=== PATIENT | female | born 1970 | race Caucasian/White ===

== ENCOUNTER 2024-03-27 13:31 | Emergency (ER) | payer OTHER, SELFPAY ==
--- OUTSIDE RECORDS SUMMARY | 2024-03-27 13:36 | XMS REPORT | Continuity of Care Document ---
Author Name Unknown Address [address] [facility] [address] [place] [address] [facility] Address [address] [facility] [address] [place] [address] Care Team Providers Care Material Processor Name Role Phone Pcp, Patient Does Not Have A Primary Care Physic carly FLORA WARNER Attending Clinician Unavailable SHAYY FIGUEROA Attending Clinician Unavailable ANA URBINA Attending Clinician Unavailable BRUNA HANSEN Attending Clinician Unavailable LAB90 Attending Clinician Unavailable Milind Starr MD Attending Clinician [phone] MILIND STARR Attending Clinician Unavailable Doctor Unassigned, Opal Attending Clinician U ykmailIrma Garland Attending Clinician [phone] IRMA CASTILLO Attending Clinician UnavailSoco Cabello LVN Attending Clinician [phone] Manoj Jhaveri MD Attending Clinician [phone] Yasmani Barragan Attending Clinician [phone] MANOJ JHAVERI Admitting Clinician Unavailable Manoj Jhaveri MD Admitting Clinician [phone] Payers Payer Name Policy Type Policy Number Effective Date Expirati on Date Source [employer]: HMO [employer] 94 ON STAND 9 [id number] 2022 00:00:00 Problems Condition Name Condition Details Condition Category Status Onset Date Resolution Date Last Treatment Date Treating Clinician Comments Source Immunodefi 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 (multi HCC) Immunodefi 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 (multi HCC) Disease Active 07-16 00:00: 00 Marie Martinezold - Externa l Class 1 obesity due to excess calories with serious comorbidit y and body mass index (BMI) of 32.0 to 32.9 in adult Class 1 obesity due to excess calories with serious comorbidit y and body mass index (BMI) of 32.0 to 32.9 in adult Disease Active 06-28 00:00: 00 Marie Sebharatold - Externa l Well adult exam Well adult exam Disease Active 06-28 00:00: 00 Marie Seybold - Externa l Overweight (BMI 25.0-29.9) Overweight (BMI 25.0-29.9) Disease Active 06-28 00:00: 00 Marie Sebharatold - Externa l Family history of colon cancer in mother Family history of colon cancer in mother Disease Active 06-28 00:00: 00 Marie Sebharatold - Externa l Fatty liver Fatty liver Disease Active 06-27 00:00: 00 Overview: Formattin g of this note might be different from the original. confirmed with CT 2018 Marie Martinezold - Externa l Anxiety Anxiety Disease Active 05-24 00:00: 00 Marie Martinezold - Externa l Back pain Back pain Disease Active 05-24 00:00: 00 Marie Otto - Externa l Depression Depression Disease Active 05-24 00:00: 00 Marie Seybold - Externa l History of herniated interverte bral disc History of herniated interverte bral disc Disease Active 05-24 00:00: 00 Marie Sebharatold - Externa l Hypertensi on Hypertensi on Disease Active 05-24 00:00: 00 Marie Seybold - Externa l Insomnia Insomnia Disease Active 05-24 00:00: 00 Marie Seybold - Externa l DM (diabetes mellitus) (multi HCC) DM (diabetes mellitus) (multi HCC) Disease Active 05-24 00:00: 00 Marie Otto - Externa l Low back pain with sciatica, sciatica laterality unspecifie d, unspecifie d back pain laterality , unspecifie d chronicity Low back pain with sciatica, sciatica laterality unspecifie d, unspecifie d back pain laterality , unspecifie d chronicity Disease Active 7-15 00:00: 00 [facility] History of back surgery History of back surgery Disease Active 1- 00:00: 00 Overview: Formattin g of this note might be different from the original. Herniated disc repair. Seen by neurosurg lashonda Butterfield l Fracture of phalanx of left little finger Fracture of phalanx of left little finger Disease Active 06-17 00:00: 00 [facility] Fracture of phalanx of right thumb Fracture of phalanx of right thumb Disease Active 06-17 00:00: 00 [facility] Concussion with brief LOC Concussion with brief LOC Disease Active 06-16 00:00: 00 [facility] Syncope Syncope Disease Active 2016-10 00:00: 00 [facility] Essential hypertensi on Essential hypertensi on Disease Active 4- 00:00: 00 [facility] Chronic lower back pain Chronic lower back pain Disease Active [facility] Allergies, Adverse Reactions, Alerts Allergy Name Allergy Type Status Severity Reaction(s) Onset Date Inactive Date Treating Clinician Comments Source NO KNOWN ALLERGIE S Drug Class Active [facility] Social History Social Habit Start Date Stop Date Quantity Comments Source Gender identity Rivka Otto - External Sexual orientation K juan francisco Otto - External History of tobacco use Cigarette Smoker Marie hurd - External Alcohol intake 2023-10-18 00:00:00 2023-10-18 00:00:00 Current drinker of alcohol (finding) Marie Otto - External History of Social function 2023-07-23 00:00:00 2023-07-23 00:00:00 Marie Otto - External Tobacco use and exposure 2023-05-23 00:00:00 2023-05-23 00:00:00 Smokeless tobacco non-user Marie Otto - Oleg Alcohol Comment 2023-05-23 00:00:00 2023-05-23 00:00:00 socially Marie Clarita - External Education 2023-05-12 00:00:00 2023-05-12 00:00:00 [facility] Sex Assigned At 1970 00:00:00 1970 00:00:00 Marie lAvesbharatvickey - External Smoking Status Start Date Stop Date Source Ex-smoker 2023-05-23 00:00:00 2023-05-23 00:00:00 Regan Otto - External Medications Ordered Medication Name Filled Medication Name Start Date Stop Date Current Medication? Ordering Clinician Indication Dosage Frequency Signature (SIG) Comments Components Source Sertraline HCl 50 MG oral Tablet 2022-10 00:00: 00 Yes [id number] 50mg Take 1 tablet (50 mg total) by mouth daily. Marie stanford Trulicity 1.5 MG/0.5ML subcutaneou s Solution Pen-injecto r 2022-10 00:00: 00 Yes [id number] 1.5mg Inject 1.5 mg into the skin once a week. Marie stanford Pregabalin (Lyrica) 75 MG oral Capsule 2022-10 00:00: 00 Yes [id number] Take one cap after breakfast & 2 caps at bedtime. No driving. No alcohol. No operating machinery. . Marie stanford Mirtazapine 15 MG oral Tablet 2022-10 00:00: 00 Yes [id number] 15mg QD Take 1 tablet (15 mg total) by mouth nightly as needed. Marie Jordana abdoulaye Pregabalin (Lyrica) 75 MG oral Capsule 2022-10 00:00: 00 Yes [id number] 75mg Take 1 capsule (75 mg total) by mouth 2 times daily No driving. No alcohol. No operating machinery. . Marie Jordana abdoulaye Mirtazapine 15 MG oral Tablet 07-18 00:00: 00 Yes [id number] 15mg QD TAKE 1 TABLET BY MOUTH NIGHTLY NEEDED FOR INSOMNIA Marie stanford Trulicity 0.75 MG/0.5ML subcutaneou s Solution Pen-injecto r 9-14 00:00: 00 Yes [id number] .75mg Inject 0.75 mg into the skin once a week. Marie stanford Pioglitazon e HCl (Actos) 30 MG oral Tablet 06-28 00:00: 00 Yes [id number] 30mg Take 1 tablet (30 mg total) by mouth daily. Marie stanford Methocarbam ol 500 MG oral Tablet 06-23 00:00: 00 Yes [id number] 1000mg Take 2 tablets (1,000 mg total) by mouth 4 times daily. Marie stanford Gabapentin 600 MG oral Tablet 06-23 00:00: 00 08-07 00:00 :00 No [id number] 600mg Take 1 tablet (600 mg total) by mouth 3 times daily. Marie stanford Pioglitazon e HCl (Actos) 15 MG oral Tablet 06-09 00:00: 00 06-28 00:00 :00 No [id number] 15mg Take 1 tablet (15 mg total) by mouth daily Marie stanford cephALEXin (KEFLEX) 500 mg capsule 05-30 00:00: 00 Yes [id number] 500mg Take 1 capsule by mouth 4 (four) times daily. [facility] Metformin HCl 500 MG oral Tablet 05-29 00:00: 00 Yes [id number] 1000mg Take 2 tablets (1,000 mg total) by mouth in the morning and 2 tablets (1,000 mg total) in the evening. Take with meals. Marie stanford Omeprazole 20 MG oral Delayed Release Capsule 05-24 11:58: 13 05-24 00:00 :00 No 20mg Take 1 capsule (20 mg total) by mouth daily Marie stanford Valsartan 40 MG oral Tablet 05-24 11:57: 38 05-24 00:00 :00 No 40mg Take 1 tablet (40 mg total) by mouth daily Marie stanford Metformin HCl 500 MG oral Tablet 05-24 11:57: 38 05-24 00:00 :00 No 500mg Take 1 tablet (500 mg total) by mouth in the morning and 1 tablet (500 mg total) in the evening. Take with meals. Marie stanford Sertraline HCl 25 MG oral Tablet 05-24 11:56: 48 05-24 00:00 :00 No 25mg Take 1 tablet (25 mg total) by mouth daily Marie stanford Ketorolac Tromethamin e 10 MG oral Tablet 05-24 11:56: 48 05-24 00:00 :00 No 10mg Q.25D Take 1 tablet (10 mg total) by mouth every 6 hours as needed for pain Marie stanford INSULIN ISOPHANE & REG MIX, HUMAN, (70-30) 100 UNIT/ML subcutaneou s Suspension 05-24 11:46: 57 05-24 00:00 :00 No Inject into the skin Marie stanford Zolpidem Tartrate (AMBIEN OR) 05-24 11:45: 51 05-24 00:00 :00 No Take by mouth Marie stanford HYDROcodone -Acetaminop hen (NORCO) 5-325 MG oral Tablet 05-24 11:45: 29 05-24 00:00 :00 No 1{tbl} Q4H Take 1 tablet by mouth every 4 hours as needed for pain 7 to 10 Marie stanford diazePAM 5 MG oral Tablet 05-24 11:44: 05 05-24 00:00 :00 No 2.5mg Q.[id number] 3D Take 0.5 tablets (2.5 mg total) by mouth every 8 hours as needed Marie stanford Sertraline HCl 25 MG oral Tablet 05-24 00:00: 00 Yes [id number] 25mg Take 1 tablet (25 mg total) by mouth daily Marie stanford Valsartan 40 MG oral Tablet 05-24 00:00: 00 Yes [id number] 40mg Take 1 tablet (40 mg total) by mouth daily Marie stanford Omeprazole 20 MG oral Delayed Release Capsule 05-24 00:00: 00 Yes [id number] 20mg Take 1 capsule (20 mg total) by mouth daily Marie stanford Glucose Blood in vitro Strip 05-24 00:00: 00 Yes [id number] 1{each} 1 each by other route daily Check BS twice daily Marie stanford Ketorolac Tromethamin e 10 MG oral Tablet 05-24 00:00: 00 Yes [id number] 10mg QD Take 1 tablet (10 mg total) by mouth daily as needed for pain Marie stanford Metformin HCl 500 MG oral Tablet 05-24 00:00: 00 Yes [id number] 500mg Take 1 tablet (500 mg total) by mouth in the morning and 1 tablet (500 mg total) in the evening. Take with meals. Marie stanford Mirtazapine 15 MG oral Tablet 05-24 00:00: 00 Yes [id number] 15mg QD Take 1 tablet (15 mg total) by mouth nightly as needed (insomnia) Marie stanford Glucose Blood in vitro Strip 05-24 00:00: 00 Yes [id number] 1{each} 1 each by other route daily Check BS twice daily Marie stanford Gabapentin 600 MG oral Tablet 05-23 14:36: 22 Yes 600mg Take 1 tablet (600 mg total) by mouth 3 times daily Marie stanford Methocarbam ol 500 MG oral Tablet 05-23 14:35: 56 Yes 1000mg Take 2 tablets (1,000 mg total) by mouth 4 times daily Marie stanford SERTraline 25 mg tablet 05-19 00:00: 00 06-19 04:59 :00 No [id number] 25mg Take 1 tablet by mouth in the morning for 30 days. [facility] omeprazole 20 mg capsule 05-19 00:00: 00 06-19 04:59 :00 No [id number] 20mg Take 1 capsule by mouth in the morning for 30 days. [facility] valsartan 40 mg tablet 05-19 00:00: 00 06-19 04:59 :00 No [id number] 40mg Take 1 tablet by mouth in the morning for 30 days. [facility] Methylpredn isolone (MEDROL) tablet 4 mg 05-18 22:19: 26 05-19 22:29 :00 No 4mg 4 mg, Oral, Q8H TAPER, 3 doses, First dose on Mon05/18/23 at 1730, Last dose on Mon05/19/23 at 0930, Routine [facility] insulin NPH and regular human 70-30 (70-30 U-100 INSULIN) 100 unit/mL (70-30) injection 20 Units 05-18 21:30: 00 Yes 20U 20 Units, Subcutaneo us, BIDAC, First dose (after last modificati on) on Mon05/18/23 at 1630, Until Discontinu ed, Routine [facility] metFORMIN 1,000 mg tablet 05-18 18:04: 28 Yes 1000mg Take 1 tablet by mouth in the morning and 1 tablet in the evening. Take with meals. [facility] lancets (SAFETY LANCETS) 21 gauge Misc 05-18 00:00: 00 Yes [id number] Use as directed [facility] insulin syringe-nee dle U-100 1/2 ml (INSULIN SYRINGE) 1/2 mL 28 gauge x 1/2" Syrg 05-18 00:00: 00 Yes [id number] Use as directed [facility] Blood-Gluco se Meter (FREESTYLE LITE METER) Kit 05-18 00:00: 00 Yes Use as directed [facility] blood sugar diagnostic (FREESTYLE LITE STRIPS) strip 05-18 00:00: 00 Yes [id number] Use as directed [facility] Insulin Bromide, Disposable, (BD ULTRAFINE III MINI PEN) 31 gauge x 3/16" Ndle 05-18 00:00: 00 09-01 04:59 :00 No [id number] Use as directed [facility] gabapentin 600 mg tablet 05-18 00:00: 00 06-18 04:59 :00 No [id number] 600mg Take 1 tablet by mouth in the morning and 1 tablet at noon and 1 tablet in the evening. Do all this for 30 days. [facility] methocarbam oL 1,000 mg Tab 05-18 00:00: 00 06-18 04:59 :00 No [id number] 1000mg Take 1,000 mg by mouth 4 (four) times daily for 30 days. [facility] docusate 100 mg capsule 05-18 00:00: 00 06-02 04:59 :00 No [id number] 100mg Take 1 capsule by mouth in the morning for 14 days. Indication s: opiate pain medication causing severe constipati on [facility] diazePAM 5 mg tablet 05-18 00:00: 00 05-26 04:59 :00 No [id number] 2.5mg Take 0.5 tablets by mouth 3 (three) times daily as needed for Agitation, Anxiety or Muscle Spasms for up to 7 days. [facility] zolpidem 10 mg tablet 05-18 00:00: 00 05-26 04:59 :00 No [id number] 10mg Take 1 tablet by mouth at bedtime as needed for Insomnia for up to 7 days. [facility] HYDROcodone -acetaminop hen 5-325 mg tablet 05-18 00:00: 00 05-26 04:59 :00 No [id number] 1{tbl} Take 1 tablet by mouth every 4 (four) hours as needed for Pain (scale 4-6) or Pain (scale 7-10) for up to 7 days. Indication s: acute pain [facility] ketorolac 10 mg tablet 05-18 00:00: 00 05-24 04:59 :00 No [id number] 10mg Take 1 tablet by mouth every 6 (six) hours as needed for Pain (scale 4-6) for up to 5 days. [facility] Methylpredn isolone 4 mg tablet 05-18 00:00: 00 05-20 04:59 :00 No [id number] 4mg Take 1 tablet by mouth every 8 (eight) hours for 3 doses. [facility] Insulin NPH-Regular Human Rec (NOVOLIN 70-30 FLEXPEN U-100) 100 unit/mL (70-30) injection 05-18 00:00: 00 05-18 00:00 :00 No [id number] 20U inject 20 Units under the skin 2 (two) times daily before breakfast and dinner for 90 days. [facility] insulin NPH and regular human 70-30 100 unit/mL (70-30) injection 05-18 00:00: 00 05-18 00:00 :00 No [id number] 20U inject 20 Units under the skin 2 (two) times daily before breakfast and dinner for 30 days. [facility] Insulin NPH-Regular Human Rec (NOVOLIN 70-30 FLEXPEN U-100) 100 unit/mL (70-30) injection 05-18 00:00: 00 05-18 00:00 :00 No [id number] 15U inject 15 Units under the skin 2 (two) times daily before breakfast and dinner. [facility] cephALEXin (KEFLEX) capsule 500 mg 05-17 21:00: 00 05-18 01:32 :00 No 500mg 500 mg, Oral, QID, 2 doses, First dose (after last modificati on) on Mon05/17/23 at 1600, Last dose on Mon05/17/23 at 2000, EUN
Re ason for Anti-Infec tive: Documented Infection< br>Documen thang Infection Site: Urine
D uration of Therapy: 7 days [facility] Methylpredn isolone (MEDROL) tablet 4 mg 05-17 20:19: 26 05-18 20:29 :00 No 4mg [Order 1 Start] Name: Methylpred nisolone (MEDROL) tablet 4 mg Signed Summary: 4 mg, Oral, Q6H TAPER, 4 doses, First dose on Mon05/17/23 at 1530, Last dose on Mon05/18/23 at 0930, Routine [Order 1 End] [Order 2 Start] Name: Methylpred nisolone (MEDROL) tablet 4 mg Signed Summary: 4 mg, Oral, Q8H TAPER, 3 doses, First dose on Mon05/18/23 at 1730, Last dose on Mon05/19/23 at 0930, Routine [Order 2 End] [facility] gabapentin (NEURONTIN) tablet 600 mg 05-17 19:00: 00 Yes 600mg 600 mg, Oral, TID, First dose (after last modificati on) on Mon05/17/23 at 1400, Until Discontinu ed, Routine [facility] methocarbam oL (ROBAXIN) tablet 1,000 mg 05-17 17:00: 00 Yes 1000mg 1,000 mg, Oral, QID, First dose (after last modificati on) on Mon05/17/23 at 1200, Until Discontinu ed, Routine [facility] Lidocaine (LIDOCARE) 4 % patch 1 Patch 05-17 16:30: 00 05-18 06:12 :00 No 1{patch } 1 Patch, Topical, Administer over 12 Hours, ONCE, 1 dose, On Mon05/17/23 at 1130, Routine [facility] omeprazole (PRILOSEC) capsule 20 mg 05-17 14:00: 00 Yes 20mg 20 mg, Oral, DAILY, First dose (after last modificati on) on Mon05/17/23 at 0900, Until Discontinu ed, Routine [facility] enoxaparin (LOVENOX) injection 40 mg 05-17 13:45: 00 Yes 40mg 40 mg, Subcutaneo us, Q24H, First dose on Mon05/17/23 at 0845, Until Discontinu ed, [facility]ine [facility] cephALEXin (KEFLEX) capsule 500 mg 05-17 13:00: 00 05-17 19:52 :41 No 500mg 500 mg, Oral, QID, 16 doses, First dose on Mon05/17/23 at 0800, Last dose on Mon05/20/23 at 2000, EUN
Re ason for Anti-Infec tive: Documented Infection< br>Documen thang Infection Site: Urine
D uration of Therapy: 7 days [facility] insulin NPH and regular human 70-30 (70-30 U-100 INSULIN) 100 unit/mL (70-30) injection 15 Units 05-17 12:30: 00 05-18 13:28 :42 No 15U 15 Units, Subcutaneo us, BIDAC, First dose (after last modificati on) on Mon05/17/23 at 0730, Until Discontinu ed, Routine [facility] ketorolac (TORADOL) injection 30 mg 05-17 00:30: 00 05-18 18:59 :00 No 30mg 30 mg, Slow IV Push, Q8H, 6 doses, First dose on Mon05/16/23 at 1930, Last dose on Mon05/18/23 at 0600, Routine [facility] methocarbam oL (ROBAXIN) tablet 750 mg 05-16 21:00: 00 05-17 15:33 :18 No 750mg 750 mg, Oral, QID, First dose on Mon05/16/23 at 1600, Until Discontinu ed, Routine [facility] lactated ringers IV infusion 1,000 mL 05-16 18:30: 00 Yes 1000mL at 42 mL/hr, 1,000 mL, IV Infusion, CONTINUOUS , Starting on Mon05/16/23 at 1330, Until Discontinu ed, Routine, PACU [facility] oxyCODONE immediate release tablet 10 mg 05-16 17:51: 52 Yes 10mg 10 mg, Oral, Q4HPRN, Starting on Mon05/16/23 at 1251, Until Discontinu ed, Routine, Pain (scale 4-6)
[facility] : SNSNSUR[facility] methylPREDN ISolone acetate (DEPO-MEDRO L) injection 05-16 17:29: 00 Yes PRN, Starting on Mon05/16/23 at 1229, Until Discontinu ed, Routine, Intra-op [facility] BUPivacaine liposome (PF) (EXPAREL (PF)) 1.3 % (13.3 mg/mL) injection 05-16 17:29: 00 Yes PRN, Starting on Mon05/16/23 at 1229, Until Discontinu ed, Routine, Intra-op [facility] vancomycin (VANCOCIN) injection 05-16 17:22: 00 Yes PRN, Starting on Mon05/16/23 at 1222, Until Discontinu ed, EUN, Intra-op [facility] thrombin (recombinan t) (RECOTHROM) topical solution 05-16 17:21: 00 Yes PRN, Starting on Mon05/16/23 at 1221, Until Discontinu ed, Routine, Intra-op [facility] gabapentin (NEURONTIN) capsule 300 mg 05-16 01:00: 00 05-17 15:34 :42 No 300mg 300 mg, Oral, TID, First dose on Mon05/15/23 at 2000, Until Discontinu ed, Routine [facility] acetaminoph en (TYLENOL) tablet 1,000 mg 05-15 23:00: 00 Yes 1000mg 1,000 mg, Oral, Q6H, First dose (after last modificati on) on Mon05/15/23 at 1800, Until Discontinu ed, Routine [facility] enoxaparin (LOVENOX) injection 40 mg 05-15 21:00: 00 05-15 21:41 :00 No 40mg 40 mg, Subcutaneo us, ONCE, 1 dose, On Mon05/15/23 at 1600, Routine [facility] KCL 20 mEq/15 mL solution 40 mEq 05-15 14:15: 00 05-15 15:21 :00 No 40meq 40 mEq, Oral, ONCE, 1 dose, On Mon05/15/23 at 0915, Routine [facility] valsartan (DIOVAN) tablet 40 mg 05-15 14:00: 00 Yes 40mg 40 mg, Oral, DAILY, First dose (after last modificati on) on Mon05/15/23 at 0900, Until Discontinu ed, Routine [facility] Sliding Scale Insulin-Reg ular 05-14 21:30: 00 Yes Subcutaneo us, AC+HS, First dose (after last modificati on) on Mon05/14/23 at 1630, Until Discontinu ed, Routine [facility] insulin NPH and regular human 70-30 (70-30 U-100 INSULIN) 100 unit/mL (70-30) injection 10 Units 05-14 21:30: 00 05-17 01:00 :40 No 10U 10 Units, Subcutaneo us, BIDAC, First dose on Mon05/14/23 at 1630, Until Discontinu ed, Routine [facility] cefTRIAXone (ROCEPHIN) 1,000 mg in NaCl 0.9% (NS) 100 mL MINI-BAG 05-14 20:15: 00 05-17 01:05 :29 No 1000mg 1,000 mg, IV Piggyback, Q24H ABX, 7 doses, First dose on Mon05/14/23 at 1515, Last dose on Mon05/20/23 at 1515, Administer over 30 Minutes, 100 mL
Reas on for Anti-Infec tive: Documented Infection< br>Documen thang Infection Site: Urine
D uration of Therapy: 7 days [facility] sennosides (SENOKOT) tablet 8.6 mg 05-14 16:30: 00 Yes 8.6mg 8.6 mg, Oral, BID, First dose on Mon05/14/23 at 1130, Until Discontinu ed, Routine [facility] valsartan (DIOVAN) tablet 40 mg 05-14 01:00: 00 05-14 15:48 :36 No 40mg 40 mg, Oral, BID, First dose on 05/13/23 at 2000, Until Discontinu ed, Routine [facility] gadobenate dimeglumine (MULTIHANCE -20 mL) injection 15.88 mL 05-13 21:45: 00 05-13 21:45 :00 No [id number] .2mL/kg 15.88 mL (0.2 mL/kg ?79.4 kg), Intravenou s, ONCE, 1 dose, On 05/13/23 at 1645, Routine [facility] Sliding Scale Insulin-Reg ular 05-13 19:00: 00 05-14 17:32 :58 No Subcutaneo us, Q6HA, First dose on 05/13/23 at 1400, Until Discontinu ed, Routine [facility] enoxaparin (LOVENOX) injection 40 mg 05-13 17:15: 00 05-14 22:12 :36 No 40mg 40 mg, Subcutaneo us, Q24H, First dose on 05/13/23 at 1215, Until Discontinu ed, Routine [facility] diazePAM (VALIUM) tablet 2.5 mg 05-13 15:24: 53 Yes 2.5mg 2.5 mg, Oral, TIDPRN, Starting on 05/13/23 at 1024, Until Discontinu ed, Routine, Agitation, Anxiety, Muscle Spasms [facility] glucagon (GLUCAGEN DIAGNOSTIC KIT) injection 1 mg 05-13 14:18: 59 Yes 1mg 1 mg, Intramuscu lar, PRN, Starting on 05/13/23 at 0918, Until Discontinu ed, EUN, Blood Glucose < or = 70 mg/dL and patient is NPO, unable to swallow or has mental changes. [facility] dextrose 50 % in water (D50W) injection 25 mL 05-13 14:18: 59 Yes 25mL 25 mL, Slow IV Push, PRN, Starting on 05/13/23 at 0918, Until Discontinu ed, EUN, Blood Glucose < or = 70 mg/dL and patient is NPO, unable to swallow or has mental status changes. [facility] SERTraline (ZOLOFT) tablet 25 mg 05-13 14:00: 00 Yes 25mg 25 mg, Oral, DAILY, First dose on 05/13/23 at 0900, Until Discontinu ed, Routine [facility] docusate (COLACE) capsule 100 mg 05-13 14:00: 00 Yes 100mg 100 mg, Oral, DAILY, First dose on 05/13/23 at 0900, Until Discontinu ed, Routine [facility] omeprazole (PRILOSEC) capsule 20 mg 05-13 14:00: 00 05-16 17:57 :12 No 20mg 20 mg, Oral, DAILY, First dose on 05/13/23 at 0900, Until Discontinu ed, Routine [facility] lisinopriL (PRINIVIL,Z ESTRIL) tablet 10 mg 05-13 12:45: 00 05-13 19:35 :37 No 10mg 10 mg, Oral, DAILY, First dose on 05/13/23 at 0745, Until Discontinu ed, Routine [facility] acetaminoph en (TYLENOL) tablet 650 mg 05-13 11:00: 00 05-15 20:10 :17 No 650mg 650 mg, Oral, Q6H, First dose on 05/13/23 at 0600, Until Discontinu ed, Routine [facility] alum-mag hydroxide-s imeth (MAALOX PLUS / MAG-AL PLUS) 200-200-20 mg/5 mL suspension 30 mL 05-13 07:30: 00 05-13 12:23 :00 No 30mL 30 mL, Oral, ONCE, 1 dose, On 05/13/23 at 0230, Routine [facility] zolpidem (AMBIEN) tablet 10 mg 05-13 06:14: 02 Yes 10mg 10 mg, Oral, QHSPRN, Starting on 05/13/23 at 0114, Until Discontinu ed, Routine, Insomnia [facility] hydralAZINE (APRESOLINE ) injection 10 mg 05-13 05:53: 04 Yes 10mg 10 mg, Slow IV Push, Q4HPRN, Starting on 05/13/23 at 0053, Until Discontinu ed, Routine, SBP<140 [facility] glucagon (GLUCAGEN DIAGNOSTIC KIT) injection 1 mg 05-13 05:23: 57 Yes 1mg 1 mg, Intramuscu lar, PRN, Starting on 05/13/23 at 0023, Until Discontinu ed, EUN, Blood Glucose < or = 70 mg/dL and patient is NPO, unable to swallow or has mental changes. [facility] dextrose 50 % in water (D50W) injection 25 mL 05-13 05:23: 57 Yes 25mL 25 mL, Slow IV Push, PRN, Starting on 05/13/23 at 0023, Until Discontinu ed, EUN, Blood Glucose < or = 70 mg/dL and patient is NPO, unable to swallow or has mental status changes. [facility] polyethylen e glycol 3350 powder 17 g 05-13 05:17: 34 Yes 17g 17 g, Oral, PRN - SEE INSTRUCTIO NS, Starting on 05/13/23 at 0017, Until Discontinu ed, Routine, Constipati on [facility] ondansetron (ZOFRAN (PF)) injection 4 mg 05-13 05:17: 34 Yes 4mg 4 mg, Slow IV Push, Q6HPRN, Starting on 05/13/23 at 0017, Until Discontinu ed, Routine, Nausea and Vomiting (N/V) [facility] morpHINE (2 mg/mL) injection 4 mg 05-13 05:17: 34 Yes 4mg 4 mg, Slow IV Push, Q3HPRN, Starting on 05/13/23 at 0017, Until Discontinu ed, Routine, Pain (scale 7-10) [facility] oxyCODONE immediate release tablet 5 mg 05-13 05:17: 33 05-16 17:57 :12 No 5mg 5 mg, Oral, Q4HPRN, Starting on Mon05/13/23 at 0017, Until Mon05/16/23 at 1257, Routine, Pain (scale 4-6)
Fa culty member approving Restricted medication : SNSNSURG [facility] HYDROcodone -acetaminop hen (NORCO 5) 5-325 mg tablet 1 tablet 05-13 03:15: 00 05-13 02:23 :00 No 1{tbl} 1 tablet, Oral, ONCE, 1 dose, On Mon05/12/23 at 2215, Routine [facility] cefTRIAXone (ROCEPHIN) 1,000 mg in NaCl 0.9% (NS) 100 mL MINI-BAG 05-13 02:00: 00 05-13 02:25 :00 No 1000mg 1,000 mg, IV Piggyback, ONCE, 1 dose, On Mon05/12/23 at 2100, Administer over 30 Minutes, 100 mL
Reas on for Anti-Infec tive: Documented Infection< br>Documen thang Infection Site: Urine
D uration of Therapy: 7 days [facility] ketorolac (TORADOL) injection 30 mg 05-13 01:30: 00 05-13 00:36 :00 No 30mg 30 mg, Slow IV Push, ONCE, 1 dose, On Mon05/12/23 at 2030, Routine [facility] methocarbam oL (ROBAXIN) tablet 1,500 mg 05-13 00:30: 00 05-13 00:36 :00 No 1500mg 1,500 mg, Oral, ONCE, 1 dose, On Mon05/12/23 at 1930, EUN [facility] dexamethaso ne sod phos PF injection 10 mg 05-13 00:30: 00 05-13 00:36 :00 No 10mg 10 mg, Slow IV Push, ONCE, 1 dose, On Mon05/12/23 at 1930, 1 mL [facility] metFORMIN 1,000 mg tablet 05-13 00:28: 58 Yes 1000mg Take 1 tablet by mouth in the morning and 1 tablet in the evening. Take with meals. [facility] HYDROcodone -acetaminop hen 5-325 mg tablet 06-17 00:00: 00 05-18 00:00 :00 No [id number] 1{tbl} Take 1 tablet by mouth every 6 (six) hours as needed for Pain (scale 7-10) (For breakthrou gh pain. Take with stool softener). [facility] ASPIRIN 81 mg chewable tablet 05-07 00:00: 00 Yes TAKE 1 TABLET BY MOUTH EVERY DAY [facility] LISINOPRIL 10 mg tablet 2016-10 0 00:00: 00 Yes [id number] TAKE 1 TABLET EVERY DAY [facility] Immunizations Ordered Immunization Name Filled Immunization Name Date Status Comments Source Pneumococcal Vaccine, Conjugate 20 2023-05-22 00:00:00 Completed Marie Martinezold - External Shingles IM (Shingrix) 2023-05-22 00:00:00 Completed Marie Otto - External Pneumococcal Vaccine, Conjugate 20 2023-05-22 00:00:00 Completed Marie Otto - External Shingles IM (Shingrix) 2023-05-22 00:00:00 Completed Marie Otto - External Influenza Virus Vaccine, Quad, Egg Free 2022-09-29 00:00:00 Completed Marie Otto - External Influenza Virus Vaccine, Quad, Egg Free 2022-09-29 00:00:00 Completed Marie Otto - External Covid-19 Vaccine (Pureshield), Mrna-lnp, Sean Protein, Pf, 30mcg/0.3ml,IM 2022-09-28 00:00:00 Completed Marie Otto - External Covid-19 Vaccine (GamePix) 2021-02-08 00:00:00 Completed Marie Otto - External Influenza Virus Vaccine, Quad, Egg Free Unknown Completed Marie Otto - External Pneumococcal Vaccine, Conjugate 20 Unknown Completed Marie Otto - External Shingles IM (Shingrix) Unknown Completed Marie Seybold - External Covid-19 Vaccine (Guillaume) Unknown Completed Marie Seybold - External Covid-19 Vaccine (Pfizer), Mrna-lnp, Sean Protein, Pf, 30mcg/0.3ml,IM Unknown Completed Marie Martinezol d - External Influenza Virus Vaccine, Quad, Egg Free Unknown Completed Marie Alvesybold - External Pneumococcal Vaccine, Conjugate 20 Unknown Completed Marie Alvesybold - External Shingles IM (Shingrix) Unknown Completed Marie Alvesybold - External Covid-19 Vaccine (Guillaume) Unknown Completed Marie Seybold - External Covid-19 Vaccine (Pfizer), Mrna-lnp, Sean Protein, Pf, 30mcg/0.3ml,IM Unknown Completed Marie Alvesybol d - External Influenza, Injectable, Mdck, Quadrivalent With Preservative Unknown Completed Marie Alvesybold - External Influenza Virus Vaccine, Quad, Egg Free Unknown Completed Marie Alvesybold - External Pneumococcal Vaccine, Conjugate 20 Unknown Completed Marie Martinezold - External Shingles IM (Shingrix) Unknown Completed Marie Alvesybold - External Covid-19 Vaccine (Guillaume) Unknown Completed Marie Alvesybold - External Covid-19 Vaccine (Pfizer), Mrna-lnp, Sean Protein, Pf, 30mcg/0.3ml,IM Unknown Completed Marie Martinezol d - External Influenza, Injectable, Mdck, Quadrivalent With Preservative Unknown Completed Marie Otto - External Vital Signs Vital Name Observation Time Observation Value Comments S ource Body weight 2023-10-18 20:28:00 94.348 kg Rivka cedeno Seybold - External BMI 2023-10-18 20:28:00 33.57 kg/m2 Rivka ey Seybold - External Systolic blood pressure 2023-09-28 19:29:00 121 mm[Hg] Marie Renee ld - External Diastolic blood pressure 2023-09-28 19:29:00 75 mm[Hg] Marie Martinezo ld - External Heart rate 2023-09-28 19:29:00 108 /min Yamini whiteside Seybold - External Respiratory rate 2023-09-28 19:29:00 20 /min Marie ybold - External Body height 2023-09-28 19:29:00 167.6 cm Rivka ey Seybold - External Body weight 2023-09-28 19:29:00 91.173 kg Rivka ey Seybold - External BMI 2023-09-28 19:29:00 32.44 kg/m2 Rivka ey Seybold - External Oxygen saturation in Arterial blood by Pulse oximetry 2023-09-28 19:29:00 99 /min Marie Seybo ld - External Body height 2023-08-07 19:37:00 167.6 cm Rivka ey Seybold - External Body weight 2023-08-07 19:37:00 81.647 kg Rivka ey Seybold - External BMI 2023-08-07 19:37:00 29.05 kg/m2 Rivka ey Seybold - External Systolic blood pressure 2023-06-28 19:06:00 121 mm[Hg] Marie Seybo ld - External Diastolic blood pressure 2023-06-28 19:06:00 83 mm[Hg] Marie Seybo ld - External Heart rate 2023-06-28 19:06:00 102 /min Kel y Seybold - External Body temperature 2023-06-28 19:06:00 36.56 Tyesha Marie Seybold - External Respiratory rate 2023-06-28 19:06:00 15 /min Marie Seybold - External Body height 2023-06-28 19:06:00 167.6 cm Rivka ey Seybold - External Body weight 2023-06-28 19:06:00 79.833 kg Rivka ey Seybold - External BMI 2023-06-28 19:06:00 28.41 kg/m2 Rivka ey Seybold - External Oxygen saturation in Arterial blood by Pulse oximetry 2023-06-28 19:06:00 99 /min Marie Seybo ld - External Body height 2023-05-30 17:57:00 167.6 cm [facility] Body weight 2023-05-30 17:57:00 86.183 kg [facility] BMI 2023-05-30 17:57:00 30.67 kg/m2 [facility] Systolic blood pressure 2023-05-24 16:28:00 122 mm[Hg] Marie Seybo ld - External Diastolic blood pressure 2023-05-24 16:28:00 73 mm[Hg] Marie Martinezo ld - External Heart rate 2023-05-24 16:28:00 85 /min Yamini Otto - External Body temperature 2023-05-24 16:28:00 36.61 Tyesha Marie Otto - External Respiratory rate 2023-05-24 16:28:00 16 /min Marie Otto - External Body height 2023-05-24 16:28:00 167.6 cm Rivka cedeno Seybvickey - External Body weight 2023-05-24 16:28:00 79.379 kg Rivka cedeno Seybold - External BMI 2023-05-24 16:28:00 28.25 kg/m2 Rivka Otto - External Oxygen saturation in Arterial blood by Pulse oximetry 2023-05-24 16:28:00 97 /min Marie Renee ld - External Systolic blood pressure 2023-05-18 16:46:00 167 mm[Hg] [facility] Diastolic blood pressure 2023-05-18 16:46:00 88 mm[Hg] [facility] Heart rate 2023-05-18 16:46:00 63 /min [facility] Body temperature 2023-05-18 16:46:00 36.33 Tyesha [facility] Respiratory rate 2023-05-18 16:46:00 16 /min [facility] Oxygen saturation in Arterial blood by Pulse oximetry 2023-05-18 16:46:00 99 /min [facility] Body height 2023-05-13 04:59:00 167.6 cm [facility] Body weight 2023-05-13 04:59:00 79.379 kg [facility] BMI 2023-05-13 04:59:00 28.25 kg/m2 [facility] Respiratory rate 2023-05-16 18:21:00 16 /min [facility] Oxygen saturation in Arterial blood by Pulse oximetry 2023-05-16 18:21:00 96 /min [facility] Systolic blood pressure 2023-05-16 18:21:00 104 mm[Hg] [facility] Diastolic blood pressure 2023-05-16 18:21:00 47 mm[Hg] [facility] Body temperature 2023-05-16 18:04:00 36 Tyesha [facility] Heart rate 2023-05-16 12:49:00 62 /min [facility] Body height 2023-05-13 04:59:00 167.6 cm [facility] Body weight 2023-05-13 04:59:00 79.379 kg [facility] BMI 2023-05-13 04:59:00 28.25 kg/m2 [facility] Procedures Procedure Date / Time Performed Performing Clinician Source ASSIGNMENT OF BENEFITS 2023-05-30 17:39:08 Docto r Unassigned, Opal [facility] POCT GLUCOSE (AUTOMATED) 2023-05-18 16:59:00 Manoj Jhaveri [facility] POCT GLUCOSE (AUTOMATED) 2023-05-18 12:49:00 Manoj Jhaveri [facility] EXTRA TUBE LT. GREEN 2023-05-18 10:30:00 Odell Starr [facility] CBC WITH DIFF 2023-05-18 10:26:00 Dada Guillen [facility] BASIC METABOLIC PANEL (NA, K, CL, CO2, GLUCOSE, BUN, CREATININE, CA) 2023-05-18 09:40:00 Dada Guillen [facility] POCT GLUCOSE (AUTOMATED) 2023-05-18 00:45:00 Manoj Jhaveri [facility] POCT GLUCOSE (AUTOMATED) 2023-05-17 21:52:00 Manoj Jhaveri [facility] POCT GLUCOSE (AUTOMATED) 2023-05-17 17:53:00 Manoj Jhaveri [facility] POCT GLUCOSE (AUTOMATED) 2023-05-17 17:53:00 Manoj Jhaveri [facility] POCT GLUCOSE (AUTOMATED) 2023-05-17 12:42:00 Manoj Jhaveri [facility] POCT GLUCOSE (AUTOMATED) 2023-05-17 12:42:00 Manoj Jhaveri [facility] CBC WITH DIFF 2023-05-17 08:28:00 Jose Schreiber [facility] CBC WITH DIFF 2023-05-17 08:28:00 Jose Schreiber [facility] POCT GLUCOSE (AUTOMATED) 2023-05-17 00:51:00 Manoj Jhaveri [facility] POCT GLUCOSE (AUTOMATED) 2023-05-17 00:51:00 Manoj Jhaveri [facility] POCT GLUCOSE (AUTOMATED) 2023-05-16 22:05:00 Manoj Jhaveri [facility] POCT GLUCOSE (AUTOMATED) 2023-05-16 22:05:00 Manoj Jhaveri [facility] POCT GLUCOSE (AUTOMATED) 2023-05-16 19:02:00 Manoj Jhaveri [facility] POCT GLUCOSE (AUTOMATED) 2023-05-16 19:02:00 Manoj Jhaveri [facility] XR LUMBAR SPINE 1 VW 2023-05-16 16:31:00 Mayda Castellanos [facility] XR LUMBAR SPINE 1 VW 2023-05-16 16:31:00 Mayda Castellanos Francia [facility] XR LUMBAR SPINE 1 VW 2023-05-16 16:11:46 Mayda Castellanos [facility] XR LUMBAR SPINE 1 VW 2023-05-16 16:11:46 Mayda Castellanos [facility] DISCECTOMY POSTERIOR LUMBAR 2023-05-16 15:10:00 Milind Starr [facility] DISCECTOMY POSTERIOR LUMBAR 2023-05-16 15:10:00 Milind Starr [facility] POCT GLUCOSE (AUTOMATED) 2023-05-16 12:51:00 Manoj Jhaveri [facility] POCT GLUCOSE (AUTOMATED) 2023-05-16 12:51:00 Manoj Jhaveri [facility] POCT TEST 2023-05-16 10:06:00 Dada Garcia [facility] POCT TEST 2023-05-16 10:06:00 Dada Garcia [facility] BASIC METABOLIC PANEL (NA, K, CL, CO2, GLUCOSE, BUN, CREATININE, CA) 2023-05-16 09:53:00 Wilmer Dada Fajardo [facility] CBC WITH DIFF 2023-05-16 09:53:00 Wilmer Dada Fajardo [facility] PROTHROMBIN TIME / INR 2023-05-16 09:53:00 Kael wheeler Dada Fajardo [facility] ACTIVATED PARTIAL THRMPLAS CHAVEZ 2023-05-16 09:53:00 Wilmer Dada Fajardo [facility] BASIC METABOLIC PANEL (NA, K, CL, CO2, GLUCOSE, BUN, CREATININE, CA) 2023-05-16 09:53:00 Wilmer Dada Fajardo [facility] CBC WITH DIFF 2023-05-16 09:53:00 Wilmer Dada Fajardo [facility] PROTHROMBIN TIME / INR 2023-05-16 09:53:00 Kael wheeler Dada Fajardo [facility] ACTIVATED PARTIAL THRMPLAS CHAVEZ 2023-05-16 09:53:00 Wilmer Dada Fajardo [facility] POCT GLUCOSE (AUTOMATED) 2023-05-16 00:30:00 Manoj Jhaveri [facility] POCT GLUCOSE (AUTOMATED) 2023-05-16 00:30:00 Manoj Jhaveri [facility] POCT GLUCOSE (AUTOMATED) 2023-05-15 21:57:00 Manoj Jhaveri [facility] POCT GLUCOSE (AUTOMATED) 2023-05-15 21:57:00 Manoj Jhaveri [facility] POCT GLUCOSE (AUTOMATED) 2023-05-15 16:29:00 Manoj Jhaveri [facility] POCT GLUCOSE (AUTOMATED) 2023-05-15 16:29:00 Manoj Jhaveri [facility] POCT GLUCOSE (AUTOMATED) 2023-05-15 12:43:00 Manoj Jhaveri [facility] POCT GLUCOSE (AUTOMATED) 2023-05-15 12:43:00 Manoj Jhaveri [facility] BASIC METABOLIC PANEL (NA, K, CL, CO2, GLUCOSE, BUN, CREATININE, CA) 2023-05-15 08:29:00 Schreiber, [facility] CBC WITH DIFF 2023-05-15 08:29:00 Jose Schreiber U [facility] PROTHROMBIN TIME / INR 2023-05-15 08:29:00 Abdoul [facility] ACTIVATED PARTIAL THRMPLAS CHAVEZ 2023-05-15 08:29:00 Abdoul [facility] HB ABO GROUPING 2023-05-15 08:29:00 Abdoul [facility] BASIC METABOLIC PANEL (NA, K, CL, CO2, GLUCOSE, BUN, CREATININE, CA) 2023-05-15 08:29:00 Abdoul [facility] CBC WITH DIFF 2023-05-15 08:29:00 Jose Schreiber [facility] PROTHROMBIN TIME / INR 2023-05-15 08:29:00 Abdoul [facility] ACTIVATED PARTIAL THRMPLAS CHAVEZ 2023-05-15 08:29:00 Abdoul [facility] HB ABO GROUPING 2023-05-15 08:29:00 Abdoul [facility] POCT GLUCOSE (AUTOMATED) 2023-05-15 02:16:00 Manoj Jhaveri [facility] POCT GLUCOSE (AUTOMATED) 2023-05-15 02:16:00 Manoj Jhaveri [facility] POCT GLUCOSE (AUTOMATED) 2023-05-15 01:19:00 Manoj Jhaveri [facility] POCT GLUCOSE (AUTOMATED) 2023-05-15 01:19:00 Manoj Jhaveri [facility] POCT GLUCOSE (AUTOMATED) 2023-05-14 21:16:00 Manoj Jhaveri [facility] POCT GLUCOSE (AUTOMATED) 2023-05-14 21:16:00 Manoj Jhaveri [facility] POCT GLUCOSE (AUTOMATED) 2023-05-14 14:24:00 Manoj Jhaveri [facility] POCT GLUCOSE (AUTOMATED) 2023-05-14 14:24:00 Manoj Jhaveri [facility] PROTHROMBIN TIME / INR 2023-05-14 09:26:00 Jose Schreiber [facility] PROTHROMBIN TIME / INR 2023-05-14 09:26:00 Jose Schreiber [facility] POCT GLUCOSE (AUTOMATED) 2023-05-14 06:54:00 Manoj Jhaveri [facility] POCT GLUCOSE (AUTOMATED) 2023-05-14 06:54:00 Manoj Jhaveri [facility] POCT GLUCOSE (AUTOMATED) 2023-05-14 02:26:00 Manoj Jhaveri [facility] POCT GLUCOSE (AUTOMATED) 2023-05-14 02:26:00 Manoj Jhaveri [facility] POCT GLUCOSE (AUTOMATED) 2023-05-13 23:06:00 Manoj Jhaveri [facility] POCT GLUCOSE (AUTOMATED) 2023-05-13 23:06:00 Manoj Jhaveri [facility] MR LUMBAR SPINE W WO CONTRAST 2023-05-13 21:40:31 Jose Schreiber [facility] MR LUMBAR SPINE W WO CONTRAST 2023-05-13 21:40:31 Jose Schreiber [facility] POCT GLUCOSE (AUTOMATED) 2023-05-13 16:44:00 Manoj Jhaveri [facility] POCT GLUCOSE (AUTOMATED) 2023-05-13 16:44:00 Manoj Jhaveri [facility] POCT GLUCOSE (AUTOMATED) 2023-05-13 14:12:00 Manoj Jhaveri [facility] POCT GLUCOSE (AUTOMATED) 2023-05-13 14:12:00 Manoj Jhaveri [facility] BASIC METABOLIC PANEL (NA, K, CL, CO2, GLUCOSE, BUN, CREATININE, CA) 2023-05-13 10:06:00 Jose Schreiber [facility] CBC WITH DIFF 2023-05-13 10:06:00 Jose Schreiber U [facility] GLYCOSYLATED HEMOGLOBIN (A1C) 2023-05-13 10:06:00 Mayda Vargas [facility] PROTHROMBIN TIME / INR 2023-05-13 10:06:00 Jose Schreiber [facility] BASIC METABOLIC PANEL (NA, K, CL, CO2, GLUCOSE, BUN, CREATININE, CA) 2023-05-13 10:06:00 Jose Schreiber [facility] CBC WITH DIFF 2023-05-13 10:06:00 Jose Schreiber U [facility] GLYCOSYLATED HEMOGLOBIN (A1C) 2023-05-13 10:06:00 Mayda Vargas [facility] PROTHROMBIN TIME / INR 2023-05-13 10:06:00 Jose Schreiber [facility] CT LUMBAR SPINE WO CONTRAST 2023-05-13 01:07:19 Yasmani King [facility] CT LUMBAR SPINE WO CONTRAST 2023-05-13 01:07:19 Yasmani King [facility] COMP. METABOLIC PANEL (88754) 2023-05-13 00:36:00 Yasmani King [facility] CBC WITH DIFF 2023-05-13 00:36:00 Yasmani King [facility] URINALYSIS 2023-05-13 00:36:00 Yasmani King [facility] URINE CULTURE 2023-05-13 00:36:00 Yasmani King [facility] COMP. METABOLIC PANEL (03316) 2023-05-13 00:36:00 Yasmani King [facility] CBC WITH DIFF 2023-05-13 00:36:00 Justen Kingo Dom [facility] URINALYSIS 2023-05-13 00:36:00 Yasmani King [facility] URINE CULTURE 2023-05-13 00:36:00 Yasmani King [facility] NOTICE OF PRIVACY PRACTICES 2023-05-12 23:18:43 Doctor Unassigned, Opal [facility] NOTICE OF PRIVACY PRACTICES 2023-05-12 23:18:43 Doctor Unassigned, Opal [facility] CONSENT/REFUSAL FOR DIAGNOSIS AND TREATMENT 2023-05-12 23:15:51 Doctor Unassigned, Opal [facility] CONSENT/REFUSAL FOR DIAGNOSIS AND TREATMENT 2023-05-12 23:15:51 Doctor Unassigned, Opal [facility] HOSPITAL ADMISSION 2023-05-12 05:01:00 Doctor Un assigned, Opal [facility] ADMISSION 2023-05-12 05:01:00 Doctor Un assigned, Opal [facility] Encounters Start Date/Time End Date/Time Encounter Type Admission Type Attending [facility] Care Department Encounter ID Source 2024-03-13 00:00:00 2024-03-13 00:00:00 Outpatient PREFLORA PFEIFFER [id number] [facility] 2024-03-11 00:00:00 2024-03-11 00:00:00 Outpatient PREFLOAR PFEIFFER [id number] [facility] 2024-02-19 16:30:00 2024-02-19 16:30:00 Outpatient HENRYSHAYY MARIE RODRIGUEZ [id number] [facility] 2024-01-16 00:00:00 2024-01-16 00:00:00 Outpatient PREFLORA PFEIFFER [id number] Marie [facility] 2024-01-03 16:30:00 2024-01-03 16:30:00 Outpatient ANA URBINA [id number] [facility] 2023-11-28 00:00:00 2023-11-28 00:00:00 Outpatient PREZAFLORA Posey [id number] [facility] 2023-10-27 00:00:00 2023-10-27 00:00:00 Outpatient PREZAFLORA Posey [id number] Marie [facility] 2023-10-26 15:15:00 2023-10-26 15:15:00 Outpatient PREFLORA PFEIFFER [id number] [facility] 2023-10-20 14:40:00 2023-10-20 14:40:00 Outpatient BRUNA HANSEN [id number] [facility] 2023-10-18 15:20:00 2023-10-18 15:20:00 Outpatient MARIE RODRIGUEZ [id number] Marie Alvesybvickey 2023-10-18 15:15:00 2023-10-18 15:15:00 Outpatient MARIE RODRIGUEZ [id number] Marie Alvesybvickey 2023-10-18 15:10:00 2023-10-18 15:10:00 Outpatient MARIE MARIE [id number] [facility] 2023-[facility]-18 14:15:00 2023-10-18 14:15:00 Outpatient ANA URBINA [id number] [facility] 2023-10-18 00:00:00 2023-10-18 00:00:00 Outpatient ANA URBINA [id number] [facility] 2023-09-29 00:00:00 2023-09-29 00:00:00 [facility] [id number] [facility]23-[facility]-28 14:10:00 2023-09-28 14:10:00 Outpatient JAYY RODRIGUEZ [id number] [facility] 2023-09-28 13:30:00 2023-09-28 13:30:00 Outpatient PREZAKalpesh FLORA RODRIGUEZ [id number] [facility] 2023-09-06 00:00:00 2023-09-06 00:00:00 Outpatient ANA URBINA [id number] [facility] 2023-09-06 00:00:00 2023-09-06 00:00:00 Outpatient PREZAKalpesh FLORA RODRIGUEZ [id number] [facility] 2023-08-21 00:00:00 2023-08-21 00:00:00 Outpatient ANA URBINA [id number] [facility] 2023-08-10 14:30:00 2023-08-10 14:30:00 Outpatient PREZAFLORA Posey [id number] [facility] 2023-08-07 15:15:00 2023-08-07 15:15:00 Outpatient ANA URBINASEY [id number] Marie [facility] 2023-08-02 00:00:00 2023-08-02 00:00:00 Telephone Milind Starr [facility] [id number] [facility] 2023-07-18 00:00:00 2023-07-18 00:00:00 Outpatient FLORA WARNER MARIE RODRIGUEZ [id number] Marie [facility] 2023-07-13 00:00:00 2023-07-13 00:00:00 Outpatient HAILEYKalpeshAUGUSTINEFLORA MARIE RODRIGUEZ [id number] Marie [facility] 2023-07-13 00:00:00 2023-07-13 00:00:00 Outpatient HAILEYKalpeshFLORA [id number] [facility] 2023-07-12 11:45:00 2023-07-12 11:45:00 Outpatient R MILIND STARR [facility] [id number] [facility] 2023-07-12 11:30:00 2023-07-12 11:45:00 Office Visit Milind Starr [facility] [id number] [facility] 2023-07-12 11:30:00 2023-07-12 11:30:00 Outpatient R MILIND STARR [facility] [id number] [facility] 2023-07-12 00:00:00 2023-07-12 00:00:00 Patient Secure Msg Doctor Unassigned, Opal [facility] [id number] [facility] 2023-06-28 14:00:00 2023-06-28 14:00:00 Outpatient PREZASFLORA [id number] Marie Otto 2023-06-28 00:00:00 2023-06-28 00:00:00 Outpatient MARIE RODRIGUEZ [id number] Marie Otto 2023-06-27 00:00:00 2023-06-27 00:00:00 Outpatient PREZASFLORA [id number] Marie Otto 2023-06-26 10:25:00 2023-06-26 10:25:00 Outpatient LAB90 MARIE RODRIGUEZ [id number] Marie Otto 2023-06-20 00:00:00 2023-06-20 00:00:00 Outpatient PREZAS, FLORA RODRIGUEZ [id number] Marie Alvesvickey 2023-06-11 00:00:00 2023-06-11 00:00:00 Telephone Milind Starr [facility] [id number] [facility] 2023-06-09 00:00:00 2023-06-09 00:00:00 Outpatient PREZAS, FLORA RODRIGUEZ [id number] [facility] 00:00:00 2023-06-09 00:00:00 Outpatient PREZASFLORA [id number] [facility] 2023-06-09 00:00:00 2023-06-09 00:00:00 Telephone Irma Castillo [facility] [id number] [facility] 2023-06-05 00:00:00 2023-06-05 00:00:00 Outpatient PREZASFLORA [id number] Marie Otto 2023-05-30 13:30:00 2023-05-30 13:30:00 Office Visit Irma Castillo [facility] 1..840.114 [id number] [facility] 2023-05-30 13:30:00 2023-05-30 13:06:25 Outpatient IRMA SILVA [facility] [id number] [facility] 2023-05-30 00:00:00 2023-05-30 00:00:00 Orders Only Doctor Unassigned, Opal [facility] 1..840.114 350.1.13.10 4.2.7.2.686 [id number] [facility] 2023-05-29 00:00:00 2023-05-29 00:00:00 Outpatient FLORA WARNER [id number] Marie [facility] 2023-05-29 00:00:00 2023-05-29 00:00:00 Outpatient FLORA WARNER [id number] [facility] 2023-05-26 00:00:00 2023-05-26 00:00:00 Telephone Ro Milind [facility] 1..840.114 350.1.13.10 4.2.7.2.686 [id number] [facility] 2023-05-25 00:00:00 2023-05-25 00:00:00 Outpatient FLORA WARNER [id number] Marie [facility] 2023-05-24 12:15:00 2023-05-24 12:15:00 Outpatient LAB90 MARIE RODRIGUEZ [id number] [facility] 2023-05-24 11:30:00 2023-05-24 11:30:00 Outpatient FLORA WARNER [id number] Marie [facility] 2023-05-19 00:00:00 2023-05-19 00:00:00 Transition of Care Soco Moore 1..840.114 350.1.13.10 4.2.7.2.686 [id number] [facility] 2023-05-12 18:25:00 2023-05-18 17:00:00 Inpatient X MILIND STARR [facility] [id number] [facility] 2023-05-12 18:25:00 2023-05-18 17:00:00 Hospital Encounter HectorrManoj, Yasmani Fernandes [facility] 1.2.840.114 350.1.13.10 4.2.7.2.686 [id number] [facility] 2023-05-16 10:08:00 2023-05-16 13:57:00 Surgery [facility] 1.2.840.114 350.1.13.10 4.2.7.2.686 [id number] [facility] 2023-05-12 00:00:00 2023-05-12 00:00:00 Outpatient FLORA WARNER [id number] Marie Otto Results Test Description Test Time Test Comments Results Result Co mments [facility] 12:59:42* Test Item Value Reference Range Interpretation Comme [facility] POCT GLU (test code = 8836161590) 181 mg/dL 70-110 H Lab Interpretation (test cod e = 05624-8) Abnormal [facility] WITH [id number] 10:45:46* Test Item Value Reference Range Interpretation Comme nts WBC (test code = 6690-2) 9.67 See_Comment [Automated messa ge] The system which generated this result transmitted reference range: 4.30 - 11.10 10*3/?L. The reference range was not used to interpret this result as normal/abnormal. RBC (test code = 789-8) 3.73 See_Comment L [Automated messa ge] The system which generated this result transmitted reference range: 3.93 - 5.25 10*6/?L. The reference range was not used to interpret this result as normal/abnormal. HGB (test code = 718-7) 12.3 g/dL 11.6-15.0 HCT (test code = 4544-3) 36.4 % 35.7-45.2 MCV (test code = 787-2) 97.6 fL 80.6-95.5 H MCH (test code = 785-6) 33.0 pg 25.9-32.8 H MCHC (test code = 786-4) 33.8 g/dL 31.6-35.1 RDW-SD (test code = 02026-3) 44.7 fL 39.0-49.9 RDW-CV (test code = 788-0) 12.4 % 12.0-15.5 PLT (test code = 777-3) 264 See_Comment [Automated messa ge] The system which generated this result transmitted reference range: 166 - 358 10*3/?L. The reference range was not used to interpret this result as normal/abnormal. MPV (test code = 50270-0) 11.0 fL 9.5-12.9 NRBC/100 WBC (test code = 5989189303) 0.0 See_Comment [Automated Aarki ssage] The system which generated this result transmitted reference range: 0.0 - 10.0 /100 WBCs. The reference range was not used to interpret this result as normal/abnormal. NRBC x10^3 (test code = 6313573291) See_Comment [Automated messa ge] The system which generated this result transmitted reference range: 10*3/?L. The reference range was not used to interpret this result as normal/abnormal. GRAN MAT (NEUT) % (test code = 770-8) 64.9 % IMM GRAN % (test code = 6478737614) 1.30 % LYMPH % (test code = 736-9) 23.7 % MONO % (test code = 5905-5) 9.4 % EOS % (test code = 713-8) 0.4 % BASO % (test code = 706-2) 0.3 % GRAN MAT x10^3(ANC) (test code = 9298954582) 6.27 10*3/uL 1.88-7.09 IMM GRAN x10^3 (test code = 8613758265) 0.13 10*3/uL 0.00-0.06 H LYMPH x10^3 (test code = 731-0) 2.29 10*3/uL 1.32-3.29 MONO x10^3 (test code = 742-7) 0.91 10*3/uL 0.33-0.92 EOS x10^3 (test code = 711-2) 0.04 10*3/uL 0.03-0.39 BASO x10^3 (test code = 704-7) 0.03 10*3/uL 0.01-0.07 Lab Interpretation (test code = 73993-3) Abnormal [facility] METABOLIC PANEL (NA, K, CL, CO2, GLUCOSE, BUN, CREATININE, CA)2023-05-18 10:31:00* Test Item Value Reference Range Interpretation Comme nts NA (test code = 6651818675) 136 mmol/L 135-145 K (test code = 2946424615) 4.4 mmol/L 3.5-5.0 Slight hemolysis CL (test code = 8973002927) 103 mmol/L 98-108 CO2 TOTAL (test code = 3602082481) 23 mmol/L 23-31 AGAP (test code = 2387301006) 10 2-16 BUN (test code = 3429036209) 19 mg/dL 7-23 Slight hemolysis GLUCOSE (test code = 7602330437) 208 mg/dL 70-110 H CREATININE (test code = 8777714997) 0.67 mg/dL 0.50-1.04 CALCIUM (test code = 8578343846) 9.2 mg/dL 8.6-10.6 eGFR (test code = 8839887111) 92.4 mL/min/1.73m2 AKIL (test code = AKIL) Association of Glomerular Filtration Rate (GFR) and Staging of Kidney Disease* + -----+ --------+ +| GFR (mL/min/1.73 m2) ?| With Kidney Damage ?| ?Without Kidney Damage+ +------- +---- --+| ?>90 ?| ?Stage one ?| ? Normal ?+ ------+ ---------+--------- +| ?60-89 ?| ?Stage two ?| ? Decreased GFR ? + -----+ --------+ +| ?30-59 ?| ?Stage three ?| ? Stage three ? + -----+ --------+ +| ?15-29 ?| ?Stage four ? | ? Stage four ?+ ------+ ---------+--------- +| ?<15 (or dialysis) ? ?| ?Stage five ? | ? Stage five ?+ ------+ ---------+--------- + *Each stage assumes the associated GFR level has been in effect for at least three months. ?Stages 1 to 5, with or without kidney disease, indicate chronic kidney disease. Notes: Determination of stages one and two (with eGFR >59mL/min/1.73 m2) requires estimation of kidney damage for at least three months as defined by structural or functional abnormalities of the kidney, manifested by either:Pathological abnormalities or Markers of kidney damage (including abnormalities in the composition of the blood or urine or abnormalities in imaging tests). Lab Interpretation (test code = 17518-1) Abnormal [facility] GLUCOSE (AUTOMATED)2023-05-18 00:46:51* Test Item Value Reference Range Interpretation Comme nts POCT GLU (test code = 2815854691) 246 mg/dL 70-110 H Lab Interpretation (test cod e = 32805-9) Abnormal [facility] GLUCOSE (AUTOMATED)2023-05-17 21:55:38* Test Item Value Reference Range Interpretation Comme nts POCT GLU (test code = 3314940592) 317 mg/dL 70-110 H Lab Interpretation (test cod e = 92181-1) Abnormal [facility] GLUCOSE (AUTOMATED)2023-05-17 17:55:06* Test Item Value Reference Range Interpretation Comme nts POCT GLU (test code = 8155010790) 292 mg/dL 70-110 H Lab Interpretation (test cod e = 60104-5) Abnormal [facility] GLUCOSE (AUTOMATED)2023-05-17 17:55:06* Test Item Value Reference Range Interpretation Comme nts POCT GLU (test code = 5515995638) 292 mg/dL 70-110 H Lab Interpretation (test cod e = 43845-5) Abnormal [facility] GLUCOSE (AUTOMATED)2023-05-17 12:44:42* Test Item Value Reference Range Interpretation Comme nts POCT GLU (test code = 6985435625) 203 mg/dL 70-110 H Lab Interpretation (test cod e = 06730-0) Abnormal [facility] GLUCOSE (AUTOMATED)2023-05-17 12:44:42* Test Item Value Reference Range Interpretation Comme nts POCT GLU (test code = 5932418115) 203 mg/dL 70-110 H Lab Interpretation (test cod e = 57373-8) Abnormal [facility] GLUCOSE (AUTOMATED)2023-05-17 00:52:01* Test Item Value Reference Range Interpretation Comme nts POCT GLU (test code = 0454139283) 350 mg/dL 70-110 H Lab Interpretation (test cod e = 93411-7) Abnormal [facility] GLUCOSE (AUTOMATED)2023-05-17 00:52:01* Test Item Value Reference Range Interpretation Comme nts POCT GLU (test code = 6679547695) 350 mg/dL 70-110 H Lab Interpretation (test cod e = 33194-0) Abnormal [facility] GLUCOSE (AUTOMATED)2023-05-16 22:07:26* Test Item Value Reference Range Interpretation Comme nts POCT GLU (test code = 5872668177) 415 mg/dL 70-110 H Lab Interpretation (test cod e = 59356-0) Abnormal [facility] GLUCOSE (AUTOMATED)2023-05-16 22:07:26* Test Item Value Reference Range Interpretation Comme nts POCT GLU (test code = 8484496198) 415 mg/dL 70-110 H Lab Interpretation (test cod e = 16584-8) Abnormal [facility] GLUCOSE (AUTOMATED)2023-05-16 19:06:06* Test Item Value Reference Range Interpretation Comme nts POCT GLU (test code = 5975064825) 254 mg/dL 70-110 H Lab Interpretation (test cod e = 66274-5) Abnormal [facility] GLUCOSE (AUTOMATED)2023-05-16 19:06:06* Test Item Value Reference Range Interpretation Comme nts POCT GLU (test code = 1957598082) 254 mg/dL 70-110 H Lab Interpretation (test cod e = 22534-8) Abnormal [facility] GLUCOSE (AUTOMATED)2023-05-16 12:52:57* Test Item Value Reference Range Interpretation Comme nts POCT GLU (test code = 6889056404) 195 mg/dL 70-110 H Lab Interpretation (test cod e = 73540-4) Abnormal [facility] GLUCOSE (AUTOMATED)2023-05-16 12:52:57* Test Item Value Reference Range Interpretation Comme nts POCT GLU (test code = 2528433468) 195 mg/dL 70-110 H Lab Interpretation (test cod e = 18449-9) Abnormal [facility] [id number] 10:06:00* Test Item Value Reference Range Interpretation Comme nts POCT PREG (test code = 1605) Negative On board controls acceptable with C Line (test code = 3574) Yes POCT PREG LOT # (test code = 3575) POCT PREG TEST DATE ( test code = 3576) [facility] [id number] 10:06:00* Test Item Value Reference Range Interpretation Comme nts POCT PREG (test code = 1605) Negative On board controls acceptable with C Line (test code = 3574) Yes POCT PREG LOT # (test code = 3575) POCT PREG TEST DATE ( test code = 3576) [facility] GLUCOSE (AUTOMATED)2023-05-16 00:39:39* Test Item Value Reference Range Interpretation Comme nts POCT GLU (test code = 8848366096) 293 mg/dL 70-110 H Lab Interpretation (test cod e = 34255-0) Abnormal [facility] GLUCOSE (AUTOMATED)2023-05-16 00:39:39* Test Item Value Reference Range Interpretation Comme nts POCT GLU (test code = 1956103946) 293 mg/dL 70-110 H Lab Interpretation (test cod e = 55030-6) Abnormal [facility] GLUCOSE (AUTOMATED)2023-05-15 22:00:16* Test Item Value Reference Range Interpretation Comme nts POCT GLU (test code = 3840302516) 162 mg/dL 70-110 H Lab Interpretation (test cod e = 80163-0) Abnormal [facility] GLUCOSE (AUTOMATED)2023-05-15 22:00:16* Test Item Value Reference Range Interpretation Comme nts POCT GLU (test code = 1279339268) 162 mg/dL 70-110 H Lab Interpretation (test cod e = 19019-3) Abnormal [facility] GLUCOSE (AUTOMATED)2023-05-15 16:35:57* Test Item Value Reference Range Interpretation Comme nts POCT GLU (test code = 8724681103) 161 mg/dL 70-110 H Lab Interpretation (test cod e = 05623-5) Abnormal [facility] GLUCOSE (AUTOMATED)2023-05-15 16:35:57* Test Item Value Reference Range Interpretation Comme nts POCT GLU (test code = 7931948602) 161 mg/dL 70-110 H Lab Interpretation (test cod e = 81087-6) Abnormal [facility] GLUCOSE (AUTOMATED)2023-05-15 12:46:28* Test Item Value Reference Range Interpretation Comme nts POCT GLU (test code = 2725360388) 168 mg/dL 70-110 H Lab Interpretation (test cod e = 14426-9) Abnormal [facility] GLUCOSE (AUTOMATED)2023-05-15 12:46:28* Test Item Value Reference Range Interpretation Comme nts POCT GLU (test code = 9985103944) 168 mg/dL 70-110 H Lab Interpretation (test cod e = 87233-4) Abnormal [facility] METABOLIC PANEL (NA, K, CL, CO2, GLUCOSE, BUN, CREATININE, CA)2023-05-15 09:10:13* Test Item Value Reference Range Interpretation Comme nts NA (test code = 8162265260) 141 mmol/L 135-145 K (test code = 5972449450) 3.0 mmol/L 3.5-5.0 L CL (test code = 2595940605) 106 mmol/L 98-108 CO2 TOTAL (test code = 6368699757) 27 mmol/L 23-31 AGAP (test code = 0687613203) 8 2-16 BUN (test code = 4632254976) 10 mg/dL 7-23 GLUCOSE (test code = 7719092927) 146 mg/dL 70-110 H CREATININE (test code = 8035363194) 0.70 mg/dL 0.50-1.04 CALCIUM (test code = 6081059741) 8.7 mg/dL 8.6-10.6 eGFR (test code = 9533401144) 87.9 mL/min/1.73m2 AKIL (test code = AKIL) Association of Glomerular Filtration Rate (GFR) and Staging of Kidney Disease* + --+ --+ ------+| GFR (mL/min/1.73 m2) ?| With Kidney Damage ?| ?Without Kidney Damage+ --------+ --------+ +| ?>90 ?| ?Stage one ?| ? Normal ?+ ---+ ---+ -------+| ?60-89 ?| ?Stage two ?| ? Decreased GFR ? + --+ --+ ------+| ?30-59 ?| ?Stage three ?| ? Stage three ? + --+ --+ ------+| ?15-29 ?| ?Stage four ? | ? Stage four ?+ ---+ ---+ -------+| ?<15 (or dialysis) ? ?| ?Stage five ? | ? Stage five ?+ ---+ ---+ -------+ *Each stage assumes the associated GFR level has been in effect for at least three months. ?Stages 1 to 5, with or without kidney disease, indicate chronic kidney disease. Notes: Determination of stages one and two (with eGFR >59mL/min/1.73 m2) requires estimation of kidney damage for at least three months as defined by structural or functional abnormalities of the kidney, manifested by either:Pathological abnormalities or Markers of kidney damage (including abnormalities in the composition of the blood or urine or abnormalities in imaging tests). Lab Interpretation (test code = 64821-8) Abnormal [facility] METABOLIC PANEL (NA, K, CL, CO2, GLUCOSE, BUN, CREATININE, CA)2023-05-15 09:10:13* Test Item Value Reference Range Interpretation Comme nts NA (test code = 7566052402) 141 mmol/L 135-145 K (test code = 7503893421) 3.0 mmol/L 3.5-5.0 L CL (test code = 7036684459) 106 mmol/L 98-108 CO2 TOTAL (test code = 1118975682) 27 mmol/L 23-31 AGAP (test code = 1500785757) 8 2-16 BUN (test code = 6401012876) 10 mg/dL 7-23 GLUCOSE (test code = 1434394841) 146 mg/dL 70-110 H CREATININE (test code = 4164139090) 0.70 mg/dL 0.50-1.04 CALCIUM (test code = 3654509619) 8.7 mg/dL 8.6-10.6 eGFR (test code = 8283862012) 87.9 mL/min/1.73m2 AKIL (test code = AKIL) Association of Glomerular Filtration Rate (GFR) and Staging of Kidney Disease* + --+ --+ ------+| GFR (mL/min/1.73 m2) ?| With Kidney Damage ?| ?Without Kidney Damage+ --------+ --------+ +| ?>90 ?| ?Stage one ?| ? Normal ?+ ---+ ---+ -------+| ?60-89 ?| ?Stage two ?| ? Decreased GFR ? + --+ --+ ------+| ?30-59 ?| ?Stage three ?| ? Stage three ? + --+ --+ ------+| ?15-29 ?| ?Stage four ? | ? Stage four ?+ ---+ ---+ -------+| ?<15 (or dialysis) ? ?| ?Stage five ? | ? Stage five ?+ ---+ ---+ -------+ *Each stage assumes the associated GFR level has been in effect for at least three months. ?Stages 1 to 5, with or without kidney disease, indicate chronic kidney disease. Notes: Determination of stages one and two (with eGFR >59mL/min/1.73 m2) requires estimation of kidney damage for at least three months as defined by structural or functional abnormalities of the kidney, manifested by either:Pathological abnormalities or Markers of kidney damage (including abnormalities in the composition of the blood or urine or abnormalities in imaging tests). Lab Interpretation (test code = 58568-2) [facility] [id number] 08:57:35* Test Item Value Reference Range Interpretation Comme nts APTT Patient (test code = 3173-2) 34 See_Comment [Automated [employer]] The system which generated this result transmitted reference range: 26 - 36 Seconds. The reference range was not used to interpret this result as normal/abnormal. Lab Interpretation (test code = 74660-4) Normal [facility]th[facility] Time / [id number] 08:57:35* Test Item Value Reference Range Interpretation Comme nts PROTIME PATIENT (test code = 5964-2) 10.4 See_Comment [Automated messa ge] The system which generated this result transmitted reference range: 10.1 - 12.6 Seconds. The reference range was not used to interpret this result as normal/abnormal. INR (test code = 6301-6) 0.9 Normal INR <1.1; Warfarin Therapeutic range 2.0 to 3.0 or 2.5 to 3.5, depending upon the indications. Lab Interpretation (test code = 13710-1) Normal [facility] [id number] 08:57:35* Test Item Value Reference Range Interpretation Comme nts APTT Patient (test code = 3173-2) 34 See_Comment [Automated messa ge] The system which generated this result transmitted reference range: 26 - 36 Seconds. The reference range was not used to interpret this result as normal/abnormal. Lab Interpretation (test code = 12650-6) [facility] / [id number] 08:57:35* Test Item Value Reference Range Interpretation Comme nts PROTIME PATIENT (test code = 5964-2) 10.4 See_Comment [Automated messa ge] The system which generated this result transmitted reference range: 10.1 - 12.6 Seconds. The reference range was not used to interpret this result as normal/abnormal. INR (test code = 6301-6) 0.9 Normal INR <1.1; Warfarin Therapeutic range 2.0 to 3.0 or 2.5 to 3.5, depending upon the indications. Lab Interpretation (test code = 83770-7) Normal [facility]CBC WITH [id number] 08:50:52* Test Item Value Reference Range Interpretation Comme nts WBC (test code = 6690-2) 7.96 See_Comment [Automated messa ge] The system which generated this result transmitted reference range: 4.30 - 11.10 10*3/?L. The reference range was not used to interpret this result as normal/abnormal. RBC (test code = 789-8) 3.68 See_Comment L [Automated messa ge] The system which generated this result transmitted reference range: 3.93 - 5.25 10*6/?L. The reference range was not used to interpret this result as normal/abnormal. HGB (test code = 718-7) 12.1 g/dL 11.6-15.0 HCT (test code = 4544-3) 35.5 % 35.7-45.2 L MCV (test code = 787-2) 96.5 fL 80.6-95.5 H MCH (test code = 785-6) 32.9 pg 25.9-32.8 H MCHC (test code = 786-4) 34.1 g/dL 31.6-35.1 RDW-SD (test code = 86139-2) 44.0 fL 39.0-49.9 RDW-CV (test code = 788-0) 12.5 % 12.0-15.5 PLT (test code = 777-3) 250 See_Comment [Automated messa ge] The system which generated this result transmitted reference range: 166 - 358 10*3/?L. The reference range was not used to interpret this result as normal/abnormal. MPV (test code = 63251-8) 10.8 fL 9.5-12.9 NRBC/100 WBC (test code = 3496829321) 0.0 See_Comment [Automated me ssage] The system which generated this result transmitted reference range: 0.0 - 10.0 /100 WBCs. The reference range was not used to interpret this result as normal/abnormal. NRBC x10^3 (test code = 8416830967) See_Comment [Automated messa ge] The system which generated this result transmitted reference range: 10*3/?L. The reference range was not used to interpret this result as normal/abnormal. GRAN MAT (NEUT) % (test code = 770-8) 53.1 % IMM GRAN % (test code = 2201338583) 1.00 % LYMPH % (test code = 736-9) 35.7 % MONO % (test code = 5905-5) 7.3 % EOS % (test code = 713-8) 2.3 % BASO % (test code = 706-2) 0.6 % GRAN MAT x10^3(ANC) (test code = 4407771088) 4.23 10*3/uL 1.88-7.09 IMM GRAN x10^3 (test code = 4931542940) 0.08 10*3/uL 0.00-0.06 H LYMPH x10^3 (test code = 731-0) 2.84 10*3/uL 1.32-3.29 MONO x10^3 (test code = 742-7) 0.58 10*3/uL 0.33-0.92 EOS x10^3 (test code = 711-2) 0.18 10*3/uL 0.03-0.39 BASO x10^3 (test code = 704-7) 0.05 10*3/uL 0.01-0.07 Lab Interpretation (test code = 88007-3) Abnormal [facility] WITH [id number] 08:50:52* Test Item Value Reference Range Interpretation Comme nts WBC (test code = 6690-2) 7.96 See_Comment [Automated messa ge] The system which generated this result transmitted reference range: 4.30 - 11.10 10*3/?L. The reference range was not used to interpret this result as normal/abnormal. RBC (test code = 789-8) 3.68 See_Comment L [Automated messa ge] The system which generated this result transmitted reference range: 3.93 - 5.25 10*6/?L. The reference range was not used to interpret this result as normal/abnormal. HGB (test code = 718-7) 12.1 g/dL 11.6-15.0 HCT (test code = 4544-3) 35.5 % 35.7-45.2 L MCV (test code = 787-2) 96.5 fL 80.6-95.5 H MCH (test code = 785-6) 32.9 pg 25.9-32.8 H MCHC (test code = 786-4) 34.1 g/dL 31.6-35.1 RDW-SD (test code = 01078-3) 44.0 fL 39.0-49.9 RDW-CV (test code = 788-0) 12.5 % 12.0-15.5 PLT (test code = 777-3) 250 See_Comment [Automated messa ge] The system which generated this result transmitted reference range: 166 - 358 10*3/?L. The reference range was not used to interpret this result as normal/abnormal. MPV (test code = 66075-6) 10.8 fL 9.5-12.9 NRBC/100 WBC (test code = 0806364343) 0.0 See_Comment [Automated Aarki ssage] The system which generated this result transmitted reference range: 0.0 - 10.0 /100 WBCs. The reference range was not used to interpret this result as normal/abnormal. NRBC x10^3 (test code = 8766333038) See_Comment [Automated messa ge] The system which generated this result transmitted reference range: 10*3/?L. The reference range was not used to interpret this result as normal/abnormal. GRAN MAT (NEUT) % (test code = 770-8) 53.1 % IMM GRAN % (test code = 7441145630) 1.00 % LYMPH % (test code = 736-9) 35.7 % MONO % (test code = 5905-5) 7.3 % EOS % (test code = 713-8) 2.3 % BASO % (test code = 706-2) 0.6 % GRAN MAT x10^3(ANC) (test code = 2415758333) 4.23 10*3/uL 1.88-7.09 IMM GRAN x10^3 (test code = 8296370032) 0.08 10*3/uL 0.00-0.06 H LYMPH x10^3 (test code = 731-0) 2.84 10*3/uL 1.32-3.29 MONO x10^3 (test code = 742-7) 0.58 10*3/uL 0.33-0.92 EOS x10^3 (test code = 711-2) 0.18 10*3/uL 0.03-0.39 BASO x10^3 (test code = 704-7) 0.05 10*3/uL 0.01-0.07 Lab Interpretation (test code = 54205-8) [facility] [id number] 08:44:00* Test Item Value Reference Range Interpretation Comme nts ABO & RH (test code = 20) O NEGATIVE IAT (test code = 1185) [facility] [id number] 08:44:00* Test Item Value Reference Range Interpretation Comme nts ABO & RH (test code = 20) O NEGATIVE IAT (test code = 1185) Negative [facility] GLUCOSE (AUTOMATED)2023-05-15 02:26:26* Test Item Value Reference Range Interpretation Comme nts POCT GLU (test code = 2085932221) 298 mg/dL 70-110 H Lab Interpretation (test cod e = 34973-4) [facility] 02:26:26* Test Item Value Reference Range Interpretation Comme nts POCT GLU (test code = 7936601584) 298 mg/dL 70-110 H Lab Interpretation (test cod e = 78462-9) Abnormal [facility] GLUCOSE (AUTOMATED)2023-05-15 01:19:27* Test Item Value Reference Range Interpretation Comme nts POCT GLU (test code = 4834689946) 298 mg/dL 70-110 H Lab Interpretation (test cod e = 40281-8) Abnormal [facility] GLUCOSE (AUTOMATED)2023-05-15 01:19:27* Test Item Value Reference Range Interpretation Comme nts POCT GLU (test code = 3078111601) 298 mg/dL 70-110 H Lab Interpretation (test cod e = 68836-6) Abnormal [facility] GLUCOSE (AUTOMATED)2023-05-14 21:17:33* Test Item Value Reference Range Interpretation Comme nts POCT GLU (test code = 4959767017) 300 mg/dL 70-110 H Lab Interpretation (test cod e = 86066-3) [facility]14 21:17:33* Test Item Value Reference Range Interpretation Comme nts POCT GLU (test code = 1666706149) 300 mg/dL 70-110 H Lab Interpretation (test cod e = 72512-6) Abnormal [facility] GLUCOSE (AUTOMATED)2023-05-14 14:25:24* Test Item Value Reference Range Interpretation Comme nts POCT GLU (test code = 5443307323) 156 mg/dL 70-110 H Lab Interpretation (test cod e = 81415-0) Abnormal [facility] GLUCOSE (AUTOMATED)2023-05-14 14:25:24* Test Item Value Reference Range Interpretation Comme nts POCT GLU (test code = 9664580071) 156 mg/dL 70-110 H Lab Interpretation (test cod e = 92133-6) [facility] / [id number] 10:12:05* Test Item Value Reference Range Interpretation Comme nts PROTIME PATIENT (test code = 5964-2) 10.3 See_Comment [Automated QuadWranglea 1bib] The system which generated this result transmitted reference range: 10.1 - 12.6 Seconds. The reference range was not used to interpret this result as normal/abnormal. INR (test code = 6301-6) 0.9 Normal INR <1.1; Warfarin Therapeutic range 2.0 to 3.0 or 2.5 to 3.5, depending upon the indications. Lab Interpretation (test code = 82890-1) Normal [facility] / [id number] 10:12:05* Test Item Value Reference Range Interpretation Comme nts PROTIME PATIENT (test code = 5964-2) 10.3 See_Comment [Automated [employer]Wranglea 1bib] The system which generated this result transmitted reference range: 10.1 - 12.6 Seconds. The reference range was not used to interpret this result as normal/abnormal. INR (test code = 6301-6) 0.9 Normal INR <1.1; Warfarin Therapeutic range 2.0 to 3.0 or 2.5 to 3.5, depending upon the indications. Lab Interpretation (test code = 50440-0) Normal [facility] GLUCOSE (AUTOMATED)2023-05-14 06:55:10* Test Item Value Reference Range Interpretation Comme nts POCT GLU (test code = 3347387930) 267 mg/dL 70-110 H Lab Interpretation (test cod e = 61204-1) Abnormal [facility] GLUCOSE (AUTOMATED)2023-05-14 06:55:10* Test Item Value Reference Range Interpretation Comme nts POCT GLU (test code = 5067689723) 267 mg/dL 70-110 H Lab Interpretation (test cod e = 66901-1) Abnormal [facility] GLUCOSE (AUTOMATED)2023-05-14 02:27:17* Test Item Value Reference Range Interpretation Comme nts POCT GLU (test code = 0176512713) 370 mg/dL 70-110 H Lab Interpretation (test cod e = 20677-7) [facility] 02:27:17* Test Item Value Reference Range Interpretation Comme nts POCT GLU (test code = 2253228674) 370 mg/dL 70-110 H Lab Interpretation (test cod e = 04838-5) Abnormal [facility] GLUCOSE (AUTOMATED)2023-05-13 23:06:58* Test Item Value Reference Range Interpretation Comme nts POCT GLU (test code = 9006364134) 294 mg/dL 70-110 H Lab Interpretation (test cod e = 73537-6) Abnormal [facility] GLUCOSE (AUTOMATED)2023-05-13 23:06:58* Test Item Value Reference Range Interpretation Comme nts POCT GLU (test code = 2013070586) 294 mg/dL 70-110 H Lab Interpretation (test cod e = 28483-0) Abnormal [facility] GLUCOSE (AUTOMATED)2023-05-13 16:45:54* Test Item Value Reference Range Interpretation Comme nts POCT GLU (test code = 1618940740) 266 mg/dL 70-110 H Lab Interpretation (test cod e = 79545-7) [facility] 16:45:54* Test Item Value Reference Range Interpretation Comme nts POCT GLU (test code = 1386138325) 266 mg/dL 70-110 H Lab Interpretation (test cod e = 77284-9) [facility] 14:14:24* Test Item Value Reference Range Interpretation Comme nts POCT GLU (test code = 8211930953) 303 mg/dL 70-110 H Lab Interpretation (test cod e = 80684-7) Abnormal [facility] GLUCOSE (AUTOMATED)2023-05-13 14:14:24* Test Item Value Reference Range Interpretation Comme nts POCT GLU (test code = 4115027082) 303 mg/dL 70-110 H Lab Interpretation (test cod e = 05909-3) Abnormal [facility] WITH [id number] 01:17:55* Test Item Value Reference Range Interpretation Comme nts WBC (test code = 6690-2) 8.97 See_Comment [Automated messa ge] The system which generated this result transmitted reference range: 4.30 - 11.10 10*3/?L. The reference range was not used to interpret this result as normal/abnormal. RBC (test code = 789-8) 4.02 See_Comment [Automated messa ge] The system which generated this result transmitted reference range: 3.93 - 5.25 10*6/?L. The reference range was not used to interpret this result as normal/abnormal. HGB (test code = 718-7) 13.6 g/dL 11.6-15.0 HCT (test code = 4544-3) 39.7 % 35.7-45.2 MCV (test code = 787-2) 98.8 fL 80.6-95.5 H MCH (test code = 785-6) 33.8 pg 25.9-32.8 H MCHC (test code = 786-4) 34.3 g/dL 31.6-35.1 RDW-SD (test code = 31874-9) 45.3 fL 39.0-49.9 RDW-CV (test code = 788-0) 12.5 % 12.0-15.5 PLT (test code = 777-3) 266 See_Comment [Automated messa ge] The system which generated this result transmitted reference range: 166 - 358 10*3/?L. The reference range was not used to interpret this result as normal/abnormal. MPV (test code = 45963-2) 11.7 fL 9.5-12.9 NRBC/100 WBC (test code = 0466944634) 0.0 See_Comment [Automated Aarki ssage] The system which generated this result transmitted reference range: 0.0 - 10.0 /100 WBCs. The reference range was not used to interpret this result as normal/abnormal. NRBC x10^3 (test code = 4269347738) See_Comment [Automated messa ge] The system which generated this result transmitted reference range: 10*3/?L. The reference range was not used to interpret this result as normal/abnormal. GRAN MAT (NEUT) % (test code = 770-8) 66.0 % IMM GRAN % (test code = 7034679638) 0.70 % LYMPH % (test code = 736-9) 23.4 % MONO % (test code = 5905-5) 6.6 % EOS % (test code = 713-8) 2.7 % BASO % (test code = 706-2) 0.6 % GRAN MAT x10^3(ANC) (test code = 2694837728) 5.93 10*3/uL 1.88-7.09 IMM GRAN x10^3 (test code = 8446191677) 0.06 10*3/uL 0.00-0.06 LYMPH x10^3 (test code = 731-0) 2.10 10*3/uL 1.32-3.29 MONO x10^3 (test code = 742-7) 0.59 10*3/uL 0.33-0.92 EOS x10^3 (test code = 711-2) 0.24 10*3/uL 0.03-0.39 BASO x10^3 (test code = 704-7) 0.05 10*3/uL 0.01-0.07 Lab Interpretation (test code = 69451-9) Abnormal [facility] WITH [id number] 01:17:55* Test Item Value Reference Range Interpretation Comme nts WBC (test code = 6690-2) 8.97 See_Comment [Automated messa ge] The system which generated this result transmitted reference range: 4.30 - 11.10 10*3/?L. The reference range was not used to interpret this result as normal/abnormal. RBC (test code = 789-8) 4.02 See_Comment [Automated messa ge] The system which generated this result transmitted reference range: 3.93 - 5.25 10*6/?L. The reference range was not used to interpret this result as normal/abnormal. HGB (test code = 718-7) 13.6 g/dL 11.6-15.0 HCT (test code = 4544-3) 39.7 % 35.7-45.2 MCV (test code = 787-2) 98.8 fL 80.6-95.5 H MCH (test code = 785-6) 33.8 pg 25.9-32.8 H MCHC (test code = 786-4) 34.3 g/dL 31.6-35.1 RDW-SD (test code = 85442-5) 45.3 fL 39.0-49.9 RDW-CV (test code = 788-0) 12.5 % 12.0-15.5 PLT (test code = 777-3) 266 See_Comment [Automated QuadWranglea ge] The system which generated this result transmitted reference range: 166 - 358 10*3/?L. The reference range was not used to interpret this result as normal/abnormal. MPV (test code = 44351-1) 11.7 fL 9.5-12.9 NRBC/100 WBC (test code = 7045955096) 0.0 See_Comment [Automated Aarki ssage] The system which generated this result transmitted reference range: 0.0 - 10.0 /100 WBCs. The reference range was not used to interpret this result as normal/abnormal. NRBC x10^3 (test code = 5899800661) See_Comment [Automated QuadWranglea ge] The system which generated this result transmitted reference range: 10*3/?L. The reference range was not used to interpret this result as normal/abnormal. GRAN MAT (NEUT) % (test code = 770-8) 66.0 % IMM GRAN % (test code = 8275410489) 0.70 % LYMPH % (test code = 736-9) 23.4 % MONO % (test code = 5905-5) 6.6 % EOS % (test code = 713-8) 2.7 % BASO % (test code = 706-2) 0.6 % GRAN MAT x10^3(ANC) (test code = 0056269099) 5.93 10*3/uL 1.88-7.09 IMM GRAN x10^3 (test code = 2653464741) 0.06 10*3/uL 0.00-0.06 LYMPH x10^3 (test code = 731-0) 2.10 10*3/uL 1.32-3.29 MONO x10^3 (test code = 742-7) 0.59 10*3/uL 0.33-0.92 EOS x10^3 (test code = 711-2) 0.24 10*3/uL 0.03-0.39 BASO x10^3 (test code = 704-7) 0.05 10*3/uL 0.01-0.07 Lab Interpretation (test code = 92140-8) [facility] (87133)2023-05-13 01:13:13* Test Item Value Reference Range Interpretation Comme nts NA (test code = 5537627234) 139 mmol/L 135-145 K (test code = 8627410414) 3.6 mmol/L 3.5-5.0 CL (test code = 2661919893) 105 mmol/L 98-108 CO2 TOTAL (test code = 5009780447) 28 mmol/L 23-31 AGAP (test code = 3494328226) 6 2-16 BUN (test code = 7269254477) 7 mg/dL 7-23 GLUCOSE (test code = 6382005217) 292 mg/dL 70-110 H CREATININE (test code = 1897606043) 0.68 mg/dL 0.50-1.04 TOTAL BILI (test code = 8163841701) 0.7 mg/dL 0.1-1.1 CALCIUM (test code = 0719401742) 8.7 mg/dL 8.6-10.6 T PROTEIN (test code = 3004706265) 6.5 g/dL 6.3-8.2 ALBUMIN (test code = 7489138856) 3.6 g/dL 3.5-5.0 ALK PHOS (test code = 1301088641) 118 U/L 34-122 ALTv (test code = 1742-6) 64 U/L 5-35 H AST(SGOT) (test code = 7844877953) 66 U/L 13-40 H eGFR (test code = 3374805363) 90.9 mL/min/1.73m2 AKLI (test code = AKIL) Association of Glomerular Filtration Rate (GFR) and Staging of Kidney Disease* + --+ --+ ------+| GFR (mL/min/1.73 m2) ?| With Kidney Damage ?| ?Without Kidney Damage+ --------+ --------+ +| ?>90 ?| ?Stage one ?| ? Normal ?+ ---+ ---+ -------+| ?60-89 ?| ?Stage two ?| ? Decreased GFR ? + --+ --+ ------+| ?30-59 ?| ?Stage three ?| ? Stage three ? + --+ --+ ------+| ?15-29 ?| ?Stage four ? | ? Stage four ?+ ---+ ---+ -------+| ?<15 (or dialysis) ? ?| ?Stage five ? | ? Stage five ?+ ---+ ---+ -------+ *Each stage assumes the associated GFR level has been in effect for at least three months. ?Stages 1 to 5, with or without kidney disease, indicate chronic kidney disease. Notes: Determination of stages one and two (with eGFR >59mL/min/1.73 m2) requires estimation of kidney damage for at least three months as defined by structural or functional abnormalities of the kidney, manifested by either:Pathological abnormalities or Markers of kidney damage (including abnormalities in the composition of the blood or urine or abnormalities in imaging tests). Lab Interpretation (test code = 42391-4) Abnormal [facility]. METABOLIC PANEL (26811)2023-05-13 01:13:13* Test Item Value Reference Range Interpretation Comme nts NA (test code = 0447267850) 139 mmol/L 135-145 K (test code = 0346770918) 3.6 mmol/L 3.5-5.0 CL (test code = 4537521228) 105 mmol/L 98-108 CO2 TOTAL (test code = 8640275305) 28 mmol/L 23-31 AGAP (test code = 2021135868) 6 2-16 BUN (test code = 7303199330) 7 mg/dL 7-23 GLUCOSE (test code = 3094627866) 292 mg/dL 70-110 H CREATININE (test code = 0183137431) 0.68 mg/dL 0.50-1.04 TOTAL BILI (test code = 2997099461) 0.7 mg/dL 0.1-1.1 CALCIUM (test code = 7247648247) 8.7 mg/dL 8.6-10.6 T PROTEIN (test code = 7283846380) 6.5 g/dL 6.3-8.2 ALBUMIN (test code = 1744795925) 3.6 g/dL 3.5-5.0 ALK PHOS (test code = 6383985129) 118 U/L 34-122 ALTv (test code = 1742-6) 64 U/L 5-35 H AST(SGOT) (test code = 8277195988) 66 U/L 13-40 H eGFR (test code = 0006019657) 90.9 mL/min/1.73m2 AKIL (test code = AKIL) Association of Glomerular Filtration Rate (GFR) and Staging of Kidney Disease* + --+ --+ ------+| GFR (mL/min/1.73 m2) ?| With Kidney Damage ?| ?Without Kidney Damage+ --------+ --------+ +| ?>90 ?| ?Stage one ?| ? Normal ?+ ---+ ---+ -------+| ?60-89 ?| ?Stage two ?| ? Decreased GFR ? + --+ --+ ------+| ?30-59 ?| ?Stage three ?| ? Stage three ? + --+ --+ ------+| ?15-29 ?| ?Stage four ? | ? Stage four ?+ ---+ ---+ -------+| ?<15 (or dialysis) ? ?| ?Stage five ? | ? Stage five ?+ ---+ ---+ -------+ *Each stage assumes the associated GFR level has been in effect for at least three months. ?Stages 1 to 5, with or without kidney disease, indicate chronic kidney disease. Notes: Determination of stages one and two (with eGFR >59mL/min/1.73 m2) requires estimation of kidney damage for at least three months as defined by structural or functional abnormalities of the kidney, manifested by either:Pathological abnormalities or Markers of kidney damage (including abnormalities in the composition of the blood or urine or abnormalities in imaging tests). Lab Interpretation (test code = 53778-0) Abnormal [facility] Consult Notes Date/Time Note Provider Source 2023-05-17 10:14:00 [id number]:14 :00Associated Order(s): CONSULT ADULT PHYSICAL THERAPY Patient agreeable to working with physical therapy. Patient met up in chair. Patient seen in conjunction with LUCY Rubalcava. Recommend nursing staff utilize supervision and rolling walker to safely assist patient with mobility out of the bed or chair.PHYSICAL THERAPY EVALUATIONConsult received, chart reviewed and evaluation complete this date. Patient is referred to PT for evaluation and treatment. Patient is a 52 year old female who presents to hospital for Low back pain with sciatica, sciatica laterality unspecified, unspecified back pain laterality, unspecified chronicity [M54.40] s/p Left L 4/5 hemilaminectomy and L 4/5 discectomy on 05/16.Discharge Recommendations: Therapy Needs and Potential:Patient would benefit from continued physical therapy services to address: decline in bed mobility decline in transfers decline in gait and/or balance decreased strength decreased range of motion decreased endurancePatient demonstrates good potential to improve and meet therapy goals with further physical therapy services.Patient exhibits limited activity tolerance.Challenges to Home Transition: increased risk of fallsdecreased caregiver availabilitydecreased safety awarenessEquipment recommendations:rolling walker for short distances and wheelchair for community distances.Current Functional Status and/or Treatment: AM-PAC 6 Clicks (Raw Score 0=Dependent, 24=Independent; Low function Raw Score 0= Dependent, 32=Independent):Raw Score - Basic Mobility : 17T-Scale Score - Basic Mobility : 39.67 Bed Mobility:Defer due to patient up in chair upon therapy arrival however educated on log roll precautions and verbal understanding of education provided. Transfers: Sit to stand: Supervision using Rolling Walker with max verbal cues on correct hand placement and technique. Stand to sit: Supervision using Rolling Walker with max verbal cues on correct technique. Secondary to increased pain in RLE patient instructed to extend RLE out in front and by flexing LLE to 90 degrees. Pain decreased with this technique. Ambulation: Assisted patient with ambulation as follows: x 5 feet, x 10 feet and x 15 feet using Rolling Walker and Supervision. Patient required multiple standing rest breaks secondary to pain, emotional temperament and hyperventilating. Verbal cues given for deep breathing during hyperventilating episodes. Patient verbalized dizziness at end of ambulating trial secondary to crying and hyperventilating. Patient presenting with Step-to gait pattern. Patient required max verbal cues on correct gait sequencing, leading with RLE. Patient follows short simple commands best. Therapeutic exercise: patient educated in General strengthening., instructed patient in the following: ankle pumps, seated marching, and patient/caregiver instructed to perform HEP multiple times per day, 10 repetitions.Patient also educated in deep breathing secondary to hyperventilating, lumbar precautions and log roll technique. Patient required reminder of lumbar precautions multiple times throughout therapy session. After session, patient up in chair. Call button provided. Nurse notified of patients pain and position. OPTOMECHANICAL ENGINEER notified on patients complaints of RT LE pain and emotional presentation ( very tearful and crying) throughout session. PLAN OF CARE: While in the hospital, PT will follow patient at least 3 times per week,once or twice a day, per patient's tolerance and needs.See below for complete details. Admit Date: 05/12/2023 Hospital Diagnosis:Low back pain with sciatica, sciatica laterality unspecified, unspecified back pain laterality, unspecified chronicity [M54.40] PT Diagnosis: Difficulty walking, Weakness, and Abnormality of gait and balanceWeight Bearing Precaution: None General Precautions: PPE used:Gloves, General, Fall, Logroll, Lumbar precautions,Purewick catheter, IV peripheralBracing/Cast present or required:NonePMH: Past Medical History: Diagnosis Date Alcohol abuse Chronic lower back pain HTN (hypertension) Non-compliance with treatment Smoking addiction Quit 2019 PSH: Past Surgical History: Procedure Laterality Date DISCECTOMY POSTERIOR LUMBAR (SHX) Left 05/16/2023 Surgeon: Milind Starr MD; Location: [facility] Prior Living Situation: lives alone, Stairs with bilateral hand railsDME: No devicePrior level of Mobility: community ambulation, house hold ambulation Suspected ischemic or hemorraghic stroke:NoSubjective: "I am just so upset my left leg was the problem and its better now my right leg is not working."Patient/Family Goals: To get better. Patient/Family verbalizes understanding of condition: YesPAIN: -Pain Description: aching-Pain Location: lower back-Pain rating before treatment: 8, After treatment: 10-Pain Management: Nursing NotifiedCOMMUNICATIONPrimary Language: Bahraini Able to Verbalize needs: Yes Vision:good; no issues reported Hearing:good; no issues reported ORIENTATION/COGNITION:Oriented to: person, place, date/time, and situation Awake: Yes Alert: Yes Dizzy: Yes at the end of ambulation trial and subsided once sitting and deep breathing. Follows Commands: Yes 1-Step Yes Multi-Step No Inconsistent: No NEUROLOGICALLight Touch: within functional limits bilateral LETone: NormalProprioception: Normal BALANCE:Sitting: Static: Fair+ Dynamic: Fair+Standing: Static: Fair Dynamic: Fair with rolling walkerRANGE OF MOTION: within functional limits LLE however patient displayed decreased AROM in knee flexion/extension with RLE and PROM in RLE was limited secondary to pain. STRENGTH: 3+/5 (F+), bilateral LE ENDURANCE: Fair, Room air SKIN INTEGRITY: intact, defer to nursing notes PROBLEM LIST: Decline in bed mobility, Decline in gait, Decline in transfers, Difficulty with stairs, Decreased strength, Decreased endurance, Decreased balance, and ROM deficitsASSESSMENT: Patient is a 52 year old female seen secondary to the above listed diagnosis. Patient would benefit from continued PT to address the above listed deficits to maximize independence and safety with functional mobility.Rehabilitation Potential: fair Goals: The following goals are to maximize independence and safety with functional mobility to eventually return to prior living situation and prior functional status. Upon discharge, patient and/or family will demonstrate the followin. Rolling: IndependentSupine to sit: IndependentSit to supine: Independent2. Sit to stand: Independent using Rolling WalkerStand to sit: Independent using Rolling Walker3. Independent with ambulation, Feet: 300 using least assistive device. 4. Independent up/down 20 stairs using bilateral hand rails.5. Demonstrate or verbalize understanding of home exercise program in order to continue with their rehab on their own.Treatment Plan: Gait training, Gait training on stairs, Therapeutic exercise, Transfer training, Balance training, Bed mobility training, Equipment needs assessment, Safety education, patient/caregiver education, and Neuromuscular Re-EducationPATIENT EDUCATION: Patient provided with preferred teaching of verbal information and demonstration on role of PT, plan of care, homes exercise program, lumbar precautions, log roll technique and deep breathing technique. Shows readiness to learn. Verbal instruction and Demonstration teaching provided. Individual verbalizes understanding of teaching provided and needs reinforcement of teaching.Total Time Tx Codes in Minutes: 40 minTotal Treatment Time in Minutes: 61 minJANNET Rubalcava was present and participated throughout the session and agree with the documentation as written by the student therapist on the encounter dated 05/17/2023.Wayne Mcclain PT[place] DPT [id number] [id number]:05:09Consult [id number]|[id number] for patient [id number] T Abe PT[address] [id number] ZWTTGUQVKQOSGXMFVO3277-58-41E06:05:091.2 .[id number]|[id number] [id number] Wayne Mcclain PT [facility] 2023-05-17 09:02:00 BbtDUHibMplu7pIOOjV+3/T+WjJGYX+ichYBv70b se3FIpR/GxoiOzBinC12VkH77930-00-89H31:02 :00Associated Order(s): CONSULT ADULT OCCUPATIONAL THERAPY OT GENERAL EVALUATIONConsult received via [employer], EMR reviewed and evaluation completed 05/17/23. Patient referred to occupational therapy for evaluation and treatment s/p DISCECTOMY POSTERIOR LUMBAR. Patient agreeable to participate in occupational therapy.Discharge Recommendations:Therapy Needs and Potential:- Patient would benefit from continued skilled occupational therapy services to address: Decline in basic activities of daily living, Decline in instrumental activities of daily living, and Decreased endurance - Patient demonstrates good potential to improve and meet therapy goals with further skilled occupational therapy services.- Patient appears motivated to improve their B/IADLs and return to their previous level of function.- Patient demonstrates ability to tolerate at least 30-60 minutes of active participation in occupational therapy.- Patient able to follow commands: 1-step Yes, Multi-step Yes, Inconsistencies NoChallenges to Home Transition:- Requires physical assistance for BADLS- Requires physical assistance for IADLS- Requires supervision or verbal cues for BADLS- Requires supervision or verbal cues for IADLS- No caregiver support- Decreased safety awareness/judgement- Increased risk of falls- Environmental barriers Combo bath/Shower. 20 steps to second floor of home.Equipment Recommendations:Bedside commode, Tub transfer bench, Grab bars, and Hand held showerPLAN OF CARE: At least 3x/week Precautions: Weight bearing status: NAGeneral: PPE Utilized: Gloves, Fall, Morbid obesity, and spinalBracing: N/ACurrent Occupational Performance and/or Treatment:AM-PAC 6 Clicks (Raw Score 0=Dependent, 24=Independent; Low function Raw Score 0= Dependent, 32=Independent):Raw Score - Daily Activity: 16T-Scale Score - Daily Activity: 35.96 Feeding: IndependentGrooming: IndependentLB Dressing: Total AssistanceToilet Transfer: Minimal AssistanceToileting Hygiene: IndependentFunctional Mobility: HOB elevated, sup -> sit EOB minimal assistance, sit <-> stand Supervision. Transfer bed> Recliner with MIN A using RW.Patient/caregiver educated on:Adaptive equipment , ADL training, Deep breathing, Energy conservation, Fall prevention, General strengthening, Positioning, Role of OT, Safety awareness, and Spinal precautionsPatient left sitting upright in bedside chair with call bertrand in reach. Please, see full evaluation below for more detail. OT EVALUATION:52 year old female Admit date: 05/12/2023 Date of onset: 05/12/2023dmit Diagnosis: Low back pain with sciatica, sciatica laterality unspecified, unspecified back pain laterality, unspecified chronicity [M54.40]OT Diagnosis: Impaired BADL independence, Impaired IADL independence, Weakness, Activity intolerance, Decreased endurance, Impaired self-care mobility, and PainPMH: Past Medical History: Diagnosis Date Alcohol abuse Chronic lower back pain HTN (hypertension) Non-compliance with treatment Smoking addiction Quit 2019 PSH: Past Surgical History: Procedure Laterality Date DISCECTOMY POSTERIOR LUMBAR (SHX) Left 05/16/2023 Surgeon: Milind Starr MD; Location[facility] PAIN: Pain Location: lower backPain rating before treatment: 8, After treatment: 8Pain Management: Reports taking pain meds and Repositioning Provided OCCUPATIONAL ROLES/HOME ENVIRONMENT:Home environment: Lives alone, Multistory home, and Stairs . Bathroom access: YesBathroom setup: ComboOccupation(s): DisabledFunction prior to admission: Household ambulation, Community ambulation, Independent with BADLs, and Independent with IADLs Suspected ischemic or hemorraghic stroke patient: NoEquipment prior to admission: Straight CanePERFORMANCE SKILLS/FACTORS: UE Muscle Tone: bilateral WNLUE ROM: bilateral AROM WFL UE Strength: KIRA UE 4-/5 Hand dominance: right Dexterity/Coordination: bilateral Fine motor skills Intact and bilateral Gross motor skills Intact Endurance - Sitting: Good Standing: Fair - Sitting Balance - Static: Good Dynamic: GoodStanding: Balance - Static Fair Dynamic: Fair - Dizziness: NoSkin Integrity: defer full skin assessment to nursing, dressings intact, and surgical incisionSensation: bilateral Intact to light touch Oral Motor: WFLCommunication: Able to verbalize needs Yes Other: N/AVision: WFL Yes Other: N/AHearing: good; no issues reportedCOGNITION: Orientation: person, place, date/time, and situationFollows Commands: 1-step Yes Multi-step Yes Inconsistencies NoSafety Awareness/Judgment: FairPROBLEM LIST: Decreased independence with ADL, Decreased strength/endurance for functional activity, and Impaired safety awarenessREHAB POTENTIAL/PROGNOSIS: goodPATIENT/FAMILY GOALS: to return homeTREATMENT/INTERVENTION PLAN: Patient/Caregiver Education, Equipment recommendations, Daily living activities, and Therapeutic exercisesGOAL(S): By discharge, patient will increase independence in daily living skills as follows: 1 Patient will perform toilet transfer with independence.2 Patient will perform simulated tub/shower transfer with independence.3 Patient will perform simulated bathing task with independence.4 Patient will perform UB/LB dressing with independence.. 5 Patient will complete grooming tasks with independence while standing at the sink.6 Patient will increase endurance for functional activity as evidenced by ability to sustain 25 minutes of active participation. 7 Patient/caregiver will verbalize/demonstrate understanding/proficiency in the following home programs: Compensatory techniques/adaptive strategies, Deep breathing, Energy conservation, Fall prevention, General strengthening, and Spinal PrecautionsPATIENT-FAMILY TEACHINGPatient provided with preferred teaching of verbal information on Adaptive equipment , ADL training, Compensatory techniques/adaptive strategies, Deep breathing, Energy conservation, Fall prevention, General strengthening, Positioning, Role of OT, and Safety awareness. Shows readiness to learn. Verbal instruction teaching provided. Patient verbalizes understanding of teaching provided and needs reinforcement of teaching.Lizzie Alcocer OTR*This may not be patient's primary therapist. Please contact the Rehab Department at [phone] with questions. Total Timed Treatment Codes: 15 MinTotal Treatment Time: 53 MinPatient Complexity Level High - An occupational therapy evaluation of high complexity was completed using the above tests and measures. The following information was obtained: An occupational profile and medical and therapy history, including review of medical and/or therapy records and extensive additional review of physical, cognitive, or psychosocial history related to current functional performance, Various standardized and non-standardized assessments were used to identify at least 5 or more performance deficits related to physical, cognitive, or psychosocial skills that result in activity limitations and/or participation restrictions, and Clinical decision-making is of high analytic complexity, which includes an analysis of the patient profile, analysis of data from comprehensive assessment(s), and consideration of multiple treatment options. Patient present with comorbidities that affect occupational performance. Significant modification of tasks or assistance (e.g., physical or verbal) with assessment(s) is necessary to enable patient to complete evaluation component. 90354-0Xamtrtv pbfoQP1789-55-21K29:19:47Consult noteTXT1.2.840.776815.1.13.104.2.7.2.727 879|[id number] for patient [id number] A Paver [id number] FMPQGRHXNXUUSFLXVW9443-45-66G04:19:471.2 .840.266948.1.72.3.15|1.2.840.629067.1.1 3.104.2.7.2.727879_[id number] Pa Alcocer OT [facility] 2023-05-13 14:35:50 WYllRaiZsQSXpaR0s8ppQnjTQKV0zH9dmDwl7PE5 EivFsehhi9dArtaiz2/OpenI2637-54-71Z47:35 :50Associated Order(s): CONSULT SURGICAL CO-MANAGEMENT (SCM) Images from the original note were not included.Surgical Co-Management Hospitalist (SCM) Consult ServiceGeneral (Non operative) Consultation NotePatient: Jeannette Farrell PadminiRN: [id number] Date of Consult: 05/13/2023 Referring Physician: Dr Verdin for Consult: Medical co-managementHPI: The patient is a 52-year-old female with a history of hypertension, type 2 diabetes, chronic back pain who presented to the emergency room with worsening back pain for the past week. She states she was bending awkwardly about a week ago and since then has had severe pain and has had difficulty moving her left leg due to her symptoms. She previously did not have health insurance and had been going to different [place] [facility] providers, she saw Dr. Pacheco on August 09, 2022 and was previously on Bystolic, valsartan and metformin for her medical conditions. She states she is ran out of all of her medications as she has not been able to see a provider, she is pending an appointment with [facility] to establish health care as they are the only provider who are able to take her current health insurance. The patient went to [facility] emergency room and underwent CT of the lumbar spine which revealed some degenerative changes, she was sent here and admitted under neurosurgery for further evaluation. Prior to this recent episode back pain she would have good days where she was able to do her own ADLs, walk up stairs and do light activities. She has never had surgery in the past. She drinks recreationally and denies any smoking. She received steroids in the ER, UA was dirty but she denies any dysuria or frequency. SCM consulted for help with medical management. HISTORIES (personally reviewed by me):Active Ambulatory Problems Diagnosis Date Noted Essential hypertension 02/06/2017 Chronic lower back pain Syncope 10/18/2017 Concussion with brief LOC 06/16/2019 Fracture of phalanx of left little finger 06/17/2019 Fracture of phalanx of right thumb 06/17/2019 Resolved Ambulatory Problems Diagnosis Date Noted No Resolved Ambulatory Problems Past Medical History: Diagnosis Date Alcohol abuse HTN (hypertension) Non-compliance with treatment Smoking addiction History reviewed. No pertinent surgical history.Social History Socioeconomic History Marital status: Spouse name: Not on file Number of children: 2 Years of education: Not on file Highest education level: High school graduate Occupational History Not on file Tobacco Use Smoking status: Former Types: Cigarettes Passive exposure: Past Smokeless tobacco: Never Substance and Sexual Activity Alcohol use: No Alcohol/week: 0.0 standard drinks of alcohol Drug use: Not on file Sexual activity: Not on file Other Topics Concern Not on file Social History Narrative Merged History Encounter Social Determinants of Health Financial Resource Strain: Not on file Food Insecurity: Not on file Transportation Needs: Not on file Physical Activity: Not on file Stress: Not on file Social Connections: Not on file Intimate Partner Violence: Not on file Housing Stability: Not on file Family History Problem Relation Age of Onset Cancer Mother Heart Father Home medications:Prior to Admission medications Medication Sig Start Date End Date Taking? Authorizing Provider metFORMIN 1,000 mg tablet Take 1 tablet by mouth in the morning and 1 tablet in the evening. Take with meals. Yes Doctor Unassigned, Opal HYDROcodone-acetaminophen 5-325 mg tablet Take 1 tablet by mouth every 6 (six) hours as needed for Pain (scale 7-10) (For breakthrough pain. Take with stool softener). 06/17/19 Meera Blackwell MD ASPIRIN 81 mg chewable tablet TAKE 1 TABLET BY MOUTH EVERY DAY 05/07/18 Yvon Nunez MD LISINOPRIL 10 mg tablet TAKE 1 TABLET EVERY DAY 08/08/17 Adwoa Redd MD Current Medications:Scheduled meds:acetaminophen, 650 mg, P4Pcxatvxtm, 100 mg, DAILYenoxaparin (LOVENOX) SC Syringe, 40 mg, I63Ddcbdpyrkmn, 20 mg, DAILYSERTraline, 25 mg, DAILYinsulin regular human, , M6HSbfeaauevf, 40 mg, BIDIV meds: PRN meds:dextrose 50 % in water (D50W), 25 mL, PRNdextrose 50 % in water (D50W), 25 mL, PRNdiazePAM, 2.5 mg, TIDPRNglucagon, 1 mg, PRNglucagon, 1 mg, PRNhydralAZINE, 10 mg, C4PWSHelbsTKWH, 4 mg, Y1RLYDqmiubcibktm, 4 mg, V6TAFFslxQJWFXW, 5 mg, Q2CBLCepbvhjrzfnhi glycol (MIRALAX, CLEARLAX, HEALTHYLAX) oral powder, 17 g, PRN - SEE INSTRUCTIONSzolpidem, 10 mg, QHSPRNALLERGIES:No Known AllergiesREVIEW OF SYSTEMSAll systems negative except as otherwise stated in HPIPHYSICAL EXAMBP 137/83 | Pulse 83 | Temp 36.4 ?C (97.5 ?F) | Resp 18 | Ht 1.676 m (5' 6") | Wt 79.4 kg (175 lb) | SpO2 99% | BMI 28.25 kg/m? Physical ExamVitals reviewed. Constitutional: General: Patient is not in acute distress. Appearance: Normal appearance. HENT: Right Ear: External ear normal. Left Ear: External ear normal. Nose: Nose normal. Eyes: Extraocular Movements: Extraocular movements intact. Conjunctiva/sclera: Conjunctivae normal. Cardiovascular: Rate and Rhythm: Normal rate and regular rhythm. Pulses: Normal pulses. Heart sounds: Normal heart sounds. No murmur heard. Pulmonary: Effort: Pulmonary effort is normal. No respiratory distress. Breath sounds: Normal breath sounds. No wheezing. Abdominal: General: Bowel sounds are normal. There is no distension. Palpations: Abdomen is soft. Tenderness: There is no abdominal tenderness. Musculoskeletal: General: No swelling or tenderness. Normal range of motion. Skin: General: Skin is warm. Coloration: Skin is not jaundiced. Findings: No lesion. Neurological: General: No focal deficit present. Mental Status: patient is awake, alert, movies all extremities spontaneously, answers questions appropriately LABS/IMAGING - reviewed, recent results as below:Lab Results Component Value Date/Time NA 136 05/13/2023 05:06 AM K 4.6 05/13/2023 05:06 AM CA 9.3 05/13/2023 05:06 AM CL 104 05/13/2023 05:06 AM BUN 11 05/13/2023 05:06 AM CREAT 0.71 05/13/2023 05:06 AM EGFR 86.4 05/13/2023 05:06 AM GLU 378 (H) 05/13/2023 05:06 AM TCO2 24 05/13/2023 05:06 AM WBC 9.24 05/13/2023 05:06 AM RBC 4.08 05/13/2023 05:06 AM PLT 258 05/13/2023 05:06 AM HGB 13.5 05/13/2023 05:06 AM HCT 38.5 05/13/2023 05:06 AM ALB 3.6 05/12/2023 07:36 PM TPRO 6.5 05/12/2023 07:36 PM BILIT 0.7 05/12/2023 07:36 PM BILIUNCON 0.2 06/16/2019 08:49 AM BILICONJ 0.0 06/16/2019 08:49 AM ALT 64 (H) 05/12/2023 07:36 PM ALT 69 (H) 06/16/2019 08:49 AM AST 66 (H) 05/12/2023 07:36 PM ALKPHOS 118 05/12/2023 07:36 PM MG 1.7 10/19/2017 05:02 AM PTINR 0.9 05/13/2023 05:06 AM PTPAT 10.6 05/13/2023 05:06 AM APTTPAT 29 06/16/2019 08:49 AM NTBNP 31 06/16/2019 08:49 AM TROPNI <0.012 06/16/2019 08:49 AM Most Recent UA:Lab Results Component Value Date/Time UPROTEIN Negative 05/12/2023 07:36 PM UPH 5.0 05/12/2023 07:36 PM UGLUCOSE 500 mg/dL (A) 05/12/2023 07:36 PM UKETONES Negative 05/12/2023 07:36 PM UBILI Negative 05/12/2023 07:36 PM ULEUKEST 250/uL (A) 05/12/2023 07:36 PM UNITRITE Negative 05/12/2023 07:36 PM USPGRAV 1.026 05/12/2023 07:36 PM Radiology (48 HRS):CT LUMBAR SPINE WO CONTRASTResult Date: 05/12/2023No fracture or subluxation Multilevel moderate degenerative changes most prominent at L2/3 and L4/5 as detailed above RL 4728 SSMENT & PLAN:Acute on chronic back pain, lumbar DJDAbnormal UA, possible UTIDM2 w/ Steroid induced hyperglycemiaHTNDepressionPatient has yet to establish with provider, was previously on Bystolic and losartan as well as metformin monotherapy for her medical conditions. Has been out of all of her medications. We will resume valsartan & sertraline, continue sliding scale for now, await A1c. Patient got 10 mg of dexamethasone recently which is likely driving her hyperglycemia. Anticipate we will be able to discharge her on oral metformin monotherapy +/- glipizide unless her A1c is greater than 10 at which time will consider insulin. Patient is pending MRI, she is >4 mets in terms of functional status and ok for OR anytime from SCM standpoint if needed. Await urine cx results, hold abx for now as she is asymptomatic and doubt pyelo. Thank you for allowing me to participate in your patients care with you, will followDVT Prophylaxis: Per Primary, on lovenoxCode Status: fullDispo: pending MRIBeccasKAYLEN Thompsonurgical Co-Management HospitalistAssistant Professor General Internal MedicinePortions of this note were created using a voice-recognition transcribing system. Typographical errors and incorrect words or phrases may have been missed during proofreading. Please interpret accordingly. 70398-4Gbncxvr jljgVM1682-17-87P32:03:36Consult noteTXT1.2.840.095575.1.13.104.2.7.2.727 879|[id number] for patient care[address] Jsl[id number] YXQRLFQWISUNDXCMVI1965-14-29Z20:03:361.2 .840.747150.1.72.3.15|1.2.840.013245.1.1 3.104.2.7.2.727879_[id number] [facility] - Health History and Physical Notes Date/Time Note Provider Source 2023-05-13 02:00:15 p73ZLHL4WbvKHpo2CBdT QHW7gn4Siam7pyCyWmuQs9 igBBHW8dYItoWNviApk3qa1684-63-83O65:00:15F ormatting of this note is different from the original.NEUROSURGERY HISTORY AND PHYSICALAttending Neurosurgeon: [facility]: Back painHPI: Jeannette Way is a 52 year old female with history of chronic back pain who presents with one week of acute low back pain, L leg S1 radiculopathy, urinary and fecal incontinence. Patient states that her pain started when she got up from bending down to picker / packer something. Patient notes 10/10 pain in her lower back which radiates down the back of her leg. Patient notes that over the past week she has been having difficulty making it to the bathroom and has often soiled her self. Patient also notes paresthesias down her left leg. Medications (Current)Antiplatelets: NoneAnticoagulation: NoneNo current facility-administered medications on file prior to encounter. Current Outpatient Medications on File Prior to Encounter Medication Sig Dispense Refill metFORMIN 1,000 mg tablet Take 1 tablet by mouth in the morning and 1 tablet in the evening. Take with meals. HYDROcodone-acetaminophen 5-325 mg tablet Take 1 tablet by mouth every 6 (six) hours as needed for Pain (scale 7-10) (For breakthrough pain. Take with stool softener). 10 tablet 0 ASPIRIN 81 mg chewable tablet TAKE 1 TABLET BY MOUTH EVERY DAY 30 tablet 2 LISINOPRIL 10 mg tablet TAKE 1 TABLET EVERY DAY 30 tablet 5 Past Medical History:Past Medical History: Diagnosis Date Alcohol abuse Chronic lower back pain HTN (hypertension) Non-compliance with treatment Smoking addiction Quit 2019 Past Surgical History: History reviewed. No pertinent surgical history.Social History: Social History Tobacco Use Smoking status: Former Types: Cigarettes Passive exposure: Past Smokeless tobacco: Never Substance Use Topics Alcohol use: No Alcohol/week: 0.0 standard drinks of alcohol ROS (BOLDED IF POSITIVE - otherwise negative)Constitutional: Nausea, Vomiting, Fevers, ChillsEyes: NegativeEars, nose, mouth, and throat: NegativeEndocrine: NegativeHematologic: NegativeCard: Chest pain, PalpitationsPulm: Cough, Shortness of breathGI: Diarrhea, Constipation, : NegativeInteg: Masses, Rashes, LesionsMsk: Weakness, PainNeuro: Headache, Vision changes, Dizziness, WeaknessPEVitals: Vitals: 05/12/23 2100 05/12/23 2130 05/12/23 2300 05/12/23 2359 BP: (!) 172/86 (!) 122/92 (!) 169/80 Pulse: 66 67 71 Resp: Temp: 36.9 ?C (98.5 ?F) TempSrc: Axillary SpO2: 100% 98% 100% Weight: 79.4 kg (175 lb) Height: 1.676 m (5' 6") Exam:Awake, alert, oriented x3EOMI bilaterallyFace symmetricUPPER EXTREMITY STRENGTH EXAM: R 5/5 5/5 5/5 5/5 5/5 D(C5) B(C6) T(C7) Deck Mate(C8) I (T1)L 5/5 5/5 5/5 5/5 5/5 LOWER EXTREMITY STRENGTH EXAM: R 5/5 5/5 5/5 5/5 5/5 IP(L2) Q(L3) TA(L4) EHL(L5) G(S1)L 4/5 4/5 4/5 4/5 4/5 LLE pain limited Numbness and tingling on the left legExam deep tendon: briskNo drift No clonusNo Cook'sLabs:Recent Labs WBC 8.97 HGB 13.6 HCT 39.7 PLT 266 ]Recent Labs NA 139 K 3.6 CL 105 TCO2 28 BUN 7 CREAT 0.68 GLU 292* CA 8.7 ]No results for input(s): "ACPH", "ACPCO2", "ACPO2", "ACHCO3", "ACNA", "ACK", "ACCAIONZ", "ACBE" in the last 72 hours.No results for input(s): "PTPAT", "PTINR", "APTTMNNM", "APTTPAT" in the last 72 hours.Recent Labs UPROTEIN Negative UGLUCOSE 500 mg/dL* UKETONES Negative UBILI Negative ULEUKEST 250/uL* UNITRITE Negative USPGRAV 1.026 @1LFT@No results for input(s): "PHENYTOIN", "PHENYFREE" in the last 72 hours. Imaging: CT on 05/13/2023 C-spine shows no acute injuries Assessment: Jeannette Way is a 52 year old female with history of chronic back pain who presents following a one week history of greater back pain, fecal and urinary incontinence, LLE S1 radic, and paresthesias and numbness of LLE.Plan:- MRI L-Spine w/wo- pain management - SCM consult for patient BP and diabetes Jose Schreiber MDNeurosurgery Resident ssociated attestation - Manoj Jhaveri MD - 05/13/2023 6:34 PM CDT I personally evaluated; History, Physical exam, and reviewed the available images on Jeannette [address], I participated primarily in the medical decision making, and I agree with the documentation by Neurosurgery resident, [place],. 11323-3Iapmqkh and physical [id number], Rudy P1.2.840.450169.1.13.104.2.7.2.917228Cfmuv sDckrNNO1379-12-42K42:34:54History and physical noteTXT1.2.840.055125.1.13.104.2.7.2.07932 9|[id number] for patient care[address] Gz[id number] FJOXPSWKSFCKPLLC6159-48-83D78:34:541.2.840 .501106.1.72.3.15|1.2.840.239563.1.13.104. 2.7.2.727879_[id number] [facility] Procedure Notes Date/Time Note Provider Source 2023-05-16 11:40:00 3V6+Lti/wO5fUEIehM+c qy7tyF/xw y9HfVDOXSspt1/LFvmU/Ss0SA3t26 6w0zJe6041-45-98O51:40:00Form atting of this note might be different from the original.3Preoperativ e diagnosis: Lumbar disc prolapse L 4/5 left Postoperative diagnosis:Lumbar disc prolapse L 4/5 left Procedure: Left L 4/5 hemilaminectomy , L 4/5 discectomy , usage of microscopic dissection, Surgeon: Milind Leonardistant: Jose DsouzaEBL: 50 mlFindings: large extruded subligamentous disc L 4/5 lateral Complications: noneSpecimen sent: nonePostoperative: transferred to Recovery in stable condition. CPT Code:00333,15263 Milind Starr 74354-6Hqarivdde xbfbKT8494-45-72X91:41:15Proc edure noteTXT1.2.840.454378.1.13.10 4.2.7.2.093372|[id number] ailable for patient careNS-NEUROLOGICAL SURGERY STAFFNS-NEUROLOGICAL SURGERY STAFF[address] ZsatJxuiwdbpnTzpniwcvxAXYR846 2113185WKYDLNTXUBMFWMAUKYMYRZ 4452-74-30P19:41:151.2.840.11 4350.1.72.3.15|1.2.840.931369 .1.13.104.2.7.2.727879_[id number] NS-NEUROLOGICAL SURGERY STAFF [facility] Notes Date/Time Note Provider Source 2023-06-12 09:34:16 el2gWpYmyOpfOKIfge0zEkv30z/t4jFB8M QjHmjAyO5viS23an1HxNIQ7Z/8iIUw55522022T09:34:16 Encounter completed by corsets salesperson provider 01322-8Rzcenlzbg encounter CmqtOO6211-84-31M53:35:36Telephone encounter NoteTXT1.2.840.386187.1.13.104.2.7 .2.071554|[id number] for patient naer00102-4DehlCI872181137Kgkgtbr Hansen RN[id number] 03HZNRENZKHYZULNYWHSISZJ7825-05-03 T09:35:361.2.840.160437.1.72.3.15| 1.2.840.969112.1.13.104.2.7.2.7278 [id number] Paty Mooney RN [facility] 2023-06-11 11:03:59 7g+9m0a6BCRmDZNUEDJpQ9az0AW7XCpAh9 POgljXhHzKoQz+R9x8CPpv8UsUzD+K202T11:03:[address] is a 52 year old female Pt called stating that she was having knots and cramping around bottom with pain going to leg and ankle x Monday. Paged Dr. Mario: 11:00 amCalled back at 11:01 amConnected: 11:02 am 73141-2Fealhcgnp encounter OqnpJZ5718-95-17Q18:06:28Telephone encounter NoteTXT1.2.840.838819.1.13.104.2.7 .2.675212|[id number] for patient eagq23074-5BadgYZ44270776Rauluosp I [facility] CenterzU[id number] 37KVPHQZJSOYEVSKNKFYDBFY6819-24-67 T11:06:281.2.840.063586.1.72.3.15| 1.2.840.885758.1.13.104.2.7.2.7278 [id number] Jenaro Ennis [facility] 2023-06-09 14:32:19 UifEiKqmHlxeCNw29xMzpVtJhZUj3Su95m 2RRyGmqlk+osE2dgiR/bKu20GjZFgQ8379 -08-11T14:32:19 Attempted to contact pt and no answer. LVM 17012-3Woaiskcuo encounter OnlvUP0847-87-98V53:32:58Telephone encounter NoteTXT1.2.840.404847.1.13.104.2.7 .2.480108|[id number] for patient rjtz81755-6NactXX189542915Ysjjmdns Bloys [id number] 68HERPQQVMOLTDCHVWZMLQUG7171-16-31 T14:32:581.2.840.569080.1.72.3.15| 1.2.840.517728.1.13.104.2.7.2.7278 79_[id number] Kassie Gama RN [facility] 2023-06-09 11:22:24 twB0KKyuVqlwGW6W6KtQ37SvA/WrVrvfG+ spviyqilIk8ZNwDuQh3UnUe3uCM8OU4536 -08-11T11:22:[address] is a 52 year old female.Patient is calling stating that after she finished her antibiotics prescribed by Dr. Tripp on Monday she started having cramps on her buttocks and she is experiencing an "electric" felling that goes down to her knees. She states the pain is a 5 in a scale of 1-10 and she would like to know if this is normal or not and have some advise. 85641-9Qrsktentp encounter ZtukMI1828-66-66F90:31:38Telephone encounter NoteTXT1.2.840.474280.1.13.104.2.7 .2.722024|[id number] for patient [id number] Tsuruta Moreno [address] IavzCrnbwdkocIrfcmgqlxBGHZ85338720 29JUXURHMCUAFRSCJAVRHOLC9724-84-28 T11:31:381.2.840.216371.1.72.3.15| 1.2.840.401709.1.13.104.2.7.2.7278 79_[id number] Lizz Solis V [facility] 2023-05-26 08:59:48 avutIty6/9zBIl1KCebxRdKZdtt0nY2BjF YMq8K8j2Y1ecNLTJVsfg/OC/+paMQm5271 -07-28T08:59:48 Patient concerned with little areas of redness around incision site with itching, denies warmth to touch, drainage, or fevers. I reassured patient that it sounds like normal wound healing and no infection at this time. States PCP at [facility] saw incision on 05/24 and told patient that it looked fine and was healing well. I advised patient that she could send me a picture on [facility] as [facility]. Patient with no other concerns. Patient verbalized understanding and appreciation. 35169-7Lxweinvwv encounter VbvbYA0810-85-48L17:06:25Telephone encounter NoteTXT1.2.840.740379.1.13.104.2.7 .2.721303|[id number] for patient [id number] Hansen RN[id number] 76GKKONUWJPNAHPKMKYIAOEL3645-81-07 T09:06:251.2.840.454829.1.72.3.15| 1.2.840.830756.1.13.104.2.7.2.7278 79_[id number] Paty Mooney RN [facility] 2023-05-26 08:53:04 PkgyIMzuPn0sbuN+rTZlgcxhLF+BPBZWh4 VOPRKpcGoaIP034Bn5iQ9VAo0Rmm408107 -07-28T08:53:04 Called patient, no answer, left voicemail 88164-7Trycnsnpe encounter CjrdEN8521-06-86B79:53:23Telephone encounter NoteTXT1.2.840.408329.1.13.104.2.7 .2.438366|[id number] for patient [id number] 32CQZCXAUNZOWGTZGERZRVUZ7657-50-48 T08:53:231.2.840.197084.1.72.3.15| 1.2.840.986146.1.13.104.2.7.2.7278 79_[id number] [facility] 2023-05-26 08:32:23 JKOP0qmUhfb4oU9Nv7yohz7E0JjS30z2nJ V1AoiSc0+TNyNZIAuVdrb1rS305dT47694 -07-28T08:32:[address] is a 52 year old female patient states that her incision is itchy and it's a little red around it. When she went to [facility] to FU with her PCP, she was told that her incision looked normal and did a UA. She states that it didn't look right and the nurses were unable to explain to her if that was normal. She also mentions that she is diabetic and her discharge paperwork doesn't state that.Pls give her a call, thanks. 56335-5Hszodsnzt encounter WascMW7155-68-73A11:36:03Telephone encounter NoteTXT1.2.840.162862.1.13.104.2.7 .2.064026|[id number] for patient [id number] M. Garcia[address] Ig[id number] 89YDWSLJMNJRARVFOZZONRJB4004-95-12 T08:36:031.2.840.405612.1.72.3.15| 1.2.840.172997.1.13.104.2.7.2.7278 [id number] Heydi Galvin [facility] 2023-05-19 09:59:59 gcAyGk8PWZOv8nPBI1iwCzIh9wYP8WQW7n 2pqL0tJIkQHKd1TekfaR0bIyI+NJ7K49832022T09:59:59 TRANSITIONAL CARE MANAGEMENT ASSESSMENT05/19/[id number] is a 52 year old /White female was admitted on 05/12/[address] She was discharged on 05/18/23 with discharge disposition of HR- Routine Discharge.Admitting Physician: Manoj Jhaveri PDischarge Diagnosis: Low back pain with sciatica, sciatica laterality unspecified, unspecified back pain laterality, unspecified chronicity [M54.40]Pt. Verbalized understanding discharge instructions. Linked Episodes Type: Episode: Status: Noted: Resolved: Last update: Updated by: TRANSITION OF CARE tcm Active 05/19/2023 05/19/2023 9:59 AM Soco Moore LVN Comments: TCM Jop-suwr-mv-face outreach documentation:Discharge AssessmentChart Assessed: 05/19/23TCM Outreach Completed: 05/19/23Do you have a few minutes to speak with me about how you are doing at home?: YesDischarge InstructionsDo you understand your at-home instructions?: YesMedicationsHave you filled your prescriptions and do you have them in your home? : N/ASuppliesDid you receive applicable home medical supplies/equipment?: N/AFollow Up AppointmentHas a follow up appointment been scheduled?: NoMay I assist with scheduling this appointment?: Unable to schedule-referred to HFU TeamDo you have any questions about your follow up appointments?: NoAre you able to get to your appointment? Who will be taking you?: Yes (family)Home Health AssistanceHas the home health nurse contacted you since you've been home?: N/ASurvey - RecognitionIs there anything you would like to share about your recent hospitalization, or anyone you would like to recognize?: NoDo you have any suggestions for improvement?: NoDo you have any other questions or concerns at this time?: NoFuture Appointments: 34342-4Wpwmzaiey encounter WkxyPK8290-05-65D09:00:36Telephone encounter NoteTXT1.2.840.527356.1.13.104.2.7 .2.497862|[id number] for patient [id number] Rivas [address] Sb[id number] 37OPTUWPNORRWZGCVVKFBQJW8414-42-88 T10:00:361.2.840.763824.1.72.3.15| 1.2.840.518808.1.13.104.2.7.2.7278 [id number] Soco Moore RN GYNECOLOGY [facility] 2023-05-18 12:34:29 GYUgBrPYLIfNx9/L5lbAcZnrSDCGrlP1j9 cvXEWfpOqKspVOVTzFM7o1cZPM6J878681 -07-20T12:34:29 Problem: Discharge PlanningGoal: Adequate for dischargeOutcome: Adequate for dischargeGoal: Effective communicationOutcome: Adequate for discharge Problem: Falls, Risk ofGoal: Absence of fallsOutcome: Adequate for discharge Problem: PainGoal: Control of pain at or below patient's documented comfort goalOutcome: Adequate for dischargeGoal: Reduction in pain sensationOutcome: Adequate for discharge Problem: Procedure RoutineGoal: Absence of post-procedure complicationsOutcome: Adequate for dischargeGoal: Knowledge of procedureOutcome: Adequate for discharge 13573-1Jpnu of care rlgrCT2395-93-12S85:34:31Plan of care noteTXT1.2.840.685939.1.13.104.2.7 .2.997262|[id number] for patient [id number] Kosydar RN[id number] 68ELIZQRFSDTWVWNYWDDVMOL0898-68-31 T12:34:311.2.840.226008.1.72.3.15| 1.2.840.580946.1.13.104.2.7.2.7278 [id number] Susi Garland RN [facility] 2023-05-17 21:43:19 znDR6erfcerLpAo0r29W6jdayPVY28HqMx nAVHTplWw/YQoSjjo72RiMlpnpbj/56035T21:43:19 Problem: Discharge PlanningGoal: Adequate for dischargeOutcome: Progressing as expectedGoal: Effective communicationOutcome: Progressing as expected Problem: Falls, Risk ofGoal: Absence of fallsOutcome: Progressing as expected Problem: PainGoal: Control of pain at or below patient's documented comfort goalOutcome: Progressing as expectedGoal: Reduction in pain sensationOutcome: Progressing as expected Problem: Procedure RoutineGoal: Absence of post-procedure complicationsOutcome: Progressing as expectedGoal: Knowledge of procedureOutcome: Progressing as expected 63305-9Dxfm of care glmxGQ9612-63-49L32:43:23Plan of care noteTXT1.2.840.463919.1.13.104.2.7 .2.514108|[id number] for patient ljfw210813200LtxlerRadha Estevez RNUT[address] [id number] 53XHCSIOJYJIPHLESYQUJJTK8266-75-93 T21:43:231.2.840.294516.1.72.3.15| 1.2.840.079748.1.13.104.2.7.2.7278 [id number] Radha Estevez RN [facility] 2023-05-17 10:43:41 1j2iQmxFK8TAWaWZps5rwMBOV0O5Y8IW0G TdnilvEogzdrsZxVBscqTxl04c5rml3196 -07-19T10:43:41 Problem: Discharge PlanningGoal: Adequate for dischargeOutcome: Progressing as expectedGoal: Effective communicationOutcome: Progressing as expected Problem: Falls, Risk ofGoal: Absence of fallsOutcome: Progressing as expected Problem: PainGoal: Control of pain at or below patient's documented comfort goalOutcome: Progressing as expectedGoal: Reduction in pain sensationOutcome: Progressing as expected Problem: Procedure RoutineGoal: Absence of post-procedure complicationsOutcome: Progressing as expectedGoal: Knowledge of procedureOutcome: Progressing as expected 31833-7Vjbw of care tzkvPO0047-49-12Q86:43:46Plan of care noteTXT1.2.840.464230.1.13.104.2.7 .2.267014|[id number] for patient mnlrDS-QMHSCGYVQHVA-OJVYXDIAFGWEBD [facility] [employer] As[id number] 51VGCKERSOOIKAEWKJGZWPTB5972-59-91 T10:43:461.2.840.511897.1.72.3.15| 1.2.840.642123.1.13.104.2.7.2.7278 [id number] PN-PSYCHIATRY [facility] 2023-05-17 04:24:02 oxVayfsT8To+D1Z3GxbiiFGESbI87r3Ks2 fFpxjFYenPd2C2cBplOHJ6zXyOO1zU9564 -07-19T04:24:02 Problem: Discharge PlanningGoal: Adequate for dischargeOutcome: Progressing as expectedGoal: Effective communicationOutcome: Progressing as expected Problem: Falls, Risk ofGoal: Absence of fallsOutcome: Progressing as expected Problem: PainGoal: Control of pain at or below patient's documented comfort goalOutcome: Progressing as expectedGoal: Reduction in pain sensationOutcome: Progressing as expected Problem: Procedure RoutineGoal: Absence of post-procedure complicationsOutcome: Progressing as expectedGoal: Knowledge of procedureOutcome: Progressing as expected 76530-8Vybz of care kkbpWL2987-48-02H57:24:05Plan of care noteTXT1.2.840.617576.1.13.104.2.7 .2.601815|[id number] for patient [address] ObukTrmh[id number] 10TKZMNJKBOGZQIMGFOVMPLE9949-86-57 T04:24:051.2.840.711490.1.72.3.15| 1.2.840.228156.1.13.104.2.7.2.7278 [id number] [facility] 2023-05-16 10:12:34 0lF4DSqb4Xc1dL0Sj/14DxmDAZTcCMHrD4 pFJwZxYLWEMLEHw7RrEI7JjAlvxDu00689 -07-18T10:12:34 Problem: Discharge PlanningGoal: Adequate for dischargeOutcome: Progressing as expectedGoal: Effective communicationOutcome: Progressing as expected Problem: Falls, Risk ofGoal: Absence of fallsOutcome: Progressing as expected Problem: PainGoal: Control of pain at or below patient's documented comfort goalOutcome: Progressing as expectedGoal: Reduction in pain sensationOutcome: Progressing as expected Problem: Procedure RoutineGoal: Absence of post-procedure complicationsOutcome: Progressing as expectedGoal: Knowledge of procedureOutcome: Progressing as expected 48441-4Nhrb of care lhvsFK9310-14-95O45:14:18Plan of care noteTXT1.2.840.134118.1.13.104.2.7 .2.898638|[id number] for patient [address] RwneTxvuoxzchYlgwdkcayMRTJ94943565 57BGJJGPXOBQDTFLXARJKIFT2627-91-78 T10:14:181.2.840.212000.1.72.3.15| 1.2.840.960833.1.13.104.2.7.2.7278 [id number] [facility] 2023-05-16 00:39:24 3dJhuLGHpRzELPQ3eUWMXtH0Rlb/7vrF4K LwKnBdhcCixu3bve9jAdWEEEQsfr2f2955 -07-18T00:39:24 Problem: Discharge PlanningGoal: Adequate for dischargeOutcome: Progressing as expectedGoal: Effective communicationOutcome: Progressing as expected Problem: Falls, Risk ofGoal: Absence of fallsOutcome: Progressing as expected Problem: PainGoal: Control of pain at or below patient's documented comfort goalOutcome: Progressing as expectedGoal: Reduction in pain sensationOutcome: Progressing as expected 28669-3Heax of care ckxjSO3506-23-12D12:39:28Plan of care noteTXT1.2.840.778158.1.13.104.2.7 .2.803329|[id number] for patient [id number] 87NQVIQFRPDLDPMTQXWSQEZA2310-40-67 T00:39:281.2.840.035304.1.72.3.15| 1.2.840.736253.1.13.104.2.7.2.7278 [id number] [facility] 2023-05-14 23:38:10 2sEg47qDxKmv4mXxw0fVrLD4NbRWbqXJIx 1gWkuUkUu8WUteXFTKKRzvMl6fExe56214 -07-16T23:38:10 Problem: Discharge PlanningGoal: Adequate for dischargeOutcome: Progressing as expectedGoal: Effective communicationOutcome: Progressing as expected Problem: Falls, Risk ofGoal: Absence of fallsOutcome: Progressing as expected Problem: PainGoal: Control of pain at or below patient's documented comfort goalOutcome: Progressing as expectedGoal: Reduction in pain sensationOutcome: Progressing as expected 78341-1Nmla of care zstuBZ5266-37-62N55:38:14Plan of care noteTXT1.2.840.498756.1.13.104.2.7 .2.707233|[id number] for patient lwdb929134855Wljnts R Booty RN[id number] 21AQKVZGHGDEDVIZOGCXHBIP9342-82-01 T23:38:141.2.840.985900.1.72.3.15| 1.2.840.964417.1.13.104.2.7.2.7278 [id number] Kelly Atkinson RN [facility] 2023-05-14 17:53:19 FX68T4SUeR2GZZC187Xn2WbsuHcnifLxAx 0ULxhIFBiZ5HZ+edeGR/yCkZIwJBvp4852 -07-16T17:53:19 Problem: Discharge PlanningGoal: Adequate for dischargeOutcome: Progressing as expectedGoal: Effective communicationOutcome: Progressing as expected Problem: Falls, Risk ofGoal: Absence of fallsOutcome: Progressing as expected Problem: PainGoal: Control of pain at or below patient's documented comfort goalOutcome: Progressing as expectedGoal: Reduction in pain sensationOutcome: Progressing as expected 85768-6Drpw of care dyinSU8119-31-66L42:53:23Plan of care noteTXT1.2.840.459250.1.13.104.2.7 .2.179602|[id number] for patient xisf704615724Fnqqslr R Pharis RN[id number] 45ETTIZHVHXIUZGTPNNYPZTK9343-83-16 T17:53:231.2.840.437604.1.72.3.15| 1.2.840.715454.1.13.104.2.7.2.7278 [id number] Janay Samuel RN [facility] 2023-05-13 20:50:33 3cClhs/BvxRbpoHtZfKDWAbz8zD9YnlgdV qGc9s/B3BeAYdSuTCJMxk0a+y++tOY7177T20:50:33 Problem: Discharge PlanningGoal: Adequate for dischargeOutcome: Progressing as expectedGoal: Effective communicationOutcome: Progressing as expected Problem: Falls, Risk ofGoal: Absence of fallsOutcome: Progressing as expected Problem: PainGoal: Control of pain at or below patient's documented comfort goalOutcome: Progressing as expectedGoal: Reduction in pain sensationOutcome: Progressing as expected 61719-0Ybmh of care udiqKY5496-19-09X84:50:37Plan of care noteTXT1.2.840.607819.1.13.104.2.7 .2.196402|[id number] for patient [address] HfnmFbzlxppdyYnmqwwkriRGTZ12722950 95GRPMZYFNGLCHUQJUZTLOYG1216-84-55 T20:50:371.2.840.379705.1.72.3.15| 1.2.840.409403.1.13.104.2.7.2.7278 [id number] [facility] 2023-05-13 18:33:51 mrKXSiJh/OoLcVdT8vCjoRZL9E/2D+c7Na TamspPgh5zz0J0/PZ81AgWv6tBbJVC7644 -07-15T18:33:51 Problem: Discharge PlanningGoal: Adequate for dischargeOutcome: Progressing as expectedGoal: Effective communicationOutcome: Progressing as expected Problem: Falls, Risk ofGoal: Absence of fallsOutcome: Progressing as expected Problem: PainGoal: Control of pain at or below patient's documented comfort goalOutcome: Progressing as expectedGoal: Reduction in pain sensationOutcome: Progressing as expected 20806-3Lrzl of care kcyyGZ1375-47-08U10:33:54Plan of care noteTXT1.2.840.846349.1.13.104.2.7 .2.985246|[id number] for patient [id number] 91UJUWKNVRMYGLFQEATFAAKL7424-26-12 T18:33:541.2.840.830671.1.72.3.15| 1.2.840.890014.1.13.104.2.7.2.7278 [id number] [facility] 2023-05-13 03:48:33 P5VlYgs4tf7wE7YwOMGAEXbSg4idIvH5Bo dOJaVtT4zYZEQKljUxnWO8REeRZwu82638 -07-15T03:48:33 Problem: Discharge PlanningGoal: Adequate for dischargeOutcome: Progressing as expectedGoal: Effective communicationOutcome: Progressing as expected Problem: Falls, Risk ofGoal: Absence of fallsOutcome: Progressing as expected Problem: PainGoal: Control of pain at or below patient's documented comfort goalOutcome: Progressing as expectedGoal: Reduction in pain sensationOutcome: Progressing as expected 83678-4Hhot of care ksgwYV6795-67-75U00:48:36Plan of care noteTXT1.2.840.626719.1.13.104.2.7 .2.337237|[id number] for patient aqac766266761Vljf L Javier RNUT[id number] 31BLKIUXOLTQILNQHUPWFEHD3564-01-08 T03:48:361.2.840.378680.1.72.3.15| 1.2.840.401166.1.13.104.2.7.2.7278 [id number] Raegan Stanford Javier RN [facility] 2023-05-12 22:02:05 MqYiHaEWN6T4TraaqvxTHxsFb7ECKLs059 aHpyiIu2F91phmLM4j+J9j8PJ0JUSm8556 -07-14T22:02:05 Patient en route to [facility] to further evaluation and treatment by Neurology service. Lower back pain 03/08 after po [place] 50382-4Medgoioki department AeunVV2882-04-94R05:03:48Emergency department NoteTXT1.2.840.863721.1.13.104.2.7 .2.220366|[id number] for patient guur636646866Heivimv M Owens RNUT[id number] 31GHQZTHZFCLGZDQWKQLTUYY9056-16-42 T22:03:481.2.840.776822.1.72.3.15| 1.2.840.360671.1.13.104.2.7.2.7278 [id number] Micky Tracy RN [facility] 2023-05-12 20:59:01 LOmUikKewShnySYtEPWherlH5mCq9I355m bH46pO3K/sd2Z0kOG+dSn9CJfr374w5743 -07-14T20:59:01 Patient assisted OOB to chair at bedside. Patient has increased pain to left leg with straightening and standing-unable to weight bear on it Patient was unable to tolerate sitting up in chair past 5 minutes-pain was not tolerable and she had to get back on stretcher. Laying on right side, has left leg bent at knee 69269-0Mzyhpzgpb department AkgrVA3838-22-70Z66:02:46[facility] NoteTXT1.2.840.153192.1.13.104.2.7 .2.417971|[id number] for patient [id number] 20MKPXBKTZNFXRZMMQJFIQEJ1653-82-33 T21:02:461.2.840.964413.1.72.3.15| 1.2.840.272683.1.13.104.2.7.2.7278 [id number] [facility] 2023-05-12 19:52:07 8Si+U2tlmSSNYfzPkRHiRVGshHYRwjsYMM VNXEsPTku/wwKoIMP28mtBJub36ZeB8603 -07-14T19:52:07 Patient states low back pain x 1 week. C/o numbness and tingling down left leg. Also states cramping pain to left buttock. Left leg is pink and warm with 2+ palpable [place] [address]-5Ewhvrfbcp department ZtbjWN1176-93-91N75:54:19[facility] NoteTXT1.2.840.778104.1.13.104.2.7 .2.150298|[id number] for patient [id number] 03ZSZRASVRSDSXJWDPVSURAJ0430-68-53 T19:54:191.2.840.006915.1.72.3.15| 1.2.840.022815.1.13.104.2.7.2.7278 [id number] [facility] 2023-05-12 19:02:39 WqTQfFW+ASQaJZYY4DeUDUvWpVPd9DY0Qw 2UrLqTtHzeEWBwytrv8iLuQIBO0ZZO9280 -07-14T19:02:39 Nurse Report Report given to JOI Galindo. Chief complaint, assessment findings, [place] [address]-2Ivgxobbzc department DztrEJ1801-35-90E28:03:01Emergency department NoteTXT1.2.840.057766.1.13.104.2.7 .2.427485|[id number] for patient [address] BpofViikbazmmKmefgpfblKZFB46958618 18CMWPLKESBVYVFOMKVXNVYC5073-05-34 T19:03:011.2.840.376959.1.72.3.15| 1.2.840.108688.1.13.104.2.7.2.7278 [id number] [facility] 2023-05-12 18:23:05 nUsG3qupjvRLv3aEQd+uyttqTH/GFOs4+C +qJwE2xRCFWyukkdH9WzocZwYzXfQt3670 -07-14T18:23:05 CC: patient presents to the ER with complaints of lower back pain after picking something up off the ground about 1 week ago. Patient states she has taken gabapentin, flexeril, xanax, and lidocaine patch without relief. Patient states pain radiates down the left leg "all the way to the ankle."Patient is also concerned stating "I have never been incontinent" with an episode of sciatica. PMHx: see historyAwake, alert, oriented, resp reg unlabored, skin warm and dry, color appropriate for race, moves all ext without difficulty, amb without assistance. Appears in no distress. 32612-3Jtrthzycn department Triage ptcgOA0470-37-65B96:02:29[facility] Triage noteTXT1.2.840.540147.1.13.104.2.7 .2.667478|[id number] for patient qvud693182424Zfaqkldv M Rivera RN[address]vdG[id number] 14GWCVCXGGZNEHPDIBIFPRYG3776-66-63 T19:02:291.2.840.618276.1.72.3.15| 1.2.840.480518.1.13.104.2.7.2.7278 [id number] Marcelle Dickens RN [facility] 2023-05-12 18:15:00 9mDBVwr2JuQuu4iewNVsdY+NeWzin4y2Zg 12bPFkOoy3QpDjoor2+r4K7yq/AH7d1928 -07-14T18:15:00 [facility] Emergency Department NotePatient Name: Jeannette Shah of : 1970 52 year old femaleTreatment Room: AR4/MH5Skjfckz Record Number: [id number] [facility] Physician: PATIENT DOES NOT HAVE A PCPPatient Escorted by: Self [9]Mode of Arrival: Personal means [1]EMS Treatment Prior to ED Arrival: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 She has chronic low back but it "feels different this time." The pain is constant with tingling and electrical pain radiating down the left leg. Aggravating factors include walking on stairs. Relieving factors include lying flat. She has tried gabapentin, flexaril, xanax, lidocaine patches, and aleve for this with no relief. The severity is a 10/10. Pertinent positives include incontinence, tenderness to palpation, weakness, tingling. Pertinent negatives include headache. PMH includes chronic back painHistory provided by: PatientLanguage log driver used: No Back PainLocation: Lumbar spineQuality: ShootingRadiates to: L posterior upper leg and L shoulderPast Medical History/Immunizations:Past Medical History: Diagnosis Date Alcohol abuse Chronic lower back pain HTN (hypertension) Non-compliance with treatment Smoking addiction Quit 2019 Tetanus received in last 5 years: Unknown Allergies:No Known AllergiesPast Social History:Tobacco Use Every Day Smokeless Tobacco: Never used smokeless tobacco. Alcohol Use No. Past Surgical History:History reviewed. No pertinent surgical history.Review of Systems: Review of Systems Musculoskeletal: Positive for back pain. Physical Exam: ED Triage Vitals [05/12/23 1824] Weight 79.4 kg (175 lb) Actual or estimated Estimated by patient/family report Height 1.676 m (5' 6") BP (!) 140/84 Pulse 66 Resp 16 Temp 36.8 ?C (98.2 ?F) Temp source Oral SpO2 100 % Measured on Room air Physical ExamRadiology:CT LUMBAR SPINE WO CONTRAST Final Result CT LUMBAR SPINE WITHOUT ORDERING PHYSICIAN: YASMANI KING HISTORY: Pain TECHNIQUE: Multiple CT images were obtained of the lumbar spine without contrast. Coronal and sagittal reconstructions were performed. CT performed with ALARA (As Low As Reasonably Achievable) principles. COMPARISON: Lower back pain. Cauda equina syndrome. Radiculopathy FINDINGS: Vertebral bodies are normal in height and alignment. Decrease in disc space height at multiple levels . No paraspinal soft tissue abnormalities. Review of the axial images demonstrates the following: T12/L1: No canal or foraminal narrowing. L1/L2: 3 mm broad-based disc bulge with facet hypertrophic changes and ligamentum flavum hypertrophy resulting in mild bilateral foraminal stenosis. L2/3: 3 mm broad-based disc bulge with superimposed 7 x 4 mm central disc extrusion with superior extension approximately 8 mm. Mild facet and ligamentum flavum hypertrophy. Posterior epidural fat. There is mild to moderate canal stenosis with AP diameter of 10 mm. Mild bilateral foraminal stenosis. L3/4: 3 mm broad-based disc bulge with mild facet and ligamentum flavum hypertrophy. Posterior epidural fat. Mild canal stenosis and mild bilateral foraminal stenosis. L4/5: 6 mm broad-based disc bulge with mild facet and ligamentum flavum hypertrophy. There is moderate canal stenosis and mild bilateral foraminal stenosis. L5/S1: 2 mm broad-based disc bulge with facet hypertrophic changes resulting in mild bilateral foraminal stenosis. IMPRESSION No fracture or subluxation Multilevel moderate degenerative changes most prominent at L2/3 and L4/5 as detailed above RL [id number] Lab Results:Lab Results URINALYSIS - Abnormal Result Value Ref Range APPEARANCE Cloudy (*) Clear COLOR Yellow Yellow PH 5.0 4.8 - 8.0 SP GRAVITY 1.026 1.003 - 1.030 GLU U QUAL 500 mg/dL (*) Normal BLOOD 2+ (*) Negative KETONES Negative Negative PROTEIN Negative Negative UROBILIN Normal Normal BILIRUBIN Negative Negative NITRITE Negative Negative LEUK NICKI 250/uL (*) Negative RBC/HPF 20 (*) 0 - 3 HPF WBC/HPF >182 (*) 0 - 5 HPF BACTERIA Few (*) Negative SQ EPITH 5 HPF WBC CLUMPS 18 (*) <=1 HPF YEAST BUD 4 (*) <=1 HPF CBC WITH DIFF - Abnormal WBC 8.97 4.30 - 11.10 10*3/?L RBC 4.02 3.93 - 5.25 10*6/?L HGB 13.6 11.6 - 15.0 g/dL HCT 39.7 35.7 - 45.2 % MCV 98.8 (*) 80.6 - 95.5 fL MCH 33.8 (*) 25.9 - 32.8 pg MCHC 34.3 31.6 - 35.1 g/dL RDW-SD 45.3 39.0 - 49.9 fL RDW-CV 12.5 12.0 - 15.5 % PLT 266 166 - 358 10*3/?L MPV 11.7 9.5 - 12.9 fL NRBC/100 WBC 0.0 0.0 - 10.0 /100 WBCs NRBC x10^3 <0.01 10*3/?L GRAN MAT (NEUT) % 66.0 % IMM GRAN % 0.70 % LYMPH % 23.4 % MONO % 6.6 % EOS % 2.7 % BASO % 0.6 % GRAN MAT x10^3(ANC) 5.93 1.88 - 7.09 10*3/uL IMM GRAN x10^3 0.06 0.00 - 0.06 10*3/uL LYMPH x10^3 2.10 1.32 - 3.29 10*3/uL MONO x10^3 0.59 0.33 - 0.92 10*3/uL EOS x10^3 0.24 0.03 - 0.39 10*3/uL BASO x10^3 0.05 0.01 - 0.07 10*3/uL COMP. METABOLIC PANEL (75399) - Abnormal NA 139 135 - 145 mmol/L K 3.6 3.5 - 5.0 mmol/L CL 105 98 - 108 mmol/L CO2 TOTAL 28 23 - 31 mmol/L AGAP 6 2 - 16 BUN 7 7 - 23 mg/dL GLUCOSE 292 (*) 70 - 110 mg/dL CREATININE 0.68 0.50 - 1.04 mg/dL TOTAL BILI 0.7 0.1 - 1.1 mg/dL CALCIUM 8.7 8.6 - 10.6 mg/dL T PROTEIN 6.5 6.3 - 8.2 g/dL ALBUMIN 3.6 3.5 - 5.0 g/dL ALK PHOS 118 34 - 122 U/L ALTv 64 (*) 5 - 35 U/L AST(SGOT) 66 (*) 13 - 40 U/L eGFR 90.9 mL/min/1.73m2 URINE CULTURE EKG:If EKG completed, see Procedure Note. Orders and Treatments:Orders Placed This Encounter Procedures CT LUMBAR SPINE WO CONTRAST URINALYSIS URINE CULTURE CBC WITH DIFF COMP. METABOLIC PANEL (58221) Orders Placed This Encounter Medications ketorolac (TORADOL) injection 30 mg dexamethasone sod phos PF injection 10 mg methocarbamoL (ROBAXIN) tablet 1,500 mg cefTRIAXone (ROCEPHIN) 1,000 mg in NaCl 0.9% (NS) 100 mL MINI-BAG First Provider Eval:ED Events Date/Time Event User Comments 05/12/231821 Medical Screening Begins YASMANI KING -- 05/12/231821 First Provider Evaluation YASMANI IKNG -- ED COURSEED Course as of 05/12/232123May 12, [id number] Discussed with Dr Carrion, Neuro surgery patient's case. He accepted patient for further neurological evaluation. [FI] 2051 Patient is able to get out of bed with assistance but limping [FI] 2042 Patient has UTI. Discussed findings and plan of care with patient. Patient is tearful and states she's depressed but denies suicidal ideation. She is scheduled with PCP on the . She also reports she's out of most her medications including the antidepressants. Rocephin prescribed [FI] ED Course User Index[FI] Yasmani King FNP Diagnosis/Impression as of 05/12/232123 Low back pain with sciatica, sciatica laterality unspecified, unspecified back pain laterality, unspecified chronicity Pyelonephritis Cyst of left ovary Procedures: ProceduresMDM:Medical Decision MakingThe patient presented with acute on chronic back pain accompanied by urine and stool incontinence. The patient feels better, is alert,, interactive and in distress. The patient is neurologically intact and is not ambulatory in the ED due to severe pain. The patient has no fever, but bowel or bladder incontinence present. no saddle anesthesia, and is otherwise alert and well-appearing. The history, physical examination, and diagnostics do not suggest the presence of acute spinal epidural abscess, acute spinal epidural bleed, abdominal aortic aneurysm, aortic dissection or other process requiring further testing, but cannot rule out cauda equina syndrome,Neurosurgery consulted and they recommend transfer to [place] for further work up.The vital signs have been stable. The patient's condition is stable and appropriate for discharge. The patient will pursue further outpatient evaluation with the primary care physician or other designated or consulting physician as indicated in the discharge instructions. Amount and/or Complexity of Data ReviewedLabs: ordered.Radiology: ordered.Discussion of management or test interpretation with external provider(s): Discussed case with Neurosurgery. Agree patient need further evaluationRiskPrescription drug management. Flowsheet Documentation: Scoring Tools: No data recorded Disposition/Condition:ED Disposition ED Disposition Transfer - Internal Other Condition -- Comment -- Discharge Medications:Patient's Medications START taking these medications No medications on file CONTINUE taking these medications which have NOT CHANGED ASPIRIN 81 MG CHEWABLE TABLET TAKE 1 TABLET BY MOUTH EVERY DAY HYDROCODONE-ACETAMINOPHEN 5-325 MG TABLET Take 1 tablet by mouth every 6 (six) hours as needed for Pain (scale 7-10) (For breakthrough pain. Take with stool softener). LISINOPRIL 10 MG TABLET TAKE 1 TABLET EVERY DAY METFORMIN 1,000 MG TABLET Take 1,000 mg by mouth 2 (two) times daily with meals. START taking Modified Medications as Prescribed No medications on file STOP taking these medications No medications on file Follow-up:Electronically signed by: Yasmani King, [facility]05/12/232115 ssociated attestation - Kentrell Orona MD - 05/13/2023 7:18 AM CDT " I was personally available for consultation in the Emergency Department during this Patient evaluation/encounter by JUAN R Christine " [id number] Emergency department [id number], Brent [id number]:18:2 0Physician Emergency department [id number] for patient care[address] [id number]| [id number] [facility]
--- NOTE | 2024-03-27 14:21 | RAD REPORT ---
EXAM DESCRIPTION: CT - Head Brain Wo Cont - 03/27/2024 1:58 pm CLINICAL HISTORY: Alteration of consciousness/confusion COMPARISON: none TECHNIQUE: Computed axial tomography of the head was obtained. IV contrast was not requested. All CT scans are performed using dose optimization technique as appropriate and may include automated exposure control or mA/KV adjustment according to patient size. FINDINGS: An intracranial bleed is not seen The ventricles are normal in caliber No significant hypodense areas within the brain visualized No extra-axial fluid collection is noted. Fluid within the sinuses/ mastoids is not seen IMPRESSION: No acute intracranial abnormality is seen If patient's symptoms persist MRI of the brain would be recommended
[2024-03-27] MEDS ORDERED: LORazepam 2 MG/ML VIAL ONE ×2 (14:22→19:03)
[2024-03-27 14:47] LABS: Absolute Basophils 0.1 K/uL (0-0.5); Absolute Eosinophils 0.1 K/uL (0-0.5); Absolute Lymphocytes (CBC) 2.7 K/uL (0.7-4.9); Absolute Monocytes 0.8 K/uL (0.1-1.3); Absolute Neutrophil 8.8 K/uL (1.8-8.0); Basophils % 0.7 % (0-1.3); Eosinophils % 0.9 % (0-4.4); Hematocrit 39.5 % (36.0-45.0); Lymphocytes % 21.9 % (15.3-44.8); MCH 30.2 pg (27.0-35.0); MCHC 32.8 g/dL (32.0-36.0); MCV 92.1 fL (80-100); MPV 9.6 fL (7.6-11.3); Monocytes % 6.8 % (3.3-12.3); Neutrophils % 69.7 % (41.7-73.7); Platelets 338 thou/uL (152-406); RBC Red Blood Cell Count 4.29 M/uL (3.86-4.86); Red Cell Distribution Width 13.3 % (12.1-15.2)
[2024-03-27 14:52] LABS: PT Prothrombin Time 12.8 SECONDS (9.5-12.5); PTT, Activated Partial Thromb 22.7 SECONDS (24.3-36.9); Protime INR 1.17
[2024-03-27] MEDS ORDERED: NA CHLORIDE 0.9% 1,000 ML ONE (15:20)
--- NOTE | 2024-03-27 15:24 | RAD REPORT ---
EXAM DESCRIPTION: Eleanor Single View03/27/2024 3:16 pm CLINICAL HISTORY: Confusion COMPARISON: none FINDINGS: The lungs appear clear of acute infiltrate. The heart is normal size IMPRESSION: No acute abnormalities displayed
[2024-03-27 15:34] LABS: ALT/SGPT 26 U/L (13-56); AST/SGOT 24 U/L (15-37); Albumin 2.7 g/dL (3.4-5.0); Albumin/Globulin Ratio 0.9 (1.1-1.8); Alkaline Phosphatase 73 U/L (45-117); Anion Gap 9.5 mEq/L (5.0-15.0); BUN Blood Urea Nitrogen 9 mg/dL (7-18); Bicarbonate 22 mEq/L (21-32); Bilirubin Direct 0.2 mg/dL (0-0.2); Bilirubin Indirect, Calculated 0.4 mg/dL (0.2-0.8); Bilirubin Total 0.6 mg/dL (0.2-1.0); Globulin 2.9 g/dL (2.3-3.5); Glomerular Filtration Rate 110 ml/min (=/>90); Glucose Level 99 mg/dL (74-106); Protein, Total 5.6 g/dL (6.4-8.2); Sodium Level 139 mEq/L (136-145); Troponin High Sensitivity 19.3 pg/mL (<58.9)
[2024-03-27 15:35] LABS: Magnesium 1.2 mg/dL (1.6-2.4)
[2024-03-27 15:38] LABS: Potassium 2.5 mEq/L (3.5-5.1)
[2024-03-27] MEDS ORDERED: POTASSIUM CL SA 10 MEQ TAB PO ONE (16:00)
[2024-03-27 16:45] LABS: Barbiturates NEGATIVE (NEGATIVE); Benzodiazepines POSITIVE (NEGATIVE); Cocaine NEGATIVE (NEGATIVE); METHAMPHETAM NEGATIVE (NEGATIVE); Methadone NEGATIVE (NEGATIVE); Opiates NEGATIVE (NEGATIVE); Phencyclidine NEGATIVE (NEGATIVE); THC Cannibis POSITIVE (NEGATIVE)
[2024-03-27 16:46] LABS: Urine Bacteria <20 /HPF (<20); Urine Bilirubin NEGATIVE (Negative); Urine Blood Negative (Negative); Urine Clarity Extremely Turbid (Clear); Urine Color Light-Yellow (Yellow); Urine Culture Reflex Order NOT NEEDED; Urine Glucose NEGATIVE (Negative); Urine Ketones 2+ (Negative); Urine Micro Reflex YN NO BILL MICROSCOPIC; Urine Mucus Slight /HPF (None Seen); Urine Nitrite NEGATIVE (Negative); Urine Protein NEGATIVE (Negative); Urine RBC <5 /HPF (None Seen); Urine Urobilinogen Normal (Normal); Urine WBC <5 /HPF (<5); Urine pH 5.5 (5.0-7.0)
--- NOTE | 2024-03-27 18:31 | ER ---
Nurse's Notes [facility] Name: Jeannette Way Age: 53 yrs Sex: Female : 1970 Arrival Date: 03/27/2024 Time: 13:31 Bed 15 Private MD: Diagnosis: Krystle Presentation: 03/27 13:40 Chief complaint: EMS states: SHE WAS FOUND ON THE SIDE OF THE ROAD PANTLESS AND kc6 SHOELESS, A\\T\\OX1. PT WAS GIVEN 25MG OF IV PROMETHAZINE AND 2.5MG OF IV VERSED EN ROUTE. PT IS NOW A\\T\\OX4. PT DENIES HI AT THIS TIME BUT REFUSES TO ANSWER IF SHE IS SI. Coronavirus screen: At this time, the client does not indicate any symptoms associated with coronavirus-19. Ebola Screen: No symptoms or risks identified at this time. Initial Sepsis Screen: Does the patient meet any 2 criteria? No. Patient's initial sepsis screen is negative. Does the patient have a suspected source of infection? No. Patient's initial sepsis screen is negative. Risk Assessment: Do you want to hurt yourself or someone else? Unable to obtain. Onset of symptoms was March 27, 2024. 13:40 Method Of Arrival: EMS: [facility] 13:40 Acuity: EDITA 2 [facility] 13:42 Care prior to arrival: Medication(s) given:. kc6 Triage Assessment: 13:42 General: Appears in no apparent distress. comfortable, unkempt, well developed, kc6 Behavior is calm, cooperative, appropriate for age. Pain: Complains of pain in right foot and left foot. EENT: No signs and/or symptoms were reported regarding the EENT system. Neuro: Level of Consciousness is awake, alert, obeys commands, Oriented to person, place, time, situation, Appropriate for age. Cardiovascular: Capillary refill < 3 seconds. Respiratory: Airway is patent Trachea midline Respiratory effort is even, unlabored, Respiratory pattern is regular, symmetrical. GI: No signs and/or symptoms were reported involving the gastrointestinal system. : No signs and/or symptoms were reported regarding the genitourinary system. Derm: No signs and/or symptoms reported regarding the dermatologic system. Skin is intact, is healthy with good turgor, Skin is pink, warm \\T\\ dry. Musculoskeletal: No signs and/or symptoms reported regarding the musculoskeletal system. Circulation, motion, and sensation intact. Capillary refill < 3 seconds, Range of motion: intact in all extremities. Historical: - Allergies: 13:42 No Known Allergies; kc6 - Home Meds: 03/30 17:15 Metformin Oral [Active]; db 19:10 metformin 500 mg Oral Tablet, Extended Release 24 hr 1 tab 2 times per day [Active]; cp4 mirtazapine 15 mg Oral Tablet,disintegrating 1 tab every day at bedtime [Active]; sertraline 50 mg oral tablet once [Active]; Trulicity 1.5 mg/0.5 mL subcutaneous Pen Injector 1.5 mg every week [Active]; valsartan 40 mg oral tablet 1 tab daily [Active]; omeprazole 20 mg oral capsule,delayed release (e.c.) daily [Active]; methocarbamol 500 mg Oral tablet 2 tabs every 4 hours [Active]; - PMHx: 03/27 13:42 Diabetes mellitus; Hypertensive disorder; kc6 - PSHx: 13:42 BACK SURGERY; kc6 - Immunization history:: Adult Immunizations up to date. - Infectious Disease History:: Denies. - Social history:: Smoking status: Patient denies any tobacco usage or history of. Screenin:47 [facility] ED Fall Risk Assessment (Adult) History of falling in the last 3 months, kc6 including since admission No falls in past 3 months (0 pts) Confusion or Disorientation No (0 pts) Intoxicated or Sedated No (0 pts) Impaired Gait No (0 pts) Mobility Assist Device Used No (0 pt) Altered Elimination No (0 pt) Score/Fall Risk Level 0 - 2 = Low Risk. Abuse screen: Denies threats or abuse. Denies injuries from another. Nutritional screening: No deficits noted. Tuberculosis screening: No symptoms or risk factors identified. Assessment: 13:40 Reassessment: PT STATES SHE DOESN'T REMEMBER ANYTHING THAT HAS BEEN HAPPENING. PT kc6 STATES "I THINK SOMEONE IS TRYING TO KILL ME.". 14:40 Reassessment: Patient appears in no apparent distress at this time. No changes from [facility] previously documented assessment. Patient and/or family updated on plan of care and expected duration. Pain level reassessed. 15:55 Reassessment: Patient appears in no apparent distress at this time. No changes from [facility] previously documented assessment. Patient and/or family updated on plan of care and expected duration. Pain level reassessed. 16:54 Reassessment: Patient appears in no apparent distress at this time. No changes from [facility] previously documented assessment. Patient and/or family updated on plan of care and expected duration. Pain level reassessed. 17:54 Reassessment: Patient appears in no apparent distress at this time. No changes from [facility] previously documented assessment. Patient and/or family updated on plan of care and expected duration. Pain level reassessed. 18:44 Reassessment: [facility] AT BEDSIDE EVALUATING PATIENT. [facility] 18:55 Reassessment: KAREEN FROM [facility] RECOMMENDING INPATIENT AT THIS TIME, STATES SHE [facility] IS UNABLE TO COMPLETE HER ASSESSMENT DUE TO PT BEING IN A MANIC STATE. KAREEN STATES PT IS REQUESTING SOMETHING FOR "HER NERVES.". 19:41 Reassessment: Patient appears in no apparent distress at this time. No changes from [facility] previously documented assessment. Patient and/or family updated on plan of care and expected duration. Pain level reassessed. 20:41 Reassessment: Patient appears in no apparent distress at this time. No changes from [facility] previously documented assessment. Patient and/or family updated on plan of care and expected duration. Pain level reassessed. 21:42 Reassessment: Patient appears in no apparent distress at this time. No changes from [facility] previously documented assessment. Patient and/or family updated on plan of care and expected duration. Pain level reassessed. 22:28 Reassessment: Patient appears in no apparent distress at this time. Assumed care of [facility] patient at 2200. Pt resting with eyes closed, respirations even and unlabored. Sitter remains at bedside. 23:13 Reassessment: Patient appears in no apparent distress at this time. No changes from [facility] previously documented assessment. Patient and/or family updated on plan of care and expected duration. Pain level reassessed. 03/28 00:15 Reassessment: Patient appears in no apparent distress at this time. No changes from [facility] previously documented assessment. Patient and/or family updated on plan of care and expected duration. Pain level reassessed. Pt resting with eye closed, respirations even and unlabored, sitter at bedside. 01:15 Reassessment: Patient appears in no apparent distress at this time. No changes from [facility] previously documented assessment. Patient and/or family updated on plan of care and expected duration. Pain level reassessed. Pt resting with eye closed, respirations even and unlabored, sitter at bedside. 02:55 Reassessment: Patient appears in no apparent distress at this time. No changes from [facility]10 previously documented assessment. Patient and/or family updated on plan of care and expected duration. Pain level reassessed. Pt resting with eye closed, respirations even and unlabored, sitter at bedside. 04:23 Reassessment: Patient appears in no apparent distress at this time. Patient and/or jb4 family updated on plan of care and expected duration. Pain level reassessed. Patient is alert, oriented x 3, equal unlabored respirations, skin warm/dry/pink. Pt seem upset and is crying. reports heaving her sons voice, no one is in the room with the pt. Pt reports not wanting to be in this world. 07:00 Reassessment: To bedside for C-SSRS screening, pt states "I have thought about killing rs5 myself and I know how I would do it but I don't want to tell you", charge nurse notified, pt behavior is currently calm and cooperative, see paper charting for more information. 07:00 Reassessment: sitter at bedside. rs5 08:01 Reassessment: Patient and/or family updated on plan of care and expected duration. Pain rs5 level reassessed. Patient is alert, oriented x 3, equal unlabored respirations, skin warm/dry/pink. General: Appears in no apparent distress. comfortable, Behavior is calm, cooperative. 09:05 Reassessment: No changes from previously documented assessment. rs5 09:25 Reassessment: pt states "I feel really, really, anxious, I don't know what to do, I rs5 think I'm going crazy, can you give me some of the medication that you gave me earlier this morning to help calm me down?". 11:55 Reassessment: pt states "I feel like I'm going to have a panic atack!!! I'm so rs5 anxiouse!!!" Pt in room crying, provider notified. 13:02 Reassessment: Patient and/or family updated on plan of care and expected duration. Pain rs5 level reassessed. Patient is alert, oriented x 3, equal unlabored respirations, skin warm/dry/pink. General: Behavior is calm, cooperative. 14:10 Reassessment: pt states "I feel anxiouse, can you get the doctor to give me something". rs5 15:01 Reassessment: pt states "I'm anxiouse and I want meds" provider notified. rs5 16:05 Reassessment: Patient and/or family updated on plan of care and expected duration. Pain rs5 level reassessed. Patient is alert, oriented x 3, equal unlabored respirations, skin warm/dry/pink. 16:45 Reassessment: pt states "I WANT ANXIETY MEDS NOW!!!!" provider notified. rs5 17:05 Reassessment: No changes from previously documented assessment. rs5 18:15 Reassessment: Pt behavior is anxious, restless, provider notified. rs5 18:48 Reassessment: Patient and/or family updated on plan of care and expected duration. Pain rs5 level reassessed. Patient is alert, oriented x 3, equal unlabored respirations, skin warm/dry/pink. 03/29 01:14 Reassessment: Patient appears in no apparent distress at this time. Patient and/or db family updated on plan of care and expected duration. Pain level reassessed. PATIENT DAUGHTER VISITING BROUGHT PATIENT WHATABURGER. PATIENT SITTING UP QUIETLY WITH FAMILY. General: Appears in no apparent distress. comfortable, Behavior is calm, cooperative. Neuro: Level of Consciousness is awake, alert, obeys commands. 07:45 Reassessment: Patient appears in no apparent distress at this time. Patient and/or db family updated on plan of care and expected duration. Pain level reassessed. PT PROVIDED FOOD TRAY. RANDOMLY TALKING TO SELF AND TALKING TO STAFF. RAMBLING AND JUMPING FROM SUBJECT TO SUBJECT. PT IS COOPERATIVE. General: Appears in no apparent distress. comfortable, Behavior is cooperative, anxious. 12:00 Reassessment: Patient appears in no apparent distress at this time. Patient and/or db family updated on plan of care and expected duration. Pain level reassessed. Patient is alert, oriented x 3, equal unlabored respirations, skin warm/dry/pink. 12:30 Reassessment: VISITOR NAMED ARCHANA- DAUGHTER IN LAW- CAME TO VISIT PATIENT. ARCHANA db [phone]. PT APPROVED THIS VISITOR TO SEE HER. 15:05 Reassessment: SURAJ DAUGHTER VISITED WITH PT. [phone]. PT IS ALRIGHT WITH THIS db VISITOR. 16:00 Reassessment: Patient appears in no apparent distress at this time. Patient and/or db family updated on plan of care and expected duration. Pain level reassessed. Patient is alert, oriented x 3, equal unlabored respirations, skin warm/dry/pink. 17:00 Reassessment: Patient appears in no apparent distress at this time. Patient and/or db family updated on plan of care and expected duration. Pain level reassessed. Patient is alert, oriented x 3, equal unlabored respirations, skin warm/dry/pink. 18:46 Reassessment: Patient appears in no apparent distress at this time. Patient and/or db family updated on plan of care and expected duration. Pain level reassessed. PATIENT FAMILY VISITING PATIENT AT BEDSIDE. 19:00 General: Appears in no apparent distress. comfortable, Behavior is anxious. Pain: lg3 Denies pain. Neuro: Mckeon Agitation-Sedation Scale (RASS): 0 - Alert and Calm Level of Consciousness is awake, alert, obeys commands, Oriented to person, place, time, situation. Cardiovascular: No deficits noted. Denies chest pain, shortness of breath, Capillary refill < 3 seconds Clubbing of nail beds is absent JVD is absent Patient's skin is warm and dry. Respiratory: No deficits noted. Airway is patent Respiratory effort is even, unlabored, Respiratory pattern is regular, symmetrical. GI: No deficits noted. No signs and/or symptoms were reported involving the gastrointestinal system. : No deficits noted. No signs and/or symptoms were reported regarding the genitourinary system. EENT: No deficits noted. No signs and/or symptoms were reported regarding the EENT system. Derm: No deficits noted. No signs and/or symptoms reported regarding the dermatologic system. Skin is intact, is healthy with good turgor, Skin is dry, Skin is normal, Skin temperature is warm. Musculoskeletal: No deficits noted. No signs and/or symptoms reported regarding the musculoskeletal system. Circulation, motion, and sensation intact. Range of motion: intact in all extremities. 20:05 General: PT requesting sleep aid. provider notified. lg3 21:32 General: pt quietly resting at this time . lg3 22:30 General: Appears in no apparent distress. Behavior is anxious, restless. lg3 06/ 07:00 Reassessment: Patient appears in no apparent distress at this time. Patient and/or db family updated on plan of care and expected duration. Pain level reassessed. Patient is alert, oriented x 3, equal unlabored respirations, skin warm/dry/pink. 08:36 Reassessment: Patient appears in no apparent distress at this time. Patient and/or db family updated on plan of care and expected duration. Pain level reassessed. Patient is alert, oriented x 3, equal unlabored respirations, skin warm/dry/pink. PT TALKING WITH SITTER. NAD. General: Appears in no apparent distress. comfortable, Behavior is calm, cooperative. 10:00 Reassessment: Patient appears in no apparent distress at this time. Patient and/or db family updated on plan of care and expected duration. Pain level reassessed. Patient is alert, oriented x 3, equal unlabored respirations, skin warm/dry/pink. 11:35 Reassessment: Patient appears in no apparent distress at this time. Patient and/or db family updated on plan of care and expected duration. Pain level reassessed. Patient is alert, oriented x 3, equal unlabored respirations, skin warm/dry/pink. PT EATING. 14:00 Reassessment: Patient appears in no apparent distress at this time. Patient and/or db family updated on plan of care and expected duration. Pain level reassessed. Patient is alert, oriented x 3, equal unlabored respirations, skin warm/dry/pink. 15:00 Reassessment: Patient appears in no apparent distress at this time. Patient and/or db family updated on plan of care and expected duration. Pain level reassessed. Patient is alert, oriented x 3, equal unlabored respirations, skin warm/dry/pink. 16:00 Reassessment: Patient appears in no apparent distress at this time. Patient and/or db family updated on plan of care and expected duration. Pain level reassessed. Patient is alert, oriented x 3, equal unlabored respirations, skin warm/dry/pink. PT COMPLAINS OF FEELING ANXIOUS AND HAVING SORES IN MOUTH. SEE MAR FOR MEDICATION ADMINISTRATION. 16:05 Reassessment: PATIENT REQUEST I CALL SURAJ HER DAUGHTER AND ASK HER TO COME VISIT db SOON. CALLED AND NOTIFIED SURAJ. SHE STATES SHE WILL BE UP HERE SOON. 17:16 Reassessment: Patient is alert/active/playful, equal unlabored respirations, skin db warm/dry/pink. FAMILY IS AT PATIENT BEDSIDE. 19:00 General: Appears in no apparent distress. comfortable. cp4 19:00 Pain: Denies pain. Neuro: Level of Consciousness is awake, alert, obeys commands, cp4 Oriented to person, place, time, situation, Environmental Attorney are equal bilaterally Moves all extremities. Gait is steady, Speech is normal, Facial symmetry appears normal, Pupils are PERRLA, Intact. Cardiovascular: No deficits noted. Respiratory: No deficits noted. GI: No deficits noted. : No deficits noted. EENT: No deficits noted. Derm: No deficits noted. Musculoskeletal: No deficits noted. 20:00 Reassessment: No changes from previously documented assessment. Patient and/or family cp4 updated on plan of care and expected duration. Pain level reassessed. Patient is alert, oriented x 3, equal unlabored respirations, skin warm/dry/pink. 21:00 Reassessment: No changes from previously documented assessment. Patient and/or family cp4 updated on plan of care and expected duration. Pain level reassessed. Patient is alert, oriented x 3, equal unlabored respirations, skin warm/dry/pink. 22:00 Reassessment: No changes from previously documented assessment. Patient and/or family cp4 updated on plan of care and expected duration. Pain level reassessed. Patient is alert, oriented x 3, equal unlabored respirations, skin warm/dry/pink. Provider at bedside. 23:00 Reassessment: No changes from previously documented assessment. Patient and/or family cp4 updated on plan of care and expected duration. Pain level reassessed. Patient is alert, oriented x 3, equal unlabored respirations, skin warm/dry/pink. 03/31 00:00 Reassessment: No changes from previously documented assessment. Patient and/or family cp4 updated on plan of care and expected duration. Pain level reassessed. Patient is alert, oriented x 3, equal unlabored respirations, skin warm/dry/pink. 01:00 Reassessment: No changes from previously documented assessment. Patient and/or family cp4 updated on plan of care and expected duration. Pain level reassessed. Patient is alert, oriented x 3, equal unlabored respirations, skin warm/dry/pink. 02:00 Reassessment: No changes from previously documented assessment. Patient and/or family cp4 updated on plan of care and expected duration. Pain level reassessed. Patient is alert, oriented x 3, equal unlabored respirations, skin warm/dry/pink. Patient keeps asking what time it is. Needs met at this time. 03:00 Reassessment: No changes from previously documented assessment. Patient and/or family cp4 updated on plan of care and expected duration. Pain level reassessed. Patient is alert, oriented x 3, equal unlabored respirations, skin warm/dry/pink. Patient sleeping. 04:00 Reassessment: No changes from previously documented assessment. Patient and/or family cp4 updated on plan of care and expected duration. Pain level reassessed. Patient is alert, oriented x 3, equal unlabored respirations, skin warm/dry/pink. Patient sleeping. 05:00 Reassessment: No changes from previously documented assessment. Patient and/or family cp4 updated on plan of care and expected duration. Pain level reassessed. Patient is alert, oriented x 3, equal unlabored respirations, skin warm/dry/pink. Patient sleeping. 06:00 Reassessment: No changes from previously documented assessment. Patient and/or family cp4 updated on plan of care and expected duration. Pain level reassessed. Patient is alert, oriented x 3, equal unlabored respirations, skin warm/dry/pink. Patient sleeping. 07:15 Reassessment: PT IS AWAKE, ALERT AND ORIENTED X4. SITTER AT BEDSIDE. kc6 08:15 Reassessment: Patient appears in no apparent distress at this time. No changes from kc6 previously documented assessment. Patient and/or family updated on plan of care and expected duration. Pain level reassessed. Patient is alert, oriented x 3, equal unlabored respirations, skin warm/dry/pink. 09:15 Reassessment: Patient appears in no apparent distress at this time. No changes from kc6 previously documented assessment. Patient and/or family updated on plan of care and expected duration. Pain level reassessed. Patient is alert, oriented x 3, equal unlabored respirations, skin warm/dry/pink. 10:13 Reassessment: Patient appears in no apparent distress at this time. No changes from kc6 previously documented assessment. Patient and/or family updated on plan of care and expected duration. Pain level reassessed. Patient is alert, oriented x 3, equal unlabored respirations, skin warm/dry/pink. 11:13 Reassessment: Patient appears in no apparent distress at this time. No changes from kc6 previously documented assessment. Patient and/or family updated on plan of care and expected duration. Pain level reassessed. Patient is alert, oriented x 3, equal unlabored respirations, skin warm/dry/pink. 12:10 Reassessment: PTS DAUGHTER SURAJ AT BEDSIDE. PT APPEARS TO BE GETTING INCREASINGLY kc6 AGITATED AND YELLING AT HER DAUGHTER. DAUGHTER ESCORTED TO THE LOBBY. DR. CHAPPELL NOTIFIED. 12:13 Reassessment: Patient appears in no apparent distress at this time. No changes from kc6 previously documented assessment. Patient and/or family updated on plan of care and expected duration. Pain level reassessed. Patient is alert, oriented x 3, equal unlabored respirations, skin warm/dry/pink. 13:13 Reassessment: Patient appears in no apparent distress at this time. No changes from kc6 previously documented assessment. Patient and/or family updated on plan of care and expected duration. Pain level reassessed. Patient is alert, oriented x 3, equal unlabored respirations, skin warm/dry/pink. 13:27 Reassessment: PT ADMINISTERED HER HOME MEDS. OK PER DR. CHAPPELL. kc6 14:13 Reassessment: Patient appears in no apparent distress at this time. No changes from kc6 previously documented assessment. Patient and/or family updated on plan of care and expected duration. Pain level reassessed. Patient is alert, oriented x 3, equal unlabored respirations, skin warm/dry/pink. 15:13 Reassessment: Patient appears in no apparent distress at this time. No changes from kc6 previously documented assessment. Patient and/or family updated on plan of care and expected duration. Pain level reassessed. Patient is alert, oriented x 3, equal unlabored respirations, skin warm/dry/pink. 16:23 Reassessment: Patient appears in no apparent distress at this time. No changes from kc6 previously documented assessment. Patient and/or family updated on plan of care and expected duration. Pain level reassessed. Patient is alert, oriented x 3, equal unlabored respirations, skin warm/dry/pink. 16:55 Reassessment: PT ADMINISTERED HER EVENING DOSE OF HOME MEDS. OK PER DR. CHAPPELL. kc6 17:55 Reassessment: Patient appears in no apparent distress at this time. No changes from kc6 previously documented assessment. Patient and/or family updated on plan of care and expected duration. Pain level reassessed. Patient is alert, oriented x 3, equal unlabored respirations, skin warm/dry/pink. 19:00 Reassessment: Patient appears in no apparent distress at this time. No changes from kc6 previously documented assessment. Patient and/or family updated on plan of care and expected duration. Pain level reassessed. Patient is alert, oriented x 3, equal unlabored respirations, skin warm/dry/pink. 19:00 General: Appears in no apparent distress. comfortable. General: quietly resting at this lg3 time. 04/01 00:00 General: Appears in no apparent distress. comfortable, Behavior is calm, cooperative. jw7 00:00 Pain: Denies pain. Neuro: Mckeon Agitation-Sedation Scale (RASS): 0 - Alert and Calm jw7 Level of Consciousness is awake, alert, obeys commands, Oriented to person, place, time, situation. Cardiovascular: Capillary refill < 3 seconds Patient's skin is warm and dry. Respiratory: Airway is patent Trachea midline Respiratory effort is even, unlabored, Respiratory pattern is regular, symmetrical. GI: No deficits noted. No signs and/or symptoms were reported involving the gastrointestinal system. Abdomen is round non-distended. : No deficits noted. No signs and/or symptoms were reported regarding the genitourinary system. EENT: No deficits noted. No signs and/or symptoms were reported regarding the EENT system. Derm: Skin is intact, is healthy with good turgor, Skin is dry, Skin is normal, Skin temperature is warm. Musculoskeletal: Circulation, motion, and sensation intact. Range of motion: intact in all extremities. 01:14 Reassessment: Patient appears in no apparent distress at this time. No changes from jw7 previously documented assessment. Patient and/or family updated on plan of care and expected duration. Pain level reassessed. Patient is alert, oriented x 3, equal unlabored respirations, skin warm/dry/pink. 02:00 Reassessment: Patient appears in no apparent distress at this time. No changes from [facility] previously documented assessment. Patient and/or family updated on plan of care and expected duration. Pain level reassessed. Patient is alert, oriented x 3, equal unlabored respirations, skin warm/dry/pink. 03:00 Reassessment: Patient appears in no apparent distress at this time. No changes from jw7 previously documented assessment. Patient and/or family updated on plan of care and expected duration. Pain level reassessed. Patient is alert, oriented x 3, equal unlabored respirations, skin warm/dry/pink. 04:00 Reassessment: Patient appears in no apparent distress at this time. No changes from jw7 previously documented assessment. Patient and/or family updated on plan of care and expected duration. Pain level reassessed. Patient is alert, oriented x 3, equal unlabored respirations, skin warm/dry/pink. 05:00 Reassessment: Patient appears in no apparent distress at this time. No changes from jw7 previously documented assessment. Patient and/or family updated on plan of care and expected duration. Pain level reassessed. Patient is alert, oriented x 3, equal unlabored respirations, skin warm/dry/pink. 06:00 Reassessment: Patient appears in no apparent distress at this time. No changes from jw7 previously documented assessment. Patient and/or family updated on plan of care and expected duration. Pain level reassessed. Patient is alert, oriented x 3, equal unlabored respirations, skin warm/dry/pink. 07:20 Reassessment: Patient appears in no apparent distress at this time. No changes from [facility] previously documented assessment. Patient and/or family updated on plan of care and expected duration. Pain level reassessed. Patient is alert, oriented x 3, equal unlabored respirations, skin warm/dry/pink. 07:57 Reassessment: PT DENIES SI, HI, OR AUDITORY OR VISUAL HALLUCINATIONS AT THIS TIME. DR. joshua SANDS NOTIFIED. INSTRUCTED TO CALL [facility] AND HAVE THE PATIENT RE-EVALUATED. SPOKE WITH MAXIM AT [facility]. STATES SHE WILL SEND SOMEONE OUT TO RESCREEN THE PATIENT. 08:20 Reassessment: Patient appears in no apparent distress at this time. No changes from kc6 previously documented assessment. Patient and/or family updated on plan of care and expected duration. Pain level reassessed. Patient is alert, oriented x 3, equal unlabored respirations, skin warm/dry/pink. 09:20 Reassessment: Patient appears in no apparent distress at this time. No changes from [facility] previously documented assessment. Patient and/or family updated on plan of care and expected duration. Pain level reassessed. Patient is alert, oriented x 3, equal unlabored respirations, skin warm/dry/pink. 10:06 Reassessment: [facility] AT BEDSIDE RE-EVALUATING PATIENT. 6 10:20 Reassessment: Patient appears in no apparent distress at this time. No changes from kc6 previously documented assessment. Patient and/or family updated on plan of care and expected duration. Pain level reassessed. 11:07 Reassessment: PT APPEARS TO BE GETTING INCREASINGLY AGITATED AND ESCALATED WHILE BEING kc6 EVALUATED BY [facility]. PT OPENED THE DOOR AND STATES "I'M CRAZY!" DR. SANDS AND CHARGE NOTIFIED. VERBAL ORDERS RECEIVED FROM DR. SANDS TO ADMIN PRN MEDS. 11:20 Reassessment: Patient appears in no apparent distress at this time. No changes from k[facility]6 previously documented assessment. Patient and/or family updated on plan of care and expected duration. Pain level reassessed. Patient is alert, oriented x 3, equal unlabored respirations, skin warm/dry/pink. 12:20 Reassessment: Patient appears in no apparent distress at this time. No changes from [facility] previously documented assessment. Patient and/or family updated on plan of care and expected duration. Pain level reassessed. 13:00 Reassessment: PTS JOHAN JONES AT BEDSIDE VISITING WITH PATIENT. [phone]. [facility] 14:20 Reassessment: PT GROWING INCREASINGLY AGITATED. PT LEFT HER ROOM AND WALKING AROUND THE kc6 UNIT AT THIS TIME. FRANCISCA SNYDER CALLED. PT ESCORTED BACK TO HER ROOM WITH SECURITY. 15:20 Reassessment: Patient appears in no apparent distress at this time. No changes from kc6 previously documented assessment. Patient and/or family updated on plan of care and expected duration. Pain level reassessed. 16:05 Reassessment: Patient appears in no apparent distress at this time. No changes from kc6 previously documented assessment. Patient and/or family updated on plan of care and expected duration. Pain level reassessed. 17:00 Reassessment: Patient appears in no apparent distress at this time. No changes from kc6 previously documented assessment. Patient and/or family updated on plan of care and expected duration. Pain level reassessed. Patient is alert, oriented x 3, equal unlabored respirations, skin warm/dry/pink. 18:00 Reassessment: Patient appears in no apparent distress at this time. No changes from kc6 previously documented assessment. Patient and/or family updated on plan of care and expected duration. Pain level reassessed. Patient is alert, oriented x 3, equal unlabored respirations, skin warm/dry/pink. 19:00 Reassessment: Patient appears in no apparent distress at this time. No changes from cm10 previously documented assessment. Patient is alert, oriented x 3, equal unlabored respirations, skin warm/dry/pink. Assumed care of patient at this time. Pt pacing in room and walking out of room. Pt able to be redirected and will go back in room. Sitter at bedside. 20:00 Reassessment: Patient appears in no apparent distress at this time. No changes from cm10 previously documented assessment. Patient and/or family updated on plan of care and expected duration. Pain level reassessed. SITTER REMAINS AT BEDSIDE. 20:20 Reassessment: Pt starting to become increasingly agitated, not wanting to stay in room. cm10 Dr. Germain made aware and orders for medication obtained. 21:00 Reassessment: Patient appears in no apparent distress at this time. No changes from [facility]10 previously documented assessment. Patient and/or family updated on plan of care and expected duration. Pain level reassessed. 22:00 Reassessment: Patient appears in no apparent distress at this time. No changes from [facility]10 previously documented assessment. Patient and/or family updated on plan of care and expected duration. Pain level reassessed. 23:00 Reassessment: Patient appears in no apparent distress at this time. No changes from cm10 previously documented assessment. PT SLEEPING, RESPIRATIONS EVEN AND UNLABORED. SITTER AT BEDSIDE. 04/02 01:00 Reassessment: Patient appears in no apparent distress at this time. No changes from cm10 previously documented assessment. PT SLEEPING, RESPIRATIONS EVEN AND UNLABORED. SITTER AT BEDSIDE. 02:34 Reassessment: Patient and/or family updated on plan of care and expected duration. Pain cm10 level reassessed. Patient is alert, oriented x 3, equal unlabored respirations, skin warm/dry/pink. PT AWAKE AT THIS TIME PRESSING THE STAFF ASSIST BUTTON. ASKED PATIENT IF SHE WAS STILL HAVING THOUGHTS OF WANTING TO KILL HERSELF AND PATIENT STATES NO. WHEN PATIENT ASKED IF SHE WAS HOMICIDAL, PT STATES YES. THIS RN ASKED PATIENT TO ELABORATE AND PATIENT JUST LAUGHED AND STATED THAT SHE IS ALSO SUICIDAL. SITTER REMAINS AT BEDSIDE. 03:00 General: PT STATES THAT "IF MY FAMILY DOESN'T COME HERE BY 0315 I'M LEAVING, I'M DONE jw7 PLAYING THIS GAME". . 03:18 Reassessment: PT AMBULATING TO RESTROOM AND AFTER USING THE RESTROOM PATIENT STATES cm10 THAT SHE WANTS TO LEAVE. PT STATES,"I DON'T HAVE TIME TO BE WAITING" AND LEFT THE ER. THIS RN ASKED THE PATIENT IF SHE WANTED HER BELONGINGS AND PATIENT STATED THAT SHE DOES NOT. PATIENT LEAVING AMBULATORY WITH STEADY GAIT, RESPIRATIONS EVEN AND UNLABORED. PT A\\T\\OX4 AT THE TIME OF LEAVING THE DEPARTMENT. Psych: 03/28 19:25 [place] Suicide Severity Screening: In the past month, have you wished you were jh8 or wished you could go to sleep and not wake up? Patient responds "No." "In the past month, have you actually had any thoughts of killing yourself?" does not answer "In your lifetime, have you ever done anything, started to do anything, or prepared to do anything to end your life?" Patient responds "no.". Subjective: Patient's mood is euphoric, Delusions are persecutory, Hallucinations are denied Having thoughts of [place] due to pt not answering questions. Objective: Patient is cooperative, restless, suspicious, Speech is rambling, Affect is flat, Patient has mutilated themselves by none observed. Interventions: Removed personal items and placed in bag. Patient placed in hospital gown. Searched person for dangerous items. Urine collected and sent for urine drug test. Belonging list filled out. Safety Checks: Personal items have been removed. Door is open. No visitors are present at this time. Pt denies substance abuse. Commitment: Patient will be a voluntary commitment. 03/29 07:00 [place] Suicide Severity Screening: In the past month, have you wished you were db or wished you could go to sleep and not wake up? Patient responds "No." "In the past month, have you actually had any thoughts of killing yourself?" Patient responds "no." "In your lifetime, have you ever done anything, started to do anything, or prepared to do anything to end your life?" Patient responds "no.". Subjective: Patient's mood is sad, Delusions are persecutory, Hallucinations are denied Having thoughts of DENIES ANY THOUGHTS. Objective: Patient is cooperative, Speech is rambling, Affect is flat. Interventions: Removed personal items and placed in bag. Patient placed in hospital gown. Safety Checks: Personal items have been removed. Door is open. No visitors are present at this time. Vital Signs: 03/27 13:40 BP 135 / 66; Pulse 84; Resp 15 S; Temp 98.2(O); Pulse Ox 99% on R/A; Weight 83.91 kg kc6 (M); Height 5 ft. 6 in. (R); 14:49 BP 132 / 63; Pulse 86; Resp 18 S; Pulse Ox 98% on R/A; kc6 03/28 03:48 BP 94 / 58; Pulse 80; Resp 16; Temp 97.2; Pulse Ox 98% on R/A; rc3 07:05 BP 115 / 66; Pulse 77; Resp 17; Temp 97.7(O); Pulse Ox 99% on R/A; rs5 16:45 BP 120 / 68; Pulse 81; Resp 18; Pulse Ox 99% on R/A; rs5 19:35 BP 126 / 78; Pulse 88; Resp 20; Temp 98.2; Pulse Ox 98% ; Pain 0/10; jh8 03/29 10:59 BP 122 / 74; Pulse 82; Resp 18; Temp 97.3; Pulse Ox 99% on R/A; zm 19:00 BP 147 / 90; Pulse 97; Resp 18; Pulse Ox 98% on R/A; rv1 03/30 08:23 BP 145 / 84; Pulse 91; Resp 18; Temp 96.6; Pulse Ox 100% ; db 19:00 BP 100 / 54; Pulse 98; Resp 19; Temp 98.2; Pulse Ox 93% ; bf2 06/02 13:15 BP 132 / 93; Pulse 84; Resp 15 S; Pulse Ox 99% on R/A; kc6 19:00 BP 139 / 83; Pulse 80; Resp 17 S; Temp 96.3(O); Pulse Ox 97% on R/A; lg3 06 02:45 BP 136 / 91; Pulse 91; Resp 18; Temp 97.8; Pulse Ox 95% ; cm10 03/27 13:40 Body Mass Index 29.86 (83.91 kg, 167.64 cm) kc6 19:35 Pain Scale: Adult jh8 ED Course: 03/27 13:39 Patient arrived in ED. sb4 13:40 Michelle Hernandez MD is Attending Physician. sb4 13:40 Aurora Moralez RN is Primary Nurse. kc6 13:40 Safety Checks: Personal items have been removed. A family member and/or friend is kc6 present and encouraged to stay. DAUGHTER The door is not opened, nor is patient placed in a hallway bed/chair. Sitter present at this time. 13:40 Patient is placed in psych hold. kc6 13:42 Triage completed. kc6 13:42 Arm band placed on. kc6 13:47 Patient has correct armband on for positive identification. Bed in low position. Call kc6 light in reach. Side rails up X2. Client placed on continuous cardiac and pulse oximetry monitoring. NIBP monitoring applied. Warm blanket given. Pillow given. 13:47 Maintain EMS IV. Dressing intact. Good blood return noted. Site clean \\T\\ dry. Gauge \\T\\ vic 6 site: 20G LFA. 14:00 CT Head Brain wo Cont In Process Unspecified. EDMS 14:25 Inserted saline lock: 24 gauge in right hand, using aseptic technique. Blood collected. kc6 15:17 CXR XRAY In Process Unspecified. EDMS 17:20 spoke with Suraj at [facility] for an eval . bc6 17:48 Pippa with [facility] gave me an ETA of 40 minutes. bc6 19:00 Safety Checks: Personal items have been removed. The door is not opened, nor is patient kc6 placed in a hallway bed/chair. There are no family/friend visitors at this time Sitter present at this time. 19:00 Patient is placed in psych hold. kc6 20:10 Attending Physician role handed off by Michelle Hernandez MD sp4 20:10 Gurpreet Parks MD is Attending Physician. sp4 22:00 Report given to Marychuy Uriarte RN. kc6 22:28 Primary Nurse role handed off by Aurora Moralez RN cm10 22:28 Marychuy Uriarte, RN is Primary Nurse. cm10 03/28 03:02 Report given to Con Reynaga RN. cm10 08:59 faxed over all clinical's to several facilities. bc6 09:17 Francisco Sadler, RN is Primary Nurse. rs5 09:18 [facility] called to do nurse to nurse. bc6 10:19 [facility] informed me there were no beds available. bc6 12:18 No provider procedures requiring assistance completed. rs5 12:49 Claudette with [facility] denied transfer because of know beds. bc6 13:04 Kera with [facility] informed me they would deny acceptance (no beds). bc6 15:37 Missed attempt(s): 22 gauge in right forearm. Bleeding controlled, band aid applied, sm8 catheter tip intact. 15:37 Missed attempt(s): 22 gauge in left antecubital area. Bleeding controlled, band aid sm8 applied, catheter tip intact. 19:00 No apparent distress. Resting quietly. pt aa, vss, nad, sitter at bedside, pending [facility] transfer to [facility], vebalizes understanding. pt noted to have intermittent outburst of flight of ideas. 19:27 Patient unlocking stretcher, and able to shift stretcher around room. . stretcher was bc6 removed from patients room for safety reasoning. patients mattress was left in room for comfort ability. 21:00 No apparent distress. pt in room, talking to herself, given a warm blanket per request, [facility] sitter at bedside. 23:00 No apparent distress. pt aa, vss, requests to use bsc, sitter at bedside assisting pt. [facility] 23:06 Safety checks: Items removed: yes. Door open/sign placed on door: yes. Family/friend rv1 present: no. Sitter present: Yes. Door closed. Noise minimized. Visitors limited. Lights dimmed. Sitter at bedside. 23:26 Pt requesting medicine to help her sleep. JOI Vaca and provider notified. rv1 23:26 Diet: Patient given ice chips. Patient given water. rv1 03/29 00:00 No apparent distress. Appears to be sleeping. jh8 02:00 No apparent distress. Appears to be sleeping. sitter at bedside. jh8 02:56 Patient is placed in psych hold. jh8 04:00 No apparent distress. Appears to be sleeping. sitter at bedside. jh8 06:00 No apparent distress. Appears to be sleeping. sitter at bedside. jh8 07:36 Attending Physician role handed off by Gurpreet Parks MD ms3 07:36 Asim Swift DO is Attending Physician. ms3 10:13 Primary Nurse role handed off by Francisco Sadler RN db 10:13 Adalgisa Moran RN is Primary Nurse. db 16:16 Inserted saline lock: 22 gauge in left forearm, using aseptic technique. Blood zm collected. 18:16 Attending Physician role handed off by Asim Swift DO ms3 18:16 Jomar Marquez MD is Attending Physician. ms3 19:00 Safety Checks: Personal items have been removed. A family member and/or friend is lg3 present and encouraged to stay. Sitter present at this time. 19:00 Family accompanied patient. lg3 19:04 Add On-Lab Sent. lg3 19:07 Safety checks: Family/friend present: yes. Sitter present: Yes. Door closed. Noise rv1 minimized. Lights dimmed. 19:08 Report given to JOI ISAACS. db 19:29 Diet: Patient given snack. rv1 20:07 Attending Physician role handed off by Jomar Marquez MD sp4 20:07 Gurpreet Parks MD is Attending Physician. sp4 20:24 Pt requested IV to be removed. Provider and RN notified. rv1 20:30 IV discontinued, intact, bleeding controlled, No redness/swelling at site. Pressure lg3 dressing applied. 22:26 Pt requesting something for her nerves because she hears other people talking about rv1 they're dogs and cats and it makes her think they're talking about her animals. Fawn TAMEZ notified. 23:08 Pt was provided stretcher back for comfort. Scrubs changed, wipes given for cleaning, rv1 new sheets and blankets provided. 23:10 Door closed. Noise minimized. Visitors limited. Lights dimmed. Warm blanket given. rv1 Pillow given. 23:53 Pt restless, getting out of bed repeatedly asking for water, something to help her rv1 sleep, and asking if her son has called or if we have called him. Provider and RN notified. Diet: Patient given ice chips. Patient given water. 03/30 02:09 Patient info sent to Psych facilities for patient transfer [[facility], [facility], [facility], [facility], [facility]]. 08:36 Adalgisa Moran, JOI is Primary Nurse. db 19:02 Report given to JOI SALAS. db 19:09 Leslie Dominguez is Primary Nurse. cp4 22:17 Patient info sent to Psych facilities for patient transfer [[facility], [facility], [facility], [facility], [facility], [facility], [facility], [facility], [facility]]. 23:31 [facility] called advising no beds available. ty 03/31 07:00 Safety Checks: Personal items have been removed. The door is open or patient has been kc6 placed in a hallway bed/chair. There are no family/friend visitors at this time Sitter present at this time. 07:00 Report received from LENA DOMINGUEZ RN. kc6 07:00 Patient is placed in psych hold. kc6 19:00 Report given to JOI Augustine. kc6 19:00 Vitals taken on patient, no issues. ty 19:10 Patient received new tear away gowns as previous were torn up, new disposable ty undergarments given as well 04/01 00:00 Provided Education on: Use of Call Light. jw7 02:00 Assisted to bathroom. jw7 06:30 Assisted to bathroom. jw7 07:00 Safety Checks: Personal items have been removed. The door is open or patient has been kc6 placed in a hallway bed/chair. There are no family/friend visitors at this time Sitter present at this time. 07:00 Report received from Princess Wise RN. Patient is placed in psych hold. kc6 11:14 spoke with Sage Atkinson with [facility], he will work on getting pt accepted at [facility]. 11:48 spoke with Anna Fuentes with [facility], she will try to get pt a bed at [facility]. 12:10 Patients son Abraham is here for visit. bc6 17:30 Diet: Patient given a diabetic meal tray. kc6 19:00 Report given to Marychuy Uriarte RN. 6 19:09 Primary Nurse role handed off by Leslie Dominguez [facility] 19:09 Marychuy Uriarte, RN is Primary Nurse. [facility] 23:43 Safety checks: Items removed: yes. Family/friend present: no. Sitter present: Yes. vk 23:47 Door closed. Noise minimized. Visitors limited. Lights dimmed. vk Administered Medications: 03/27 14:30 Drug: Ativan IVP 2 mg IVP once Route: IVP; Site: right hand; kc6 15:34 Follow up: Response: No adverse reaction; Anxiety decreased; RASS: Drowsy (-1) [facility] 15:25 Drug: NS 0.9% IV 1000 ml IV at 125 ml/hr continuous Route: IV; Rate: 125 ml/hr; Site: kc6 left forearm; 16:01 Follow up: Response: No adverse reaction rs5 16:20 Drug: Potassium Chloride PO Liquid 40 mEq PO once Route: PO; kc6 16:55 Follow up: Response: No adverse reaction 6 19:21 Drug: Ativan IVP 1 mg IVP once Route: IVP; Site: left antecubital; kc6 19:41 Follow up: Response: No adverse reaction; Anxiety decreased; RASS: Drowsy (-1) 6 19:22 Drug: Ativan IVP 1 mg IVP once Route: IVP; Site: left antecubital; kc6 19:41 Follow up: Response: No adverse reaction; Anxiety decreased; RASS: Alert and Calm (0) 6 03/28 04:27 Drug: LORazepam PO 2 mg PO once Route: PO; vc1 05:01 Follow up: Response: No adverse reaction rs5 09:29 Drug: LORazepam PO 2 mg PO once Route: PO; rs5 10:15 Follow up: Response: No adverse reaction; Anxiety decreased rs5 12:01 Drug: Ativan IVP 2 mg IVP once Route: IVP; Site: left antecubital; rs5 12:20 Follow up: Response: No adverse reaction; Anxiety decreased rs5 18:15 Drug: LORazepam PO 2 mg PO once Route: PO; rs5 18:48 Follow up: Response: No adverse reaction rs5 03/29 07:29 Not Given (NOT GIVEN BY PREVIOUS SHIFTt): [id number] mg PO once db 07:40 Drug: Haloperidol PO 5 mg PO once Route: PO; db 15:01 Follow up: Response: No adverse reaction db 15:00 Drug: Thiamine PO 100 mg PO once Route: PO; db 15:00 Drug: swzipldpuzqmf-nbkm-ion-folic acid Liquid 1 tablet PO once Route: PO; db 15:00 Drug: Potassium PO Effervescent Tablet 50 mEq PO once; dissolve in 4 ounces of water or db juice Route: PO; 17:31 Drug: LORazepam PO 1 mg PO once Route: PO; db 02 02:10 Follow up: Response: No adverse reaction cp4 03/29 20:30 Drug: traZODONE PO 150 mg PO once Route: PO; lg3 06 02:10 Follow up: Response: No adverse reaction cp4 03/29 22:31 Drug: Diazepam PO 10 mg PO once Route: PO; lg3 03/31 02:09 Follow up: Response: No adverse reaction cp4 03/29 23:57 Not Given (Other Intervention Used): haloperidol5 mg PO once lg3 23:58 Drug: HALdol (as decanoate) IM 10 mg IM once Route: IM; Site: left gluteus; lg3 03/31 02:09 Follow up: Response: No adverse reaction cp4 03/30 15:45 Drug: Viscous Lidocaine Mucous Membrane Liquid (4 %) 5 ml Mucous Membrane once Route: db Mucous Membrane; 15:50 Drug: LORazepam PO 1 mg PO once Route: PO; db 03/31 02:09 Follow up: Response: No adverse reaction cp4 03/30 22:31 Drug: Ondansetron PO 4 mg PO once Route: PO; cp4 02 02:09 Follow up: Response: No adverse reaction cp4 00:30 Drug: HALdol (as decanoate) IM 10 mg IM once Route: IM; Site: left ventrogluteal; cp4 02:09 Follow up: Response: No adverse reaction cp4 12:13 Drug: LORazepam PO 1 mg PO once Route: PO; kc6 15:26 Follow up: Response: No adverse reaction; Anxiety decreased; RASS: Alert and Calm (0) kc6 13: CANCELLED (Physician Discretion): omeprazole Oral Disintegrating Tablet 20 mg PO once kc6 13:27 Drug: metFORMIN PO 1000 mg PO once; with meal or snack Route: PO; kc6 15:26 Follow up: Response: No adverse reaction kc6 13:27 Drug: Valsartan PO 40 mg PO once Route: PO; kc6 15:26 Follow up: Response: No adverse reaction kc6 13:27 Drug: Pioglitazone PO 30 mg PO once Route: PO; kc6 15:26 Follow up: Response: No adverse reaction kc6 13:27 Drug: sertraline 50 mg PO once Route: PO; kc6 15:26 Follow up: Response: No adverse reaction; Anxiety decreased; RASS: Alert and Calm (0) kc6 13:27 Drug: Acetaminophen PO 1000 mg PO once Route: PO; kc6 15:26 Follow up: Response: No adverse reaction; Pain is decreased kc6 13:27 Drug: Pantoprazole PO 40 mg PO once Route: PO; kc6 15:26 Follow up: Response: No adverse reaction kc6 16:54 Drug: metFORMIN PO 1000 mg PO once; with meal or snack Route: PO; kc6 03 01:15 Follow up: Response: No adverse reaction jw7 03/31 23:05 Drug: Mirtazapine PO 30 mg PO once Route: PO; lg3 0603 01:15 Follow up: Response: No adverse reaction; Marked relief of symptoms jw7 01:30 Drug: Ondansetron Oral Disintegrating Tablet Oral Disintegrating Tablet 4 mg PO once jw7 Route: PO; 06:58 Follow up: Response: No adverse reaction; Marked relief of symptoms; Nausea is decreasedjw7 11:41 Drug: HALdol (as decanoate) IM 10 mg IM once Route: IM; Site: left deltoid; kc6 12:00 Follow up: Response: No adverse reaction kc6 11:41 Drug: Diazepam PO 5 mg PO once Route: PO; kc6 12:00 Follow up: Response: No adverse reaction kc6 12:36 Drug: metFORMIN PO 1000 mg PO once; with meal or snack Route: PO; kc6 15:05 Follow up: Response: No adverse reaction kc6 13:33 Drug: Diazepam IM 10 mg IM once Route: IM; Site: right deltoid; kc6 15:05 Follow up: Response: No adverse reaction kc6 13:33 Drug: diphenhydrAMINE IM 50 mg IM once Route: IM; Site: left gluteus; kc6 15:05 Follow up: Response: No adverse reaction kc6 13:33 Drug: HALdol (as decanoate) IM 10 mg IM once Route: IM; Site: left deltoid; kc6 15:05 Follow up: Response: No adverse reaction kc6 19:04 Not Given (Patient Refused): [id number] mg PO once kc6 19:04 Not Given (Patient Refused): beimuuwoxoua90 mg PO once kc6 19:04 Not Given (Patient Refused): sertraline 50 mg PO once kc6 19:04 Not Given (Patient Refused): pjdrhqwpomcu85 mg PO once kc6 20:35 Drug: LORazepam PO 1 mg PO once Route: PO; me1 21:30 Follow up: Response: No adverse reaction cm10 Medication: 03/28 09:05 VIS not applicable for this client. rs5 Point of Care Testing: Blood Glucose: 03/29 12:24 Blood Glucose: 182 mg/dL; db 12:24 AFTER PATIENT EATING WHATABURGER db Ranges: Outcome: 03/27 18:30 ER care complete, transfer ordered by . sp3 04/02 03:30 Discharge ordered by . rt 03:36 Discharged to PT LEFT THE ED PRIOR TO RECEIVING PAPERWORK. cm10 03:36 Condition: stable 03:36 Discharge instructions given to LEFT PRIOR TO RECEIVING PAPERWORK 03:37 Patient left the ED. cm10 Signatures: Dispatcher [employer] EDMS Shanthi Panda James, RN RN jb4 Fawn Garcia, RN RN lg3 Asim Swift DO DO ms3 Michelle Hernandez MD MD sp3 Indira Adams RN RN 1 Princess Wise, JOI RN marge7 Juani Uriarte Kaitlyn, RN RN kc6 Adalgisa Moran, JOI RN db Ruth Arias, PA-C PA-C edil4 Galo Germain MD MD rt Shavon Smith rv1 Francisco Sadler RN RN rs5 Shayy Barreto 6 Gurpreet Parks MD MD sp4 Marychuy Uriarte RN RN cm10 Josefa Siddiqi 8 Angelica Scott RN RN me1 Leslie Dominguez cp4 Carlota Smallwoodbabatunde Jake ty Leisa Jazkulwinder bf2 Shavon Denise rc3 Mika Todd, RN RN jh8 Corrections: (The following items were deleted from the chart) 03/27 13:42 13:40 Chief complaint: EMS states: SHE WAS FOUND ON THE SIDE OF THE ROAD PANTLESS AND kc6 SHOELESS, A\\T\\OX1. PT WAS GIVEN 25MG OF IV PROMETHAZINE AND 2.5MG OF IV VERSED EN ROUTE. PT IS NOW A\\T\\OX4. PT DENIES HI AT THIS TIME BUT REFUSES TO ANSWER IF SHE IS SI. kc6 03/28 16:44 16:43 Reassessment: pt states "I feel anxiouse, can you get the doctor to give me rs5 something". rs5 03/29 20:31 20:14 General: PT requesting sleep aid. provider notified. lg3 lg3 03/30 19:47 19:19 General: Appears in no apparent distress. comfortable, Behavior is calm, cp4 cooperative, appropriate for age, cp4 19:47 19:19 Neuro: Level of Consciousness is awake, alert, obeys commands, Oriented to cp4 person, place, time, situation, Environmental Attorney are equal bilaterally Moves all extremities. Gait is steady, Speech is normal, Facial symmetry appears normal, Pupils are PERRLA, Intact cp4 22:19 02:09 Patient info sent to Psych facilities for patient transfer [[facility], [facility], [facility], [facility], [facility]] ty 04/01 08:01 07:57 Reassessment: PT DENIES SI OR HI AT THIS TIME kc6 kc6 08:04 07:57 Reassessment: PT DENIES SI OR HI AT THIS TIME kc6 kc6 11:27 11:07 Reassessment: PT APPEARS TO BE GETTING INCREASINGLY AGITATED AND ESCALATED WHILE kc6 BEING EVALUATED BY [facility]. PT OPENED THE DOOR AND STATES "I'M CRAZY!" DR. SANDS AND CHARGE NOTIFIED. VERBAL ORDERS TO ADMIN PRN MEDS. kc6 22:41 19:00 Reassessment: Patient appears in no apparent distress at this time. No changes cm10 from previously documented assessment. Assumed care of patient at this time. Pt pacing in room and walking out of room. Pt able to be redirected and will go back in room. cm10 04/02 03:04/01 19:00 Reassessment: Patient appears in no apparent distress at this time. No cm10 changes from previously documented assessment. Assumed care of patient at this time. Pt pacing in room and walking out of room. Pt able to be redirected and will go back in room. Sitter at bedside. cm10 04/02 03:04/01 20:00 Reassessment: Patient appears in no apparent distress at this time. No cm10 changes from previously documented assessment. Patient and/or family updated on plan of care and expected duration. Pain level reassessed. cm10 04/02 03:22 02:34 Reassessment: ASKED PATIENT IF SHE WAS STILL HAVING THOUGHTS OF WANTING TO KILL cm10 HERSELF AND PATIENT STATES NO. WHEN PATIENT ASKED IF SHE WAS HOMICIDAL, PT STATES YES. THIS RN ASKED PATIENT TO ELABORATE AND PATIENT JUST LAUGHED AND STATED THAT SHE IS ALSO SUICIDAL. SITTER REMAINS AT BEDSIDE. cm10 03:26 02:34 Reassessment: Patient and/or family updated on plan of care and expected cm10 duration. Pain level reassessed. Patient is alert, oriented x 3, equal unlabored respirations, skin warm/dry/pink. ASKED PATIENT IF SHE WAS STILL HAVING THOUGHTS OF WANTING TO KILL HERSELF AND PATIENT STATES NO. WHEN PATIENT ASKED IF SHE WAS HOMICIDAL, PT STATES YES. THIS RN ASKED PATIENT TO ELABORATE AND PATIENT JUST LAUGHED AND STATED THAT SHE IS ALSO SUICIDAL. SITTER REMAINS AT BEDSIDE. cm10
--- NOTE | 2024-03-27 18:31 | EDPHYS ---
Physician Documentation [facility] Name: Jeannette Way Age: 53 yrs Sex: Female : 1970 Arrival Date: 03/27/2024 Time: 13:31 Bed 15 Private MD: ED Physician Gurpreet Parks HPI: 03/27 14:03 This 53 yrs old Female presents to ER via EMS with complaints of Altered Mental Status. sp3 14:03 53-year-old female with history of diabetes and hypertension found wandering on the sp3 side of the road and boyfriend who also found her called into EMS. They arrived to find patient mumbling and incoherent. Upon arrival to the ED, she is more lucid according to them and now alert and oriented x 4. She denies any pain whatsoever but does endorse that she was confused. She states that she "was thirsty and so went out for some water". She denies headache, weakness, numbness, speech changes, illicit drug use, alcohol intake, any other substance use, fever, known sick contacts, travel history, or any other signs or symptoms on ROS at this time. However given patient's altered mental status just earlier, I will selene this as limited ROS, history and physical due to that.. Historical: - Allergies: 13:42 No Known Allergies; kc6 - Home Meds: 03/30 17:15 Metformin Oral [Active]; db 19:10 metformin 500 mg Oral Tablet, Extended Release 24 hr 1 tab 2 times per day [Active]; cp4 mirtazapine 15 mg Oral Tablet,disintegrating 1 tab every day at bedtime [Active]; sertraline 50 mg oral tablet once [Active]; Trulicity 1.5 mg/0.5 mL subcutaneous Pen Injector 1.5 mg every week [Active]; valsartan 40 mg oral tablet 1 tab daily [Active]; omeprazole 20 mg oral capsule,delayed release (e.c.) daily [Active]; methocarbamol 500 mg Oral tablet 2 tabs every 4 hours [Active]; - PMHx: 03/27 13:42 Diabetes mellitus; Hypertensive disorder; kc6 - PSHx: 13:42 BACK SURGERY; kc6 - Immunization history:: Adult Immunizations up to date. - Infectious Disease History:: Denies. - Social history:: Smoking status: Patient denies any tobacco usage or history of. ROS: 14:05 Unable to obtain ROS due to altered mental status, sp3 Exam: 14:05 Constitutional: This is a well developed, well nourished patient who is awake, alert, sp3 and in no acute distress. Head/Face: Normocephalic, atraumatic. Eyes: Pupils equal round and reactive to light, extra-ocular motions intact. Lids and lashes normal. Conjunctiva and sclera are non-icteric and not injected. Cornea within normal limits. Periorbital areas with no swelling, redness, or edema. Neck: Trachea midline, no thyromegaly or masses palpated, and no cervical lymphadenopathy. Supple, full range of motion without nuchal rigidity, or vertebral point tenderness. No Meningismus. Chest/axilla: Normal chest wall appearance and motion. Nontender with no deformity. No lesions are appreciated. Cardiovascular: Regular rate and rhythm with a normal S1 and S2. No gallops, murmurs, or rubs. Normal PMI, no JVD. No pulse deficits. Respiratory: Lungs have equal breath sounds bilaterally, clear to auscultation and percussion. No rales, rhonchi or wheezes noted. No increased work of breathing, no retractions or nasal flaring. Abdomen/GI: Soft, non-tender, with normal bowel sounds. No distension or tympany. No guarding or rebound. No evidence of tenderness throughout. Back: No spinal tenderness. No costovertebral tenderness. Full range of motion. Skin: Warm, dry with normal turgor. Normal color with no rashes, no lesions, and no evidence of cellulitis. MS/ Extremity: Pulses equal, no cyanosis. Neurovascular intact. Full, normal range of motion. Neuro: Awake and alert, GCS 15, oriented to person, place, time, and situation. Cranial nerves II-XII grossly intact. Motor strength 5/5 in all extremities. Sensory grossly intact. Cerebellar exam normal. Normal gait. Psych: Awake, alert, with orientation to person, place and time. Behavior, mood, and affect are within normal limits. 14:05 Neuro: Normal neurological exam however patient is still not sure on how she ended up on the side of the street. She gives no clear explanation., 14:10 ECG was reviewed by the Attending Physician. EKG demonstrates normal sinus rhythm at 69 sp3 bpm with prolonged QTc at 492, leftward axis and deep T waves laterally. Will see if old EKG is available. Vital Signs: 13:40 BP 135 / 66; Pulse 84; Resp 15 S; Temp 98.2(O); Pulse Ox 99% on R/A; Weight 83.91 kg kc6 (M); Height 5 ft. 6 in. (R); 14:49 BP 132 / 63; Pulse 86; Resp 18 S; Pulse Ox 98% on R/A; kc6 03/28 03:48 BP 94 / 58; Pulse 80; Resp 16; Temp 97.2; Pulse Ox 98% on R/A; rc3 07:05 BP 115 / 66; Pulse 77; Resp 17; Temp 97.7(O); Pulse Ox 99% on R/A; rs5 16:45 BP 120 / 68; Pulse 81; Resp 18; Pulse Ox 99% on R/A; rs5 19:35 BP 126 / 78; Pulse 88; Resp 20; Temp 98.2; Pulse Ox 98% ; Pain 0/10; jh8 03/29 10:59 BP 122 / 74; Pulse 82; Resp 18; Temp 97.3; Pulse Ox 99% on R/A; zm 19:00 BP 147 / 90; Pulse 97; Resp 18; Pulse Ox 98% on R/A; rv1 03/30 08:23 BP 145 / 84; Pulse 91; Resp 18; Temp 96.6; Pulse Ox 100% ; db 19:00 BP 100 / 54; Pulse 98; Resp 19; Temp 98.2; Pulse Ox 93% ; bf2 03/31 13:15 BP 132 / 93; Pulse 84; Resp 15 S; Pulse Ox 99% on R/A; kc6 19:00 BP 139 / 83; Pulse 80; Resp 17 S; Temp 96.3(O); Pulse Ox 97% on R/A; lg3 04/02 02:45 BP 136 / 91; Pulse 91; Resp 18; Temp 97.8; Pulse Ox 95% ; cm10 03/27 13:40 Body Mass Index 29.86 (83.91 kg, 167.64 cm) kc6 19:35 Pain Scale: Adult jh8 MDM: 03/27 13:41 Patient medically screened. sp3 14:08 Data reviewed: vital signs, nurses notes, EMS record, lab test result(s), EKG, sp3 radiologic studies. ED course: 53-year-old female with altered mental status now resolving. Differential diagnosis includes TIA/CVA spectrum, electrolyte abnormality, psychiatric/mental illness, delirium, infection, among others. Workup will be broad and include CT scan of the head, laboratory values, chest x-ray, urinalysis, urine drug screen, and we will provide supportive care until disposition is decided. Patient is not suicidal, homicidal and not responding to internal stimuli. She denies psychosis.. 15:46 ED course: Patient's daughter now in the room and gives further history of darrick type sp3 behavior. Patient also now not fully answering on home safety and suicidal questions. Will treat as a mental health patient with one-to-one [facility] evaluation once she is medically cleared.. 18:27 ED course: Patient is medically clear. Glucose is at bedside. Patient will be sp3 transferred to geriatric psychiatric facility. Diagnosis darrick, suicidal ideation, delusions of persecution. I discussed with daughter who is at bedside who is next of kin/power of can closing machine operator. She states that she is okay with that is using antipsychotic medications if needed to prevent patient from any self injury or escape from the emergency department. Patient is currently stable and cooperative.. 03/29 07:36 Transition of care: Care assumed from Gurpreet Parks MD. ED course: Patient ms3 re-assessed and is laying on the mattress on the floor. Patient states she is seeing people, pets, and hearing voices. patient requesting medications to make it stop. 5 mg oral Haldol ordered.. 13:47 ED course: Patient's son Abraham Way Call. Cell phone number . ms3 Discussed with him patient is awaiting transfer. He states patient has hx of possible bipolar and alcoholism. 18:15 Transition of care: After a detail discussion of the patient's case, care is ms3 transferred to Jomra Marquez MD. 03/30 22:16 Differential Diagnosis: electrolyte abnormality, overdose, seizure, TIA. Consideration sp4 of Admission/Observation Escalation of care including admission/observation considered. ED course: On repeat assessment patient states she is very stressed out she is thinking that other people are out to kill her and she is suicidal. Patient states she is in imminent harm to herself and requests for us to continue to pursue admission to psychiatric hospital. . 04/02 03:30 ED course: Patient stated that she was leaving, left emergency department before I was rt able to speak with her. The emergency half-way order has since , there is no cook mayonnaise order. At this juncture, there is no legal recourse to keep the patient here against her well.. 03/27 13:45 Order name: Basic Metabolic Panel; Complete Time: 15:38 sp3 03/27 13:45 Order name: CBC with Diff; Complete Time: 15:33 3 03/27 13:45 Order name: Hepatic Function; Complete Time: 15:38 3 03/27 13:45 Order name: High Sensitivity Troponin; Complete Time: 15:38 3 03/27 13:45 Order name: Magnesium; Complete Time: 15:38 3 03/27 13:45 Order name: Protime (+inr); Complete Time: 15:33 3 03/27 13:45 Order name: Ptt, Activated; Complete Time: 15:33 sp3 03/27 13:45 Order name: UDS; Complete Time: 17:00 3 03/27 13:45 Order name: UAM; Complete Time: 17:00 3 03/27 13:45 Order name: ASA; Complete Time: 15:38 sp3 03/27 13:45 Order name: Acetaminophen; Complete Time: 15:38 3 03/27 15:59 Order name: Add On-Lab 03/27 16:21 Order name: ETOH Level; Complete Time: 21:56 kc6 03/29 12:36 Order name: Glucose, Ancillary Testing; Complete Time: 13:43 EDMS 03/29 14:55 Order name: Potassium; Complete Time: 16:38 ms3 03/31 13:33 Order name: Glucose, Ancillary Testing EDMS 03/27 13:45 Order name: CT Head Brain wo Cont; Complete Time: 14:22 sp3 03/27 14:22 Order name: CXR XRAY; Complete Time: 15:33 sp3 03/27 13:45 Order name: EKG; Complete Time: 13:45 sp3 03/27 13:45 Order name: Cardiac monitoring; Complete Time: 14:36 3 03/27 13:45 Order name: EKG - Nurse/Tech; Complete Time: 14:21 3 03/27 13:45 Order name: IV Saline Lock; Complete Time: 13:48 3 03/27 13:45 Order name: Labs collected and sent; Complete Time: 14:36 3 03/27 13:45 Order name: NPO; Complete Time: 13:48 3 03/27 13:45 Order name: O2 Sat Monitoring; Complete Time: 13:48 [facility] 03/27 14:48 Order name: Labs - recollect needed; Complete Time: 15:06 iw Administered Medications: 03/27 14:30 Drug: Ativan IVP 2 mg IVP once Route: IVP; Site: right hand; 6 15:34 Follow up: Response: No adverse reaction; Anxiety decreased; RASS: Drowsy (-1) [facility] 15:25 Drug: NS 0.9% IV 1000 ml IV at 125 ml/hr continuous Route: IV; Rate: 125 ml/hr; Site: [facility] left forearm; 16:01 Follow up: Response: No adverse reaction rs5 16:20 Drug: Potassium Chloride PO Liquid 40 mEq PO once Route: PO; kc6 16:55 Follow up: Response: No adverse reaction 6 19:21 Drug: Ativan IVP 1 mg IVP once Route: IVP; Site: left antecubital; kc6 19:41 Follow up: Response: No adverse reaction; Anxiety decreased; RASS: Drowsy (-1) 6 19:22 Drug: Ativan IVP 1 mg IVP once Route: IVP; Site: left antecubital; kc6 19:41 Follow up: Response: No adverse reaction; Anxiety decreased; RASS: Alert and Calm (0) 6 03/28 04:27 Drug: LORazepam PO 2 mg PO once Route: PO; vc1 05:01 Follow up: Response: No adverse reaction rs5 09:29 Drug: LORazepam PO 2 mg PO once Route: PO; rs5 10:15 Follow up: Response: No adverse reaction; Anxiety decreased rs5 12:01 Drug: Ativan IVP 2 mg IVP once Route: IVP; Site: left antecubital; rs5 12:20 Follow up: Response: No adverse reaction; Anxiety decreased rs5 18:15 Drug: LORazepam PO 2 mg PO once Route: PO; rs5 18:48 Follow up: Response: No adverse reaction rs5 03/29 07:29 Not Given (NOT GIVEN BY PREVIOUS SHIFTt): mg PO once db 07:40 Drug: Haloperidol PO 5 mg PO once Route: PO; db 15:01 Follow up: Response: No adverse reaction db 15:00 Drug: Thiamine PO 100 mg PO once Route: PO; db 15:00 Drug: ckrnwqethewzu-hmtz-oyk-folic acid Liquid 1 tablet PO once Route: PO; db 15:00 Drug: Potassium PO Effervescent Tablet 50 mEq PO once; dissolve in 4 ounces of water or db juice Route: PO; 17:31 Drug: LORazepam PO 1 mg PO once Route: PO; db 03/31 02:10 Follow up: Response: No adverse reaction cp4 03/29 20:30 Drug: traZODONE PO 150 mg PO once Route: PO; lg3 03/31 02:10 Follow up: Response: No adverse reaction cp4 03/29 22:31 Drug: Diazepam PO 10 mg PO once Route: PO; lg3 03/31 02:09 Follow up: Response: No adverse reaction cp4 03/29 23:57 Not Given (Other Intervention Used): haloperidol5 mg PO once lg3 23:58 Drug: HALdol (as decanoate) IM 10 mg IM once Route: IM; Site: left gluteus; lg3 03/31 02:09 Follow up: Response: No adverse reaction cp4 03/30 15:45 Drug: Viscous Lidocaine Mucous Membrane Liquid (4 %) 5 ml Mucous Membrane once Route: db Mucous Membrane; 15:50 Drug: LORazepam PO 1 mg PO once Route: PO; db 03/31 02:09 Follow up: Response: No adverse reaction cp4 03/30 22:31 Drug: Ondansetron PO 4 mg PO once Route: PO; cp4 02 02:09 Follow up: Response: No adverse reaction cp4 00:30 Drug: HALdol (as decanoate) IM 10 mg IM once Route: IM; Site: left ventrogluteal; cp4 02:09 Follow up: Response: No adverse reaction cp4 12:13 Drug: LORazepam PO 1 mg PO once Route: PO; kc6 15:26 Follow up: Response: No adverse reaction; Anxiety decreased; RASS: Alert and Calm (0) kc6 13:02 CANCELLED (Physician Discretion): omeprazole Oral Disintegrating Tablet 20 mg PO once kc6 13:27 Drug: metFORMIN PO 1000 mg PO once; with meal or snack Route: PO; kc6 15:26 Follow up: Response: No adverse reaction kc6 13:27 Drug: Valsartan PO 40 mg PO once Route: PO; kc6 15:26 Follow up: Response: No adverse reaction kc6 13:27 Drug: Pioglitazone PO 30 mg PO once Route: PO; kc6 15:26 Follow up: Response: No adverse reaction kc6 13:27 Drug: sertraline 50 mg PO once Route: PO; kc6 15:26 Follow up: Response: No adverse reaction; Anxiety decreased; RASS: Alert and Calm (0) kc6 13:27 Drug: Acetaminophen PO 1000 mg PO once Route: PO; kc6 15:26 Follow up: Response: No adverse reaction; Pain is decreased kc6 13:27 Drug: Pantoprazole PO 40 mg PO once Route: PO; kc6 15:26 Follow up: Response: No adverse reaction kc6 16:54 Drug: metFORMIN PO 1000 mg PO once; with meal or snack Route: PO; kc6 04/01 01:15 Follow up: Response: No adverse reaction jw7 03/31 23:05 Drug: Mirtazapine PO 30 mg PO once Route: PO; lg3 04/01 01:15 Follow up: Response: No adverse reaction; Marked relief of symptoms jw7 01:30 Drug: Ondansetron Oral Disintegrating Tablet Oral Disintegrating Tablet 4 mg PO once jw7 Route: PO; 06:58 Follow up: Response: No adverse reaction; Marked relief of symptoms; Nausea is decreasedjw7 11:41 Drug: HALdol (as decanoate) IM 10 mg IM once Route: IM; Site: left deltoid; kc6 12:00 Follow up: Response: No adverse reaction kc6 11:41 Drug: Diazepam PO 5 mg PO once Route: PO; kc6 12:00 Follow up: Response: No adverse reaction kc6 12:36 Drug: metFORMIN PO 1000 mg PO once; with meal or snack Route: PO; kc6 15:05 Follow up: Response: No adverse reaction kc6 13:33 Drug: Diazepam IM 10 mg IM once Route: IM; Site: right deltoid; kc6 15:05 Follow up: Response: No adverse reaction kc6 13:33 Drug: diphenhydrAMINE IM 50 mg IM once Route: IM; Site: left gluteus; kc6 15:05 Follow up: Response: No adverse reaction kc6 13:33 Drug: HALdol (as decanoate) IM 10 mg IM once Route: IM; Site: left deltoid; kc6 15:05 Follow up: Response: No adverse reaction kc6 19:04 Not Given (Patient Refused): nnvrfdypc97 mg PO once kc6 19:04 Not Given (Patient Refused): ihtdhfjbtbuv62 mg PO once kc6 19:04 Not Given (Patient Refused): sertraline 50 mg PO once kc6 19:04 Not Given (Patient Refused): nvxbicscfsey66 mg PO once kc6 20:35 Drug: LORazepam PO 1 mg PO once Route: PO; me1 21:30 Follow up: Response: No adverse reaction cm10 Point of Care Testing: Blood Glucose: 03/29 12:24 Blood Glucose: 182 mg/dL; db 12:24 AFTER PATIENT EATING WHATABURGER db Ranges: Critical Glucose Levels:Adult <50 mg/dl or >400 mg/dl <40 mg/dl or >180 mg/dl Disposition Summary: 04/02/24 03:30 Discharge Ordered Notes: Location: Home rt Condition: Fair(04/02/24 03:30) rt Diagnosis - Darrick rt Followup: rt - With: Private Physician - When: 1 - 2 days - Reason: Forms: - Medication Reconciliation Form rt - Antibiotic Education rt - Prescription Opioid Use rt - Patient Portal Instructions rt - Leadership Thank You Letter rt Signatures: Dispatcher [employer] Venus Huang RN RN iw Peltier, Brian RN RN Fawn Mcknight RN RN [id number] Asim Swift DO DO ms3 Michelle Hernandez MD MD sp3 Indira Adams RN RN vc1 Princess Wise, RN RN jw7 Tiffanie Allen MD MD sd2 Aurora Moralez RN RN kc6 Adalgisa Moran RN RN db Galo Germain MD MD rt Francisco Sadler RN RN rs5 Gurpreet Parks MD MD sp4 Angelica Scott RN RN me1 Mike Triplett MD MD ec2 Leslie Dominguez cp4 Marychuy Uriarte RN cm10 Corrections: (The following items were deleted from the chart) 03/27 16:21 16:21 ETHANOL+C.LAB.BRZ ordered. EDMS EDMS 03/31 13:02 12:41 omeprazole Oral Disintegrating Tablet 20 mg PO once ordered. kc6 kc6 13:02 13:02 omeprazole Oral Disintegrating Tablet 20 mg PO once ordered. kc6 kc6 04/02 03:29 03/27 18:30 TBD sp3 rt 04/02 03:03/27 18:30 Psych Facility sp3 rt 04/02 03:03/27 18:30 Higher level of care sp3 rt 04/02 03:29 03/27 18:30 Stable sp3 rt 04/02 03:29 03/27 18:30 an acute exacerbation sp3 rt 04/02 03:03/27 18:30 have worsened sp3 rt 04/02 03:03/27 18:30 Darrick, suicidal ideation, delusions of persecution sp3 rt
[2024-03-28] MEDS ORDERED: LORAZEPAM 1 MG TABLET ONE ×3 (04:23→18:12)
[2024-03-28] MEDS ORDERED: LORazepam 2 MG/ML VIAL ONE (12:01)
[2024-03-29] MEDS ORDERED: haloperidoL 5 MG TAB PO ONE (07:45)
[2024-03-29] MEDS ORDERED: THIAMINE HCL 100 MG TABLET ONE (14:55)
[2024-03-29] MEDS ORDERED: MULTIVITAMIN TAB PO ONE (14:55)
[2024-03-29] MEDS ORDERED: POTASSIUM 25 MEQ EFFERV TAB ONE (14:55)
[2024-03-29] MEDS ORDERED: LORAZEPAM 1 MG TABLET ONE (16:56)
--- NOTE | 2024-03-29 16:57 | EKG ---
Test Date: 2024-03-27 Test Time: 14:03:40 [employer] Reader: MAGUI MEASUREMENT RESULTS: Intervals: Rate: 69 TX: 124 QRSD: 98 QT: 460 QTc: 492 [place]: P: 51 TX: 124 QRS: -55 T: 227 INTERPRETIVE STATEMENTS: Normal sinus rhythm Left axis deviation Marked T wave abnormality, consider anterolateral ischemia Prolonged QT Abnormal ECG No previous ECG available for comparison Electronically Signed On 03-29-24 16:50:08 CDT by Po Barrera
[2024-03-29] MEDS ORDERED: TRAZODONE 150 MG TAB ONE (20:19)
[2024-03-29] MEDS ORDERED: DIAZEPAM 5 MG TABLET ONE (21:25)
[2024-03-29] MEDS ORDERED: HALOPERIDOL LACT 5 MG/ML INJ ONE (23:54)
[2024-03-30] MEDS ORDERED: LIDOCAINE VISCOUS 2% 10ML ORAL SOLN ONE (15:46)
[2024-03-30] MEDS ORDERED: LORAZEPAM 1 MG TABLET ONE (15:46)
[2024-03-31] MEDS ORDERED: PIOGLITAZONE 15 MG TAB PO ONE (13:00)
[2024-03-31] MEDS ORDERED: PANTOPRAZOLE 40MG TABLET PO ONE (13:00)
[2024-03-31] MEDS ORDERED: SERTRALINE HCL 50 MG TAB PO ONE (13:00)
[2024-04-01] MEDS ORDERED: PIOGLITAZONE 15 MG TAB PO ONE (12:15)
[2024-04-01] MEDS ORDERED: SERTRALINE HCL 50 MG TAB PO ONE (13:00)
[2024-04-02 04:26] VITALS: BP 136/91; TEMP 97.8; O2SAT 95
== END 2024-04-02 03:37 | disposition home or self-care (01) ==
LOC: ER 13:31
DX: F30.9 Manic episode, unspecified (principal)
CPT/HCPCS: 36415; 70450; 71045; 80048; 80076; 80143; 80179; 80307; 81001; 82077; 83735; 84484; 85025; 85610; 85730; 93005; J7030

== ENCOUNTER 2024-04-02 07:32 | Emergency (ER) | payer SELFPAY ==
[~2024-04-02 07:32] MED LIST: HALOPERIDOL LACT 5 MG/ML INJ ONE; ONDANSETRON 4 MG (ODT) TAB ONE
--- OUTSIDE RECORDS SUMMARY | 2024-04-02 07:38 | XMS REPORT | Continuity of Care Document ---
Author Name Unknown Address [address] [facility] [address] [place] [address] [facility] thconnect Address [address] [facility] [address] [place] [address] Care Team Providers Care [employer] Name Role Phone Pcp, Patient Does Not Have A Primary Care Physic carly FLORA WARNER Attending Clinician Unavailable SHAYY FIGUEROA Attending Clinician Unavailable ANA URBINA Attending Clinician Unavailable BRUNA HANSEN Attending Clinician Unavailable [facility] Attending Clinician Unavailable Milind Starr MD Attending Clinician [phone] MILIND STARR Attending Clinician Unavailable Doctor Unassigned, [place] Attending Clinician U navailable Irma Khan Attending Clinician [phone] IRMA CASTILLO Attending Clinician UnavailSoco Cabello LVN Attending Clinician [phone] Manoj Jhaveri MD Attending Clinician [phone] Yasmani Barragan Attending Clinician [phone] MANOJ JHAVERI Admitting Clinician Unavailable Manoj Jhaveri MD Admitting Clinician [phone] Payers Payer Name Policy Type Policy Number Effective Date Expirati on Date 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 9 [id number] 2022 00:00:00 Problems Condition Name Condition Details [...] adult Disease Active 06-28 00:00: 00 Marie Seybold - Externa l Well adult exam Well adult exam Disease Active 06-28 00:00: 00 Marie Seybold - Externa l Overweight (BMI 25.0-29.9) Overweight (BMI 25.0-29.9) Disease Active 06-28 00:00: 00 Marie Sebharatold - Externa l Family history of colon cancer in mother Family history of colon cancer in mother Disease Active 06-28 00:00: 00 Marie Seybold - Externa l Fatty liver Fatty liver Disease Active 06-27 00:00: 00 Overview: Formattin g of this note might be different from the original. confirmed with CT 2018 Marie Seybold - Externa l Anxiety Anxiety Disease Active 05-24 00:00: 00 Marie Seybold - Externa l Back pain Back pain Disease Active 05-24 00:00: 00 Marie Seybold - Externa l Depression Depression Disease Active 05-24 00:00: 00 Marie Seybold - Externa l History of herniated interverte bral disc History of herniated interverte bral disc Disease Active 05-24 00:00: 00 Marie Seybold - Externa l Hypertensi on Hypertensi on [...] d chronicity Disease Active 7-15 00:00: 00 [facility] History of back surgery History of back surgery Disease Active 1 00:00: 00 Overview: Formattin g of this note might be different from the original. Herniated disc repair. Seen by neurosurg lashonda Butterfield l Fracture of phalanx of left little finger Fracture of phalanx of left little finger Disease Active 06-17 00:00: 00 [facility] Fracture of phalanx of right thumb Fracture of phalanx of right thumb Disease Active 06-17 00:00: 00 [facility] Concussion with brief LOC Concussion with brief LOC Disease Active 06-16 00:00: 00 [facility] Syncope Syncope Disease Active 2016-10 2 00:00: 00 [facility] Essential hypertensi on Essential hypertensi on Disease Active 4- 00:00: 00 [facility] Chronic lower back pain Chronic lower back pain Disease Active [facility] Allergies, Adverse Reactions, Alerts Allergy Name Allergy Type Status Severity Reaction(s) Onset Date Inactive Date Treating Clinician Comments Source NO KNOWN ALLERGIE S Drug Class Active [facility] Social History Social Habit Start Date Stop [...] 00:00:00 2023-05-23 00:00:00 Smokeless tobacco non-user Marie Dejesus Alcohol Comment 2023-05-23 00:00:00 2023-05-23 00:00:00 socially Marie Otto - External Education 2023-05-12 00:00:00 2023-05-12 00:00:00 13 [facility] Sex Assigned At 1970 00:00:00 1970 00:00:00 Marie Otto - External Smoking Status Start Date Stop Date Source Ex-smoker 2023-05-23 00:00:00 2023-05-23 00:00:00 Regan chicas Clarita - External Medications Ordered Medication Name Filled Medication Name Start Date Stop Date Current Medication? Ordering Clinician Indication Dosage Frequency Signature (SIG) Comments Components Source Sertraline HCl 50 MG oral Tablet 2022-10 00:00: 00 Yes [id number] 50mg Take 1 tablet (50 mg total) by mouth daily. Marie stanford Trulicity 1.5 MG/0.5ML subcutaneou s Solution Pen-injecto r 2022-10 00:00: 00 Yes [id number] 1.5mg Inject 1.5 mg into the skin once a week. Marie stanford Pregabalin (Lyrica) 75 MG oral Capsule 2022-10 00:00: 00 Yes [id number] Take one cap after breakfast & 2 caps at bedtime. No driving. No alcohol. No operating machinery. . Marie stanford Mirtazapine 15 MG oral Tablet 2022-10 00:00: 00 Yes [id number] 15mg QD Take 1 tablet (15 mg total) by mouth nightly as needed. Marie Jordana abdoulaye Pregabalin (Lyrica) 75 MG oral Capsule 2022-10 00:00: 00 Yes [id number] 75mg Take 1 capsule (75 mg total) by mouth 2 times daily No driving. No alcohol. No operating machinery. . Marie Jordana abdoulaye Mirtazapine 15 MG oral Tablet 07-18 00:00: 00 Yes [id number] 15mg QD TAKE 1 TABLET BY MOUTH NIGHTLY NEEDED FOR INSOMNIA Marie stanford Trulicity 0.75 MG/0.5ML subcutaneou s Solution Pen-injecto r 9-14 00:00: 00 Yes [id number] .75mg Inject 0.75 mg into the skin once a week. Marie stanford Pioglitazon e HCl (Actos) 30 MG oral Tablet 06-28 00:00: 00 Yes [id number] 30mg Take 1 tablet (30 mg total) by mouth daily. Marie stanford Methocarbam ol 500 MG oral Tablet 06-23 00:00: 00 Yes [id number] 1000mg Take 2 tablets (1,000 mg total) by mouth 4 times daily. Marie stanford Gabapentin 600 MG oral Tablet 06-23 00:00: 00 08-07 00:00 :00 No [id number] 600mg Take 1 tablet (600 mg total) by mouth 3 times daily. Marie stanford Pioglitazon e HCl (Actos) 15 MG oral Tablet 06-09 00:00: 00 06-28 00:00 :00 No [id number] 15mg Take 1 tablet (15 mg total) by mouth daily Marie stanford cephALEXin (KEFLEX) 500 mg capsule 05-30 00:00: 00 Yes [id number] 500mg Take 1 capsule by mouth 4 (four) times daily. [facility] Metformin HCl 500 MG oral Tablet 05-29 00:00: 00 Yes [id number] 1000mg Take 2 tablets (1,000 mg total) [...] 11:44: 05 05-24 00:00 :00 No 2.5mg [id number] 3D Take 0.5 tablets (2.5 mg total) by mouth every 8 hours as needed Marei stanford Sertraline HCl 25 MG oral Tablet 05-24 00:00: 00 Yes [id number] 25mg Take 1 tablet (25 mg total) by mouth daily Marie stanford Valsartan 40 MG oral Tablet 05-24 00:00: 00 Yes [id number] 40mg Take 1 tablet (40 mg total) by mouth daily Marie stanford Omeprazole 20 MG oral Delayed Release Capsule 05-24 00:00: 00 Yes [id number] 20mg Take 1 capsule (20 mg total) by mouth daily Marie stanford Glucose Blood in vitro Strip 05-24 00:00: 00 Yes [id number] 1{each} 1 each by other route daily Check BS twice daily Marie stanford Ketorolac Tromethamin e 10 MG oral Tablet 05-24 00:00: 00 Yes [id number] 10mg QD Take 1 tablet (10 mg total) by mouth daily as needed for pain Marie stanford Metformin HCl 500 MG oral Tablet 05-24 00:00: 00 Yes [id number] 500mg Take 1 tablet (500 mg total) by mouth in the morning and 1 tablet (500 mg total) in the evening. Take with meals. Marie stanford Mirtazapine 15 MG oral Tablet 05-24 00:00: 00 Yes [id number] 15mg QD Take 1 tablet (15 mg total) by mouth nightly as needed (insomnia) Marie stanford Glucose Blood in vitro Strip 05-24 00:00: 00 Yes [id number] 1{each} 1 each by other route daily [...] 05-19 00:00: 00 06-19 04:59 :00 No [id number] 25mg Take 1 tablet by mouth in the morning for 30 days. [facility] omeprazole 20 mg capsule 05-19 00:00: 00 06-19 04:59 :00 No [id number] 20mg Take 1 capsule by mouth in the morning for 30 days. [facility] valsartan 40 mg tablet 05-19 00:00: 00 06-19 04:59 :00 No [id number] 40mg Take 1 tablet by mouth in the morning for 30 days. [facility] Methylpredn isolone (MEDROL) tablet 4 mg 05-18 22:19: 26 05-19 22:29 :00 No 4mg 4 mg, Oral, Q8H TAPER, 3 doses, First dose on Mon05/18/23 at 1730, Last dose on Mon05/19/23 at 0930, Routine [facility] insulin NPH and regular human 70-30 (70-30 U-100 INSULIN) 100 unit/mL (70-30) injection 20 Units 05-18 21:30: 00 Yes 20U 20 Units, Subcutaneo us, BIDAC, First dose (after last modificati on) on Mon05/18/23 at 1630, Until Discontinu ed, Routine [facility] metFORMIN 1,000 mg tablet 05-18 18:04: 28 Yes 1000mg Take 1 tablet by mouth in the morning and 1 tablet in the evening. Take with meals. [facility] lancets (SAFETY LANCETS) 21 gauge Misc 05-18 00:00: 00 Yes [id number] Use as directed [facility] insulin syringe-nee dle U-100 1/2 ml (INSULIN SYRINGE) 1/2 mL 28 gauge x 1/2" Syrg 05-18 00:00: 00 Yes [id number] Use as directed [facility] Blood-Gluco se Meter (FREESTYLE LITE METER) Kit 05-18 00:00: 00 Yes [id number] Use as directed [facility] blood sugar diagnostic (FREESTYLE LITE STRIPS) strip 05-18 00:00: 00 Yes [id number] Use as directed [facility] Insulin [place], Disposable, (BD ULTRAFINE III MINI PEN) 31 gauge x 3/16" Ndle 05-18 00:00: 00 09-01 04:59 :00 No [id number] Use as directed [facility] gabapentin 600 mg tablet 05-18 00:00: 00 06-18 04:59 :00 No [id number] 600mg Take 1 tablet by mouth in the morning and 1 tablet at noon and 1 tablet in the evening. Do all this for 30 days. [facility] methocarbam oL 1,000 mg Tab 05-18 00:00: 00 06-18 04:59 :00 No [id number] 1000mg Take 1,000 mg by mouth 4 (four) times daily for 30 days. [facility] docusate 100 mg capsule 05-18 00:00: 00 06-02 04:59 :00 No [id number] 100mg Take 1 capsule by mouth in the morning for 14 days. Indication s: opiate pain medication causing severe constipati on [facility] diazePAM 5 mg tablet 05-18 00:00: 00 05-26 04:59 :00 No [id number] 2.5mg Take 0.5 tablets by mouth 3 (three) times daily as needed for Agitation, Anxiety or Muscle Spasms for up to 7 days. [facility] zolpidem 10 mg tablet 05-18 00:00: 05-26 04:59 :00 No [id number] 10mg Take 1 tablet by mouth at bedtime as needed for Insomnia for up to 7 days. [facility] HYDROcodone -acetaminop hen 5-325 mg tablet 05-18 00:00: 00 05-26 04:59 :00 No [id number] 1{tbl} Take 1 tablet by mouth every 4 (four) hours as needed for Pain (scale 4-6) or Pain (scale 7-10) for up to 7 days. Indication s: acute pain [facility] ketorolac 10 mg tablet 05-18 00:00: 00 05-24 04:59 :00 No [id number] 10mg Take 1 tablet by mouth every 6 (six) hours as needed for Pain (scale 4-6) for up to 5 days. [facility] Methylpredn isolone 4 mg tablet 05-18 00:00: 00 05-20 04:59 :00 No [id number] 4mg Take 1 tablet by mouth every 8 (eight) hours for 3 doses. [facility] Insulin NPH-Regular Human Rec (NOVOLIN 70-30 FLEXPEN U-100) 100 unit/mL (70-30) injection 05-18 00:00: 00 05-18 00:00 :00 No [id number] 20U inject 20 Units under the skin 2 (two) times daily before breakfast and dinner for 90 days. [facility] insulin NPH and regular human 70-30 100 unit/mL (70-30) injection 05-18 00:00: 00 05-18 00:00 :00 No [id number] 20U inject 20 Units under the skin 2 (two) times daily before breakfast and dinner for 30 days. [facility] Insulin NPH-Regular Human Rec (NOVOLIN 70-30 FLEXPEN U-100) 100 unit/mL (70-30) injection 05-18 00:00: 00 05-18 00:00 :00 No [id number] 15U inject 15 Units under the skin 2 (two) times daily before breakfast and dinner. [facility] cephALEXin (KEFLEX) capsule 500 mg 05-17 21:00: 00 05-18 01:32 :00 No 500mg 500 mg, Oral, QID, 2 doses, First dose (after last modificati on) on Mon05/17/23 at 1600, Last dose on Mon05/17/23 at 2000, EUN
Re ason for Anti-Infec tive: Documented Infection< br>Documen thang Infection Site: Urine
D uration of Therapy: 7 days [facility] Methylpredn isolone (MEDROL) tablet 4 mg 05-17 [...] Mon05/19/23 at 0930, Routine [Order 2 End] [facility] gabapentin (NEURONTIN) tablet 600 mg 05-17 19:00: 00 Yes 600mg 600 mg, Oral, TID, First dose (after last modificati on) on Mon05/17/23 at 1400, Until Discontinu ed, Routine [facility] methocarbam oL (ROBAXIN) tablet 1,000 mg 05-17 17:00: 00 Yes 1000mg 1,000 mg, Oral, QID, First dose (after last modificati on) on Mon05/17/23 at 1200, Until Discontinu ed, Routine [facility] Lidocaine (LIDOCARE) 4 % patch 1 Patch 05-17 16:30: 00 05-18 06:12 :00 No 1{patch } 1 Patch, Topical, Administer over 12 Hours, ONCE, 1 dose, On Mon05/17/23 at 1130, Routine [facility] omeprazole (PRILOSEC) capsule 20 mg 05-17 14:00: 00 Yes 20mg 20 mg, Oral, DAILY, First dose (after last modificati on) on Mon05/17/23 at 0900, Until Discontinu ed, Routine [facility] enoxaparin (LOVENOX) injection 40 mg 05-17 13:45: 00 Yes 40mg 40 mg, Subcutaneo us, Q24H, First dose on Mon05/17/23 at 0845, Until Discontinu ed, Routine [facility] cephALEXin (KEFLEX) capsule 500 mg 05-17 13:00: 00 05-17 19:52 :41 No 500mg 500 mg, Oral, QID, 16 doses, First dose on Mon05/17/23 at 0800, Last dose on Mon05/20/23 at 2000, EUN
Re ason for Anti-Infec tive: Documented Infection< br>Documen thang Infection Site: Urine
D uration of Therapy: 7 days [facility] insulin NPH and regular human 70-30 (70-30 U-100 INSULIN) 100 unit/mL (70-30) injection 15 Units 05-17 12:30: 00 05-18 13:28 :42 No 15U 15 Units, Subcutaneo us, BIDAC, First dose (after last modificati on) on Mon05/17/23 at 0730, Until Discontinu ed, Routine [facility] ketorolac (TORADOL) injection 30 mg 05-17 00:30: 00 05-18 18:59 :00 No 30mg 30 mg, Slow IV Push, Q8H, 6 doses, First dose on Mon05/16/23 at 1930, Last dose on Mon05/18/23 at 0600, Routine [facility] methocarbam oL (ROBAXIN) tablet 750 mg 05-16 21:00: 00 05-17 15:33 :18 No 750mg 750 mg, Oral, QID, First dose on Mon05/16/23 at 1600, Until Discontinu ed, Routine [facility] lactated ringers IV infusion 1,000 mL 05-16 18:30: 00 Yes 1000mL at 42 mL/hr, 1,000 mL, IV Infusion, CONTINUOUS , Starting on Mon05/16/23 at 1330, Until Discontinu ed, Routine, PACU [facility] oxyCODONE immediate release tablet 10 mg 05-16 17:51: 52 Yes 10mg 10 mg, Oral, Q4HPRN, Starting on Mon05/16/23 at 1251, Until Discontinu ed, Routine, Pain (scale 4-6)
[facility] member approving Restricted medication : SNSNSURG [facility] methylPREDN ISolone acetate (DEPO-MEDRO L) injection 05-16 17:29: 00 Yes PRN, Starting on Mon05/16/23 at 1229, Until Discontinu ed, Routine, Intra-op [facility] BUPivacaine liposome (PF) (EXPAREL (PF)) 1.3 % (13.3 mg/mL) injection 05-16 17:29: 00 Yes PRN, Starting on Mon05/16/23 at 1229, Until Discontinu ed, Routine, Intra-op [facility] vancomycin (VANCOCIN) injection 05-16 17:22: 00 Yes PRN, Starting on Mon05/16/23 at 1222, Until Discontinu ed, EUN, Intra-op [facility] thrombin (recombinan t) (RECOTHROM) topical solution 05-16 17:21: 00 Yes PRN, Starting on Mon05/16/23 at 1221, Until Discontinu ed, Routine, Intra-op [facility] gabapentin (NEURONTIN) capsule 300 mg 05-16 01:00: 00 05-17 15:34 :42 No 300mg 300 mg, Oral, TID, First dose on Mon05/15/23 at 2000, Until Discontinu ed, Routine [facility] acetaminoph en (TYLENOL) tablet 1,000 mg 05-15 23:00: 00 Yes 1000mg 1,000 mg, Oral, Q6H, First dose (after last modificati on) on Mon05/15/23 at 1800, Until Discontinu ed, Routine [facility] enoxaparin (LOVENOX) injection 40 mg 05-15 21:00: 00 05-15 21:41 :00 No 40mg 40 mg, Subcutaneo us, ONCE, 1 dose, On Mon05/15/23 at 1600, Routine [facility] KCL 20 mEq/15 mL solution 40 mEq 05-15 14:15: 00 05-15 15:21 :00 No 40meq 40 mEq, Oral, ONCE, 1 dose, On Mon05/15/23 at 0915, Routine [facility] valsartan (DIOVAN) tablet 40 mg 05-15 14:00: 00 Yes 40mg 40 mg, Oral, DAILY, First dose (after last modificati on) on Mon05/15/23 at 0900, Until Discontinu ed, Routine [facility] Sliding Scale Insulin-Reg ular 05-14 21:30: 00 Yes Subcutaneo us, AC+HS, First dose (after last modificati on) on Mon05/14/23 at 1630, Until Discontinu ed, Routine [facility] insulin NPH and regular human 70-30 (70-30 U-100 INSULIN) 100 unit/mL (70-30) injection 10 Units 05-14 21:30: 00 05-17 01:00 :40 No 10U 10 Units, Subcutaneo us, BIDAC, First dose on Mon05/14/23 at 1630, Until Discontinu ed, Routine [facility] cefTRIAXone (ROCEPHIN) 1,000 mg in NaCl [...] uration of Therapy: 7 days [facility] sennosides (SENOKOT) tablet 8.6 mg 05-14 16:30: 00 Yes 8.6mg 8.6 mg, Oral, BID, First dose on Mon05/14/23 at 1130, Until Discontinu ed, Routine [facility] valsartan (DIOVAN) tablet 40 mg 05-14 01:00: 00 05-14 15:48 :36 No 40mg 40 mg, Oral, BID, First dose on 05/13/23 at 2000, Until Discontinu ed, Routine [facility] gadobenate dimeglumine (MULTIHANCE -20 mL) injection 15.88 mL 05-13 21:45: 00 05-13 21:45 :00 No [id number] .2mL/kg 15.88 mL (0.2 mL/kg ?79.4 kg), Intravenou s, ONCE, 1 dose, On 05/13/23 at 1645, Routine [facility] Sliding Scale Insulin-Reg ular 05-13 19:00: 00 05-14 17:32 :58 No Subcutaneo us, Q6HA, First dose on 05/13/23 at 1400, Until Discontinu ed, Routine [facility] enoxaparin (LOVENOX) injection 40 mg 05-13 17:15: 00 05-14 22:12 :36 No 40mg 40 mg, Subcutaneo us, Q24H, First dose on 05/13/23 at 1215, Until Discontinu ed, [facility] diazePAM (VALIUM) tablet 2.5 mg 05-13 15:24: 53 Yes 2.5mg 2.5 mg, Oral, TIDPRN, Starting on 05/13/23 at 1024, Until Discontinu ed, Routine, Agitation, Anxiety, Muscle Spasms [facility] glucagon (GLUCAGEN DIAGNOSTIC KIT) injection 1 mg 05-13 14:18: 59 Yes 1mg 1 mg, Intramuscu lar, PRN, Starting on 05/13/23 at 0918, Until Discontinu ed, EUN, Blood Glucose < or = 70 mg/dL and patient is NPO, unable to swallow or has mental changes. [facility] dextrose 50 % in water (D50W) injection 25 mL 05-13 14:18: 59 Yes 25mL 25 mL, Slow IV Push, PRN, Starting on 05/13/23 at 0918, Until Discontinu ed, EUN, Blood Glucose < or = 70 mg/dL and patient is NPO, unable to swallow or has mental status changes. [facility] SERTraline (ZOLOFT) tablet 25 mg 05-13 14:00: 00 Yes 25mg 25 mg, Oral, DAILY, First dose on 05/13/23 at 0900, Until Discontinu ed, Routine [facility] docusate (COLACE) capsule 100 mg 05-13 14:00: 00 Yes 100mg 100 mg, Oral, DAILY, First dose on 05/13/23 at 0900, Until Discontinu ed, Routine [facility] omeprazole (PRILOSEC) capsule 20 mg 05-13 14:00: 00 05-16 17:57 :12 No 20mg 20 mg, Oral, DAILY, First dose on 05/13/23 at 0900, Until Discontinu ed, Routine [facility] lisinopriL (PRINIVIL,Z ESTRIL) tablet 10 mg 05-13 12:45: 00 05-13 19:35 :37 No 10mg 10 mg, Oral, DAILY, First dose on 05/13/23 at 0745, Until Discontinu ed, Routine [facility] acetaminoph en (TYLENOL) tablet 650 mg 05-13 11:00: 00 05-15 20:10 :17 No 650mg 650 mg, Oral, Q6H, First dose on 05/13/23 at 0600, Until Discontinu ed, Routine [facility] alum-mag hydroxide-s imeth (MAALOX PLUS / MAG-AL PLUS) 200-200-20 mg/5 mL suspension 30 mL 05-13 07:30: 00 05-13 12:23 :00 No 30mL 30 mL, Oral, ONCE, 1 dose, On 05/13/23 at 0230, Routine [facility] zolpidem (AMBIEN) tablet 10 mg 05-13 06:14: 02 Yes 10mg 10 mg, Oral, QHSPRN, Starting on 05/13/23 at 0114, Until Discontinu ed, Routine, Insomnia [facility] hydralAZINE (APRESOLINE ) injection 10 mg 05-13 05:53: 04 Yes 10mg 10 mg, Slow IV Push, Q4HPRN, Starting on 05/13/23 at 0053, Until Discontinu ed, Routine, SBP<140 [facility] glucagon (GLUCAGEN DIAGNOSTIC KIT) injection 1 mg 05-13 05:23: 57 Yes 1mg 1 mg, Intramuscu lar, PRN, Starting on 05/13/23 at 0023, Until Discontinu ed, EUN, Blood Glucose < or = 70 mg/dL and patient is NPO, unable to swallow or has mental changes. [facility] dextrose 50 % in water (D50W) injection 25 mL 05-13 05:23: 57 Yes 25mL 25 mL, Slow IV Push, PRN, Starting on 05/13/23 at 0023, Until Discontinu ed, EUN, Blood Glucose < or = 70 mg/dL and patient is NPO, unable to swallow or has mental status changes. [facility] polyethylen e glycol 3350 powder 17 g 05-13 05:17: 34 Yes 17g 17 g, Oral, PRN - SEE INSTRUCTIO NS, Starting on 05/13/23 at 0017, Until Discontinu ed, Routine, Constipati on [facility] ondansetron (ZOFRAN (PF)) injection 4 mg 05-13 05:17: 34 Yes 4mg 4 mg, Slow IV Push, Q6HPRN, Starting on 05/13/23 at 0017, Until Discontinu ed, Routine, Nausea and Vomiting (N/V) [facility] morpHINE (2 mg/mL) injection 4 mg 05-13 05:17: 34 Yes 4mg 4 mg, Slow IV Push, Q3HPRN, Starting on 05/13/23 at 0017, Until Discontinu ed, Routine, Pain (scale 7-10) [facility] oxyCODONE immediate release tablet 5 mg 05-13 05:17: 33 05-16 17:57 :12 No 5mg 5 mg, Oral, Q4HPRN, Starting on 05/13/23 at 0017, Until Tu05/16/23 at 1257, Routine, Pain (scale 4-6)
Fa [facility] member approving Restricted medication : SNSNSURG [facility] HYDROcodone -acetaminop hen (NORCO 5) 5-325 mg tablet 1 tablet 05-13 03:15: 00 05-13 02:23 :00 No 1{tbl} 1 tablet, Oral, ONCE, 1 dose, On Mon05/12/23 at 2215, Routine [facility] cefTRIAXone (ROCEPHIN) 1,000 mg in NaCl 0.9% (NS) 100 mL MINI-BAG 05-13 02:00: 00 05-13 02:25 :00 No 1000mg 1,000 mg, IV Piggyback, ONCE, 1 dose, On Mon05/12/23 at 2100, Administer over 30 Minutes, 100 mL
Reas on for Anti-Infec tive: Documented Infection< br>Documen thang Infection Site: Urine
D uration of Therapy: 7 days [facility] ketorolac (TORADOL) injection 30 mg 05-13 01:30: 00 05-13 00:36 :00 No 30mg 30 mg, Slow IV Push, ONCE, 1 dose, On Mon05/12/23 at 2030, Routine [facility] methocarbam oL (ROBAXIN) tablet 1,500 mg 05-13 00:30: 00 05-13 00:36 :00 No 1500mg 1,500 mg, Oral, ONCE, 1 dose, On Mon05/12/23 at 1930, EUN [facility] dexamethaso ne sod phos PF injection 10 mg 05-13 00:30: 00 05-13 00:36 :00 No 10mg 10 mg, Slow IV Push, ONCE, 1 dose, On Mon05/12/23 at 1930, 1 mL [facility] metFORMIN 1,000 mg tablet 05-13 00:28: 58 Yes 1000mg Take 1 tablet by mouth in the morning and 1 tablet in the evening. Take with meals. [facility] HYDROcodone -acetaminop hen 5-325 mg tablet 06-17 00:00: 00 05-18 00:00 :00 No [id number] 1{tbl} Take 1 tablet by mouth every 6 (six) hours as needed for Pain (scale 7-10) (For breakthrou gh pain. Take with stool softener). [facility] ASPIRIN 81 mg chewable tablet 05-07 00:00: 00 Yes TAKE 1 TABLET BY MOUTH EVERY DAY [facility] LISINOPRIL 10 mg tablet 2016-10 0 00:00: 00 Yes [id number] TAKE 1 TABLET EVERY DAY [facility] Immunizations Ordered Immunization Name Filled Immunization Name Date Status Comments Source Pneumococcal Vaccine, Conjugate 2023-05-22 00:00:00 Completed Marie Alvesybold - External Shingles IM (Shingrix) 2023-05-22 00:00:00 Completed Marie Alvesybold - External Pneumococcal Vaccine, Conjugate 20 2023-05-22 00:00:00 Completed Marie Martinezold - External Shingles IM (Shingrix) 2023-05-22 00:00:00 Completed Marie Otto - External Influenza Virus Vaccine, Quad, Egg Free 2022-09-29 00:00:00 Completed Marie Seybold - External Influenza Virus Vaccine, Quad, Egg Free 2022-09-29 00:00:00 Completed Marie Otto - External Covid-19 Vaccine ([employer]), Mrna-lnp, Sean Protein, Pf, 30mcg/0.3ml,IM 2022-09-28 00:00:00 Completed Marie Martinezold - External Covid-19 Vaccine ([employer]) 2021-02-08 00:00:00 Completed Marie Seybold - External Influenza Virus Vaccine, Quad, Egg Free Unknown Completed Marie Seybold - External Pneumococcal Vaccine, Conjugate 20 Unknown Completed Marie Seybold - External Shingles IM (Shingrix) Unknown Completed [...] Mrna-lnp, Sean Protein, Pf, 30mcg/0.3ml,IM Unknown Completed Mariekathleen Martinezol d - External Influenza, Injectable, Mdck, Quadrivalent With Preservative Unknown Completed Marie Alvesybold - External Influenza Virus Vaccine, Quad, Egg Free Unknown Completed Marie Martinezold - External Pneumococcal Vaccine, Conjugate 20 Unknown Completed Marie Martinezold - External Shingles IM (Shingrix) Unknown Completed Marie Alvesybold - External Covid-19 Vaccine ([employer]) Unknown Completed Marie Alvesybold - External Covid-19 Vaccine (Pfizer), Mrna-lnp, Sean Protein, Pf, 30mcg/0.3ml,IM Unknown Completed Marie Martinezol d - External Influenza, Injectable, Mdck, Quadrivalent With Preservative Unknown Completed Marie Otto - External Vital Signs Vital Name Observation Time Observation Value Comments S ource Body weight 2023-10-18 20:28:00 94.348 kg Rivka cedeno Seybold - External BMI 2023-10-18 20:28:00 33.57 kg/m2 Rivka cedeno ybold - External Systolic blood pressure 2023-09-28 19:29:00 121 mm[Hg] Marie Renee ld - External Diastolic blood pressure 2023-09-28 19:29:00 75 mm[Hg] Marie Víctor ld - External Heart rate 2023-09-28 19:29:00 108 /min Vignesh miesha Clarita - External Respiratory rate 2023-09-28 19:29:00 20 /min Mariekathleen Otto - External Body height 2023-09-28 19:29:00 167.6 [...] External Heart rate 2023-06-28 19:06:00 102 /min Yamini y Seybold - External Body temperature 2023-06-28 [...] External Body height 2023-05-30 17:57:00 167.6 cm [facility] Body weight 2023-05-30 17:57:00 86.183 kg [facility] BMI 2023-05-30 17:57:00 30.67 kg/m2 [facility] Systolic blood pressure 2023-05-24 16:28:00 122 mm[Hg] Marie Seybo ld - External Diastolic blood pressure 2023-05-24 16:28:00 73 mm[Hg] Marie Martinezo ld - External Heart rate 2023-05-24 16:28:00 85 /min Yamini Otto - External Body temperature 2023-05-24 16:28:00 36.61 Tyesha Marie Alvesybold - External Respiratory rate 2023-05-24 16:28:00 16 /min Marie Alvesybold - External Body height 2023-05-24 16:28:00 167.6 cm Rivka cedeno Seybold - External Body weight 2023-05-24 16:28:00 79.379 kg Rivka cedeno Seybold - External BMI 2023-05-24 16:28:00 28.25 kg/m2 Rivka cedeno Seybold - External Oxygen saturation in Arterial blood by Pulse oximetry 2023-05-24 16:28:00 97 /min Marie Renee ld - External Systolic blood pressure 2023-05-18 16:46:00 167 mm[Hg] [facility] Diastolic blood pressure 2023-05-18 16:46:00 88 mm[Hg] [facility] Heart rate 2023-05-18 16:46:00 63 /min [facility] 2023-05-18 16:46:00 36.33 Tyesha [facility] Respiratory rate 2023-05-18 16:46:00 16 /min [facility] Oxygen saturation in Arterial blood by Pulse oximetry 2023-05-18 16:46:00 99 /min [facility] Body height 2023-05-13 04:59:00 167.6 cm [facility] Body weight 2023-05-13 04:59:00 79.379 kg [facility] BMI 2023-05-13 04:59:00 28.25 kg/m2 [facility] Respiratory rate 2023-05-16 18:21:00 16 /min [facility] Oxygen saturation in Arterial blood by Pulse oximetry 2023-05-16 18:21:00 96 /min [facility] Systolic blood pressure 2023-05-16 18:21:00 104 mm[Hg] [facility] Diastolic blood pressure 2023-05-16 18:21:00 47 mm[Hg] [facility] Body temperature 2023-05-16 18:04:00 36 Tyesha [facility] Heart rate 2023-05-16 12:49:00 62 /min [facility] Body height 2023-05-13 04:59:00 167.6 cm [facility] Body weight 2023-05-13 04:59:00 79.379 kg [facility] BMI 2023-05-13 04:59:00 28.25 kg/m2 [facility] Procedures Procedure Date / Time Performed Performing Clinician Source ASSIGNMENT OF BENEFITS 2023-05-30 17:39:08 Docto r Unassigned, [place] [facility] POCT GLUCOSE (AUTOMATED) 2023-05-18 16:59:00 Manoj Jhaveri [facility] POCT GLUCOSE (AUTOMATED) 2023-05-18 12:49:00 Manoj Jhaveri [facility] EXTRA TUBE LT. GREEN 2023-05-18 10:30:00 Odell Starr [facility] CBC WITH DIFF 2023-05-18 10:26:00 Dada Guillen [facility] BASIC METABOLIC PANEL (NA, K, CL, CO2, GLUCOSE, BUN, CREATININE, CA) 2023-05-18 09:40:00 Dada Guillen [facility] POCT GLUCOSE (AUTOMATED) 2023-05-18 00:45:00 Manoj Jhaveri [facility] POCT GLUCOSE (AUTOMATED) 2023-05-17 21:52:00 Manoj Jhaveri [facility] POCT GLUCOSE (AUTOMATED) 2023-05-17 17:53:00 Manoj Jhaveri [facility] POCT GLUCOSE (AUTOMATED) 2023-05-17 17:53:00 Manoj Jhaveri [facility] POCT GLUCOSE (AUTOMATED) 2023-05-17 12:42:00 Manoj Jhaveri [facility] POCT GLUCOSE (AUTOMATED) 2023-05-17 12:42:00 Manoj Jhaveri [facility] CBC WITH DIFF 2023-05-17 08:28:00 Abdoul Jose Taj [facility] CBC WITH DIFF 2023-05-17 08:28:00 Jose Schreiber [facility] POCT GLUCOSE (AUTOMATED) 2023-05-17 00:51:00 Manoj Jhaveri [facility] POCT GLUCOSE (AUTOMATED) 2023-05-17 00:51:00 Manoj Jhaveri [facility] POCT GLUCOSE (AUTOMATED) 2023-05-16 22:05:00 Manoj Jhaveri [facility] POCT GLUCOSE (AUTOMATED) 2023-05-16 22:05:00 Manoj Jhaveri [facility] POCT GLUCOSE (AUTOMATED) 2023-05-16 19:02:00 Manoj Jhaveri [facility] POCT GLUCOSE (AUTOMATED) 2023-05-16 19:02:00 Manoj Jhaveri [facility] XR LUMBAR SPINE 1 VW 2023-05-16 16:31:00 Mayda Castellanos [facility] XR LUMBAR SPINE 1 VW 2023-05-16 16:31:00 Mayda Castellanos [facility] XR LUMBAR SPINE 1 VW 2023-05-16 16:11:46 Mayda Castellanos [facility] XR LUMBAR SPINE 1 VW 2023-05-16 16:11:46 Mayda Castellanos [facility] DISCECTOMY POSTERIOR LUMBAR 2023-05-16 15:10:00 Milind Starr [facility] DISCECTOMY POSTERIOR LUMBAR 2023-05-16 15:10:00 Milind Starr [facility] POCT GLUCOSE (AUTOMATED) 2023-05-16 12:51:00 Manoj Jhaveri [facility] POCT GLUCOSE (AUTOMATED) 2023-05-16 12:51:00 Manoj Jhaveri [facility] POCT TEST 2023-05-16 10:06:00 Dada Garcia [facility] POCT TEST 2023-05-16 10:06:00 Dada Garcia [facility] BASIC METABOLIC PANEL (NA, K, CL, CO2, GLUCOSE, BUN, CREATININE, CA) 2023-05-16 09:53:00 Dada Guillen [facility] CBC WITH DIFF 2023-05-16 09:53:00 Dada Guillen [facility] PROTHROMBIN TIME / INR 2023-05-16 09:53:00 Dada Hernandez [facility] ACTIVATED PARTIAL THRMPLAS CHAVEZ 2023-05-16 09:53:00 Dada Guillen [facility] BASIC METABOLIC PANEL (NA, K, CL, CO2, GLUCOSE, BUN, CREATININE, CA) 2023-05-16 09:53:00 Dada Guillen [facility] CBC WITH DIFF 2023-05-16 09:53:00 Dada Guillen [facility] PROTHROMBIN TIME / INR 2023-05-16 09:53:00 Dada Hernandez [facility] ACTIVATED PARTIAL THRMPLAS CHAVEZ 2023-05-16 09:53:00 Dada Guillen [facility] POCT GLUCOSE (AUTOMATED) 2023-05-16 00:30:00 Manoj Jhaveri [facility] POCT GLUCOSE (AUTOMATED) 2023-05-16 00:30:00 Manoj Jhaveri [facility] POCT GLUCOSE (AUTOMATED) 2023-05-15 21:57:00 Manoj Jhaveri [facility] POCT GLUCOSE (AUTOMATED) 2023-05-15 21:57:00 Manoj Jhaveri [facility] POCT GLUCOSE (AUTOMATED) 2023-05-15 16:29:00 Manoj Jhaveri [facility] POCT GLUCOSE (AUTOMATED) 2023-05-15 16:29:00 Manoj Jhaveri [facility] POCT GLUCOSE (AUTOMATED) 2023-05-15 12:43:00 Manoj Jhaveri [facility] POCT GLUCOSE (AUTOMATED) 2023-05-15 12:43:00 Manoj Jhaveri [facility] BASIC METABOLIC PANEL (NA, K, CL, CO2, GLUCOSE, BUN, CREATININE, CA) 2023-05-15 08:29:00 Jose Schreiber [facility] CBC WITH DIFF 2023-05-15 08:29:00 Jose Schreiber [facility] PROTHROMBIN TIME / INR 2023-05-15 08:29:00 Abdoul [facility] ACTIVATED PARTIAL THRMPLAS CHAVEZ 2023-05-15 08:29:00 Abdoul [facility] HB ABO GROUPING 2023-05-15 08:29:00 Abdoul [facility] BASIC METABOLIC PANEL (NA, K, CL, CO2, GLUCOSE, BUN, CREATININE, CA) 2023-05-15 08:29:00 Abdoul [facility] CBC WITH DIFF 2023-05-15 08:29:00 Jose Schreiber [facility] PROTHROMBIN TIME / INR 2023-05-15 08:29:00 Abdoul [facility] ACTIVATED PARTIAL THRMPLAS CHAVEZ 2023-05-15 08:29:00 Abdoul [facility] HB ABO GROUPING 2023-05-15 08:29:00 Abdoul [facility] POCT GLUCOSE (AUTOMATED) 2023-05-15 02:16:00 Manoj Jhaveri [facility] POCT GLUCOSE (AUTOMATED) 2023-05-15 02:16:00 Manoj Jhaveri [facility] POCT GLUCOSE (AUTOMATED) 2023-05-15 01:19:00 Manoj Jhaveri [facility] POCT GLUCOSE (AUTOMATED) 2023-05-15 01:19:00 Manoj Jhaveri [facility] POCT GLUCOSE (AUTOMATED) 2023-05-14 21:16:00 Manoj Jhaveri [facility] POCT GLUCOSE (AUTOMATED) 2023-05-14 21:16:00 Manoj Jhaveri [facility] POCT GLUCOSE (AUTOMATED) 2023-05-14 14:24:00 Manoj Jhaveri [facility] POCT GLUCOSE (AUTOMATED) 2023-05-14 14:24:00 Manoj Jhaveri [facility] PROTHROMBIN TIME / INR 2023-05-14 09:26:00 Jose Schreiber [facility] PROTHROMBIN TIME / INR 2023-05-14 09:26:00 Jose Schreiber [facility] POCT GLUCOSE (AUTOMATED) 2023-05-14 06:54:00 Manoj Jhaveri [facility] POCT GLUCOSE (AUTOMATED) 2023-05-14 06:54:00 Manoj Jhaveri [facility] POCT GLUCOSE (AUTOMATED) 2023-05-14 02:26:00 Manoj Jhaveri [facility] POCT GLUCOSE (AUTOMATED) 2023-05-14 02:26:00 Manoj Jhaveri [facility] POCT GLUCOSE (AUTOMATED) 2023-05-13 23:06:00 Manoj Jhaveri [facility] POCT GLUCOSE (AUTOMATED) 2023-05-13 23:06:00 Manoj Jhaveri [facility] MR LUMBAR SPINE W WO CONTRAST 2023-05-13 [facility]40[facility] 2023-05-13 21:40:31 Jose Schreiber [facility] POCT GLUCOSE (AUTOMATED) 2023-05-13 16:44:00 Manoj Jhaveri [facility] POCT GLUCOSE (AUTOMATED) 2023-05-13 16:44:00 Manoj Jhaveri [facility] POCT GLUCOSE (AUTOMATED) 2023-05-13 14:12:00 Manoj Jhaveri [facility] POCT GLUCOSE (AUTOMATED) 2023-05-13 14:12:00 Manoj Jhaveri [facility] BASIC METABOLIC PANEL (NA, K, CL, CO2, GLUCOSE, BUN, CREATININE, CA) 2023-05-13 10:06:00 Jose Schreiber [facility] CBC WITH DIFF 2023-05-13 10:06:00 [facility] (A1C) 2023-05-13 10:06:00 Mayda Vargas [facility] PROTHROMBIN TIME / INR 2023-05-13 10:06:00 Jose Schreiber [facility] BASIC METABOLIC PANEL (NA, K, CL, CO2, GLUCOSE, BUN, CREATININE, CA) 2023-05-13 10:06:00 Jose Schreiber [facility] CBC WITH DIFF 2023-05-13 10:06:00 Jose Schreiber [facility] GLYCOSYLATED HEMOGLOBIN (A1C) 2023-05-13 10:06:00 Mayda Vargas [facility] PROTHROMBIN TIME / INR 2023-05-13 10:06:00 Jose Schreiber [facility] CT LUMBAR SPINE WO CONTRAST 2023-05-13 01:07:19 Yasmani King [facility] CT LUMBAR SPINE WO CONTRAST 2023-05-13 01:07:19 Yasmani King [facility] COMP. METABOLIC PANEL ([id number]) 2023-05-13 00:36:00 Yasmani King [facility] CBC WITH DIFF 2023-05-13 00:36:00 Yasmani King [facility] URINALYSIS 2023-05-13 00:36:00 Yasmani King [facility] URINE CULTURE 2023-05-13 00:36:00 Yasmani King [facility] COMP. METABOLIC PANEL ([id number]) 2023-05-13 00:36:00 Yasmani King [facility] CBC WITH DIFF 2023-05-13 00:36:00 Justen Kingo Dom [facility] URINALYSIS 2023-05-13 00:36:00 Yasmani King [facility] URINE CULTURE 2023-05-13 00:36:00 Justen Kingo Dom [facility] NOTICE OF PRIVACY PRACTICES 2023-05-12 23:18:43 Doctor Unassigned, [place] [facility] NOTICE OF PRIVACY PRACTICES 2023-05-12 23:18:43 Doctor Unassigned, [place] [facility] CONSENT/REFUSAL FOR DIAGNOSIS AND TREATMENT 2023-05-12 23:15:51 Doctor Unassigned, [place] [facility] CONSENT/REFUSAL FOR DIAGNOSIS AND TREATMENT 2023-05-12 23:15:51 Doctor Unassigned, [place] [facility] HOSPITAL ADMISSION 2023-05-12 05:01:00 Doctor Un assigned, [place] [facility] ADMISSION 2023-05-12 05:01:00 Doctor Un assigned, [place] [facility] Encounters Start Date/Time End Date/Time Encounter Type Admission Type Attending [facility] Care Department Encounter ID Source 2024-03-13 00:00:00 2024-03-13 00:00:00 Outpatient FLORA WARNER [id number] [facility] 2024-03-11 00:00:00 2024-03-11 00:00:00 Outpatient FLORA WARNER [id number] [facility] 2024-02-19 16:30:00 2024-02-19 16:30:00 Outpatient HOLLYSHAYY VAUGHAN MARIE RODRIGUEZ [id number] [facility] 2024-01-16 00:00:00 2024-01-16 00:00:00 Outpatient PREFLORA PFEIFFER [id number] [facility] 2024-01-03 16:30:00 2024-01-03 16:30:00 Outpatient ANA URBINA [id number] [facility] 2023-11-28 00:00:00 2023-11-28 00:00:00 Outpatient PREZAFLORA Posey [id number] [facility] 2023-10-27 00:00:00 2023-10-27 00:00:00 Outpatient FLORA WARNER [id number] [facility] 2023-10-26 15:15:00 2023-10-26 15:15:00 Outpatient FLORA WARNER [id number] [facility] 2023-10-20 14:40:00 2023-10-20 14:40:00 Outpatient BRUNA HANS[facility] [id number] [facility]23-[facility]-18 15:20:00 2023-10-18 15:20:00 Outpatient MARIE MARIE [id number] Marie Seybold 2023-10-18 15:15:00 2023-10-18 15:15:00 Outpatient MARIE MARIE [id number] Marie Seybold 2023-10-18 15:10:00 2023-10-18 15:10:00 Outpatient MARIE MARIE [id number] [facility] 2023-10-18 14:15:00 2023-10-18 14:15:00 Outpatient CIARA ANA MARIE RODRIGUEZ [id number] [facility] 2023-10-18 00:00:00 2023-10-18 00:00:00 Outpatient CIARA ANA MARIE RODRIGUEZ [id number] [facility] 2023-09-29 00:00:00 2023-09-29 00:00:00 Outpatient PREZASFLORA [id number] [facility] 2023-09-28 14:10:00 2023-09-28 14:10:00 Outpatient TRAMGaudencio RODRIGUEZ [id number] [facility] 2023-09-28 13:30:00 2023-09-28 13:30:00 Outpatient PREZAS, FLORA MARIE RODRIGUEZ [id number] [facility] 2023-09-06 00:00:00 2023-09-06 00:00:00 Outpatient ANA URBINA [id number] [facility] 2023-09-06 00:00:00 2023-09-06 00:00:00 Outpatient PREZAS FLORA RODRIGUEZ [id number] [facility] 2023-08-21 00:00:00 2023-08-21 00:00:00 Outpatient ANA URBINA [id number] Marie Seybold 2023-08-10 14:30:00 2023-08-10 14:30:00 Outpatient PREZASFLORA [id number] [facility] 2023-08-07 15:15:00 2023-08-07 15:15:00 Outpatient ANA URBINA MARIE [id number] [facility] 2023-08-02 00:00:00 2023-08-02 00:00:[address] [facility] 1.2.840.114 350.1.13.10 4.2.7.2.686 [id number] [facility] 2023-07-18 00:00:00 2023-07-18 00:00:00 Outpatient FLORA WARNER MARIE [id number] [facility] 2023-07-13 00:00:00 2023-07-13 00:00:00 Outpatient FLORA WARNER MARIE [id number] [facility] 2023-07-13 00:00:00 2023-07-13 00:00:00 Outpatient FLORA WARNER MARIE RODRIGUEZ [id number] [facility] 2023-07-12 11:45:00 2023-07-12 11:45:00 Outpatient R MILIND STARR [facility] [id number] [facility] 2023-07-12 11:30:00 2023-07-12 11:45:00 Office Visit Milind Starr [facility] 1.2.840.114 350.1.13.10 4.2.7.2.686 [id number] [facility] 2023-07-12 11:30:00 2023-07-12 11:30:00 Outpatient R MILIND STARR [facility] [id number] [facility] 2023-07-12 00:00:00 2023-07-12 00:00:00 Patient Secure Msg Doctor Unassigned, [place] [facility] 1.2.840.114 350.1.13.10 4.2.7.2.686 [id number] [facility] 2023-06-28 14:00:00 2023-06-28 14:00:00 Outpatient PREZAS, FLORA RODRIGUEZ [id number] Marie [facility]key 2023-06-28 00:00:00 2023-06-28 00:00:00 Outpatient MARIE RODRIGUEZ [id number] Marie Otto 2023-06-27 00:00:00 2023-06-27 00:00:00 Outpatient PREZAS, FLORA RODRIGUEZ MARIE [id number] Marie Otto 2023-06-26 10:25:00 2023-06-26 10:25:00 Outpatient LAB90 MARIE RODRIGUEZ [id number] [facility] 2023-06-20 00:00:00 2023-06-20 00:00:00 Outpatient PREZAS, FLORA RODRIGUEZ MARIE [id number] [facility] 2023-06-11 00:00:00 2023-06-11 00:00:[address] [facility] 1.2.840.114 350.1.13.10 4.2.7.2.686 [id number] [facility] 2023-06-09 00:00:00 2023-06-09 00:00:00 Outpatient PREZAS, FLORA RODRIGUEZ MARIE [id number] [facility] 2023-06-09 00:00:00 2023-06-09 00:00:00 Outpatient PREZASFLORA MARIE [id number] [facility] 2023-06-09 00:00:00 2023-06-09 00:00:[address] [facility] 1.2.840.114 350.1.13.10 4.2.7.2.686 [id number] [facility] 2023-06-05 00:00:00 2023-06-05 00:00:00 Outpatient PREZASFLORA MARIE [id number] [facility] 2023-05-30 13:30:00 2023-05-30 13:30:00 Office Visit Irma Castillo [facility] 1.2.840.114 350.1.13.10 4.2.7.2.686 [id number] [facility] 2023-05-30 13:30:00 2023-05-30 13:06:[address] [facility] [id number] [facility] 2023-05-30 00:00:00 2023-05-30 00:00:00 Orders Only Doctor Unassigned, [place] [facility] 1..840.114 350.1.13.10 4.2.7.2.686 [id number] [facility] 2023-05-29 00:00:00 2023-05-29 00:00:00 Outpatient FLORA WARNER [id number] [facility] 2023-05-29 00:00:00 2023-05-29 00:00:00 Outpatient FLORA WARNER [id number] [facility] 2023-05-26 00:00:00 2023-05-26 00:00:[address] [facility]ICAL [facility] BU[facility] 1.2.840.114 350.1.13.10 4.2.7.2.686 [id number] [facility] 2023-05-25 00:00:00 2023-05-25 00:00:00 Outpatient FLORA WARNER [id number] [facility] 2023-05-24 12:15:00 2023-05-24 12:15:00 Outpatient LAB90 MARIE RODRIGUEZ [id number] [facility] 2023-05-24 11:30:00 2023-05-24 11:30:00 Outpatient FLORA WARNER [id number] [facility] 2023-05-19 00:00:00 2023-05-19 00:00:00 Transition of Care Soco Moore 1.2.840.114 350.1.13.10 4.2.7.2.686 [id number] [facility] 2023-05-12 18:25:00 2023-05-18 17:00:00 Inpatient X MILIND STARR [facility] [id number] [facility] 2023-05-12 18:25:00 2023-05-18 17:00:00 Hospital Encounter Manoj Jhaveri, Yasmani Fernandes [facility] 1.2.840.114 350.1.13.10 4.2.7.2.686 [id number] [facility] 2023-05-16 10:08:00 2023-05-16 13:57:00 Surgery [facility] 1.2.840.114 350.1.13.10 4.2.7.2.686 [id number] [facility] 2023-05-12 00:00:00 2023-05-12 00:00:00 Outpatient FLORA WARNER [id number] Marie Otto Results Test Description Test Time Test Comments Results Result Co mments Source [facility]18 12:59:42* Test Item Value Reference Range Interpretation Comme [facility] POCT GLU (test code = 2884605053) 181 mg/dL 70-110 H Lab Interpretation (test cod e = 85201-7) Abnormal [facility] WITH [id number] 10:45:46* Test Item Value Reference Range Interpretation [...] 33.8 g/dL 31.6-35.1 RDW-SD (test code = 96429-7) 44.7 fL 39.0-49.9 RDW-CV (test code = 788-0) 12.4 % 12.0-15.5 PLT (test code = 777-3) 264 See_Comment [Automated messa ge] The system which generated this result transmitted reference range: 166 - 358 10*3/?L. The reference range was not used to interpret this result as normal/abnormal. MPV (test code = 97883-4) 11.0 fL 9.5-12.9 NRBC/100 WBC (test code = 7530786947) 0.0 See_Comment [Automated Alianza ssage] The system which generated this result transmitted reference range: 0.0 - 10.0 /100 WBCs. The reference range was not used to interpret this result as normal/abnormal. NRBC x10^3 (test code = 9956619624) See_Comment [Automated messa ge] The system which generated this result transmitted reference range: 10*3/?L. The reference range was not used to interpret this result as normal/abnormal. GRAN MAT (NEUT) % (test code = 770-8) 64.9 % IMM GRAN % (test code = 8751308279) 1.30 % LYMPH % (test code = 736-9) 23.7 % MONO % (test code = 5905-5) 9.4 % EOS % (test code = 713-8) 0.4 % BASO % (test code = 706-2) 0.3 % GRAN MAT x10^3(ANC) (test code = 1786287918) 6.27 10*3/uL 1.88-7.09 IMM GRAN x10^3 (test code = 9607539707) 0.13 10*3/uL 0.00-0.06 H LYMPH x10^3 (test code = 731-0) 2.29 10*3/uL 1.32-3.29 MONO x10^3 (test code = 742-7) 0.91 10*3/uL 0.33-0.92 EOS x10^3 (test code = 711-2) 0.04 10*3/uL 0.03-0.39 BASO x10^3 (test code = 704-7) 0.03 10*3/uL 0.01-0.07 Lab Interpretation (test code = 83728-4) Abnormal [facility] [facility] METABOLIC PANEL (NA, K, CL, CO2, GLUCOSE, BUN, CREATININE, CA)2023-05-18 10:31:00* Test Item Value Reference Range Interpretation Comme nts NA (test code = 6055384027) 136 mmol/L 135-145 K (test code = 2121712692) 4.4 mmol/L 3.5-5.0 Slight hemolysis CL (test code = 6099171296) 103 mmol/L 98-108 CO2 TOTAL (test code = 8509507035) 23 mmol/L 23-31 AGAP (test code = 1529563576) 10 2-16 BUN (test code = 4323748733) 19 mg/dL 7-23 Slight hemolysis GLUCOSE (test code = 8551054890) 208 mg/dL 70-110 H CREATININE (test code = 4613864242) 0.67 mg/dL 0.50-1.04 CALCIUM (test code = 9002435350) 9.2 mg/dL 8.6-10.6 eGFR (test code = 1381660421) 92.4 mL/min/1.73m2 AKIL (test code = AKIL) [...] imaging tests). Lab Interpretation (test code = 08052-7) Abnormal [facility] GLUCOSE (AUTOMATED)2023-05-18 00:46:51* Test Item Value Reference Range Interpretation Comme nts POCT GLU (test code = 5900414680) 246 mg/dL 70-110 H Lab Interpretation (test cod e = 68584-2) Abnormal [facility] GLUCOSE (AUTOMATED)2023-05-17 21:55:38* Test Item Value Reference Range Interpretation Comme nts POCT GLU (test code = 6275753849) 317 mg/dL 70-110 H Lab Interpretation (test cod e = 06196-4) Abnormal [facility] GLUCOSE (AUTOMATED)2023-05-17 17:55:06* Test Item Value Reference Range Interpretation Comme nts POCT GLU (test code = 3543017808) 292 mg/dL 70-110 H Lab Interpretation (test cod e = 95969-4) Abnormal [facility] GLUCOSE (AUTOMATED)2023-05-17 17:55:06* Test Item Value Reference Range Interpretation Comme nts POCT GLU (test code = 0990671871) 292 mg/dL 70-110 H Lab Interpretation (test cod e = 63090-1) Abnormal [facility] GLUCOSE (AUTOMATED)2023-05-17 12:44:42* Test Item Value Reference Range Interpretation Comme nts POCT GLU (test code = 8715088201) 203 mg/dL 70-110 H Lab Interpretation (test cod e = 96204-8) Abnormal [facility] GLUCOSE (AUTOMATED)2023-05-17 12:44:42* Test Item Value Reference Range Interpretation Comme nts POCT GLU (test code = 6247631842) 203 mg/dL 70-110 H Lab Interpretation (test cod e = 92476-6) Abnormal [facility] GLUCOSE (AUTOMATED)2023-05-17 00:52:01* Test Item Value Reference Range Interpretation Comme nts POCT GLU (test code = 2847276283) 350 mg/dL 70-110 H Lab Interpretation (test cod e = 44378-8) Abnormal [facility] GLUCOSE (AUTOMATED)2023-05-17 00:52:01* Test Item Value Reference Range Interpretation Comme nts POCT GLU (test code = 5151485494) 350 mg/dL 70-110 H Lab Interpretation (test cod e = 10795-7) Abnormal [facility] GLUCOSE (AUTOMATED)2023-05-16 22:07:26* Test Item Value Reference Range Interpretation Comme nts POCT GLU (test code = 6797137511) 415 mg/dL 70-110 H Lab Interpretation (test cod e = 22438-2) Abnormal [facility] GLUCOSE (AUTOMATED)2023-05-16 22:07:26* Test Item Value Reference Range Interpretation Comme nts POCT GLU (test code = 1722824501) 415 mg/dL 70-110 H Lab Interpretation (test cod e = 28717-5) [facility] 19:06:06* Test Item Value Reference Range Interpretation Comme nts POCT GLU (test code = 9754073559) 254 mg/dL 70-110 H Lab Interpretation (test cod e = 64728-4) Abnormal [facility] GLUCOSE (AUTOMATED)2023-05-16 19:06:06* Test Item Value Reference Range Interpretation Comme nts POCT GLU (test code = 1222941834) 254 mg/dL 70-110 H Lab Interpretation (test cod e = 69953-7) Abnormal [facility] GLUCOSE (AUTOMATED)2023-05-16 12:52:57* Test Item Value Reference Range Interpretation Comme nts POCT GLU (test code = 6429864780) 195 mg/dL 70-110 H Lab Interpretation (test cod e = 55495-0) Abnormal [facility] GLUCOSE (AUTOMATED)2023-05-16 12:52:57* Test Item Value Reference Range Interpretation Comme nts POCT GLU (test code = 3127328285) 195 mg/dL 70-110 H Lab Interpretation (test cod e = 49785-0) Abnormal [facility] [id number] 10:06:00* Test Item Value Reference Range Interpretation Comme nts POCT PREG (test code = 1605) Negative On board controls acceptable with C Line (test code = 3574) Yes POCT PREG LOT # (test code = 3575) POCT PREG TEST DATE ( test code = 3576) [facility] [id number] 10:06:00* Test Item Value Reference Range Interpretation Comme nts POCT PREG (test code = 1605) Negative On board controls acceptable with C Line (test code = 3574) Yes POCT PREG LOT # (test code = 3575) POCT PREG TEST DATE ( test code = 3576) [facility] GLUCOSE (AUTOMATED)2023-05-16 00:39:39* Test Item Value Reference Range Interpretation Comme nts POCT GLU (test code = 4806363803) 293 mg/dL 70-110 H Lab Interpretation (test cod e = 96245-4) Abnormal [facility] GLUCOSE (AUTOMATED)2023-05-16 00:39:39* Test Item Value Reference Range Interpretation Comme nts POCT GLU (test code = 3117585079) 293 mg/dL 70-110 H Lab Interpretation (test cod e = 04927-3) Abnormal [facility] GLUCOSE (AUTOMATED)2023-05-15 22:00:16* Test Item Value Reference Range Interpretation Comme nts POCT GLU (test code = 2349399784) 162 mg/dL 70-110 H Lab Interpretation (test cod e = 40738-1) Abnormal [facility] GLUCOSE (AUTOMATED)2023-05-15 22:00:16* Test Item Value Reference Range Interpretation Comme nts POCT GLU (test code = 0559329695) 162 mg/dL 70-110 H Lab Interpretation (test cod e = 98670-7) Abnormal [facility] GLUCOSE (AUTOMATED)2023-05-15 16:35:57* Test Item Value Reference Range Interpretation Comme nts POCT GLU (test code = 2378010521) 161 mg/dL 70-110 H Lab Interpretation (test cod e = 90282-7) Abnormal [facility] GLUCOSE (AUTOMATED)2023-05-15 16:35:57* Test Item Value Reference Range Interpretation Comme nts POCT GLU (test code = 1395617807) 161 mg/dL 70-110 H Lab Interpretation (test cod e = 59443-8) Abnormal [facility] GLUCOSE (AUTOMATED)2023-05-15 12:46:28* Test Item Value Reference Range Interpretation Comme nts POCT GLU (test code = 1241658166) 168 mg/dL 70-110 H Lab Interpretation (test cod e = 59406-5) Abnormal [facility] GLUCOSE (AUTOMATED)2023-05-15 12:46:28* Test Item Value Reference Range Interpretation Comme nts POCT GLU (test code = 4912073213) 168 mg/dL 70-110 H Lab Interpretation (test cod e = 70926-9) Abnormal [facility] METABOLIC PANEL (NA, K, CL, CO2, GLUCOSE, BUN, CREATININE, CA)2023-05-15 09:10:13* Test Item Value Reference Range Interpretation Comme nts NA (test code = 2534862703) 141 mmol/L 135-145 K (test code = 9928359666) 3.0 mmol/L 3.5-5.0 L CL (test code = 0119234530) 106 mmol/L 98-108 CO2 TOTAL (test code = 0446207429) 27 mmol/L 23-31 AGAP (test code = 3470870685) 8 2-16 BUN (test code = 5770253622) 10 mg/dL 7-23 GLUCOSE (test code = 8999043294) 146 mg/dL 70-110 H CREATININE (test code = 4936790694) 0.70 mg/dL 0.50-1.04 CALCIUM (test code = 9455032483) 8.7 mg/dL 8.6-10.6 eGFR (test code = 9115029063) 87.9 mL/min/1.73m2 AKIL (test code = AKIL) [...] imaging tests). Lab Interpretation (test code = 47034-2) [facility] (NA, K, CL, CO2, GLUCOSE, BUN, CREATININE, CA)2023-05-15 09:10:13* Test Item Value Reference Range Interpretation Comme nts NA (test code = 5111386998) 141 mmol/L 135-145 K (test code = 6967619604) 3.0 mmol/L 3.5-5.0 L CL (test code = 8896584259) 106 mmol/L 98-108 CO2 TOTAL (test code = 3724700048) 27 mmol/L 23-31 AGAP (test code = 8198188458) 8 2-16 BUN (test code = 5626772327) 10 mg/dL 7-23 GLUCOSE (test code = 1769649701) 146 mg/dL 70-110 H CREATININE (test code = 9271459745) 0.70 mg/dL 0.50-1.04 CALCIUM (test code = 1707036314) 8.7 mg/dL 8.6-10.6 eGFR (test code = 0662660033) 87.9 mL/min/1.73m2 AKIL (test code = AKIL) [...] imaging tests). Lab Interpretation (test code = 66885-2) Abnormal [facility] THRMPLAS [id number] 08:57:35* Test Item Value Reference Range Interpretation Comme nts APTT Patient (test code = 3173-2) 34 See_Comment [Automated [employer]] The system which generated this result transmitted reference range: 26 - 36 Seconds. The reference range was not used to interpret this result as normal/abnormal. Lab Interpretation (test code = 80094-8) Normal [facility] HospitalProthrombin Time / [id number] 08:57:35* Test Item Value Reference Range Interpretation [...] the indications. Lab Interpretation (test code = 77658-6) Normal [facility] THRM[facility] [id number] 08:57:35* Test Item Value Reference Range Interpretation Comme nts APTT Patient (test code = 3173-2) 34 See_Comment [Automated messa ge] The system which generated this result transmitted reference range: 26 - 36 Seconds. The reference range was not used to interpret this result as normal/abnormal. Lab Interpretation (test code = 58838-8) Normal [facility] HospitalProthrombin Time / [id number] 08:57:35* Test Item Value Reference Range Interpretation [...] the indications. Lab Interpretation (test code = 67666-2) Normal [facility] HospitalCBC WITH [id number] 08:50:52* Test Item Value Reference Range Interpretation [...] 34.1 g/dL 31.6-35.1 RDW-SD (test code = 65127-8) 44.0 fL 39.0-49.9 RDW-CV (test code = 788-0) 12.5 % 12.0-15.5 PLT (test code = 777-3) 250 See_Comment [Automated messa ge] The system which generated this result transmitted reference range: 166 - 358 10*3/?L. The reference range was not used to interpret this result as normal/abnormal. MPV (test code = 48552-2) 10.8 fL 9.5-12.9 NRBC/100 WBC (test code = 2406601726) 0.0 See_Comment [Automated [employer] ssage] The system which generated this result transmitted reference range: 0.0 - 10.0 /100 WBCs. The reference range was not used to interpret this result as normal/abnormal. NRBC x10^3 (test code = 2576106072) See_Comment [Automated messa ge] The system which generated this result transmitted reference range: 10*3/?L. The reference range was not used to interpret this result as normal/abnormal. GRAN MAT (NEUT) % (test code = 770-8) 53.1 % IMM GRAN % (test code = 8738480815) 1.00 % LYMPH % (test code = 736-9) 35.7 % MONO % (test code = 5905-5) 7.3 % EOS % (test code = 713-8) 2.3 % BASO % (test code = 706-2) 0.6 % GRAN MAT x10^3(ANC) (test code = 3707336948) 4.23 10*3/uL 1.88-7.09 IMM GRAN x10^3 (test code = 6438932506) 0.08 10*3/uL 0.00-0.06 H LYMPH x10^3 (test code = 731-0) 2.84 10*3/uL 1.32-3.29 MONO x10^3 (test code = 742-7) 0.58 10*3/uL 0.33-0.92 EOS x10^3 (test code = 711-2) 0.18 10*3/uL 0.03-0.39 BASO x10^3 (test code = 704-7) 0.05 10*3/uL 0.01-0.07 Lab Interpretation (test code = 79204-1) Abnormal [facility] WITH [id number] 08:50:52* Test Item Value Reference Range Interpretation [...] 34.1 g/dL 31.6-35.1 RDW-SD (test code = 54299-0) 44.0 fL 39.0-49.9 RDW-CV (test code = 788-0) 12.5 % 12.0-15.5 PLT (test code = 777-3) 250 See_Comment [Automated [employer]] The system which generated this result transmitted reference range: 166 - 358 10*3/?L. The reference range was not used to interpret this result as normal/abnormal. MPV (test code = 91523-3) 10.8 fL 9.5-12.9 NRBC/100 WBC (test code = 2058788108) 0.0 See_Comment [Automated [employer]] The system which generated this result transmitted reference range: 0.0 - 10.0 /100 WBCs. The reference range was not used to interpret this result as normal/abnormal. NRBC x10^3 (test code = 6464100230) See_Comment [Automated [employer]] The system which generated this result transmitted reference range: 10*3/?L. The reference range was not used to interpret this result as normal/abnormal. GRAN MAT (NEUT) % (test code = 770-8) 53.1 % IMM GRAN % (test code = 0886041955) 1.00 % LYMPH % (test code = 736-9) 35.7 % MONO % (test code = 5905-5) 7.3 % EOS % (test code = 713-8) 2.3 % BASO % (test code = 706-2) 0.6 % GRAN MAT x10^3(ANC) (test code = 6338190869) 4.23 10*3/uL 1.88-7.09 IMM GRAN x10^3 (test code = 9051699339) 0.08 10*3/uL 0.00-0.06 H LYMPH x10^3 (test code = 731-0) 2.84 10*3/uL 1.32-3.29 MONO x10^3 (test code = 742-7) 0.58 10*3/uL 0.33-0.92 EOS x10^3 (test code = 711-2) 0.18 10*3/uL 0.03-0.39 BASO x10^3 (test code = 704-7) 0.05 10*3/uL 0.01-0.07 Lab Interpretation (test code = 57079-0) Abnormal [facility] BranchType and Screen - ONCE [id number] 08:44:00* Test Item Value Reference Range Interpretation Comme nts ABO & RH (test code = 20) O NEGATIVE IAT (test code = 1185) Negative [facility] BranchType and Screen - ONCE [id number] 08:44:00* Test Item Value Reference Range Interpretation Comme nts ABO & RH (test code = 20) O NEGATIVE IAT (test code = 1185) Negative [facility]2023-05-15 02:26:26* Test Item Value Reference Range Interpretation Comme nts POCT GLU (test code = 3982313140) 298 mg/dL 70-110 H Lab Interpretation (test cod e = 13308-9) [facility] 02:26:26* Test Item Value Reference Range Interpretation Comme nts POCT GLU (test code = 6640794761) 298 mg/dL 70-110 H Lab Interpretation (test cod e = 55889-8) [facility] 01:19:27* Test Item Value Reference Range Interpretation Comme nts POCT GLU (test code = 5398507003) 298 mg/dL 70-110 H Lab Interpretation (test cod e = 91757-3) [facility]-15 01:19:27* Test Item Value Reference Range Interpretation Comme nts POCT GLU (test code = 3621701707) 298 mg/dL 70-110 H Lab Interpretation (test cod e = 52753-4) [facility]2023-[facility]-14 21:17:33* Test Item Value Reference Range Interpretation Comme nts POCT GLU (test code = 3113477294) 300 mg/dL 70-110 H Lab Interpretation (test cod e = 59293-7) [facility]23-[facility]-14 21:17:33* Test Item Value Reference Range Interpretation Comme nts POCT GLU (test code = 1075229532) 300 mg/dL 70-110 H Lab Interpretation (test cod e = 77113-6) [facility]2023-[facility]-14 14:25:24* Test Item Value Reference Range Interpretation Comme nts POCT GLU (test code = 2086923705) 156 mg/dL 70-110 H Lab Interpretation (test cod e = 61899-8) Abnormal [facility] GLUCOSE (AUTOMATED)2023-05-14 14:25:24* Test Item Value Reference Range Interpretation Comme nts POCT GLU (test code = 1001570195) 156 mg/dL 70-110 H Lab Interpretation (test cod e = 36268-2) Abnormal [facility] HospitalProthrombin Time / [id number] 10:12:05* Test Item Value Reference Range Interpretation Comme nts PROTIME PATIENT (test code = 5964-2) 10.3 See_Comment [Automated [employer]] The system which generated this result transmitted reference range: 10.1 - 12.6 Seconds. The reference range was not used to interpret this result as normal/abnormal. INR (test code = 6301-6) 0.9 Normal INR <1.1; Warfarin Therapeutic range 2.0 to 3.0 or 2.5 to 3.5, depending upon the indications. Lab Interpretation (test code = 69905-1) Normal [facility] HospitalProthrombin Time / [id number] 10:12:05* Test Item Value Reference Range Interpretation Comme nts PROTIME PATIENT (test code = 5964-2) 10.3 See_Comment [Automated [employer]] The system which generated this result transmitted reference range: 10.1 - 12.6 Seconds. The reference range was not used to interpret this result as normal/abnormal. INR (test code = 6301-6) 0.9 Normal INR <1.1; Warfarin Therapeutic range 2.0 to 3.0 or 2.5 to 3.5, depending upon the indications. Lab Interpretation (test code = 25261-5) Normal [facility] GLUCOSE (AUTOMATED)2023-05-14 06:55:10* Test Item Value Reference Range Interpretation Comme nts POCT GLU (test code = 4184596271) 267 mg/dL 70-110 H Lab Interpretation (test cod e = 27412-8) Abnormal [facility] GLUCOSE (AUTOMATED)2023-05-14 06:55:10* Test Item Value Reference Range Interpretation Comme nts POCT GLU (test code = 9076438581) 267 mg/dL 70-110 H Lab Interpretation (test cod e = 28439-6) Abnormal [facility] GLUCOSE (AUTOMATED)2023-05-14 02:27:17* Test Item Value Reference Range Interpretation Comme nts POCT GLU (test code = 2081080833) 370 mg/dL 70-110 H Lab Interpretation (test cod e = 52100-7) Abnormal [facility] GLUCOSE (AUTOMATED)2023-05-14 02:27:17* Test Item Value Reference Range Interpretation Comme nts POCT GLU (test code = 8010468664) 370 mg/dL 70-110 H Lab Interpretation (test cod e = 32134-8) Abnormal [facility] GLUCOSE (AUTOMATED)2023-05-13 23:06:58* Test Item Value Reference Range Interpretation Comme nts POCT GLU (test code = 1602794838) 294 mg/dL 70-110 H Lab Interpretation (test cod e = 03025-0) Abnormal [facility] GLUCOSE (AUTOMATED)2023-05-13 23:06:58* Test Item Value Reference Range Interpretation Comme nts POCT GLU (test code = 4623315726) 294 mg/dL 70-110 H Lab Interpretation (test cod e = 30135-6) Abnormal [facility] GLUCOSE (AUTOMATED)2023-05-13 16:45:54* Test Item Value Reference Range Interpretation Comme nts POCT GLU (test code = 6912035755) 266 mg/dL 70-110 H Lab Interpretation (test cod e = 70879-0) Abnormal [facility] GLUCOSE (AUTOMATED)2023-05-13 16:45:54* Test Item Value Reference Range Interpretation Comme nts POCT GLU (test code = 8640808946) 266 mg/dL 70-110 H Lab Interpretation (test cod e = 86993-0) Abnormal [facility] GLUCOSE (AUTOMATED)2023-05-13 14:14:24* Test Item Value Reference Range Interpretation Comme nts POCT GLU (test code = 9901050577) 303 mg/dL 70-110 H Lab Interpretation (test cod e = 02927-3) Abnormal [facility] GLUCOSE (AUTOMATED)2023-05-13 14:14:24* Test Item Value Reference Range Interpretation Comme nts POCT GLU (test code = 7127699957) 303 mg/dL 70-110 H Lab Interpretation (test cod e = 83812-1) Abnormal [facility] WITH [id number] 01:17:55* Test Item Value Reference Range Interpretation Comme nts WBC (test code = 6690-2) 8.97 See_Comment [Automated [employer]] The system which generated this result transmitted reference range: 4.30 - 11.10 10*3/?L. The reference range was not used to interpret this result as normal/abnormal. RBC (test code = 789-8) 4.02 See_Comment [Automated [employer]] The system which generated this result [...] 34.3 g/dL 31.6-35.1 RDW-SD (test code = 25553-5) 45.3 fL 39.0-49.9 RDW-CV (test code = 788-0) 12.5 % 12.0-15.5 PLT (test code = 777-3) 266 See_Comment [Automated messa ge] The system which generated this result transmitted reference range: 166 - 358 10*3/?L. The reference range was not used to interpret this result as normal/abnormal. MPV (test code = 65924-6) 11.7 fL 9.5-12.9 NRBC/100 WBC (test code = 7199132486) 0.0 See_Comment [Automated [employer]] The system which generated this result transmitted reference range: 0.0 - 10.0 /100 WBCs. The reference range was not used to interpret this result as normal/abnormal. NRBC x10^3 (test code = 9046877175) See_Comment [Automated messa ge] The system which generated this result transmitted reference range: 10*3/?L. The reference range was not used to interpret this result as normal/abnormal. GRAN MAT (NEUT) % (test code = 770-8) 66.0 % IMM GRAN % (test code = 5806295768) 0.70 % LYMPH % (test code = 736-9) 23.4 % MONO % (test code = 5905-5) 6.6 % EOS % (test code = 713-8) 2.7 % BASO % (test code = 706-2) 0.6 % GRAN MAT x10^3(ANC) (test code = 0967738440) 5.93 10*3/uL 1.88-7.09 IMM GRAN x10^3 (test code = 3903583768) 0.06 10*3/uL 0.00-0.06 LYMPH x10^3 (test code = 731-0) 2.10 10*3/uL 1.32-3.29 MONO x10^3 (test code = 742-7) 0.59 10*3/uL 0.33-0.92 EOS x10^3 (test code = 711-2) 0.24 10*3/uL 0.03-0.39 BASO x10^3 (test code = 704-7) 0.05 10*3/uL 0.01-0.07 Lab Interpretation (test code = 68948-9) Abnormal [facility] WITH [id number] 01:17:55* Test Item Value Reference Range Interpretation [...] 34.3 g/dL 31.6-35.1 RDW-SD (test code = 90508-6) 45.3 fL 39.0-49.9 RDW-CV (test code = 788-0) 12.5 % 12.0-15.5 PLT (test code = 777-3) 266 See_Comment [Automated messa ge] The system which generated this result transmitted reference range: 166 - 358 10*3/?L. The reference range was not used to interpret this result as normal/abnormal. MPV (test code = 95238-2) 11.7 fL 9.5-12.9 NRBC/100 WBC (test code = 3057526019) 0.0 See_Comment [Automated [employer]] The system which generated this result transmitted reference range: 0.0 - 10.0 /100 WBCs. The reference range was not used to interpret this result as normal/abnormal. NRBC x10^3 (test code = 3925424177) See_Comment [Automated messa ge] The system which generated this result transmitted reference range: 10*3/?L. The reference range was not used to interpret this result as normal/abnormal. GRAN MAT (NEUT) % (test code = 770-8) 66.0 % IMM GRAN % (test code = 3973863005) 0.70 % LYMPH % (test code = 736-9) 23.4 % MONO % (test code = 5905-5) 6.6 % EOS % (test code = 713-8) 2.7 % BASO % (test code = 706-2) 0.6 % GRAN MAT x10^3(ANC) (test code = 0924825427) 5.93 10*3/uL 1.88-7.09 IMM GRAN x10^3 (test code = 1943718832) 0.06 10*3/uL 0.00-0.06 LYMPH x10^3 (test code = 731-0) 2.10 10*3/uL 1.32-3.29 MONO x10^3 (test code = 742-7) 0.59 10*3/uL 0.33-0.92 EOS x10^3 (test code = 711-2) 0.24 10*3/uL 0.03-0.39 BASO x10^3 (test code = 704-7) 0.05 10*3/uL 0.01-0.07 Lab Interpretation (test code = 58761-1) [facility]normal [facility]OLIC PAN[facility] ([id number])2023-05-13 01:13:13* Test Item Value Reference Range Interpretation Comme nts NA (test code = 2157860305) 139 mmol/L 135-145 K (test code = 1797434033) 3.6 mmol/L 3.5-5.0 CL (test code = 6168494251) 105 mmol/L 98-108 CO2 TOTAL (test code = 4486384914) 28 mmol/L 23-31 AGAP (test code = 1422300310) 6 2-16 BUN (test code = 7169902188) 7 mg/dL 7-23 GLUCOSE (test code = 4639538070) 292 mg/dL 70-110 H CREATININE (test code = 0734946370) 0.68 mg/dL 0.50-1.04 TOTAL BILI (test code = 5522687967) 0.7 mg/dL 0.1-1.1 CALCIUM (test code = 1750571363) 8.7 mg/dL 8.6-10.6 T PROTEIN (test code = 3847465178) 6.5 g/dL 6.3-8.2 ALBUMIN (test code = 9990170800) 3.6 g/dL 3.5-5.0 ALK PHOS (test code = 2404141165) 118 U/L 34-122 ALTv (test code = 1742-6) 64 U/L 5-35 H AST(SGOT) (test code = 5092521450) 66 U/L 13-40 H eGFR (test code = 7214042573) 90.9 mL/min/1.73m2 AKIL (test code = AKIL) [...] imaging tests). Lab Interpretation (test code = 85570-4) Abnormal [facility]. METABOLIC PANEL ([id number])2023-05-13 01:13:13* Test Item Value Reference Range Interpretation Comme nts NA (test code = 8317009384) 139 mmol/L 135-145 K (test code = 4421652581) 3.6 mmol/L 3.5-5.0 CL (test code = 8060855070) 105 mmol/L 98-108 CO2 TOTAL (test code = 7533851883) 28 mmol/L 23-31 AGAP (test code = 7309299109) 6 2-16 BUN (test code = 0100407105) 7 mg/dL 7-23 GLUCOSE (test code = 7491878068) 292 mg/dL 70-110 H CREATININE (test code = 6930826130) 0.68 mg/dL 0.50-1.04 TOTAL BILI (test code = 4261751855) 0.7 mg/dL 0.1-1.1 CALCIUM (test code = 9806774865) 8.7 mg/dL 8.6-10.6 T PROTEIN (test code = 4057912842) 6.5 g/dL 6.3-8.2 ALBUMIN (test code = 5589684043) 3.6 g/dL 3.5-5.0 ALK PHOS (test code = 0893374069) 118 U/L 34-122 ALTv (test code = 1742-6) 64 U/L 5-35 H AST(SGOT) (test code = 8559259506) 66 U/L 13-40 H eGFR (test code = 1584360435) 90.9 mL/min/1.73m2 AKIL (test code = AKIL) [...] imaging tests). Lab Interpretation (test code = 85554-3) Abnormal [facility] Consult Notes Date/Time Note Provider Source 2023-05-17 10:14:00 0088-39-85E33:14:00Associated Order(s): CONSULT ADULT PHYSICAL THERAPY Patient agreeable [...] Nurse notified of patients pain and position. ASPHALT SPREADER OPERATOR notified on patients complaints of RT LE [...] Left 05/16/2023 Surgeon: Milind Starr MD; Location: [facility] Prior Living Situation: lives alone, Stairs [...] After treatment: 10-Pain Management: Nursing NotifiedCOMMUNICATIONPrimary Language: Ivorian Able to Verbalize needs: Yes Vision:good; no [...] therapist on the encounter dated 05/17/2023.Wayne Mcclain , PT, DPT 27861-8Spnlbfb pywkRR5718-19-47A50:05:09Consult noteTXT1.2.840.171617.1.13.104.2.7.2.727 879|[id number] for patient [id number] T Abe PT[address] Lee StreetZvpnBg[id number] KHWJEQZRUUOOOXRNNF0251-16-53A72:05:091.2 .840.675165.1.72.3.15|1.2.840.263383.1.1 3.104.2.7.2.727879_[id number] Wayne Mcclain PT [facility] 2023-05-17 09:02:00 0580-18-17N10:02:00Associated Order(s): CONSULT ADULT OCCUPATIONAL THERAPY OT GENERAL EVALUATIONConsult received via ViSSee, EMR reviewed and evaluation completed 05/17/23. Patient [...] 05/16/2023 Surgeon: Milind Starr MD; Location: [facility]: Pain Location: lower backPain rating before [...] therapist. Please contact the Rehab Department at [phone] with questions. Total Timed Treatment Codes: 15 [...] to enable patient to complete evaluation component. 98922-8Byldtzn ubzbTC5505-81-80B54:19:47Consult noteTXT1.2.840.261604.1.13.104.2.7.2.727 879|[id number] for patient kcjl066492695Gxpqda A Paver [id number] MWTYQESTOKDGEAVABR0698-92-23Y37:19:471.2 .840.774163.1.72.3.15|1.2.840.965075.1.1 3.104.2.7.2.727879_[id number] Pa Alcocer OT [facility] 2023-05-13 14:35:50 1390-24-56Q10:35:50Associated Order(s): CONSULT SURGICAL CO-MANAGEMENT (SCM) Images from the original note were not included.Surgical Co-Management Hospitalist (SCM) Consult ServiceGeneral (Non operative) Consultation NotePatient: Jeannette Hutson: [id number] Date of Consult: 05/13/2023 Referring Physician: Dr [...] provider, she is pending an appointment with [facility] to establish health care as they are the only provider who are able to take her current health insurance. The patient went to [facility] emergency room and underwent CT of the [...] evening. Take with meals. Yes Doctor Unassigned, [place] HYDROcodone-acetaminophen 5-325 mg tablet Take 1 tablet [...] Redd MD Current Medications:Scheduled meds:acetaminophen, 650 mg, A2Oraxlbtux, 100 mg, DAILYenoxaparin (LOVENOX) SC Syringe, 40 mg, C59Jknirevxrxs, 20 mg, DAILYSERTraline, 25 mg, DAILYinsulin regular human, , O6DZzuvurtgxe, 40 mg, BIDIV meds: PRN meds:dextrose 50 % in water (D50W), 25 mL, PRNdextrose 50 % in water (D50W), 25 mL, PRNdiazePAM, 2.5 mg, TIDPRNglucagon, 1 mg, PRNglucagon, 1 mg, PRNhydralAZINE, 10 mg, L1ULCHmyjaJTRQ, 4 mg, E6TPXEqojewsxoyvn, 4 mg, N4AJWMoikYLOYQG, 5 mg, Y4RLSGvhgxzueraycz glycol (MIRALAX, CLEARLAX, HEALTHYLAX) oral powder, 17 [...] L2/3 and L4/5 as detailed above RL 4763 SSMENT & PLAN:Acute on chronic back pain, [...] been missed during proofreading. Please interpret accordingly. 18716-0Aulpfzj fwapNB2536-52-07R43:03:36Consult noteTXT1.2.840.060383.1.13.104.2.7.2.727 879|[id number] for patient [address] Nf[id number] HOYOIYYTEWFXIVRLRC3344-76-19Q85:03:361.2 .840.916665.1.72.3.15|1.2.840.399853.1.1 3.104.2.7.2.727879_[id number] [facility] History and Physical Notes Date/Time Note Provider Source 2023-05-13 02:00:15 5959-11-82W81:00:15F ormatting of this note is different from the original.NEUROSURGERY HISTORY AND PHYSICALAttending Neurosurgeon: Dr. Manoj YoungThe Children's Hospital Foundation: Back painHPI: Jeannette Way is a 52 year old female with history of chronic back pain who presents with one week of acute low back pain, L leg S1 radiculopathy, urinary and fecal incontinence. Patient states that her pain started when she got up from bending down to rock picker something. Patient notes 10/10 pain in her [...] (!) 169/80 Pulse: 66 67 71 Resp: 18 22 18 Temp: 36.9 ?C (98.5 ?F) TempSrc: Axillary SpO2: 100% 98% 100% Weight: 79.4 kg (175 lb) Height: 1.676 m (5' 6") Exam:Awake, alert, oriented x3EOMI bilaterallyFace symmetricUPPER EXTREMITY STRENGTH EXAM: R 5/5 5/5 5/5 5/5 5/5 D(C5) B(C6) T(C7) Dot Compliance Coordinator(C8) I (T1)L 5/5 5/5 5/5 5/5 5/5 [...] documentation by Neurosurgery resident, [place],. [address]-8Tlusmgy and physical dcifQG0266395Jqsese, Rudy P1.2.840.076476.1.13.104.2.7.2.997039Zylws iMeveOSZ2961-19-80L02:34:54History and physical noteTXT1.2.840.327098.1.13.104.2.7.2.51502 9|[id number] for patient [address] Ja[id number] BOERDFBKQSVGRNVE7117-32-38Y42:34:541.2.840 .822245.1.72.3.15|1.2.840.570883.1.13.104. 2.7.2.727879_[id number] [facility] Procedure Notes Date/Time Note Provider Source 2023-05-16 11:40:00 9790-92-33P66:40:00F ormatting of this note might be different from the original.3Preoperativ e diagnosis: Lumbar disc prolapse L 4/5 left Postoperative diagnosis:Lumbar disc prolapse L 4/5 left Procedure: Left L 4/5 hemilaminectomy , L 4/5 discectomy , usage of microscopic dissection, Surgeon: Milind Leonardistant: Jose DsouzaEBL: 50 mlFindings: large extruded subligamentous disc L 4/5 lateral Complications: noneSpecimen sent: nonePostoperative: transferred to Recovery in stable condition. CPT Code:78911,48548 Milind Starr 32694-0Qisgyvzlb kahaHT2880-51-03D38:41:15Proc edure noteTXT1.2.840.362739.1.13.10 4.2.7.2.644930|[id number] ailable for patient [facility] [address]TXTX[address] 2043481PKODNSWOJTIVHVSWWCDZNZ 2865-78-66M40:41:151.2.840.11 4350.1.72.3.15|1.2.840.600479 .1.13.104.2.7.2.727879_185314 9952 -NEUROLOGICAL SURGERY [place] Notes Date/Time Note Provider Source 2023-06-12 09:34:16 3930-33-55F26:34:16 Encounter completed by life science taxonomist provider 70187-8Rxqkeucly encounter LnrbHV4963-82-93I97:35:36Telephone encounter NoteTXT1.2.840.885183.1.13.104.2.7. 2.444027|[id number] for patient llqy46826-3LxvbMN992233748Frwqcjv Hansen RN[id number] 2YHSVRINMDLJVSODKDDPXPE8485-31-62Y5 9:35:361.2.840.023953.1.72.3.15|1.2 .840.137306.1.13.104.2.7.2.727879_1 [id number] Paty Mooney RN [facility] 2023-06-11 11:03:59 3888-40-89K49:03:[address] is a 52 year old female Pt called stating that she was having knots and cramping around bottom with pain going to leg and ankle x Monday. Paged Dr. Mario: 11:00 amCalled back at 11:01 amConnected: 11:02 am 34084-5Mvodzhrez encounter FwhrYA0408-79-70J11:06:28Telephone encounter NoteTXT1.2.840.640115.1.13.104.2.7. 2.552820|[id number] for patient aulm05624-8DqbpBX23489957Rhvehfxr I [id number] 1BSFRBDMMTKVMPIJGMOHOGY3940-93-87D9 1:06:281.2.840.892566.1.72.3.15|1.2 .840.394991.1.13.104.2.7.2.727879_1 [id number] Jenaro Ennis [facility] 2023-06-09 14:32:19 8343-46-61B26:32:19 Attempted to contact pt and no answer. LVM 99443-5Plfbdttaq encounter YbmvPJ6758-54-54U61:32:58Telephone encounter NoteTXT1.2.840.232036.1.13.104.2.7. 2.162314|[id number] for patient rkbl73995-7XycdBI729106147Pqlnhkov Bloys RN[id number] 3OJOLEDJZEUNCSWTIYXGJQL9311-72-03D0 4:32:581.2.840.532305.1.72.3.15|1.2 .840.176432.1.13.104.2.7.2.727879_1 [id number] Kassie Gama RN [facility] 2023-06-09 11:22:24 7691-50-91Z72:22:[address] is a 52 year old [...] normal or not and have some advise. 74188-6Cwjqsvwum encounter AeojKO0067-13-52O00:31:38Telephone encounter NoteTXT1.2.840.541919.1.13.104.2.7. 2.613478|[id number] for patient icng94475-2BmmdQM746249927Cdiktbf Tsuruta Moreno [id number] 6OUYSDGINIFMPZFBZGKABXW1473-08-35O5 1:31:381.2.840.034311.1.72.3.15|1.2 .840.556498.1.13.104.2.7.2.727879_1 [id number] Lizz Solis V [facility] 2023-05-26 08:59:48 4413-58-82C19:59:48 Patient concerned with little areas of redness around incision site with itching, denies warmth to touch, drainage, or fevers. I reassured patient that it sounds like normal wound healing and no infection at this time. States PCP at [facility] saw incision on 05/24 and told patient that it looked fine and was healing well. I advised patient that she could send me a picture on mychart as well. Patient with no other concerns. Patient verbalized understanding and appreciation. 72511-3Xvrqffury encounter NwoeNI5457-26-36U76:06:25Telephone encounter NoteTXT1.2.840.556979.1.13.104.2.7. 2.265337|[id number] for patient kkxw285393250Xkqkgta Hansen RN[id number] 5GMNSISUZBRFSYJPPVGCSTP7853-35-16Y0 9:06:251.2.840.637145.1.72.3.15|1.2 .840.912627.1.13.104.2.7.2.727879_1 [id number] Paty Mooney RN [facility] 2023-05-26 08:53:04 4642-12-15F17:53:04 Called patient, no answer, left voicemail 47466-6Stvnbfkkq encounter TmqmHD5166-61-99S14:53:23Telephone encounter NoteTXT1.2.840.980974.1.13.104.2.7. 2.331992|[id number] for patient [id number] 6PCPYWPFJWHDEWLKAPSYAQO2363-87-06W9 8:53:231.2.840.348054.1.72.3.15|1.2 .840.051851.1.13.104.2.7.2.727879_1 [id number] [facility] 2023-05-26 08:32:23 3505-21-99Y66:32:[address] is a 52 year old female patient states that her incision is itchy and it's a little red around it. When she went to [facility] to FU with her PCP, she was told that her incision looked normal and did a UA. She states that it didn't look right and the nurses were unable to explain to her if that was normal. She also mentions that she is diabetic and her discharge paperwork doesn't state that.Pls give her a call, thanks. 55424-3Spwvqtfct encounter LsnvKO2021-63-01M76:36:03Telephone encounter NoteTXT1.2.840.250725.1.13.104.2.7. 2.589929|[id number] for patient fjgq083921376Vpvqcfy M. Garcia[address] JxfdGrpjmqxjwWncmsrxvpFJJT971657622 5HXFFEHRHCSNWLQGGDIEHAP4254-41-21M8 8:36:031.2.840.614251.1.72.3.15|1.2 .840.094078.1.13.104.2.7.2.727879_1 [id number] Heydi Galvin [facility] 2023-05-19 09:59:59 1828-51-20O32:59:59 TRANSITIONAL CARE MANAGEMENT ASSESSMENT05/19/[address] is a 52 year old /White female was admitted on 05/12/[address] She was discharged on 05/18/23 with discharge disposition of HR- Routine Discharge.Admitting Physician: Manoj Jhaveri PDischarge Diagnosis: Low back pain with sciatica, sciatica laterality unspecified, unspecified back pain laterality, unspecified chronicity [M54.40]Pt. Verbalized understanding discharge instructions. Linked Episodes Type: Episode: Status: Noted: Resolved: Last update: Updated by: TRANSITION OF CARE tcm Active 05/19/2023 05/19/2023 9:59 AM Soco Moore LVN Comments: TCM Ybn-bmpa-ki-face outreach documentation:Discharge AssessmentChart Assessed: 05/19/23TCM Outreach Completed: [...] or concerns at this time?: NoFuture Appointments: 86578-6Lvlncucyd encounter ZhfmEZ7583-01-51G31:00:36Telephone encounter NoteTXT1.2.840.752734.1.13.104.2.7. 2.932985|[id number] for patient yghy258997561Hujknsyqml Rivas [address] CtguZiwfiqbfnGbxpwnfxoIERM950793623 2YVAVYDFYXGBIRKBGIRLENO4403-99-71N4 0:00:361.2.840.671287.1.72.3.15|1.2 .840.698985.1.13.104.2.7.2.727879_1 [id number] Soco Moore CLINICAL EDUCATOR [facility] 2023-05-18 12:34:29 8124-55-24Z68:34:29 Problem: Discharge PlanningGoal: Adequate for dischargeOutcome: Adequate for dischargeGoal: Effective communicationOutcome: Adequate for discharge Problem: Falls, Risk ofGoal: Absence of fallsOutcome: Adequate for discharge Problem: PainGoal: Control of pain at or below patient's documented comfort goalOutcome: Adequate for dischargeGoal: Reduction in pain sensationOutcome: Adequate for discharge Problem: Procedure RoutineGoal: Absence of post-procedure complicationsOutcome: Adequate for dischargeGoal: Knowledge of procedureOutcome: Adequate for discharge 90464-8Xadd of care xfnuBY6100-78-23O91:34:31Plan of care noteTXT1.2.840.567717.1.13.104.2.7. 2.437011|2476559920NHAmmztvvuc for patient ftmt556974886Tdzuzw Kosydar RN[address] AevbLtvfveogmUypuqfihwLNLK948799007 1SNBDXGHUQUXSIVOUUHYAON7623-78-86W5 2:34:311.2.840.159554.1.72.3.15|1.2 .840.924457.1.13.104.2.7.2.727879_1 [id number] Susi Garland RN [facility] 2023-05-17 21:43:19 8010-42-04R49:43:19 Problem: Discharge PlanningGoal: Adequate for dischargeOutcome: Progressing as expectedGoal: Effective communicationOutcome: Progressing as expected Problem: Falls, Risk ofGoal: Absence of fallsOutcome: Progressing as expected Problem: PainGoal: Control of pain at or below patient's documented comfort goalOutcome: Progressing as expectedGoal: Reduction in pain sensationOutcome: Progressing as expected Problem: Procedure RoutineGoal: Absence of post-procedure complicationsOutcome: Progressing as expectedGoal: Knowledge of procedureOutcome: Progressing as expected 83043-9Mzdg of care dcdfFK6031-00-65I41:43:23Plan of care noteTXT1.2.840.197939.1.13.104.2.7. 2.620377|8171682137EJDgwdakwze for patient xttd142109850ZykprwRadha Estevez RN[id number] 7YOCPPMIWRMIVTBZBYJNSRJ9294-03-39S4 1:43:231.2.840.838427.1.72.3.15|1.2 .840.964950.1.13.104.2.7.2.727879_1 [id number] Radha Estevez RN [facility] 2023-05-17 10:43:41 1920-43-17O95:43:41 Problem: Discharge PlanningGoal: Adequate for dischargeOutcome: Progressing as expectedGoal: Effective communicationOutcome: Progressing as expected Problem: Falls, Risk ofGoal: Absence of fallsOutcome: Progressing as expected Problem: PainGoal: Control of pain at or below patient's documented comfort goalOutcome: Progressing as expectedGoal: Reduction in pain sensationOutcome: Progressing as expected Problem: Procedure RoutineGoal: Absence of post-procedure complicationsOutcome: Progressing as expectedGoal: Knowledge of procedureOutcome: Progressing as expected 27901-6Ytja of care jjehRN6428-60-05F04:43:46Plan of care noteTXT1.2.840.577539.1.13.104.2.7. 2.748415|[id number] for patient laaaVR-STVGYGAAHQCW-ORDMAMSEQGKZTIH[id number] 5MQTQXTYNJUKPRUZQQFRPLH4318-80-59N8 0:43:461.2.840.166014.1.72.3.15|1.2 .840.545448.1.13.104.2.7.2.727879_1 [id number] PN-PSYCHIATRY [facility] 2023-05-17 04:24:02 8489-94-91U28:24:02 Problem: Discharge PlanningGoal: Adequate for dischargeOutcome: Progressing as expectedGoal: Effective communicationOutcome: Progressing as expected Problem: Falls, Risk ofGoal: Absence of fallsOutcome: Progressing as expected Problem: PainGoal: Control of pain at or below patient's documented comfort goalOutcome: Progressing as expectedGoal: Reduction in pain sensationOutcome: Progressing as expected Problem: Procedure RoutineGoal: Absence of post-procedure complicationsOutcome: Progressing as expectedGoal: Knowledge of procedureOutcome: Progressing as expected 12353-7Sudl of care taelUI0366-50-98I19:24:05Plan of care noteTXT1.2.840.455216.1.13.104.2.7. 2.190590|1290009187SEXnxyzoieb for patient [id number] 9RLXJRZOXVTASJHASLAPUBF0965-33-65Y8 4:24:051.2.840.666592.1.72.3.15|1.2 .840.834711.1.13.104.2.7.2.727879_1 [id number] [facility] 2023-05-16 10:12:34 7110-74-99P78:12:34 Problem: Discharge PlanningGoal: Adequate for dischargeOutcome: Progressing as expectedGoal: Effective communicationOutcome: Progressing as expected Problem: Falls, Risk ofGoal: Absence of fallsOutcome: Progressing as expected Problem: PainGoal: Control of pain at or below patient's documented comfort goalOutcome: Progressing as expectedGoal: Reduction in pain sensationOutcome: Progressing as expected Problem: Procedure RoutineGoal: Absence of post-procedure complicationsOutcome: Progressing as expectedGoal: Knowledge of procedureOutcome: Progressing as expected 70809-8Bopt of care cyzdUQ5668-70-43H37:14:18Plan of care noteTXT1.2.840.228906.1.13.104.2.7. 2.574051|[id number] for patient [id number] 5AYUPIBXIEOFQLSUMLZXJZA3973-61-48B0 0:14:181.2.840.808302.1.72.3.15|1.2 .840.300931.1.13.104.2.7.2.727879_1 [id number] [facility] 2023-05-16 00:39:24 6550-50-67Z11:39:24 Problem: Discharge PlanningGoal: Adequate for dischargeOutcome: Progressing as expectedGoal: Effective communicationOutcome: Progressing as expected Problem: Falls, Risk ofGoal: Absence of fallsOutcome: Progressing as expected Problem: PainGoal: Control of pain at or below patient's documented comfort goalOutcome: Progressing as expectedGoal: Reduction in pain sensationOutcome: Progressing as expected 66888-7Ruow of care kmhhQZ5576-72-83L31:39:28Plan of care noteTXT1.2.840.071715.1.13.104.2.7. 2.390072|7948919631HHXmmpybxtu for patient careUTMB[address]TXTX[address] 3MCKCRTIBEHNHOJDVKRARXX6879-52-39Q9 0:39:281.2.840.422558.1.72.3.15|1.2 .840.164681.1.13.104.2.7.2.727879_1 [id number] [facility] 2023-05-14 23:38:10 2470-76-85K82:38:10 Problem: Discharge PlanningGoal: Adequate for dischargeOutcome: Progressing as expectedGoal: Effective communicationOutcome: Progressing as expected Problem: Falls, Risk ofGoal: Absence of fallsOutcome: Progressing as expected Problem: PainGoal: Control of pain at or below patient's documented comfort goalOutcome: Progressing as expectedGoal: Reduction in pain sensationOutcome: Progressing as expected 19194-3Euby of care isovLF1549-09-44K64:38:14Plan of care noteTXT1.2.840.431916.1.13.104.2.7. 2.695697|5349812746UHRykdltpaj for patient jbvl560794174Qlkruk R Booty RN[address]TXTX[address] 1ZIGVYJDUDDUMCQCAICSUXP8200-40-10G3 3:38:141.2.840.575553.1.72.3.15|1.2 .840.762001.1.13.104.2.7.2.727879_1 [id number] Kelly Atkinson RN [facility] 2023-05-14 17:53:19 0716-10-46J92:53:19 Problem: Discharge PlanningGoal: Adequate for dischargeOutcome: Progressing as expectedGoal: Effective communicationOutcome: Progressing as expected Problem: Falls, Risk ofGoal: Absence of fallsOutcome: Progressing as expected Problem: PainGoal: Control of pain at or below patient's documented comfort goalOutcome: Progressing as expectedGoal: Reduction in pain sensationOutcome: Progressing as expected 92187-6Jxaw of care xgbdYM4062-24-05S03:53:23Plan of care noteTXT1.2.840.967200.1.13.104.2.7. 2.365614|1104051245UGFqwonvipn for patient hdvu591016150Crmesoa R Pharis [id number] 5INWBGHILYZGTWRXOXYGSTD7761-54-49P2 7:53:231.2.840.920429.1.72.3.15|1.2 .840.327410.1.13.104.2.7.2.727879_1 [id number] Janay Samuel [facility] 2023-05-13 20:50:33 1975-91-12B35:50:33 Problem: Discharge PlanningGoal: Adequate for dischargeOutcome: Progressing as expectedGoal: Effective communicationOutcome: Progressing as expected Problem: Falls, Risk ofGoal: Absence of fallsOutcome: Progressing as expected Problem: PainGoal: Control of pain at or below patient's documented comfort goalOutcome: Progressing as expectedGoal: Reduction in pain sensationOutcome: Progressing as expected 37158-7Prqo of care liqcQN4444-23-58W07:50:37Plan of care noteTXT1.2.840.072281.1.13.104.2.7. 2.577205|[id number] for patient [id number] 1KDABHQXVARAHWVDBWDDLBQ0574-70-91P0 0:50:371.2.840.050413.1.72.3.15|1.2 .840.092461.1.13.104.2.7.2.727879_1 [id number] [facility] 2023-05-13 18:33:51 2736-61-41O51:33:51 Problem: Discharge PlanningGoal: Adequate for dischargeOutcome: Progressing as expectedGoal: Effective communicationOutcome: Progressing as expected Problem: Falls, Risk ofGoal: Absence of fallsOutcome: Progressing as expected Problem: PainGoal: Control of pain at or below patient's documented comfort goalOutcome: Progressing as expectedGoal: Reduction in pain sensationOutcome: Progressing as expected 08729-7Uqcr care qqobQL9265-61-55P36:33:54Plan of care noteTXT1.2.840.004217.1.13.104.2.7. 2.662115|7571430102HBWrxnaviak for patient [address] AiobZtsexfpwuZugxilugcUKIS174894027 6IMZLDURLCARIEOXUXDKGBT0904-48-00R2 8:33:541.2.840.956840.1.72.3.15|1.2 .840.268347.1.13.104.2.7.2.727879_1 [id number] [facility] 2023-05-13 03:48:33 5703-31-24H31:48:33 Problem: Discharge PlanningGoal: Adequate for dischargeOutcome: Progressing as expectedGoal: Effective communicationOutcome: Progressing as expected Problem: Falls, Risk ofGoal: Absence of fallsOutcome: Progressing as expected Problem: PainGoal: Control of pain at or below patient's documented comfort goalOutcome: Progressing as expectedGoal: Reduction in pain sensationOutcome: Progressing as expected 61765-3Iwed of care ivxqDW9418-26-08D79:48:36Plan of care noteTXT1.2.840.373633.1.13.104.2.7. 2.073020|9002053775EODxbhoulxh for patient vxks041265133Aola L Javier RN[address]TXTX[address] 7GDPQJOXPQCTVFSVTTTECFJ0667-05-98L8 3:48:361.2.840.174098.1.72.3.15|1.2 .840.737571.1.13.104.2.7.2.727879_1 [id number] Raegan Stanford Javier TAMEZ [facility] 2023-05-12 22:02:05 1695-08-95K91:02:05 Patient en [facility] to further evaluation and treatment by Neurology service. Lower back pain 03/08 after po [place] 94610-4Ldojuzcea department RqlkXA3616-90-11X02:03:48[facility] NoteTXT1.2.840.574777.1.13.104.2.7. 2.597862|[id number] for patient wylg274782891Kraikkr M Owens RN[address]TXTX[address] 3MVJQOKZGBNYGNGRLDIFWAE8709-45-34Q0 2:03:481.2.840.448740.1.72.3.15|1.2 .840.630490.1.13.104.2.7.2.727879_1 [id number] Micky Tracy RN [facility] 2023-05-12 20:59:01 5509-71-05G40:59:01 Patient assisted OOB to chair at bedside. Patient has increased pain to left leg with straightening and standing-unable to weight bear on it Patient was unable to tolerate sitting up in chair past 5 minutes-pain was not tolerable and she had to get back on stretcher. Laying on right side, has left leg bent at knee [address]887-5Ubwxgrhvx[address] BcyrBW7858-02-03N41:02:46[facility] NoteTXT1.2.840.905705.1.13.104.2.7. 2.588440|[id number] for patient [id number] 8VXKFGTUYOOILBTFRVQXAXO3556-77-45E1 1:02:461.2.840.475296.1.72.3.15|1.2 .840.740533.1.13.104.2.7.2.727879_1 [id number] [facility] 2023-05-12 19:52:07 1937-98-15Q74:52:07 Patient states low back pain x 1 week. C/o numbness and tingling down left leg. Also states cramping pain to left buttock. Left leg is pink and warm with 2+ palpable [place] [address]-[address] NzueSV4137-89-28Z56:54:19[facility] NoteTXT1.2.840.689229.1.13.104.2.7. 2.173750|[id number] for patient [id number] 0IMJOOCAYCOYFEGXYDLVFDY1186-57-00Z8 9:54:191.2.840.098453.1.72.3.15|1.2 .840.469211.1.13.104.2.7.2.727879_1 [id number] [facility] 2023-05-12 19:02:39 0400-71-58E46:02:39 Nurse Report Report given to JOI Galindo. Chief complaint, assessment findings, [place] [address]-3Zzyjqhixw department McrwHC5052-34-62F13:03:01[facility] department NoteTXT1.2.840.911303.1.13.104.2.7. 2.982328|[id number] for patient care[address] Fc[id number] 9VLMIUMEEBZMOKDXFBBMPQH6377-14-16J6 9:03:011.2.840.503693.1.72.3.15|1.2 .840.834636.1.13.104.2.7.2.727879_1 [id number] [facility] 2023-05-12 18:23:05 8253-49-03O26:23:05 CC: patient presents to the ER with [...] amb without assistance. Appears in no distress. 376[address]-7Khyigxazs department Triage obtrJU5806-04-60A77:02:29[facility] Triage noteTXT1.2.840.823764.1.13.104.2.7. 2.078140|[id number] for patient [id number] M Rivera RNUT[address] [id number] 9:02:[id number]|1.2 .[id number] Marcelle Dickens RN [facility] 2023-05-12 18:15:00 [id number]:15:00 [facility] Emergency Department NotePatient Name: Jeannette Shah of : 1970 52 year old femaleTreatment Room: NC4/UF8Tkjfoqh Record Number: [id number] Care Physician: PATIENT DOES NOT HAVE A PCPPatient Escorted by: Self [9]Mode of Arrival: Personal means [1]EMS Treatment Prior to ED Arrival:COUNTER SERVER treatment: None Travel and Exposure Screening:SymptomsDoes patient [...] includes chronic back painHistory provided by: PatientLanguage see supervisor used: No Back PainLocation: Lumbar spineQuality: ShootingRadiates to: L posterior upper leg and L shoulderPast Medical History/Immunizations:Past Medical History: Diagnosis Date Alcohol abuse Chronic lower back pain HTN (hypertension) Non-compliance with treatment Smoking addiction Quit 2020 Tetanus received in last 5 years: Unknown [...] L2/3 and L4/5 as detailed above RL 4716 Lab Results:Lab Results URINALYSIS - Abnormal Result [...] 0.01 - 0.07 10*3/uL COMP. METABOLIC PANEL (85387) - Abnormal NA 139 135 - 145 [...] CULTURE CBC WITH DIFF COMP. METABOLIC PANEL (94697) Orders Placed This Encounter Medications ketorolac (TORADOL) injection 30 mg dexamethasone sod phos PF injection 10 mg methocarbamoL (ROBAXIN) tablet 1,500 mg cefTRIAXone (ROCEPHIN) 1,000 mg in NaCl 0.9% (NS) 100 mL MINI-BAG First Provider Eval:ED Events Date/Time Event User Comments 05/12/231821 Medical Screening Begins YASMANI KING -- 05/12/231821 First Provider Evaluation YASMANI KING -- ED COURSEED Course as of 05/12/232123May [...] prescribed [FI] ED Course User Index[FI] Yasmani King, [employer] Diagnosis/Impression as of 05/12/232123 Low back pain [...] syndrome,Neurosurgery consulted and they recommend transfer to [place] for further work up.The vital signs have [...] on file Follow-up:Electronically signed by: Yasmani King, [facility]05/12/232115 ssociated attestation - Kentrell Orona MD - 05/13/2023 7:18 AM CDT " I was personally available for consultation in the Emergency Department during this Patient evaluation/encounter by JUAN R Christine " [id number] Emergency department [id number], Brent [id number]:18:20P [facility] Emergency department [id number] for patient care[address] [id number] 7:18:201.2.840.511520.1.72.3.15|1.2 .[id number] [facility]
--- NOTE | 2024-04-02 09:44 | RAD REPORT ---
EXAM DESCRIPTION: CT - Spine Lumbar Wo Con - 04/02/2024 8:48 am CLINICAL HISTORY: PAIN COMPARISON: No comparisons TECHNIQUE: Axial noncontrast CT imaging of the lumbar spine was performed with coronal and sagittal re-formatted images. All CT scans are performed using dose optimization technique as appropriate and may include automated exposure control or mA/KV adjustment according to patient size. FINDINGS: No acute lumbar spine fracture seen. No aggressive marrow pattern or malalignment. Endpla te remodeling along L5 superior endplate with Schmorl's node formations. Adjacent sclerosis suggestin g degenerative marrow changes. Paraspinal tissues are normal in thickness. No paraspinal abscess or hematoma seen. Intervertebral disc disease assessment is inherently limited by CT. Within these limitations, no high -grade canal stenosis suspected. Small disc bulges at L3-4 through L5-S1 levels, without significant central canal. Suspected mild right neural foraminal narrowing at L4-5. IMPRESSION: No acute findings. Mild degenerative changes most notably at L4-5 with suggestion of mild right neural foraminal narrowi ng. Please consider MRI follow-up for assessment of disc disease if clinically indicated.
--- NOTE | 2024-04-02 10:21 | ER ---
Nurse's Notes [facility] Name: Jeannette Way Age: 53 yrs Sex: Female : 1970 Arrival Date: 04/02/2024 Time: 07:32 Bed 15 Private MD: Diagnosis: Low back pain-chronic Presentation: 04/02 07:45 Chief complaint: Patient states: she has continued pain all over her body. Coronavirus ap3 screen: At this time, the client does not indicate any symptoms associated with coronavirus-19. Ebola Screen: No symptoms or risks identified at this time. Initial Sepsis Screen: Does the patient meet any 2 criteria? No. Patient's initial sepsis screen is negative. Does the patient have a suspected source of infection? No. Patient's initial sepsis screen is negative. Onset of symptoms is unknown. 07:45 Method Of Arrival: Ambulatory ap3 07:49 Risk Assessment: Do you want to hurt yourself or someone else? Patient reports ap3 desire/thoughts of hurting themselves or someone else. Provider notified. 07:49 Acuity: EDITA 2 ap3 Triage Assessment: 07:47 General: Appears in no apparent distress. Behavior is calm, cooperative. Pain: ap3 Complains of pain in generalized body pain. Neuro: Level of Consciousness is awake, alert, obeys commands, Oriented to person, place, time, situation, Appropriate for age Gait is steady, Speech is normal. Cardiovascular: Patient's skin is warm and dry. Respiratory: Airway is patent Respiratory effort is even, unlabored, Respiratory pattern is regular, symmetrical. Historical: - Allergies: 07:46 No Known Allergies; ap3 - PMHx: 07:46 diabetes mellitus; Hypertensive disorder; ap3 - PSHx: 07:46 back surgery; ap3 - Immunization history:: Adult Immunizations unknown. - Infectious Disease History:: Denies. - Social history:: Smoking status: unknown. Screenin:47 Abuse screen: Denies threats or abuse. Nutritional screening: No deficits noted. ap3 Tuberculosis screening: No symptoms or risk factors identified. 11:16 [facility] ED Fall Risk Assessment (Adult) History of falling in the last 3 months, bp including since admission No falls in past 3 months (0 pts). Assessment: 07:45 General: Appears in no apparent distress. Neuro: Level of Consciousness is awake, bp alert, obeys commands, Oriented to Appropriate for age. Cardiovascular: No deficits noted. Respiratory: No deficits noted. GI: No signs and/or symptoms were reported involving the gastrointestinal system. : No signs and/or symptoms were reported regarding the genitourinary system. EENT: No deficits noted. 09:15 Reassessment: SOCIAL WORK AT B/S. bp 11:16 Reassessment: PT DC HOME VIA UBER. DENIES SI/HI. GIVEN COMMUNITY RESOURCES. bp Vital Signs: 07:45 BP 176 / 88; Pulse 75; Resp 17; Temp 98.6; Pulse Ox 96% on R/A; Weight 81.65 kg; Height ap3 5 ft. 6 in. ; Pain 10/10; 07:45 Body Mass Index 29.05 (81.65 kg, 167.64 cm) ap3 07:45 Pain Scale: Adult ap3 ED Course: 07:35 Patient arrived in ED. im 07:35 Jomar Marquez MD is Attending Physician. scott 07:46 Triage completed. ap3 07:47 Arm band placed on right wrist. ap3 07:49 Patient is placed in psych hold. ap3 07:50 Huey Herring, RN is Primary Nurse. bp 08:48 CT Lumbar Spine Wo Con In Process Unspecified. EDMS 10:21 Neri Collins MD is Referral Physician. scott 10:21 Ezequiel Brady MD is Referral Physician. scott 11:16 Patient has correct armband on for positive identification. bp 11:16 No provider procedures requiring assistance completed. Patient did not have IV access bp during this emergency room visit. Administered Medications: 11:16 Not Given (Patient Refused): [id number] mg PO once bp Medication: 11:16 VIS not applicable for this client. bp Outcome: 10:21 Discharge ordered by . scott 11:16 Discharged to home ambulatory, bp 11:16 Condition: stable 11:16 Discharge instructions given to patient, Instructed on discharge instructions, follow up and referral plans. medication usage, Demonstrated understanding of instructions, follow-up care, medications, Prescriptions given X 1, 11:17 Patient left the ED. bp Signatures: Dispatcher [employer] EDMS Jomar Marquez MD MD cha Peltier, Brian, RN RN bp Yoselin Villegas RN RN ap3 Lzieth Chand im Corrections: (The following items were deleted from the chart) 07:49 07:45 Acuity: EDITA 3 ap3 ap3
--- NOTE | 2024-04-02 10:21 | EDPHYS ---
Physician Documentation [facility] Name: Jeannette Way Age: 53 yrs Sex: Female : 1970 Arrival Date: 04/02/2024 Time: 07:32 Bed 15 Private MD: ED Physician Jomar Marquez HPI: 04/02 08:37 This 53 yrs old Female presents to ER via Ambulatory with complaints of scott Altered Mental Status. Historical: - Allergies: 07:46 No Known Allergies; ap3 - PMHx: 07:46 diabetes mellitus; Hypertensive disorder; ap3 - PSHx: 07:46 back surgery; ap3 - Immunization history:: Adult Immunizations unknown. - Infectious Disease History:: Denies. - Social history:: Smoking status: unknown. ROS: 08:38 Constitutional: Negative for fever, chills, and weight loss, Eyes: Negative for injury, scott pain, redness, and discharge, ENT: Negative for injury, pain, and discharge, Neck: Negative for injury, pain, and swelling, Cardiovascular: Negative for chest pain, palpitations, and edema, Respiratory: Negative for shortness of breath, cough, wheezing, and pleuritic chest pain, Abdomen/GI: Negative for abdominal pain, nausea, vomiting, diarrhea, and constipation, : Negative for injury, bleeding, discharge, and swelling, MS/Extremity: Negative for injury and deformity, Skin: Negative for injury, rash, and discoloration, Neuro: Negative for headache, weakness, numbness, tingling, and seizure, Psych: Negative for depression, anxiety, suicide ideation, homicidal ideation, and hallucinations, Allergy/Immunology: Negative for hives, rash, and allergies, Endocrine: Negative for neck swelling, polydipsia, polyuria, polyphagia, and marked weight changes, Hematologic/Lymphatic: Negative for swollen nodes, abnormal bleeding, and unusual bruising, 08:38 Back: Positive for pain at rest, pain with movement, of the lumbar area, Exam: 08:38 Constitutional: This is a well developed, well nourished patient who is awake, alert, scott and in no acute distress. Head/Face: Normocephalic, atraumatic. Eyes: Pupils equal round and reactive to light, extra-ocular motions intact. Lids and lashes normal. Conjunctiva and sclera are non-icteric and not injected. Cornea within normal limits. Periorbital areas with no swelling, redness, or edema. ENT: Nares patent. No nasal discharge, no septal abnormalities noted. Tympanic membranes are normal and external auditory canals are clear. Oropharynx with no redness, swelling, or masses, exudates, or evidence of obstruction, uvula midline. Mucous membranes moist. Neck: Trachea midline, no thyromegaly or masses palpated, and no cervical lymphadenopathy. Supple, full range of motion without nuchal rigidity, or vertebral point tenderness. No Meningismus. Chest/axilla: Normal chest wall appearance and motion. Nontender with no deformity. No lesions are appreciated. Cardiovascular: Regular rate and rhythm with a normal S1 and S2. No gallops, murmurs, or rubs. Normal PMI, no JVD. No pulse deficits. Respiratory: Lungs have equal breath sounds bilaterally, clear to auscultation and percussion. No rales, rhonchi or wheezes noted. No increased work of breathing, no retractions or nasal flaring. Abdomen/GI: Soft, non-tender, with normal bowel sounds. No distension or tympany. No guarding or rebound. No evidence of tenderness throughout. Skin: Warm, dry with normal turgor. Normal color with no rashes, no lesions, and no evidence of cellulitis. MS/ Extremity: Pulses equal, no cyanosis. Neurovascular intact. Full, normal range of motion. Neuro: Awake and alert, GCS 15, oriented to person, place, time, and situation. Cranial nerves II-XII grossly intact. Motor strength 5/5 in all extremities. Sensory grossly intact. Cerebellar exam normal. Normal gait. Psych: Awake, alert, with orientation to person, place and time. Behavior, mood, and affect are within normal limits. 08:38 Back: pain, that is mild, that is moderate, ROM is painful, with flexion, with extension, normal spinal alignment noted, CVA tenderness, is absent, vertebral tenderness, is not appreciated, muscle spasm, is appreciated in the left low back, left mid back, right mid back and right low back, Vital Signs: 07:45 BP 176 / 88; Pulse 75; Resp 17; Temp 98.6; Pulse Ox 96% on R/A; Weight 81.65 kg; Height ap3 5 ft. 6 in. ; Pain 10/10; 07:45 Body Mass Index 29.05 (81.65 kg, 167.64 cm) ap3 07:45 Pain Scale: Adult ap3 MDM: 07:35 Patient medically screened. [facility] 08:41 Data reviewed: vital signs, nurses notes, old medical records, lab test result(s), CBC, scott electrolytes, hepatic panel. Consideration of Admission/Observation Escalation of care including admission/observation considered. I considered the following discharge prescriptions or medication management in the emergency department Medications were administered in the Emergency Department. See MAR. Independent interpretation of the following test(s) in the Emergency Department CT Scan: My interpretation is ct lumbar. Test considered but Not performed: X-ray: n plain films. Historians other than the Patient: pt a and o x 4 , no suicidal not homicidal. Care significantly affected by the following chronic conditions: Diabetes, Hypertension, Obesity, chronic lbp. Counseling: I had a detailed discussion with the patient and/or guardian regarding lab results, radiology results, the need for outpatient follow up, for definitive care, a family practitioner, a orthopedic surgeon, a psychiatrist. 04/02 08:37 Order name: Urinalysis w/ reflexes [facility] 04/02 08:37 Order name: CT Lumbar Spine Wo Con; Complete Time: 09:47 [facility] 04/02 09:00 Order name: Misc. Order: please give director of social work contact info , for disability; scott Complete Time: 11:16 Administered Medications: 11:16 Not Given (Patient Refused): [id number] mg PO once bp Disposition Summary: 04/02/24 10:21 Discharge Ordered Notes: Location: Home scott Problem: new scott Symptoms: have improved sctot Condition: Stable scott Diagnosis - Low back pain - chronic scott Followup: scott - With: Private Physician - When: 2 - 3 days - Reason: Recheck today's complaints, Continuance of care, Re-evaluation by your physician Followup: scott - With: Neri Collins MD - When: 2 - 3 days - Reason: Recheck today's complaints, Re-evaluation by your physician Followup: scott - With: Ezequiel Brady MD - When: 2 - 3 days - Reason: Recheck today's complaints, Re-evaluation by your physician Discharge Instructions: - Discharge Summary Sheet scott - Acute Back Pain, Adult scott - Chronic Back Pain scott - Musculoskeletal Pain scott - Back Injury Prevention, Luln-yw-Vkzo scott - Chronic Back Pain, Kngy-ta-Xigv [facility] Forms: - Medication Reconciliation Form scott - Antibiotic Education scott - Prescription Opioid Use scott - Patient Portal Instructions scott - Leadership Thank You Letter scott Prescriptions: - Motrin IB 200 mg Oral tablet - take 2 tablet ORAL route every 6 hours As needed as needed with food; 30 scott tablet; Refills: 0, Product Selection Permitted Signatures: Dispatcher [employer] EDJomar Ballesteros MD MD cha Peltier, Brian, RN RN Yoselin James RN RN ap3
[2024-04-02 10:44] LABS: Specific Gravity 1.007 (1.005-1.030); Sqamous Epithelial <5 /HPF (None Seen); Urine Bacteria <20 /HPF (<20); Urine Bilirubin NEGATIVE (Negative); Urine Blood Negative (Negative); Urine Clarity Turbid (Clear); Urine Color Colorless (Yellow); Urine Culture Reflex Order NOT NEEDED; Urine Glucose NEGATIVE (Negative); Urine Ketones NEGATIVE (Negative); Urine Microscopic Reflex YN ORDER UMIC; Urine Nitrite NEGATIVE (Negative); Urine Protein NEGATIVE (Negative); Urine RBC <5 /HPF (None Seen); Urine Urobilinogen Normal (Normal); Urine WBC <5 /HPF (<5); Urine pH 7.5 (5.0-7.0)
[2024-04-02 11:35] VITALS: BP 176/88; TEMP 98.6; O2SAT 96
== END 2024-04-02 11:17 | disposition home or self-care (01) ==
LOC: ER 07:32
DX: M54.50 Low back pain, unspecified (principal); R41.82 Altered mental status, unspecified
CPT/HCPCS: 72131; 81001; 99284; J1630; Q0162

== ENCOUNTER 2024-04-03 06:47 | Emergency (ER) | payer SELFPAY ==
--- OUTSIDE RECORDS SUMMARY | 2024-04-03 06:53 | XMS REPORT | Continuity of Care Document ---
Author Name Unknown Address [address] [facility] [address] [place] [address] [facility] thconnect Address [address] [facility] 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 Name Role Phone Pcp, Patient Does Not Have A Primary Care Physic carly FLORA WARNER Attending Clinician Unavailable SHAYY FIGUEROA Attending Clinician Unavailable ANA URBINA Attending Clinician Unavailable BRUNA HANSEN Attending Clinician Unavailable [facility]90 Attending Clinician Unavailable Milind Starr MD Attending Clinician [phone] MILIND STARR Attending Clinician Unavailable Doctor Unassigned, [place] Attending Clinician U navailable Irma Khan Attending Clinician [phone] IRMA CASTILLO Attending Clinician UnavailSoco Cabello LVN Attending Clinician [phone] Manoj Jhaveri MD Attending Clinician [phone] Yasmani Barragan Attending Clinician [phone] MANOJ JHAVERI Admitting Clinician Unavailable Manoj Jhaveri MD Admitting Clinician [phone] Payers Payer Name Policy Type Policy Number Effective Date Expirati on Date Source [employer]: 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 Herniated disc repair. Seen by neurosurg lashonda Butterfield l Fracture of phalanx of left little finger Fracture of phalanx of left little finger Disease Active 06-17 00:00: 00 [facility] Fracture of phalanx of right thumb Fracture of phalanx of right thumb Disease Active 06-17 00:00: 00 [facility] Concussion with brief LOC Concussion with brief LOC Disease Active 06-16 00:00: 00 [facility] Syncope Syncope Disease Active 2016-10 2 00:00: 00 [facility] Essential hypertensi on Essential hypertensi on Disease Active 4- 00:00: 00 [facility] Chronic lower back pain Chronic lower back pain Disease Active [facility] Allergies, Adverse Reactions, Alerts Allergy Name Allergy Type Status Severity Reaction(s) Onset Date Inactive Date Treating Clinician Comments Source NO KNOWN ALLERGIE S Drug Class Active [facility] Social History Social Habit Start [...] External Education 2023-05-12 00:00:00 2023-05-12 00:00:00 13 [facility] Sex Assigned At 1970 00:00:00 1970 00:00:00 Marie Otto - External Smoking Status Start Date Stop Date Source Ex-smoker 2023-05-23 00:00:00 2023-05-23 00:00:00 Regan chicas Clarita - External Medications Ordered Medication Name Filled Medication Name Start Date Stop Date Current Medication? Ordering Clinician Indication Dosage Frequency Signature (SIG) Comments Components Source Sertraline HCl 50 MG oral Tablet 2022-10 00:00: 00 Yes [id number] 50mg Take 1 tablet (50 mg total) by mouth daily. Marie stanford Trulicity 1.5 MG/0.5ML subcutaneou s Solution Pen-injecto r 2022-10 00:00: 00 Yes [id number] 1.5mg Inject 1.5 mg into the skin once a week. Marie stanford Pregabalin (Lyrica) 75 MG oral Capsule 2022-10 00:00: 00 Yes [id number] Take one cap after breakfast & 2 caps at bedtime. No driving. No alcohol. No operating machinery. . Marie stanford Mirtazapine 15 MG oral Tablet 2022-10 00:00: 00 Yes [id number] 15mg QD Take 1 tablet (15 mg total) by mouth nightly as needed. Marie Jordana abdoulaye Pregabalin (Lyrica) 75 MG oral Capsule 2022-10 00:00: 00 Yes [id number] 75mg Take 1 capsule (75 mg total) by mouth 2 times daily No driving. No alcohol. No operating machinery. . Marie Jordana abdoulaye Mirtazapine 15 MG oral Tablet 07-18 00:00: 00 Yes [id number] 15mg QD TAKE 1 TABLET BY MOUTH NIGHTLY NEEDED FOR INSOMNIA Marie stanford Trulicity 0.75 MG/0.5ML subcutaneou s Solution Pen-injecto r 9-14 00:00: 00 Yes [id number] .75mg Inject 0.75 mg into the skin once a week. Marie stanford Pioglitazon e HCl (Actos) 30 MG oral Tablet 06-28 00:00: 00 Yes [id number] 30mg Take 1 tablet (30 mg total) by mouth daily. Marie stanford Methocarbam ol 500 MG oral Tablet 06-23 00:00: 00 Yes [id number] 1000mg Take 2 tablets (1,000 mg total) by mouth 4 times daily. Marie stanford Gabapentin 600 MG oral Tablet 06-23 00:00: 00 08-07 00:00 :00 No [id number] 600mg Take 1 tablet (600 mg total) by mouth 3 times daily. Marie stanford Pioglitazon e HCl (Actos) 15 MG oral Tablet 06-09 00:00: 00 06-28 00:00 :00 No [id number] 15mg Take 1 tablet (15 mg total) by mouth daily Marie stanford cephALEXin (KEFLEX) 500 mg capsule 05-30 00:00: 00 Yes [id number] 500mg Take 1 capsule by mouth 4 (four) times daily. [facility] Metformin HCl 500 MG oral Tablet 05-29 00:00: 00 Yes [id number] 1000mg Take 2 tablets (1,000 mg total) [...] 11:44: 05 05-24 00:00 :00 No 2.5mg Q.[id number] 3D Take 0.5 tablets (2.5 mg total) by mouth every 8 hours as needed Marie stanford Sertraline HCl 25 MG oral Tablet 05-24 00:00: 00 Yes [id number] 25mg Take 1 tablet (25 mg total) by mouth daily Marie stanford Valsartan 40 MG oral Tablet 05-24 00:00: 00 Yes [id number] 40mg Take 1 tablet (40 mg total) by mouth daily Marie stanford Omeprazole 20 MG oral Delayed Release Capsule 05-24 00:00: 00 Yes [id number] 20mg Take 1 capsule (20 mg total) by mouth daily Marie stanford Glucose Blood in vitro Strip 05-24 00:00: 00 Yes [id number] 1{each} 1 each by other route daily Check BS twice daily Marie stanford Ketorolac Tromethamin e 10 MG oral Tablet 05-24 00:00: 00 Yes [id number] 10mg QD Take 1 tablet (10 mg total) by mouth daily as needed for pain Marie stanford Metformin HCl 500 MG oral Tablet 05-24 00:00: 00 Yes [id number] 500mg Take 1 tablet (500 mg total) by mouth in the morning and 1 tablet (500 mg total) in the evening. Take with meals. Marie stanford Mirtazapine 15 MG oral Tablet 05-24 00:00: 00 Yes [id number] 15mg QD Take 1 tablet (15 mg total) by mouth nightly as needed (insomnia) Marie stanford Glucose Blood in vitro Strip 05-24 00:00: 00 Yes [id number] 1{each} 1 each by other route daily [...] 05-19 00:00: 00 06-19 04:59 :00 No [id number] 25mg Take 1 tablet by mouth in the morning for 30 days. [facility] omeprazole 20 mg capsule 05-19 00:00: 00 06-19 04:59 :00 No [id number] 20mg Take 1 capsule by mouth in the morning for 30 days. [facility] valsartan 40 mg tablet 05-19 00:00: 00 06-19 04:59 :00 No [id number] 40mg Take 1 tablet by mouth in the morning for 30 days. [facility] Methylpredn isolone (MEDROL) tablet 4 mg 05-18 22:19: 26 05-19 22:29 :00 No 4mg 4 mg, Oral, Q8H TAPER, 3 doses, First dose on Mon05/18/23 at 1730, Last dose on Mon05/19/23 at 0930, Routine [facility] insulin NPH and regular human 70-30 (70-30 U-100 INSULIN) 100 unit/mL (70-30) injection 20 Units 05-18 21:30: 00 Yes 20U 20 Units, Subcutaneo us, BIDAC, First dose (after last modificati on) on Mon05/18/23 at 1630, Until Discontinu ed, Routine [facility] metFORMIN 1,000 mg tablet 05-18 18:04: 28 Yes 1000mg Take 1 tablet by mouth in the morning and 1 tablet in the evening. Take with meals. [facility] lancets (SAFETY LANCETS) 21 gauge Misc 05-18 00:00: 00 Yes [id number] Use as directed [facility] insulin syringe-nee dle U-100 1/2 ml (INSULIN SYRINGE) 1/2 mL 28 gauge x 1/2" Syrg 05-18 00:00: 00 Yes [id number] Use as directed [facility] Blood-Gluco se Meter (FREESTYLE LITE METER) Kit 05-18 00:00: 00 Yes [id number] Use as directed [facility] blood sugar diagnostic (FREESTYLE LITE STRIPS) strip 05-18 00:00: 00 Yes [id number] Use as directed [facility] Insulin [place], Disposable, (BD ULTRAFINE III MINI PEN) 31 gauge x 3/16" Ndle 05-18 00:00: 00 09-01 04:59 :00 No [id number] Use as directed [facility] gabapentin 600 mg tablet 05-18 00:00: 00 06-18 04:59 :00 No [id number] 600mg Take 1 tablet by mouth in the morning and 1 tablet at noon and 1 tablet in the evening. Do all this for 30 days. [facility] methocarbam oL 1,000 mg Tab 05-18 00:00: 00 06-18 04:59 :00 No [id number] 1000mg Take 1,000 mg by mouth 4 (four) times daily for 30 days. [facility] docusate 100 mg capsule 05-18 00:00: 00 06-02 04:59 :00 No [id number] 100mg Take 1 capsule by mouth in the morning for 14 days. Indication s: opiate pain medication causing severe constipati on [facility] diazePAM 5 mg tablet 05-18 00:00: 00 05-26 04:59 :00 No [id number] 2.5mg Take 0.5 tablets by mouth 3 (three) times daily as needed for Agitation, Anxiety or Muscle Spasms for up to 7 days. [facility] zolpidem 10 mg tablet 05-18 00:00: 05-26 04:59 :00 No [id number] 10mg Take 1 tablet by mouth at bedtime as needed for Insomnia for up to 7 days. [facility] HYDROcodone -acetaminop hen 5-325 mg tablet 05-18 00:00: 00 05-26 04:59 :00 No [id number] 1{tbl} Take 1 tablet by mouth every 4 (four) hours as needed for Pain (scale 4-6) or Pain (scale 7-10) for up to 7 days. Indication s: acute pain [facility] ketorolac 10 mg tablet 05-18 00:00: 00 05-24 04:59 :00 No [id number] 10mg Take 1 tablet by mouth every 6 (six) hours as needed for Pain (scale 4-6) for up to 5 days. [facility] Methylpredn isolone 4 mg tablet 05-18 00:00: 00 05-20 04:59 :00 No [id number] 4mg Take 1 tablet by mouth every 8 (eight) hours for 3 doses. [facility] Insulin NPH-Regular Human Rec (NOVOLIN 70-30 FLEXPEN U-100) 100 unit/mL (70-30) injection 05-18 00:00: 00 05-18 00:00 :00 No [id number] 20U inject 20 Units under the skin 2 (two) times daily before breakfast and dinner for 90 days. [facility] insulin NPH and regular human 70-30 100 unit/mL (70-30) injection 05-18 00:00: 00 05-18 00:00 :00 No [id number] 20U inject 20 Units under the skin 2 (two) times daily before breakfast and dinner for 30 days. [facility] Insulin NPH-Regular Human Rec (NOVOLIN 70-30 FLEXPEN U-100) 100 unit/mL (70-30) injection 05-18 00:00: 00 05-18 00:00 :00 No [id number] 15U inject 15 Units under the skin 2 (two) times daily before breakfast and dinner. [facility] cephALEXin (KEFLEX) capsule 500 mg 05-17 21:00: 00 05-18 01:32 :00 No 500mg 500 mg, Oral, QID, 2 doses, First dose (after last modificati on) on Mon05/17/23 at 1600, Last dose on Mon05/17/23 at 2000, EUN
Re ason for Anti-Infec tive: Documented Infection< br>Documen thang Infection Site: Urine
D uration of Therapy: 7 days [facility] Methylpredn isolone (MEDROL) tablet 4 [...] Mon05/19/23 at 0930, Routine [Order 2 End] [facility] gabapentin (NEURONTIN) tablet 600 mg 05-17 19:00: 00 Yes 600mg 600 mg, Oral, TID, First dose (after last modificati on) on Mon05/17/23 at 1400, Until Discontinu ed, Routine [facility] methocarbam oL (ROBAXIN) tablet 1,000 mg 05-17 17:00: 00 Yes 1000mg 1,000 mg, Oral, QID, First dose (after last modificati on) on Mon05/17/23 at 1200, Until Discontinu ed, Routine [facility] Lidocaine (LIDOCARE) 4 % patch 1 Patch 05-17 16:30: 00 05-18 06:12 :00 No 1{patch } 1 Patch, Topical, Administer over 12 Hours, ONCE, 1 dose, On Mon05/17/23 at 1130, Routine [facility] omeprazole (PRILOSEC) capsule 20 mg 05-17 14:00: 00 Yes 20mg 20 mg, Oral, DAILY, First dose (after last modificati on) on Mon05/17/23 at 0900, Until Discontinu ed, Routine [facility] enoxaparin (LOVENOX) injection 40 mg 05-17 13:45: 00 Yes 40mg 40 mg, Subcutaneo us, Q24H, First dose on Mon05/17/23 at 0845, Until Discontinu ed, Routine [facility] cephALEXin (KEFLEX) capsule 500 mg 05-17 13:00: 00 05-17 19:52 :41 No 500mg 500 mg, Oral, QID, 16 doses, First dose on Mon05/17/23 at 0800, Last dose on Mon05/20/23 at 2000, EUN
Re ason for Anti-Infec tive: Documented Infection< br>Documen thang Infection Site: Urine
D uration of Therapy: 7 days [facility] insulin NPH and regular human 70-30 (70-30 U-100 INSULIN) 100 unit/mL (70-30) injection 15 Units 05-17 12:30: 00 05-18 13:28 :42 No 15U 15 Units, Subcutaneo us, BIDAC, First dose (after last modificati on) on Mon05/17/23 at 0730, Until Discontinu ed, Routine [facility] ketorolac (TORADOL) injection 30 mg 05-17 00:30: 00 05-18 18:59 :00 No 30mg 30 mg, Slow IV Push, Q8H, 6 doses, First dose on Mon05/16/23 at 1930, Last dose on Mon05/18/23 at 0600, Routine [facility] methocarbam oL (ROBAXIN) tablet 750 mg 05-16 21:00: 00 05-17 15:33 :18 No 750mg 750 mg, Oral, QID, First dose on Mon05/16/23 at 1600, Until Discontinu ed, Routine [facility] lactated ringers IV infusion 1,000 mL 05-16 18:30: 00 Yes 1000mL at 42 mL/hr, 1,000 mL, IV Infusion, CONTINUOUS , Starting on Mon05/16/23 at 1330, Until Discontinu ed, Routine, PACU [facility] oxyCODONE immediate release tablet 10 mg 05-16 17:51: 52 Yes 10mg 10 mg, Oral, Q4HPRN, Starting on Mon05/16/23 at 1251, Until Discontinu ed, Routine, Pain (scale 4-6)
Fa [facility] member approving Restricted medication : SNSNSURG [facility] methylPREDN ISolone acetate (DEPO-MEDRO L) injection 05-16 17:29: 00 Yes PRN, Starting on Mon05/16/23 at 1229, Until Discontinu ed, Routine, Intra-op [facility] BUPivacaine liposome (PF) (EXPAREL (PF)) 1.3 % (13.3 mg/mL) injection 05-16 17:29: 00 Yes PRN, Starting on Mon05/16/23 at 1229, Until Discontinu ed, Routine, Intra-op [facility] vancomycin (VANCOCIN) injection 05-16 17:22: 00 Yes PRN, Starting on Mon05/16/23 at 1222, Until Discontinu ed, EUN, Intra-op [facility] thrombin (recombinan t) (RECOTHROM) topical solution 05-16 17:21: 00 Yes PRN, Starting on Mon05/16/23 at 1221, Until Discontinu ed, Routine, Intra-op [facility] gabapentin (NEURONTIN) capsule 300 mg 05-16 01:00: 00 05-17 15:34 :42 No 300mg 300 mg, Oral, TID, First dose on Mon05/15/23 at 2000, Until Discontinu ed, Routine [facility] acetaminoph en (TYLENOL) tablet 1,000 mg 05-15 23:00: 00 Yes 1000mg 1,000 mg, Oral, Q6H, First dose (after last modificati on) on Mon05/15/23 at 1800, Until Discontinu ed, Routine [facility] enoxaparin (LOVENOX) injection 40 mg 05-15 21:00: 00 05-15 21:41 :00 No 40mg 40 mg, Subcutaneo us, ONCE, 1 dose, On Mon05/15/23 at 1600, Routine [facility] KCL 20 mEq/15 mL solution 40 mEq 05-15 14:15: 00 05-15 15:21 :00 No 40meq 40 mEq, Oral, ONCE, 1 dose, On Mon05/15/23 at 0915, Routine [facility] valsartan (DIOVAN) tablet 40 mg 05-15 14:00: 00 Yes 40mg 40 mg, Oral, DAILY, First dose (after last modificati on) on Mon05/15/23 at 0900, Until Discontinu ed, Routine [facility] Sliding Scale Insulin-Reg ular 05-14 21:30: 00 Yes Subcutaneo us, AC+HS, First dose (after last modificati on) on Mon05/14/23 at 1630, Until Discontinu ed, Routine [facility] insulin NPH and regular human 70-30 (70-30 U-100 INSULIN) 100 unit/mL (70-30) injection 10 Units 05-14 21:30: 00 05-17 01:00 :40 No 10U 10 Units, Subcutaneo us, BIDAC, First dose on Mon05/14/23 at 1630, Until Discontinu ed, Routine [facility] cefTRIAXone (ROCEPHIN) 1,000 mg in NaCl 0.9% [...] uration of Therapy: [address] [facility] sennosides (SENOKOT) tablet 8.6 mg 05-14 16:30: 00 Yes 8.6mg 8.6 mg, Oral, BID, First dose on Mon05/14/23 at 1130, Until Discontinu ed, Routine [facility] valsartan (DIOVAN) tablet 40 mg 05-14 01:00: 00 05-14 15:48 :36 No 40mg 40 mg, Oral, BID, First dose on 05/13/23 at 2000, Until Discontinu ed, Routine [facility] gadobenate dimeglumine (MULTIHANCE -20 mL) injection 15.88 mL 05-13 21:45: 00 05-13 21:45 :00 No [id number] .2mL/kg 15.88 mL (0.2 mL/kg ?79.4 kg), Intravenou s, ONCE, 1 dose, On 05/13/23 at 1645, Routine [facility] Sliding Scale Insulin-Reg ular 05-13 19:00: 00 05-14 17:32 :58 No Subcutaneo us, Q6HA, First dose on 05/13/23 at 1400, Until Discontinu ed, Routine [facility] enoxaparin (LOVENOX) injection 40 mg 05-13 17:15: 00 05-14 22:12 :36 No 40mg 40 mg, Subcutaneo us, Q24H, First dose on 05/13/23 at 1215, Until Discontinu ed, [facility] diazePAM (VALIUM) tablet 2.5 mg 05-13 15:24: 53 Yes 2.5mg 2.5 mg, Oral, TIDPRN, Starting on 05/13/23 at 1024, Until Discontinu ed, Routine, Agitation, Anxiety, Muscle Spasms [facility] glucagon (GLUCAGEN DIAGNOSTIC KIT) injection 1 mg 05-13 14:18: 59 Yes 1mg 1 mg, Intramuscu lar, PRN, Starting on 05/13/23 at 0918, Until Discontinu ed, EUN, Blood Glucose < or = 70 mg/dL and patient is NPO, unable to swallow or has mental changes. [facility] dextrose 50 % in water (D50W) injection 25 mL 05-13 14:18: 59 Yes 25mL 25 mL, Slow IV Push, PRN, Starting on 05/13/23 at 0918, Until Discontinu ed, EUN, Blood Glucose < or = 70 mg/dL and patient is NPO, unable to swallow or has mental status changes. [facility] SERTraline (ZOLOFT) tablet 25 mg 05-13 14:00: 00 Yes 25mg 25 mg, Oral, DAILY, First dose on 05/13/23 at 0900, Until Discontinu ed, Routine [facility] docusate (COLACE) capsule 100 mg 05-13 14:00: 00 Yes 100mg 100 mg, Oral, DAILY, First dose on 05/13/23 at 0900, Until Discontinu ed, Routine [facility] omeprazole (PRILOSEC) capsule 20 mg 05-13 14:00: 00 05-16 17:57 :12 No 20mg 20 mg, Oral, DAILY, First dose on 05/13/23 at 0900, Until Discontinu ed, Routine [facility] lisinopriL (PRINIVIL,Z ESTRIL) tablet 10 mg 05-13 12:45: 00 05-13 19:35 :37 No 10mg 10 mg, Oral, DAILY, First dose on 05/13/23 at 0745, Until Discontinu ed, Routine [facility] acetaminoph en (TYLENOL) tablet 650 mg 05-13 11:00: 00 05-15 20:10 :17 No 650mg 650 mg, Oral, Q6H, First dose on 05/13/23 at 0600, Until Discontinu ed, Routine [facility] alum-mag hydroxide-s imeth (MAALOX PLUS / MAG-AL PLUS) 200-200-20 mg/5 mL suspension 30 mL 05-13 07:30: 00 05-13 12:23 :00 No 30mL 30 mL, Oral, ONCE, 1 dose, On 05/13/23 at 0230, Routine [facility] zolpidem (AMBIEN) tablet 10 mg 05-13 06:14: 02 Yes 10mg 10 mg, Oral, QHSPRN, Starting on 05/13/23 at 0114, Until Discontinu ed, Routine, Insomnia [facility] hydralAZINE (APRESOLINE ) injection 10 mg 05-13 05:53: 04 Yes 10mg 10 mg, Slow IV Push, Q4HPRN, Starting on 05/13/23 at 0053, Until Discontinu ed, Routine, SBP<140 [facility] glucagon (GLUCAGEN DIAGNOSTIC KIT) injection 1 mg 05-13 05:23: 57 Yes 1mg 1 mg, Intramuscu lar, PRN, Starting on 05/13/23 at 0023, Until Discontinu ed, EUN, Blood Glucose < or = 70 mg/dL and patient is NPO, unable to swallow or has mental changes. [facility] dextrose 50 % in water (D50W) injection 25 mL 05-13 05:23: 57 Yes 25mL 25 mL, Slow IV Push, PRN, Starting on 05/13/23 at 0023, Until Discontinu ed, EUN, Blood Glucose < or = 70 mg/dL and patient is NPO, unable to swallow or has mental status changes. [facility] polyethylen e glycol 3350 powder 17 g 05-13 05:17: 34 Yes 17g 17 g, Oral, PRN - SEE INSTRUCTIO NS, Starting on 05/13/23 at 0017, Until Discontinu ed, Routine, Constipati on [facility] ondansetron (ZOFRAN (PF)) injection 4 mg 05-13 05:17: 34 Yes 4mg 4 mg, Slow IV Push, Q6HPRN, Starting on 05/13/23 at 0017, Until Discontinu ed, Routine, Nausea and Vomiting (N/V) [facility] morpHINE (2 mg/mL) injection 4 mg 05-13 05:17: 34 Yes 4mg 4 mg, Slow IV Push, Q3HPRN, Starting on 05/13/23 at 0017, Until Discontinu ed, Routine, Pain (scale 7-10) [facility] oxyCODONE immediate release tablet 5 mg 05-13 05:17: 33 05-16 17:57 :12 No 5mg 5 mg, Oral, Q4HPRN, Starting on 05/13/23 at 0017, Until Tu05/16/23 at 1257, Routine, Pain (scale 4-6)
Fa [facility] member approving Restricted medication : SNSNSURG [facility] HYDROcodone -acetaminop hen (NORCO 5) 5-325 mg tablet 1 tablet 05-13 03:15: 00 05-13 02:23 :00 No 1{tbl} 1 tablet, Oral, ONCE, 1 dose, On Mon05/12/23 at 2215, Routine [facility] cefTRIAXone (ROCEPHIN) 1,000 mg in NaCl 0.9% (NS) 100 mL MINI-BAG 05-13 02:00: 00 05-13 02:25 :00 No 1000mg 1,000 mg, IV Piggyback, ONCE, 1 dose, On Mon05/12/23 at 2100, Administer over 30 Minutes, 100 mL
Reas on for Anti-Infec tive: Documented Infection< br>Documen thang Infection Site: Urine
D uration of Therapy: 7 days [facility] ketorolac (TORADOL) injection 30 mg 05-13 01:30: 00 05-13 00:36 :00 No 30mg 30 mg, Slow IV Push, ONCE, 1 dose, On Mon05/12/23 at 2030, Routine [facility] methocarbam oL (ROBAXIN) tablet 1,500 mg 05-13 00:30: 00 05-13 00:36 :00 No 1500mg 1,500 mg, Oral, ONCE, 1 dose, On Mon05/12/23 at 1930, EUN [facility] dexamethaso ne sod phos PF injection 10 mg 05-13 00:30: 00 05-13 00:36 :00 No 10mg 10 mg, Slow IV Push, ONCE, 1 dose, On Mon05/12/23 at 1930, 1 mL [facility] metFORMIN 1,000 mg tablet 05-13 00:28: 58 Yes 1000mg Take 1 tablet by mouth in the morning and 1 tablet in the evening. Take with meals. [facility] HYDROcodone -acetaminop hen 5-325 mg tablet 06-17 00:00: 00 05-18 00:00 :00 No [id number] 1{tbl} Take 1 tablet by mouth every 6 (six) hours as needed for Pain (scale 7-10) (For breakthrou gh pain. Take with stool softener). [facility] ASPIRIN 81 mg chewable tablet 05-07 00:00: 00 Yes TAKE 1 TABLET BY MOUTH EVERY DAY [facility] LISINOPRIL 10 mg tablet 2016-10 0 00:00: 00 Yes [id number] TAKE 1 TABLET EVERY DAY [facility] Immunizations Ordered Immunization Name Filled [...] Completed Marie Otto - External Covid-19 Vaccine (Game[employer]), Mrna-lnp, Sean Protein, Pf, 30mcg/0.3ml,IM 2022-09-28 00:00:00 Completed Marie Martinezold - External Covid-19 Vaccine (sofatronic) 2021-02-08 00:00:00 Completed Marie Seybold - External [...] Completed Marie Alvesybold - External Covid-19 Vaccine (sofatronic) Unknown Completed Marie Alvesybold - External Covid-19 [...] External Body height 2023-05-30 17:57:00 167.6 cm [facility] Body weight 2023-05-30 17:57:00 86.183 kg [facility] BMI 2023-05-30 17:57:00 30.67 kg/m2 [facility] Systolic blood pressure 2023-05-24 16:28:00 122 [...] Systolic blood pressure 2023-05-18 16:46:00 167 mm[Hg] [facility] Diastolic blood pressure 2023-05-18 16:46:00 88 mm[Hg] [facility] Heart rate 2023-05-18 16:46:00 63 /min [facility] temperature 2023-05-18 16:46:00 36.33 [facility] Respiratory rate 2023-05-18 16:46:00 16 /min [facility] Oxygen saturation in Arterial blood by Pulse oximetry 2023-05-18 16:46:00 99 /min [facility] Body height 2023-05-13 04:59:00 167.6 cm [facility] Body weight 2023-05-13 04:59:00 79.379 kg [facility] BMI 2023-05-13 04:59:00 28.25 kg/m2 [facility] Respiratory rate 2023-05-16 18:21:00 16 /min [facility] Oxygen saturation in Arterial blood by Pulse oximetry 2023-05-16 18:21:00 96 /min [facility] Systolic blood pressure 2023-05-16 18:21:00 104 mm[Hg] [facility] Diastolic blood pressure 2023-05-16 18:21:00 47 mm[Hg] [facility] Body temperature 2023-05-16 18:04:00 36 Tyesha [facility] Heart rate 2023-05-16 12:49:00 62 /min [facility] Body height 2023-05-13 04:59:00 167.6 cm [facility] Body weight 2023-05-13 04:59:00 79.379 kg [facility] BMI 2023-05-13 04:59:00 28.25 kg/m2 [facility] Procedures Procedure Date / Time Performed Performing Clinician Source ASSIGNMENT OF BENEFITS 2023-05-30 17:39:08 Docto r Unassigned, Aguada [facility] POCT GLUCOSE (AUTOMATED) 2023-05-18 16:59:00 Manoj Jhaveri [facility] POCT GLUCOSE (AUTOMATED) 2023-05-18 12:49:00 Manoj Jhaveri [facility] EXTRA TUBE LT. GREEN 2023-05-18 10:30:00 Odell Starr [facility] CBC WITH DIFF 2023-05-18 10:26:00 Dada Guillen [facility] BASIC METABOLIC PANEL (NA, K, CL, CO2, GLUCOSE, BUN, CREATININE, CA) 2023-05-18 09:40:00 Dada Guillen [facility] POCT GLUCOSE (AUTOMATED) 2023-05-18 00:45:00 Manoj Jhaveri [facility] POCT GLUCOSE (AUTOMATED) 2023-05-17 21:52:00 Manoj Jhaveri [facility] POCT GLUCOSE (AUTOMATED) 2023-05-17 17:53:00 Manoj Jhaveri [facility] POCT GLUCOSE (AUTOMATED) 2023-05-17 17:53:00 Manoj Jhaveri [facility] POCT GLUCOSE (AUTOMATED) 2023-05-17 12:42:00 Manoj Jhaveri [facility] POCT GLUCOSE (AUTOMATED) 2023-05-17 12:42:00 Manoj Jhaveri [facility] CBC WITH DIFF 2023-05-17 08:28:00 Abdoul Jose Taj [facility] CBC WITH DIFF 2023-05-17 08:28:00 Jose Schreiber [facility] POCT GLUCOSE (AUTOMATED) 2023-05-17 00:51:00 Manoj Jhaveri [facility] POCT GLUCOSE (AUTOMATED) 2023-05-17 00:51:00 Manoj Jhaveri [facility] POCT GLUCOSE (AUTOMATED) 2023-05-16 22:05:00 Manoj Jhaveri [facility] POCT GLUCOSE (AUTOMATED) 2023-05-16 22:05:00 Manoj Jhaveri [facility] POCT GLUCOSE (AUTOMATED) 2023-05-16 19:02:00 Manoj Jhaveri [facility] POCT GLUCOSE (AUTOMATED) 2023-05-16 19:02:00 Manoj Jhaveri [facility] XR LUMBAR SPINE 1 VW 2023-05-16 16:31:00 Mayda Castellanos [facility] XR LUMBAR SPINE 1 VW 2023-05-16 16:31:00 Mayda Castellanos [facility] XR LUMBAR SPINE 1 VW 2023-05-16 16:11:46 Mayda Castellanos [facility] XR LUMBAR SPINE 1 VW 2023-05-16 16:11:46 Mayda Castellanos [facility] DISCECTOMY POSTERIOR LUMBAR 2023-05-16 15:10:00 Milind Starr [facility] DISCECTOMY POSTERIOR LUMBAR 2023-05-16 15:10:00 Milind Starr [facility] POCT GLUCOSE (AUTOMATED) 2023-05-16 12:51:00 Manoj Jhaveri [facility] POCT GLUCOSE (AUTOMATED) 2023-05-16 12:51:00 Manoj Jhaveri [facility] POCT TEST 2023-05-16 10:06:00 Dada Garcia [facility] POCT TEST 2023-05-16 10:06:00 Dada Garcia [facility] BASIC METABOLIC PANEL (NA, K, CL, CO2, GLUCOSE, BUN, CREATININE, CA) 2023-05-16 09:53:00 Dada Guillen [facility] CBC WITH DIFF 2023-05-16 09:53:00 Dada Guillen [facility] PROTHROMBIN TIME / INR 2023-05-16 09:53:00 Dada Hernandez [facility] ACTIVATED PARTIAL THRMPLAS CHAVEZ 2023-05-16 09:53:00 Dada Guillen [facility] BASIC METABOLIC PANEL (NA, K, CL, CO2, GLUCOSE, BUN, CREATININE, CA) 2023-05-16 09:53:00 Dada Guillen [facility] CBC WITH DIFF 2023-05-16 09:53:00 Dada Guillen [facility] PROTHROMBIN TIME / INR 2023-05-16 09:53:00 Dada Hernandez [facility] ACTIVATED PARTIAL THRMPLAS CHAVEZ 2023-05-16 09:53:00 Dada Guillen [facility] POCT GLUCOSE (AUTOMATED) 2023-05-16 00:30:00 Manoj Jhaveri [facility] POCT GLUCOSE (AUTOMATED) 2023-05-16 00:30:00 Manoj Jhaveri [facility] POCT GLUCOSE (AUTOMATED) 2023-05-15 21:57:00 Manoj Jhaveri [facility] POCT GLUCOSE (AUTOMATED) 2023-05-15 21:57:00 Manoj Jhaveri [facility] POCT GLUCOSE (AUTOMATED) 2023-05-15 16:29:00 Manoj Jhaveri [facility] POCT GLUCOSE (AUTOMATED) 2023-05-15 16:29:00 Manoj Jhaveri [facility] POCT GLUCOSE (AUTOMATED) 2023-05-15 12:43:00 Manoj Jhaveri [facility] POCT GLUCOSE (AUTOMATED) 2023-05-15 12:43:00 Manoj Jhaveri [facility] BASIC METABOLIC PANEL (NA, K, CL, CO2, GLUCOSE, BUN, CREATININE, CA) 2023-05-15 08:29:00 Jose Schreiber [facility] CBC WITH DIFF 2023-05-15 08:29:00 Jose Schreiber [facility] PROTHROMBIN TIME / INR 2023-05-15 08:29:[address] [facility] ACTIVATED PARTIAL THRMPLAS CHAVEZ 2023-05-15 08:29:[address] [facility] HB ABO GROUPING 2023-05-15 08:29:[address] [facility] BASIC METABOLIC PANEL (NA, K, CL, CO2, GLUCOSE, BUN, CREATININE, CA) 2023-05-15 08:29:[address] [facility] CBC WITH DIFF 2023-05-15 08:29:00 Jose Schreiber [facility] PROTHROMBIN TIME / INR 2023-05-15 08:29:[address] [facility] ACTIVATED PARTIAL THRMPLAS CHAVEZ 2023-05-15 08:29:[address] [facility] HB ABO GROUPING 2023-05-15 08:29:[address] [facility] POCT GLUCOSE (AUTOMATED) 2023-05-15 02:16:00 Manoj Jhaveri [facility] POCT GLUCOSE (AUTOMATED) 2023-05-15 02:16:00 Manoj Jhaveri [facility] POCT GLUCOSE (AUTOMATED) 2023-05-15 01:19:00 Manoj Jhaveri [facility] POCT GLUCOSE (AUTOMATED) 2023-05-15 01:19:00 Manoj Jhaveri [facility] POCT GLUCOSE (AUTOMATED) 2023-05-14 21:16:00 Manoj Jhaveri [facility] POCT GLUCOSE (AUTOMATED) 2023-05-14 21:16:00 Manoj Jhaveri [facility] POCT GLUCOSE (AUTOMATED) 2023-05-14 14:24:00 Manoj Jhaveri [facility] POCT GLUCOSE (AUTOMATED) 2023-05-14 14:24:00 Manoj Jhaveri [facility] PROTHROMBIN TIME / INR 2023-05-14 09:26:00 Jose Schreiber [facility] PROTHROMBIN TIME / INR 2023-05-14 09:26:00 Jose Schreiber [facility] POCT GLUCOSE (AUTOMATED) 2023-05-14 06:54:00 Manoj hJaveri [facility] POCT GLUCOSE (AUTOMATED) 2023-05-14 06:54:00 Manoj Jhaveri [facility] POCT GLUCOSE (AUTOMATED) 2023-05-14 02:26:00 Manoj Jhaveri [facility] POCT GLUCOSE (AUTOMATED) 2023-05-14 02:26:00 Manoj Jhaveri [facility] POCT GLUCOSE (AUTOMATED) 2023-05-13 23:06:00 Manoj Jhaveri [facility] POCT GLUCOSE (AUTOMATED) 2023-05-13 23:06:00 Manoj Jhaveri [facility] MR LUMBAR SPINE W WO CONTRAST 2023-05-13 21:40:31 [facility] 2023-05-13 21:40:31 Jose Schreiber [facility] POCT GLUCOSE (AUTOMATED) 2023-05-13 16:44:00 Manoj Jhaveri [facility] POCT GLUCOSE (AUTOMATED) 2023-05-13 16:44:00 Manoj Jhaveri [facility] POCT GLUCOSE (AUTOMATED) 2023-05-13 14:12:00 Manoj Jhaveri [facility] POCT GLUCOSE (AUTOMATED) 2023-05-13 14:12:00 Manoj Jhaveri [facility] BASIC METABOLIC PANEL (NA, K, CL, CO2, GLUCOSE, BUN, CREATININE, CA) 2023-05-13 10:06:00 Jose Schreiber [facility] CBC WITH DIFF 2023-05-13 10:06:00 [facility] (A1C) 2023-05-13 10:06:00 Mayda Vargas [facility] PROTHROMBIN TIME / INR 2023-05-13 10:06:00 Jose Schreiber [facility] BASIC METABOLIC PANEL (NA, K, CL, CO2, GLUCOSE, BUN, CREATININE, CA) 2023-05-13 10:06:00 Jose Schreiber [facility] CBC WITH DIFF 2023-05-13 10:06:00 Jose Schreiber U [facility] GLYCOSYLATED HEMOGLOBIN (A1C) 2023-05-13 10:06:00 Mayda Vargas [facility] PROTHROMBIN TIME / INR 2023-05-13 10:06:00 Jose Schreiber [facility] CT LUMBAR SPINE WO CONTRAST 2023-05-13 01:07:19 Yasmani King [facility] CT LUMBAR SPINE WO CONTRAST 2023-05-13 01:07:19 Yasmani King [facility] COMP. METABOLIC PANEL (34624) 2023-05-13 00:36:00 Yasmani King [facility] CBC WITH DIFF 2023-05-13 00:36:00 Yasmani King [facility] URINALYSIS 2023-05-13 00:36:00 Yasmani King U [facility] URINE CULTURE 2023-05-13 00:36:00 Yasmani King [facility] COMP. METABOLIC PANEL (38940) 2023-05-13 00:36:00 Yasmani King [facility] CBC WITH DIFF 2023-05-13 00:36:00 Justen Kingo Dom [facility] URINALYSIS 2023-05-13 00:36:00 Yasmani King U [facility] URINE CULTURE 2023-05-13 00:36:00 Justen Kingo Dom [facility] NOTICE OF PRIVACY PRACTICES 2023-05-12 23:18:43 Doctor Unassigned, Aguada [facility] NOTICE OF PRIVACY PRACTICES 2023-05-12 23:18:43 Doctor Unassigned, Aguada [facility] CONSENT/REFUSAL FOR DIAGNOSIS AND TREATMENT 2023-05-12 23:15:51 Doctor Unassigned, Aguada [facility] CONSENT/REFUSAL FOR DIAGNOSIS AND TREATMENT 2023-05-12 23:15:51 Doctor Unassigned, Aguada [facility] HOSPITAL ADMISSION 2023-05-12 05:01:00 Doctor Un assigned, Aguada [facility] ADMISSION 2023-05-12 05:01:00 Doctor Un assigned, Aguada [facility] Encounters Start Date/Time End Date/Time Encounter Type Admission Type Attending [facility] Care Department Encounter ID Source 2024-03-13 00:00:00 2024-03-13 00:00:00 Outpatient FLORA WARNER [id number] [facility] 2024-03-11 00:00:00 2024-03-11 00:00:00 Outpatient FLORA WARNER [id number] [facility] 2024-02-19 16:30:00 2024-02-19 16:30:00 Outpatient HOLLYSHAYY VAUGHAN MARIE RODRIGUEZ [id number] [facility] 2024-01-16 00:00:00 2024-01-16 00:00:00 Outpatient PREFLORA PFEIFFER [id number] [facility] 2024-01-03 16:30:00 2024-01-03 16:30:00 Outpatient ANA URBINA [id number] [facility] 2023-11-28 00:00:00 2023-11-28 00:00:00 Outpatient PREZAFLORA Posey [id number] [facility] 2023-10-27 00:00:00 2023-10-27 00:00:00 Outpatient FLORA WARNER [id number] [facility] 2023-10-26 15:15:00 2023-10-26 15:15:00 Outpatient FLORA WARNER [id number] [facility] 2023-10-20 14:40:00 2023-10-20 14:40:00 Outpatient BRUNA HANS[facility] [id number] [facility] 2023-10-18 15:20:00 2023-10-18 15:20:00 Outpatient MARIE MARIE [id number] [facility] 2023-10-18 15:15:00 2023-10-18 15:15:00 Outpatient MARIE MARIE [id number] [facility] 2023-10-18 15:10:00 2023-10-18 15:10:00 Outpatient MARIE MRAIE [id number] [facility] 2023-10-18 14:15:00 2023-10-18 14:15:00 Outpatient CIARA ANA MARIE RODRIGUEZ [id number] [facility] 2023-10-18 00:00:00 2023-10-18 00:00:00 Outpatient CIARA ANA MARIE RODRIGUEZ [id number] [facility] 2023-09-29 00:00:00 2023-09-29 00:00:00 Outpatient PREZASFLORA [id number] [facility] 2023-09-28 14:10:00 2023-09-28 14:10:00 Outpatient TRAMGaudencio RODRIGUEZ [id number] [facility] 2023-09-28 13:30:00 2023-09-28 13:30:00 Outpatient PREZAS, FLORA MARIE RODRIGUE[facility] [id number] [facility] 2023-09-06 00:00:00 2023-09-06 00:00:00 Outpatient ANA URBINA [id number] [facility] 2023-09-06 00:00:00 2023-09-06 00:00:00 Outpatient PREZAS FLORA RODRIGUEZ [id number] [facility] 2023-08-21 00:00:00 2023-08-21 00:00:00 Outpatient ANA URBINA [id number] [facility] 2023-08-10 14:30:00 2023-08-10 14:30:00 Outpatient PREZASFLORA [id number] [facility] 2023-08-07 15:15:00 2023-08-07 15:15:00 Outpatient ANA URBINA MARIE [id number] [facility] 2023-08-02 00:00:00 2023-08-02 00:00:00 Telephone Milind Starr [facility] 1.2.840.114 350.1.13.10 4.2.7.2.686 [id number] [facility] 2023-07-18 00:00:00 2023-07-18 00:00:00 Outpatient FLORA WARNER MARIE [id number] [facility] 2023-07-13 00:00:00 2023-07-13 00:00:00 Outpatient FLORA WARNER MARIE [id number] [facility] 2023-07-13 00:00:00 2023-07-13 00:00:00 Outpatient FLORA WARNER MARIE RODRIGUEZ [id number] [facility] 2023-07-12 11:45:00 2023-07-12 11:45:00 Outpatient R MILIND STARR [facility] [id number] [facility] 2023-07-12 11:30:00 2023-07-12 11:45:00 Office Visit Milind Starr [facility] 1.2.840.114 350.1.13.10 4.2.7.2.686 [id number] [facility] 2023-07-12 11:30:00 2023-07-12 11:30:00 Outpatient R MILIND STARR [facility] [id number] [facility] 2023-07-12 00:00:00 2023-07-12 00:00:00 Patient Secure Msg Doctor Unassigned, Aguada [facility] 1.2.840.114 350.1.13.10 4.2.7.2.686 [id number] [facility] 2023-06-28 14:00:00 2023-06-28 14:00:00 Outpatient PREZAS, FLORA RODRIGUEZ [id number] [facility] 2023-06-28 00:00:00 2023-06-28 00:00:00 Outpatient MARIE RODRIGUEZ [id number] [facility] 2023-06-27 00:00:00 2023-06-27 00:00:00 Outpatient PREZAS, FLORA RODRIGUEZ MARIE [id number] [facility] 2023-06-26 10:25:00 2023-06-26 10:25:00 Outpatient LAB90 MARIE RODRIGUEZ [id number] [facility] 2023-06-20 00:00:00 2023-06-20 00:00:00 Outpatient PREZAS, FLORA RODRIGUEZ MARIE [id number] [facility] 2023-06-11 00:00:00 2023-06-11 00:00:00 Telephone Milind Starr [facility] 1.2.840.114 350.1.13.10 4.2.7.2.686 [id number] [facility] 2023-06-09 00:00:00 2023-06-09 00:00:00 Outpatient PREZAS, FLORA RODRIGUEZ MARIE [id number] [facility] 2023-06-09 00:00:00 2023-06-09 00:00:00 Outpatient PREZASFLORA MARIE [id number] [facility] 2023-06-09 00:00:00 2023-06-09 00:00:00 Telephone Irma Castillo [facility] 1.2.840.114 350.1.13.10 4.2.7.2.686 [id number] [facility] 2023-06-05 00:00:00 2023-06-05 00:00:00 Outpatient PREZASFLORA MARIE [id number] [facility] 2023-05-30 13:30:00 2023-05-30 13:30:00 Office Visit Irma Castillo [facility] BUILD[facility] 1.2.840.114 350.1.13.10 4.2.7.2.686 [id number] [facility] 2023-05-30 13:30:00 2023-05-30 13:06:25 Outpatient IRMA SILVA [facility] [id number] [facility] 2023-05-30 00:00:00 2023-05-30 00:00:00 Orders Only Doctor Unassigned, Aguada [facility] 1..840.114 350.1.13.10 4.2.7.2.686 [id number] [facility] 2023-05-29 00:00:00 2023-05-29 00:00:00 Outpatient FLORA WARNER [id number] [facility] 2023-05-29 00:00:00 2023-05-29 00:00:00 Outpatient FLORA WARNER [id number] [facility] 2023-05-26 00:00:00 2023-05-26 00:00:00 Telephone Milind Starr [facility] MEDICAL [facility] BUILD[facility] 1.2.840.114 350.1.13.10 4.2.7.2.686 [id number] [facility] 2023-05-25 00:00:00 2023-05-25 00:00:00 Outpatient FLORA WARNER [id number] [facility] 2023-05-24 12:15:00 2023-05-24 12:15:00 Outpatient LAB90 MARIE RODRIGUEZ [id number] [facility] 2023-05-24 11:30:00 2023-05-24 11:30:00 Outpatient FLORA WARNER [id number] [facility] 2023-05-19 00:00:00 2023-05-19 00:00:00 Transition of Care Soco Moore 1.2.840.114 350.1.13.10 4.2.7.2.686 [id number] [facility] 2023-05-12 18:25:00 2023-05-18 17:00:00 Inpatient X MILIND STARR [facility] [id number] [facility] 2023-05-12 18:25:00 2023-05-18 17:00:00 Hospital Encounter Manoj Jhaveri, Yasmani Fernandes [facility] 1.2.840.114 350.1.13.10 4.2.7.2.686 [id number] [facility] 2023-05-16 10:08:00 2023-05-16 13:57:00 Surgery [facility] 1.2.840.114 350.1.13.10 4.2.7.2.686 [id number] [facility] 2023-05-12 00:00:00 2023-05-12 00:00:00 Outpatient FLORA WARNER [id number] [facility] Results Test Description Test Time Test Comments Results Result Co [facility] 12:59:42* Test Item Value Reference Range Interpretation Comme [facility] POCT GLU (test code = 9449377568) 181 mg/dL 70-110 H Lab Interpretation (test cod e = 84776-0) Abnormal [facility] WITH [id number] 10:45:46* Test Item Value Reference Range Interpretation [...] 33.8 g/dL 31.6-35.1 RDW-SD (test code = 30650-0) 44.7 fL 39.0-49.9 RDW-CV (test code = 788-0) 12.4 % 12.0-15.5 PLT (test code = 777-3) 264 See_Comment [Automated messa ge] The system which generated this result transmitted reference range: 166 - 358 10*3/?L. The reference range was not used to interpret this result as normal/abnormal. MPV (test code = 04329-4) 11.0 fL 9.5-12.9 NRBC/100 WBC (test code = 8279989493) 0.0 See_Comment [Automated Zin.gl ssage] The system which generated this result transmitted reference range: 0.0 - 10.0 /100 WBCs. The reference range was not used to interpret this result as normal/abnormal. NRBC x10^3 (test code = 5295514828) See_Comment [Automated messa ge] The system which generated this result transmitted reference range: 10*3/?L. The reference range was not used to interpret this result as normal/abnormal. GRAN MAT (NEUT) % (test code = 770-8) 64.9 % IMM GRAN % (test code = 0067010334) 1.30 % LYMPH % (test code = 736-9) 23.7 % MONO % (test code = 5905-5) 9.4 % EOS % (test code = 713-8) 0.4 % BASO % (test code = 706-2) 0.3 % GRAN MAT x10^3(ANC) (test code = 7359675956) 6.27 10*3/uL 1.88-7.09 IMM GRAN x10^3 (test code = 7648730709) 0.13 10*3/uL 0.00-0.06 H LYMPH x10^3 (test code = 731-0) 2.29 10*3/uL 1.32-3.29 MONO x10^3 (test code = 742-7) 0.91 10*3/uL 0.33-0.92 EOS x10^3 (test code = 711-2) 0.04 10*3/uL 0.03-0.39 BASO x10^3 (test code = 704-7) 0.03 10*3/uL 0.01-0.07 Lab Interpretation (test code = 69227-8) Abnormal [facility] METABOLIC PANEL (NA, K, CL, CO2, GLUCOSE, BUN, CREATININE, CA)2023-05-18 10:31:00* Test Item Value Reference Range Interpretation Comme nts NA (test code = 0445851138) 136 mmol/L 135-145 K (test code = 7373050605) 4.4 mmol/L 3.5-5.0 Slight hemolysis CL (test code = 9545047321) 103 mmol/L 98-108 CO2 TOTAL (test code = 2890631822) 23 mmol/L 23-31 AGAP (test code = 7692872940) 10 2-16 BUN (test code = 6018646667) 19 mg/dL 7-23 Slight hemolysis GLUCOSE (test code = 3526515011) 208 mg/dL 70-110 H CREATININE (test code = 0354427938) 0.67 mg/dL 0.50-1.04 CALCIUM (test code = 0927403242) 9.2 mg/dL 8.6-10.6 eGFR (test code = 9064779999) 92.4 mL/min/1.73m2 AKIL (test code = AKIL) [...] imaging tests). Lab Interpretation (test code = 90137-3) Abnormal [facility] GLUCOSE (AUTOMATED)2023-05-18 00:46:51* Test Item Value Reference Range Interpretation Comme nts POCT GLU (test code = 9746225492) 246 mg/dL 70-110 H Lab Interpretation (test cod e = 03271-6) Abnormal [facility] GLUCOSE (AUTOMATED)2023-05-17 21:55:38* Test Item Value Reference Range Interpretation Comme nts POCT GLU (test code = 6457163961) 317 mg/dL 70-110 H Lab Interpretation (test cod e = 14001-9) Abnormal [facility] GLUCOSE (AUTOMATED)2023-05-17 17:55:06* Test Item Value Reference Range Interpretation Comme nts POCT GLU (test code = 3446704808) 292 mg/dL 70-110 H Lab Interpretation (test cod e = 34828-5) Abnormal [facility] GLUCOSE (AUTOMATED)2023-05-17 17:55:06* Test Item Value Reference Range Interpretation Comme nts POCT GLU (test code = 6815890442) 292 mg/dL 70-110 H Lab Interpretation (test cod e = 19030-3) Abnormal [facility] GLUCOSE (AUTOMATED)2023-05-17 12:44:42* Test Item Value Reference Range Interpretation Comme nts POCT GLU (test code = 4225789303) 203 mg/dL 70-110 H Lab Interpretation (test cod e = 67111-2) Abnormal [facility] GLUCOSE (AUTOMATED)2023-05-17 12:44:42* Test Item Value Reference Range Interpretation Comme nts POCT GLU (test code = 2121985722) 203 mg/dL 70-110 H Lab Interpretation (test cod e = 42753-9) Abnormal [facility] GLUCOSE (AUTOMATED)2023-05-17 00:52:01* Test Item Value Reference Range Interpretation Comme nts POCT GLU (test code = 3161858292) 350 mg/dL 70-110 H Lab Interpretation (test cod e = 12377-7) Abnormal [facility] GLUCOSE (AUTOMATED)2023-05-17 00:52:01* Test Item Value Reference Range Interpretation Comme nts POCT GLU (test code = 1575927974) 350 mg/dL 70-110 H Lab Interpretation (test cod e = 80237-5) Abnormal [facility] GLUCOSE (AUTOMATED)2023-05-16 22:07:26* Test Item Value Reference Range Interpretation Comme nts POCT GLU (test code = 7894462187) 415 mg/dL 70-110 H Lab Interpretation (test cod e = 26460-7) Abnormal [facility] GLUCOSE (AUTOMATED)2023-05-16 22:07:26* Test Item Value Reference Range Interpretation Comme nts POCT GLU (test code = 9854706812) 415 mg/dL 70-110 H Lab Interpretation (test cod e = 38632-0) [facility] 19:06:06* Test Item Value Reference Range Interpretation Comme nts POCT GLU (test code = 0904360572) 254 mg/dL 70-110 H Lab Interpretation (test cod e = 90860-3) Abnormal [facility] GLUCOSE (AUTOMATED)2023-05-16 19:06:06* Test Item Value Reference Range Interpretation Comme nts POCT GLU (test code = 8110158065) 254 mg/dL 70-110 H Lab Interpretation (test cod e = 04308-2) Abnormal [facility] GLUCOSE (AUTOMATED)2023-05-16 12:52:57* Test Item Value Reference Range Interpretation Comme nts POCT GLU (test code = 7568379579) 195 mg/dL 70-110 H Lab Interpretation (test cod e = 64788-4) Abnormal [facility] GLUCOSE (AUTOMATED)2023-05-16 12:52:57* Test Item Value Reference Range Interpretation Comme nts POCT GLU (test code = [id number]) 195 mg/dL 70-110 H Lab Interpretation (test cod e = 87589-3) Abnormal [facility] [id number] 10:06:00* Test Item Value Reference Range Interpretation Comme nts POCT PREG (test code = 1605) Negative On board controls acceptable with C Line (test code = 3574) Yes POCT PREG LOT # (test code = 3575) POCT PREG TEST DATE ( test code = 3576) [facility] [id number] 10:06:00* Test Item Value Reference Range Interpretation Comme nts POCT PREG (test code = 1605) Negative On board controls acceptable with C Line (test code = 3574) Yes POCT PREG LOT # (test code = 3575) POCT PREG TEST DATE ( test code = 3576) [facility] GLUCOSE (AUTOMATED)2023-05-16 00:39:39* Test Item Value Reference Range Interpretation Comme nts POCT GLU (test code = 4647543897) 293 mg/dL 70-110 H Lab Interpretation (test cod e = 85900-1) Abnormal [facility] GLUCOSE (AUTOMATED)2023-05-16 00:39:39* Test Item Value Reference Range Interpretation Comme nts POCT GLU (test code = 5055299053) 293 mg/dL 70-110 H Lab Interpretation (test cod e = 99781-6) Abnormal [facility] GLUCOSE (AUTOMATED)2023-05-15 22:00:16* Test Item Value Reference Range Interpretation Comme nts POCT GLU (test code = 4946394605) 162 mg/dL 70-110 H Lab Interpretation (test cod e = 63082-9) Abnormal [facility] GLUCOSE (AUTOMATED)2023-05-15 22:00:16* Test Item Value Reference Range Interpretation Comme nts POCT GLU (test code = 4023472557) 162 mg/dL 70-110 H Lab Interpretation (test cod e = 82255-3) Abnormal [facility] GLUCOSE (AUTOMATED)2023-05-15 16:35:57* Test Item Value Reference Range Interpretation Comme nts POCT GLU (test code = 1815578818) 161 mg/dL 70-110 H Lab Interpretation (test cod e = 89853-8) Abnormal [facility] GLUCOSE (AUTOMATED)2023-05-15 16:35:57* Test Item Value Reference Range Interpretation Comme nts POCT GLU (test code = 9683556607) 161 mg/dL 70-110 H Lab Interpretation (test cod e = 68877-7) Abnormal [facility] GLUCOSE (AUTOMATED)2023-05-15 12:46:28* Test Item Value Reference Range Interpretation Comme nts POCT GLU (test code = 5351933902) 168 mg/dL 70-110 H Lab Interpretation (test cod e = 07532-1) Abnormal [facility] GLUCOSE (AUTOMATED)2023-05-15 12:46:28* Test Item Value Reference Range Interpretation Comme nts POCT GLU (test code = 6284818519) 168 mg/dL 70-110 H Lab Interpretation (test cod e = 89268-3) Abnormal [facility] METABOLIC PANEL (NA, K, CL, CO2, GLUCOSE, BUN, CREATININE, CA)2023-05-15 09:10:13* Test Item Value Reference Range Interpretation Comme nts NA (test code = 0269544864) 141 mmol/L 135-145 K (test code = 4743897274) 3.0 mmol/L 3.5-5.0 L CL (test code = 6419580000) 106 mmol/L 98-108 CO2 TOTAL (test code = 5179836027) 27 mmol/L 23-31 AGAP (test code = 8184020506) 8 2-16 BUN (test code = 8906612255) 10 mg/dL 7-23 GLUCOSE (test code = 2833889964) 146 mg/dL 70-110 H CREATININE (test code = 7867894324) 0.70 mg/dL 0.50-1.04 CALCIUM (test code = 1306184994) 8.7 mg/dL 8.6-10.6 eGFR (test code = 6449399202) 87.9 mL/min/1.73m2 AKIL (test code = AKIL) [...] imaging tests). Lab Interpretation (test code = 39369-3) [facility] (NA, K, CL, CO2, GLUCOSE, BUN, CREATININE, CA)2023-05-15 09:10:13* Test Item Value Reference Range Interpretation Comme nts NA (test code = 6177654129) 141 mmol/L 135-145 K (test code = 4442537307) 3.0 mmol/L 3.5-5.0 L CL (test code = 1544068089) 106 mmol/L 98-108 CO2 TOTAL (test code = 8742243067) 27 mmol/L 23-31 AGAP (test code = 6851055072) 8 2-16 BUN (test code = 2332189062) 10 mg/dL 7-23 GLUCOSE (test code = 9965732226) 146 mg/dL 70-110 H CREATININE (test code = 8172943977) 0.70 mg/dL 0.50-1.04 CALCIUM (test code = 5282851088) 8.7 mg/dL 8.6-10.6 eGFR (test code = 4858541408) 87.9 mL/min/1.73m2 AKIL (test code = AKIL) [...] imaging tests). Lab Interpretation (test code = 83475-4) [facility] EDL8905-44-03 08:57:35* Test Item Value Reference Range Interpretation Comme nts APTT Patient (test code = 3173-2) 34 See_Comment [Automated [employer]] The system which generated this result transmitted reference range: 26 - 36 Seconds. The reference range was not used to interpret this result as normal/abnormal. Lab Interpretation (test code = 28596-8) Normal [facility] / [id number] 08:57:35* Test Item Value Reference Range Interpretation [...] the indications. Lab Interpretation (test code = 68329-0) Normal [facility] CAF1619-37-72 08:57:35* Test Item Value Reference Range Interpretation Comme nts APTT Patient (test code = 3173-2) 34 See_Comment [Automated messa ge] The system which generated this result transmitted reference range: 26 - 36 Seconds. The reference range was not used to interpret this result as normal/abnormal. Lab Interpretation (test code = 60042-0) Normal [facility] / [id number] 08:57:35* Test Item Value Reference Range Interpretation [...] the indications. Lab Interpretation (test code = 76056-7) [facility] WITH CDLM4136-65-53 08:50:52* Test Item Value Reference Range Interpretation [...] 34.1 g/dL 31.6-35.1 RDW-SD (test code = 74036-6) 44.0 fL 39.0-49.9 RDW-CV (test code = 788-0) 12.5 % 12.0-15.5 PLT (test code = 777-3) 250 See_Comment [Automated messa ge] The system which generated this result transmitted reference range: 166 - 358 10*3/?L. The reference range was not used to interpret this result as normal/abnormal. MPV (test code = 88655-6) 10.8 fL 9.5-12.9 NRBC/100 WBC (test code = 7017211138) 0.0 See_Comment [Automated me ssage] The system which generated this result transmitted reference range: 0.0 - 10.0 /100 WBCs. The reference range was not used to interpret this result as normal/abnormal. NRBC x10^3 (test code = 1557832425) See_Comment [Automated messa ge] The system which generated this result transmitted reference range: 10*3/?L. The reference range was not used to interpret this result as normal/abnormal. GRAN MAT (NEUT) % (test code = 770-8) 53.1 % IMM GRAN % (test code = 6003477024) 1.00 % LYMPH % (test code = 736-9) 35.7 % MONO % (test code = 5905-5) 7.3 % EOS % (test code = 713-8) 2.3 % BASO % (test code = 706-2) 0.6 % GRAN MAT x10^3(ANC) (test code = 1096140351) 4.23 10*3/uL 1.88-7.09 IMM GRAN x10^3 (test code = 5507495810) 0.08 10*3/uL 0.00-0.06 H LYMPH x10^3 (test code = 731-0) 2.84 10*3/uL 1.32-3.29 MONO x10^3 (test code = 742-7) 0.58 10*3/uL 0.33-0.92 EOS x10^3 (test code = 711-2) 0.18 10*3/uL 0.03-0.39 BASO x10^3 (test code = 704-7) 0.05 10*3/uL 0.01-0.07 Lab Interpretation (test code = 89908-7) Abnormal [facility] WITH GMYS2909-42-92 08:50:52* Test Item Value Reference Range Interpretation [...] 34.1 g/dL 31.6-35.1 RDW-SD (test code = 66896-2) 44.0 fL 39.0-49.9 RDW-CV (test code = 788-0) 12.5 % 12.0-15.5 PLT (test code = 777-3) 250 See_Comment [Automated Novacta Biosystemsa ge] The system which generated this result transmitted reference range: 166 - 358 10*3/?L. The reference range was not used to interpret this result as normal/abnormal. MPV (test code = 84834-7) 10.8 fL 9.5-12.9 NRBC/100 WBC (test code = 9955666400) 0.0 See_Comment [Automated Zin.gl ssage] The system which generated this result transmitted reference range: 0.0 - 10.0 /100 WBCs. The reference range was not used to interpret this result as normal/abnormal. NRBC x10^3 (test code = 5647700246) See_Comment [Automated Novacta Biosystemsa ge] The system which generated this result transmitted reference range: 10*3/?L. The reference range was not used to interpret this result as normal/abnormal. GRAN MAT (NEUT) % (test code = 770-8) 53.1 % IMM GRAN % (test code = 5371078418) 1.00 % LYMPH % (test code = 736-9) 35.7 % MONO % (test code = 5905-5) 7.3 % EOS % (test code = 713-8) 2.3 % BASO % (test code = 706-2) 0.6 % GRAN MAT x10^3(ANC) (test code = 0683604558) 4.23 10*3/uL 1.88-7.09 IMM GRAN x10^3 (test code = 8182148835) 0.08 10*3/uL 0.00-0.06 H LYMPH x10^3 (test code = 731-0) 2.84 10*3/uL 1.32-3.29 MONO x10^3 (test code = 742-7) 0.58 10*3/uL 0.33-0.92 EOS x10^3 (test code = 711-2) 0.18 10*3/uL 0.03-0.39 BASO x10^3 (test code = 704-7) 0.05 10*3/uL 0.01-0.07 Lab Interpretation (test code = 12903-5) [facility] Lpufxur6491-89-06 08:44:00* Test Item Value Reference Range Interpretation Comme nts ABO & RH (test code = 20) O NEGATIVE IAT (test code = 1185) Negative [facility] Qtmpwrs0457-03-05 08:44:00* Test Item Value Reference Range Interpretation Comme nts ABO & RH (test code = 20) O NEGATIVE IAT (test code = 1185) Negative [facility] 02:26:26* Test Item Value Reference Range Interpretation Comme nts POCT GLU (test code = 5071870126) 298 mg/dL 70-110 H Lab Interpretation (test cod e = 43815-4) [facility] 02:26:26* Test Item Value Reference Range Interpretation Comme nts POCT GLU (test code = 6355873917) 298 mg/dL 70-110 H Lab Interpretation (test cod e = 06991-7) [facility]normal [facility] 01:19:27* Test Item Value Reference Range Interpretation Comme nts POCT GLU (test code = 9170976093) 298 mg/dL 70-110 H Lab Interpretation (test cod e = 15453-1) [facility]-15 01:19:27* Test Item Value Reference Range Interpretation Comme nts POCT GLU (test code = 5214338606) 298 mg/dL 70-110 H Lab Interpretation (test cod e = 82085-4) [facility]23-[facility]-14 21:17:33* Test Item Value Reference Range Interpretation Comme nts POCT GLU (test code = 8763812608) 300 mg/dL 70-110 H Lab Interpretation (test cod e = 25095-7) [facility]2023-[facility]-14 21:17:33* Test Item Value Reference Range Interpretation Comme nts POCT GLU (test code = 3238120841) 300 mg/dL 70-110 H Lab Interpretation (test cod e = 26849-1) [facility]14 14:25:24* Test Item Value Reference Range Interpretation Comme nts POCT GLU (test code = 3904517154) 156 mg/dL 70-110 H Lab Interpretation (test cod e = 90212-6) Abnormal [facility] GLUCOSE (AUTOMATED)2023-05-14 14:25:24* Test Item Value Reference Range Interpretation Comme nts POCT GLU (test code = 3786440169) 156 mg/dL 70-110 H Lab Interpretation (test cod e = 00341-0) [facility] / NVS2201-29-71 10:12:05* Test Item Value Reference Range Interpretation Comme nts PROTIME PATIENT (test code = 5964-2) 10.3 See_Comment [Automated Novacta Biosystemsa [employer]] The system which generated this result transmitted reference range: 10.1 - 12.6 Seconds. The reference range was not used to interpret this result as normal/abnormal. INR (test code = 6301-6) 0.9 Normal INR <1.1; Warfarin Therapeutic range 2.0 to 3.0 or 2.5 to 3.5, depending upon the indications. Lab Interpretation (test code = 20692-9) [facility] / ZBC9060-36-78 10:12:05* Test Item Value Reference Range Interpretation Comme nts PROTIME PATIENT (test code = 5964-2) 10.3 See_Comment [Automated Novacta [employer]sa [employer]] The system which generated this result transmitted reference range: 10.1 - 12.6 Seconds. The reference range was not used to interpret this result as normal/abnormal. INR (test code = 6301-6) 0.9 Normal INR <1.1; Warfarin Therapeutic range 2.0 to 3.0 or 2.5 to 3.5, depending upon the indications. Lab Interpretation (test code = 45649-4) Normal [facility] GLUCOSE (AUTOMATED)2023-05-14 06:55:10* Test Item Value Reference Range Interpretation Comme nts POCT GLU (test code = 9172250164) 267 mg/dL 70-110 H Lab Interpretation (test cod e = 12113-1) Abnormal [facility] GLUCOSE (AUTOMATED)2023-05-14 06:55:10* Test Item Value Reference Range Interpretation Comme nts POCT GLU (test code = 5318237730) 267 mg/dL 70-110 H Lab Interpretation (test cod e = 21151-6) Abnormal [facility] GLUCOSE (AUTOMATED)2023-05-14 02:27:17* Test Item Value Reference Range Interpretation Comme nts POCT GLU (test code = 7057934839) 370 mg/dL 70-110 H Lab Interpretation (test cod e = 95326-5) Abnormal [facility] GLUCOSE (AUTOMATED)2023-05-14 02:27:17* Test Item Value Reference Range Interpretation Comme nts POCT GLU (test code = 3432813107) 370 mg/dL 70-110 H Lab Interpretation (test cod e = 94194-4) Abnormal [facility] GLUCOSE (AUTOMATED)2023-05-13 23:06:58* Test Item Value Reference Range Interpretation Comme nts POCT GLU (test code = 0151498673) 294 mg/dL 70-110 H Lab Interpretation (test cod e = 07947-1) Abnormal [facility] GLUCOSE (AUTOMATED)2023-05-13 23:06:58* Test Item Value Reference Range Interpretation Comme nts POCT GLU (test code = 7928832180) 294 mg/dL 70-110 H Lab Interpretation (test cod e = 53999-3) Abnormal [facility] GLUCOSE (AUTOMATED)2023-05-13 16:45:54* Test Item Value Reference Range Interpretation Comme nts POCT GLU (test code = 5541608642) 266 mg/dL 70-110 H Lab Interpretation (test cod e = 89796-0) Abnormal [facility] GLUCOSE (AUTOMATED)2023-05-13 16:45:54* Test Item Value Reference Range Interpretation Comme nts POCT GLU (test code = 7986277031) 266 mg/dL 70-110 H Lab Interpretation (test cod e = 17297-0) Abnormal [facility] GLUCOSE (AUTOMATED)2023-05-13 14:14:24* Test Item Value Reference Range Interpretation Comme nts POCT GLU (test code = 8979839227) 303 mg/dL 70-110 H Lab Interpretation (test cod e = 37618-6) Abnormal [facility] GLUCOSE (AUTOMATED)2023-05-13 14:14:24* Test Item Value Reference Range Interpretation Comme nts POCT GLU (test code = 7691450524) 303 mg/dL 70-110 H Lab Interpretation (test cod e = 72812-0) Abnormal [facility] WITH IOWC2828-53-75 01:17:55* Test Item Value Reference Range Interpretation Comme nts WBC (test code = 6690-2) 8.97 See_Comment [Automated Novacta Biosystemsa ge] The system which generated this result transmitted reference range: 4.30 - 11.10 10*3/?L. The reference range was not used to interpret this result as normal/abnormal. RBC (test code = 789-8) 4.02 See_Comment [Automated Novacta Biosystemsa ge] The system which generated this result [...] 34.3 g/dL 31.6-35.1 RDW-SD (test code = 07638-0) 45.3 fL 39.0-49.9 RDW-CV (test code = 788-0) 12.5 % 12.0-15.5 PLT (test code = 777-3) 266 See_Comment [Automated messa ge] The system which generated this result transmitted reference range: 166 - 358 10*3/?L. The reference range was not used to interpret this result as normal/abnormal. MPV (test code = 71103-9) 11.7 fL 9.5-12.9 NRBC/100 WBC (test code = 9070449555) 0.0 See_Comment [Automated Zin.gl ssage] The system which generated this result transmitted reference range: 0.0 - 10.0 /100 WBCs. The reference range was not used to interpret this result as normal/abnormal. NRBC x10^3 (test code = 1548584040) See_Comment [Automated messa ge] The system which generated this result transmitted reference range: 10*3/?L. The reference range was not used to interpret this result as normal/abnormal. GRAN MAT (NEUT) % (test code = 770-8) 66.0 % IMM GRAN % (test code = 5159128507) 0.70 % LYMPH % (test code = 736-9) 23.4 % MONO % (test code = 5905-5) 6.6 % EOS % (test code = 713-8) 2.7 % BASO % (test code = 706-2) 0.6 % GRAN MAT x10^3(ANC) (test code = 6158470034) 5.93 10*3/uL 1.88-7.09 IMM GRAN x10^3 (test code = 5598214682) 0.06 10*3/uL 0.00-0.06 LYMPH x10^3 (test code = 731-0) 2.10 10*3/uL 1.32-3.29 MONO x10^3 (test code = 742-7) 0.59 10*3/uL 0.33-0.92 EOS x10^3 (test code = 711-2) 0.24 10*3/uL 0.03-0.39 BASO x10^3 (test code = 704-7) 0.05 10*3/uL 0.01-0.07 Lab Interpretation (test code = 05203-0) Abnormal [facility] WITH GQKP3223-01-12 01:17:55* Test Item Value Reference Range Interpretation [...] 34.3 g/dL 31.6-35.1 RDW-SD (test code = 79178-2) 45.3 fL 39.0-49.9 RDW-CV (test code = 788-0) 12.5 % 12.0-15.5 PLT (test code = 777-3) 266 See_Comment [Automated messa ge] The system which generated this result transmitted reference range: 166 - 358 10*3/?L. The reference range was not used to interpret this result as normal/abnormal. MPV (test code = 88751-7) 11.7 fL 9.5-12.9 NRBC/100 WBC (test code = 9352783261) 0.0 See_Comment [Automated Zin.gl ssage] The system which generated this result transmitted reference range: 0.0 - 10.0 /100 WBCs. The reference range was not used to interpret this result as normal/abnormal. NRBC x10^3 (test code = 9726793295) See_Comment [Automated messa ge] The system which generated this result transmitted reference range: 10*3/?L. The reference range was not used to interpret this result as normal/abnormal. GRAN MAT (NEUT) % (test code = 770-8) 66.0 % IMM GRAN % (test code = 6737016261) 0.70 % LYMPH % (test code = 736-9) 23.4 % MONO % (test code = 5905-5) 6.6 % EOS % (test code = 713-8) 2.7 % BASO % (test code = 706-2) 0.6 % GRAN MAT x10^3(ANC) (test code = 2610799264) 5.93 10*3/uL 1.88-7.09 IMM GRAN x10^3 (test code = 0316006139) 0.06 10*3/uL 0.00-0.06 LYMPH x10^3 (test code = 731-0) 2.10 10*3/uL 1.32-3.29 MONO x10^3 (test code = 742-7) 0.59 10*3/uL 0.33-0.92 EOS x10^3 (test code = 711-2) 0.24 10*3/uL 0.03-0.39 BASO x10^3 (test code = 704-7) 0.05 10*3/uL 0.01-0.07 Lab Interpretation (test code = 48277-8) [facility] (01576[facility]23-[facility]-13 01:13:13* Test Item Value Reference Range Interpretation Comme nts NA (test code = 1692581463) 139 mmol/L 135-145 K (test code = 8130947307) 3.6 mmol/L 3.5-5.0 CL (test code = 5171107187) 105 mmol/L 98-108 CO2 TOTAL (test code = 9620097568) 28 mmol/L 23-31 AGAP (test code = 7666931457) 6 2-16 BUN (test code = 2555636406) 7 mg/dL 7-23 GLUCOSE (test code = 3799034418) 292 mg/dL 70-110 H CREATININE (test code = 0775744879) 0.68 mg/dL 0.50-1.04 TOTAL BILI (test code = 1925125817) 0.7 mg/dL 0.1-1.1 CALCIUM (test code = 8746511660) 8.7 mg/dL 8.6-10.6 T PROTEIN (test code = 3015051526) 6.5 g/dL 6.3-8.2 ALBUMIN (test code = 7385258405) 3.6 g/dL 3.5-5.0 ALK PHOS (test code = 1568787164) 118 U/L 34-122 ALTv (test code = 1742-6) 64 U/L 5-35 H AST(SGOT) (test code = 5658185572) 66 U/L 13-40 H eGFR (test code = 6132493199) 90.9 mL/min/1.73m2 AKIL (test code = AKIL) [...] imaging tests). Lab Interpretation (test code = 50138-0) Abnormal [facility]. METABOLIC PANEL (24932)2023-05-13 01:13:13* Test Item Value Reference Range Interpretation Comme nts NA (test code = 8193571392) 139 mmol/L 135-145 K (test code = 5581670405) 3.6 mmol/L 3.5-5.0 CL (test code = 0538605008) 105 mmol/L 98-108 CO2 TOTAL (test code = 7521631660) 28 mmol/L 23-31 AGAP (test code = 7920060494) 6 2-16 BUN (test code = 8042310855) 7 mg/dL 7-23 GLUCOSE (test code = 9531264798) 292 mg/dL 70-110 H CREATININE (test code = 9203516168) 0.68 mg/dL 0.50-1.04 TOTAL BILI (test code = 4447848766) 0.7 mg/dL 0.1-1.1 CALCIUM (test code = 1236823301) 8.7 mg/dL 8.6-10.6 T PROTEIN (test code = 9102851326) 6.5 g/dL 6.3-8.2 ALBUMIN (test code = 4401216293) 3.6 g/dL 3.5-5.0 ALK PHOS (test code = 2508268602) 118 U/L 34-122 ALTv (test code = 1742-6) 64 U/L 5-35 H AST(SGOT) (test code = 7602292755) 66 U/L 13-40 H eGFR (test code = 5433901606) 90.9 mL/min/1.73m2 AKIL (test code = AKIL) [...] imaging tests). Lab Interpretation (test code = 35784-6) Abnormal [facility] Consult Notes Date/Time Note Provider Source 2023-05-17 10:14:00 9249-37-37F02:14:00Associated Order(s): CONSULT ADULT PHYSICAL THERAPY Patient agreeable [...] Nurse notified of patients pain and position. AIDS SOCIAL WORKER notified on patients complaints of RT LE [...] Left 05/16/2023 Surgeon: Milind Starr MD; Location: [facility] Prior Living Situation: lives alone, Stairs [...] After treatment: 10-Pain Management: Nursing NotifiedCOMMUNICATIONPrimary Language: Beninese Able to Verbalize needs: Yes Vision:good; no [...] encounter dated 05/17/2023.Wayne [place]clain , [place] D[place] [address]-3Cmjvwwk smxdKK7809-94-59S39:05:09Consult noteTXT1.2.840.249890.1.13.104.2.7.2.727 879|[id number] for patient [id number] T Abe PT[address]XlmhQcpdqjqspSsedtjwdwXMHV2958241062KIYF YDSDIMDWFRIEPUURWU6395-50-83E41:05:091.2 .840.739104.1.72.3.15|1.2.840.662549.1.1 3.104.2.7.2.727879_[id number] Wayne Mcclain PT [facility] 2023-05-17 09:02:00 1121-94-49Y33:02:00Associated Order(s): CONSULT ADULT OCCUPATIONAL THERAPY OT GENERAL EVALUATIONConsult received via [employer], EMR reviewed and evaluation completed 05/17/23. Patient [...] therapist. Please contact the Rehab Department at [phone] with questions. Total Timed Treatment Codes: 15 [...] to enable patient to complete evaluation component. 18963-7Ursteap qsmzAW6596-54-43A55:19:47Consult noteTXT1.2.840.547226.1.13.104.2.7.2.727 879|[id number] for patient [id number] A Paver [address] Gilbert [id number] IDETZMTHJHECGEGQRP7371-63-84S11:19:471.2 .840.392831.1.72.3.15|1.2.840.692975.1.1 3.104.2.7.2.727879_[id number] Pa Alcocer OT [facility] 2023-05-13 14:35:50 2678-55-76O63:35:50Associated Order(s): CONSULT SURGICAL CO-MANAGEMENT (SCM) Images from the original note were not included.Surgical Co-Management Hospitalist (SCM) Consult ServiceGeneral (Non operative) Consultation NotePatient: Jeannette Hutson: [id number] Date of Consult: 05/13/2023 Referring Physician: Dr [...] provider, she is pending an appointment with [facility] to establish health care as they are the only provider who are able to take her current health insurance. The patient went to [facility] emergency room and underwent CT of the [...] evening. Take with meals. Yes Doctor Unassigned, [place] HYDROcodone-acetaminophen 5-325 mg tablet Take 1 tablet [...] Redd MD Current Medications:Scheduled meds:acetaminophen, 650 mg, Q5Ckwvrzsqc, 100 mg, DAILYenoxaparin (LOVENOX) SC Syringe, 40 mg, G53Zrutmqgyieq, 20 mg, DAILYSERTraline, 25 mg, DAILYinsulin regular human, , V7GTvhesphcyj, 40 mg, BIDIV meds: PRN meds:dextrose 50 % in water (D50W), 25 mL, PRNdextrose 50 % in water (D50W), 25 mL, PRNdiazePAM, 2.5 mg, TIDPRNglucagon, 1 mg, PRNglucagon, 1 mg, PRNhydralAZINE, 10 mg, P0YHYTmzmaHXMZ, 4 mg, R0GOVTiopzewxaywv, 4 mg, X3TDIJqgfKYFCRL, 5 mg, Y5UDKDurqsrcsfvqxu glycol (MIRALAX, CLEARLAX, HEALTHYLAX) oral powder, 17 [...] L2/3 and L4/5 as detailed above RL 4730 SSMENT & PLAN:Acute on chronic back pain, [...] been missed during proofreading. Please interpret accordingly. 87562-7Cjrmdjl xlqpKY3822-43-79R22:03:36Consult noteTXT1.2.840.667937.1.13.104.2.7.2.727 879|[id number] for [address]UT[address] Kp[id number] MUVJHVBFHCMSHPRAVH8223-56-82A78:03:361.2 .840.352176.1.72.3.15|1.2.840.893094.1.1 3.104.2.7.2.727879_[id number] [facility] History and Physical Notes Date/Time Note Provider Source 2023-05-13 02:00:15 4140-68-93T25:00:15F ormatting of this note is different from the original.NEUROSURGERY HISTORY AND PHYSICALAttending Neurosurgeon: Dr. Manoj [facility]En[facility]: Back painHPI: Jeannette Way is a 52 year old female with history of chronic back pain who presents with one week of acute low back pain, L leg S1 radiculopathy, urinary and fecal incontinence. Patient states that her pain started when she got up from bending down to fiber picker something. Patient notes 10/10 pain in [...] 5/5 5/5 5/5 5/5 D(C5) B(C6) T(C7) Ocularist(C8) I (T1)L 5/5 5/5 5/5 5/5 5/5 [...] documentation by Neurosurgery [place], [place],. [id number] and physical [id number], Rudy P1.2.840.832606.1.13.104.2.7.2.515808Ixnif qTqoqXBK2652-36-65I70:34:54History and physical noteTXT1.2.840.724006.1.13.104.2.7.2.56179 9|[id number] for patient [address] [id number] WVHLRDKCWMDJVWJY4209-62-32B98:34:541.2.840 .165780.1.72.3.15|1.2.840.107328.1.13.104. [id number] [facility] Procedure Notes Date/Time Note Provider Source 2023-05-16 11:40:00 [id number]:40:00F ormatting of this note might be different [...] transferred to Recovery in stable condition. CPT Code:32562,07987 Milind Starr 04446-4Nkbfzrzzm osbxDL7924-55-26V07:41:15Proc edure noteTXT1.2.840.620717.1.13.10 4.2.7.2.514737|[id number] ailable for patient [facility] [address]TXTX[address] 3696984ROHYYEQUKMFLAYIZPUFDVH 9452-11-48R00:41:151.2.840.11 4350.1.72.3.15|1.2.840.919054 .1.13.104.2.7.2.727879_185314 9952 -NEUROLOGICAL SURGERY [facility] Notes Date/Time Note Provider Source 2023-06-12 09:34:16 6294-59-46J22:34:16 Encounter completed by control director provider 59913-6Qvnweomtm encounter TsldGQ0882-71-87Q38:35:36Telephone encounter NoteTXT1.2.840.711874.1.13.104.2.7. 2.989666|[id number] for patient kvts10156-8FrgmSU578004876Kjllnix Hansen RN[id number] 4AZYFRYEPCPCOTGBTLENAFA7816-28-55G6 9:35:361.2.840.369968.1.72.3.15|1.2 .840.868997.1.13.104.2.7.2.727879_1 [id number] Paty Mooney RN [facility] 2023-06-11 11:03:59 0316-60-32J12:03:[address] is a 52 year old female Pt called stating that she was having knots and cramping around bottom with pain going to leg and ankle x Monday. Paged Dr. Mario: 11:00 amCalled back at 11:01 amConnected: 11:02 am 49006-4Czcviocdy encounter SswhHN5884-04-24T01:06:28Telephone encounter NoteTXT1.2.840.984457.1.13.104.2.7. 2.091076|[id number] for patient kshv16088-9FtcnZX86495793Yxhcokby I [id number] 5EGHLUPIJGQUAFWXBUKKKJG0179-28-65L4 1:06:281.2.840.698378.1.72.3.15|1.2 .840.721709.1.13.104.2.7.2.727879_1 [id number] Jenaor Ennis [facility] 2023-06-09 14:32:19 6224-79-16B29:32:19 Attempted to contact pt and no answer. LVM 65428-1Acxcxejrw encounter QhaxYG2460-79-17D34:32:58Telephone encounter NoteTXT1.2.840.072240.1.13.104.2.7. 2.642508|[id number] for patient wjwy37208-3QceeKY657222268Qzhkjzta Bloys RN[id number] 3MLHHFWYKNBKECAHQMLCCUZ3008-86-98X4 4:32:581.2.840.758249.1.72.3.15|1.2 .840.873050.1.13.104.2.7.2.727879_1 [id number] Kassie Gama RN [facility] 2023-06-09 11:22:24 8973-42-94B02:22:[address] is a 52 year old [...] normal or not and have some advise. 68454-8Jpbnohgny encounter AfusBJ2218-65-69Q92:31:38Telephone encounter NoteTXT1.2.840.178036.1.13.104.2.7. 2.730618|[id number] for patient [id number] Tsuruta Moreno [id number] 0IUMBFUZHGSHYVVHAYZTRKP2277-64-85Y1 1:31:381.2.840.580571.1.72.3.15|1.2 .840.916357.1.13.104.2.7.2.727879_1 [id number] Lizz Solis V [facility] 2023-05-26 08:59:48 4979-89-55E14:59:48 Patient concerned with little areas of redness around incision site with itching, denies warmth to touch, drainage, or fevers. I reassured patient that it sounds like normal wound healing and no infection at this time. States PCP at [facility] saw incision on 05/24 and told patient that it looked fine and was healing well. I advised patient that she could send me a picture on mychart as well. Patient with no other concerns. Patient verbalized understanding and appreciation. 27692-1Dcdebfrbc encounter EtnbEK9327-51-49X25:06:25Telephone encounter NoteTXT1.2.840.154940.1.13.104.2.7. 2.935340|[id number] for patient cpcx352425180Llcmlwq Hansen RN[id number] 4MLGWWHAMJHAANLTCLONKRD7658-53-39X8 9:06:251.2.840.583091.1.72.3.15|1.2 .840.512697.1.13.104.2.7.2.727879_1 [id number] Ptay Mooney RN [facility] 2023-05-26 08:53:04 7283-14-39S95:53:04 Called patient, no answer, left voicemail 24010-9Froroadxh encounter YtuuBT3587-51-54P97:53:23Telephone encounter NoteTXT1.2.840.228728.1.13.104.2.7. 2.491050|1054711907JZLbbmxocvr for patient [id number] 7IIWYASBXPHVTCIHNKBPOVB1527-64-19T0 8:53:231.2.840.342891.1.72.3.15|1.2 .840.447242.1.13.104.2.7.2.727879_1 [id number] [facility] 2023-05-26 08:32:23 4991-41-50I13:32:[address] is a 52 year old female patient states that her incision is itchy and it's a little red around it. When she went to [facility] to FU with her PCP, she was told that her incision looked normal and did a UA. She states that it didn't look right and the nurses were unable to explain to her if that was normal. She also mentions that she is diabetic and her discharge paperwork doesn't state that.Pls give her a call, thanks. 89990-5Itdfrietf encounter WfhbBE3919-67-77O33:36:03Telephone encounter NoteTXT1.2.840.257742.1.13.104.2.7. 2.317676|[id number] for patient [id number] M. Garcia[address] LlvxLayklbvvvOddtzppjsLGMJ804084883 6BNGAILIPUJAVBAVDBKZKGA5046-52-63O5 8:36:031.2.840.974175.1.72.3.15|1.2 .840.810333.1.13.104.2.7.2.727879_1 [id number] Heydi Galvin [facility] 2023-05-19 09:59:59 6483-97-35Y59:59:59 TRANSITIONAL CARE MANAGEMENT ASSESSMENT05/19/[address] is a 52 year old /White female was admitted on 05/12/[address] She was discharged on 05/18/23 with discharge disposition of HR- Routine Discharge.Admitting Physician: Manoj Jhaveri PDischarge Diagnosis: Low back pain with sciatica, sciatica laterality unspecified, unspecified back pain laterality, unspecified chronicity [M54.40]Pt. Verbalized understanding discharge instructions. Linked Episodes Type: Episode: Status: Noted: Resolved: Last update: Updated by: TRANSITION OF CARE tcm Active 05/19/2023 05/19/2023 9:59 AM Soco Moore LVN Comments: TCM Hel-fspo-ms-face outreach documentation:Discharge AssessmentChart Assessed: 05/19/23TCM Outreach Completed: [...] or concerns at this time?: NoFuture Appointments: 18466-8Ompgoyhsw encounter TuryBN7467-09-52Z37:00:36Telephone encounter NoteTXT1.2.840.061346.1.13.104.2.7. 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 [facility] 2023-05-18 12:34:29 5105-57-86I91:34:29 Problem: Discharge PlanningGoal: Adequate for dischargeOutcome: Adequate for dischargeGoal: Effective communicationOutcome: Adequate for discharge Problem: Falls, Risk ofGoal: Absence of fallsOutcome: Adequate for discharge Problem: PainGoal: Control of pain at or below patient's documented comfort goalOutcome: Adequate for dischargeGoal: Reduction in pain sensationOutcome: Adequate for discharge Problem: Procedure RoutineGoal: Absence of post-procedure complicationsOutcome: Adequate for dischargeGoal: Knowledge of procedureOutcome: Adequate for discharge 21759-3Xloz of care xhmaSE2733-84-72B69:34:31Plan of care noteTXT1.2.840.362516.1.13.104.2.7. 2.590768|[id number] for patient qqht309504608Dxzrak Kosydar RN[address] NmyqIkxiivrzwGrgemingtAQAU068021680 4JGCQMJRLGYNBKUAWEWLDKL4367-96-78Y5 2:34:311.2.840.786242.1.72.3.15|1.2 .840.406714.1.13.104.2.7.2.727879_1 [id number] Susi Garland RN [facility] 2023-05-17 21:43:19 5960-03-19Z23:43:19 Problem: Discharge PlanningGoal: Adequate for dischargeOutcome: Progressing as expectedGoal: Effective communicationOutcome: Progressing as expected Problem: Falls, Risk ofGoal: Absence of fallsOutcome: Progressing as expected Problem: PainGoal: Control of pain at or below patient's documented comfort goalOutcome: Progressing as expectedGoal: Reduction in pain sensationOutcome: Progressing as expected Problem: Procedure RoutineGoal: Absence of post-procedure complicationsOutcome: Progressing as expectedGoal: Knowledge of procedureOutcome: Progressing as expected 34629-8Mdmq of care apuiHD4877-72-96J69:43:23Plan of care noteTXT1.2.840.807428.1.13.104.2.7. 2.755841|1304911715JPEnleziblr for patient [id number] Estevez RN[id number] 2XJWTYIZYXBIIZNQPXEECHE7065-71-00P7 1:43:231.2.840.121793.1.72.3.15|1.2 .840.974635.1.13.104.2.7.2.727879_1 [id number] Radha Estevez RN [facility] 2023-05-17 10:43:41 0155-36-08O30:43:41 Problem: Discharge PlanningGoal: Adequate for dischargeOutcome: Progressing as expectedGoal: Effective communicationOutcome: Progressing as expected Problem: Falls, Risk ofGoal: Absence of fallsOutcome: Progressing as expected Problem: PainGoal: Control of pain at or below patient's documented comfort goalOutcome: Progressing as expectedGoal: Reduction in pain sensationOutcome: Progressing as expected Problem: Procedure RoutineGoal: Absence of post-procedure complicationsOutcome: Progressing as expectedGoal: Knowledge of procedureOutcome: Progressing as expected 80645-4Qccn of care yhlpGC7430-52-44F07:43:46Plan of care noteTXT1.2.840.275045.1.13.104.2.7. 2.981805|[id number] for patient ltopBZ-HHWVPLQYTRZZ-CBHGDJWHAFBCWSV[id number] 5JZDSZJJEREOZQUKKMRTMLT1218-16-87H1 0:43:461.2.840.187913.1.72.3.15|1.2 .840.065962.1.13.104.2.7.2.727879_1 [id number] PN-PSYCHIATRY [facility] 2023-05-17 04:24:02 5111-06-67V44:24:02 Problem: Discharge PlanningGoal: Adequate for dischargeOutcome: Progressing as expectedGoal: Effective communicationOutcome: Progressing as expected Problem: Falls, Risk ofGoal: Absence of fallsOutcome: Progressing as expected Problem: PainGoal: Control of pain at or below patient's documented comfort goalOutcome: Progressing as expectedGoal: Reduction in pain sensationOutcome: Progressing as expected Problem: Procedure RoutineGoal: Absence of post-procedure complicationsOutcome: Progressing as expectedGoal: Knowledge of procedureOutcome: Progressing as expected 37090-1Oaxi of care miwxVR2988-82-29K56:24:05Plan of care noteTXT1.2.840.707393.1.13.104.2.7. 2.908198|7755696119PLGhqbnqcwq for patient [id number] 0DRXYYLIGPTJCVRFTVILKPG5666-10-56U8 4:24:051.2.840.325495.1.72.3.15|1.2 .840.116096.1.13.104.2.7.2.727879_1 [id number] [facility] 2023-05-16 10:12:34 0016-64-40P41:12:34 Problem: Discharge PlanningGoal: Adequate for dischargeOutcome: Progressing as expectedGoal: Effective communicationOutcome: Progressing as expected Problem: Falls, Risk ofGoal: Absence of fallsOutcome: Progressing as expected Problem: PainGoal: Control of pain at or below patient's documented comfort goalOutcome: Progressing as expectedGoal: Reduction in pain sensationOutcome: Progressing as expected Problem: Procedure RoutineGoal: Absence of post-procedure complicationsOutcome: Progressing as expectedGoal: Knowledge of procedureOutcome: Progressing as expected 46563-8Tcvq of care trxfOG5169-75-82M86:14:18Plan of care noteTXT1.2.840.875297.1.13.104.2.7. 2.664597|[id number] for patient [id number] 6AVQOSBUMDOQFIMVWLDKHAF0972-15-78J6 0:14:181.2.840.635410.1.72.3.15|1.2 .840.874877.1.13.104.2.7.2.727879_1 [id number] [facility] 2023-05-16 00:39:24 6352-21-18U32:39:24 Problem: Discharge PlanningGoal: Adequate for dischargeOutcome: Progressing as expectedGoal: Effective communicationOutcome: Progressing as expected Problem: Falls, Risk ofGoal: Absence of fallsOutcome: Progressing as expected Problem: PainGoal: Control of pain at or below patient's documented comfort goalOutcome: Progressing as expectedGoal: Reduction in pain sensationOutcome: Progressing as expected 13612-0Vnrq of care zcbcGM6132-65-02K16:39:28Plan of care noteTXT1.2.840.245977.1.13.104.2.7. 2.282054|0445753041LJPzvcxatme for patient careUTMB[address]TXTX[address] 3TSIYKDIRDFSTTLLFWZPNQJ1249-94-65U8 0:39:281.2.840.395966.1.72.3.15|1.2 .840.405476.1.13.104.2.7.2.727879_1 [id number] [facility] 2023-05-14 23:38:10 0114-99-88A65:38:10 Problem: Discharge PlanningGoal: Adequate for dischargeOutcome: Progressing as expectedGoal: Effective communicationOutcome: Progressing as expected Problem: Falls, Risk ofGoal: Absence of fallsOutcome: Progressing as expected Problem: PainGoal: Control of pain at or below patient's documented comfort goalOutcome: Progressing as expectedGoal: Reduction in pain sensationOutcome: Progressing as expected 66510-8Pnwe of care lmxmYB5229-83-91N47:38:14Plan of care noteTXT1.2.840.461626.1.13.104.2.7. 2.382554|8951400271VQPkdzyycwe for patient bruq875324449Hjradm R Booty RN[id number] 0UQRSTUHOZEQADDROBTSLQG1896-77-42H2 3:38:141.2.840.332656.1.72.3.15|1.2 .840.060520.1.13.104.2.7.2.727879_1 [id number] Kelly Atkisnon RN [facility] 2023-05-14 17:53:19 3555-16-25W37:53:19 Problem: Discharge PlanningGoal: Adequate for dischargeOutcome: Progressing as expectedGoal: Effective communicationOutcome: Progressing as expected Problem: Falls, Risk ofGoal: Absence of fallsOutcome: Progressing as expected Problem: PainGoal: Control of pain at or below patient's documented comfort goalOutcome: Progressing as expectedGoal: Reduction in pain sensationOutcome: Progressing as expected 80823-9Cbti of care azscFA2590-18-06T52:53:23Plan of care noteTXT1.2.840.936190.1.13.104.2.7. 2.727839|3636490350JXGsrzriirg for patient [id number] R Pharis [id number] 6RHPXFGYPMKRWWZDRNUUWUY9300-27-20Y4 7:53:231.2.840.278536.1.72.3.15|1.2 .840.104933.1.13.104.2.7.2.727879_1 [id number] Janay Samuel [facility] 2023-05-13 20:50:33 5875-54-73S99:50:33 Problem: Discharge PlanningGoal: Adequate for dischargeOutcome: Progressing as expectedGoal: Effective communicationOutcome: Progressing as expected Problem: Falls, Risk ofGoal: Absence of fallsOutcome: Progressing as expected Problem: PainGoal: Control of pain at or below patient's documented comfort goalOutcome: Progressing as expectedGoal: Reduction in pain sensationOutcome: Progressing as expected 47020-3Oqmy of care vfkwDA1306-84-86G36:50:37Plan of care noteTXT1.2.840.019601.1.13.104.2.7. 2.325420|2350855797JLCzqytqdwc for patient [id number] 9WWIMUJDOFQQBCVNGCLTGYM0825-30-21S7 0:50:371.2.840.937372.1.72.3.15|1.2 .840.222673.1.13.104.2.7.2.727879_1 [id number] [facility] 2023-05-13 18:33:51 4759-09-64B47:33:51 Problem: Discharge PlanningGoal: Adequate for dischargeOutcome: Progressing as expectedGoal: Effective communicationOutcome: Progressing as expected Problem: Falls, Risk ofGoal: Absence of fallsOutcome: Progressing as expected Problem: PainGoal: Control of pain at or below patient's documented comfort goalOutcome: Progressing as expectedGoal: Reduction in pain sensationOutcome: Progressing as expected 00297-7Thel care genkHO0075-99-92D07:33:54Plan of care noteTXT1.2.840.265837.1.13.104.2.7. 2.010880|2311757531DVPitvwqcsy for patient [address] BqcsJksxflxmxRxzmgepwfSZHQ675587393 5QCFWCGSDUYBJIYOOIGEAPI3882-71-07C5 8:33:541.2.840.177993.1.72.3.15|1.2 .840.010711.1.13.104.2.7.2.727879_1 [id number] [facility] 2023-05-13 03:48:33 3410-56-87R81:48:33 Problem: Discharge PlanningGoal: Adequate for dischargeOutcome: Progressing as expectedGoal: Effective communicationOutcome: Progressing as expected Problem: Falls, Risk ofGoal: Absence of fallsOutcome: Progressing as expected Problem: PainGoal: Control of pain at or below patient's documented comfort goalOutcome: Progressing as expectedGoal: Reduction in pain sensationOutcome: Progressing as expected 14644-0Vryz of care gbjpMX4805-29-33W14:48:36Plan of care noteTXT1.2.840.929884.1.13.104.2.7. 2.588317|5528473562DNVfvuplyom for patient wnrq021191351Ungo L Javier RN[address]TXTX[address] 5MCSGJEYVPPWIFWMDQUQIMM0966-34-35I4 3:48:361.2.840.990146.1.72.3.15|1.2 .840.710496.1.13.104.2.7.2.727879_1 [id number] Raegan Stanford Javier TMAEZ [facility] 2023-05-12 22:02:05 9657-78-49T01:02:05 Patient [facility] to further evaluation and treatment by Neurology service. Lower back pain 03/08 after po [place] 00141-2Thrjsagdq department RqmkJN6918-27-75C89:03:48[facility] NoteTXT1.2.840.531554.1.13.104.2.7. 2.516703|4148843338LBLbtysztzl for patient xayk706298203Hzvcxxr M Owens RN[id number] 6NJDARZSZYNASNCRPZKRUMH3747-49-10T8 2:03:481.2.840.819143.1.72.3.15|1.2 .840.974459.1.13.104.2.7.2.727879_1 [id number] Micky Tracy RN [facility] 2023-05-12 20:59:01 5577-44-45G18:59:01 Patient assisted OOB to chair at bedside. Patient has increased pain to left leg with straightening and standing-unable to weight bear on it Patient was unable to tolerate sitting up in chair past 5 minutes-pain was not tolerable and she had to get back on stretcher. Laying on right side, has left leg bent at knee [address]125-3Hixunwccn[address] GzotYD6207-66-68Y38:02:46[facility] NoteTXT1.2.840.956286.1.13.104.2.7. 2.853666|2769095233WNPelxqmaxx for patient [address] 4VZMLDJDQQTERNEKHYAYELU8506-88-87A3 1:02:461.2.840.725392.1.72.3.15|1.2 .840.059115.1.13.104.2.7.2.727879_1 [id number] [facility] 2023-05-12 19:52:07 4399-51-14E21:52:07 Patient states low back pain x 1 week. C/o numbness and tingling down left leg. Also states cramping pain to left buttock. Left leg is pink and warm with 2+ palp[place] [address]-9Txeyorlxi[address] BiwvTD6598-53-82B90:54:19[facility] NoteTXT1.2.840.368323.1.13.104.2.7. 2.990165|5748833545FXGmvmzpxjy for patient [id number] 9XDCDIVNODKEDNLQKXKVVCF3301-04-70J3 9:54:191.2.840.832167.1.72.3.15|1.2 .840.594365.1.13.104.2.7.2.727879_1 [id number] [facility] 2023-05-12 19:02:39 3031-33-98D34:02:39 Nurse Report Report given to JOI Galindo. Chief complaint, assessment findings, [place] [address]-2Sstpznimj department KyyyGF2980-04-07K14:03:01[facility] department NoteTXT1.2.840.321307.1.13.104.2.7. 2.504672|[id number] for patient care[address] QkhdRyyofxcmcUpmoxhxuiEHEK775299251 2XKLHOXCUXIIIZXFIHRTCTU7521-72-26Z2 9:03:011.2.840.073028.1.72.3.15|1.2 .840.766896.1.13.104.2.7.2.727879_1 [id number] [facility] 2023-05-12 18:23:05 6054-10-75W93:23:05 CC: patient presents to the ER with [...] amb without assistance. Appears in no distress. 24884-9Oeqfpfrvh department Triage bpbjHN4873-19-84I94:02:29[facility] Triage noteTXT1.2.840.071379.1.13.104.2.7. 2.891474|[id number] for patient jodr054887983Zonubzpt M Rivera RN[address] BjvfUyliajtkpOapvmzzybQVOE032791992 1LFIEVSFDZMEIYRPDIDPZYN1221-11-25I4 9:02:291.2.840.361311.1.72.3.15|1.2 .840.802349.1.13.104.2.7.2.727879_1 [id number] Marcelle Dickens RN [facility] 2023-05-12 18:15:00 1063-64-96I56:15:00 [facility] Emergency Department NotePatient Name: Jeannette Shah of : 1970 52 year old femaleTreatment Room: WV4/EY5Ufphlie Record Number: [id number] Care Physician: PATIENT DOES NOT HAVE A PCPPatient Escorted by: Self [9]Mode of Arrival: Personal means [1]EMS Treatment Prior to ED Arrival: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 METABOLIC PANEL (97909) - Abnormal NA 139 135 - 145 [...] CULTURE CBC WITH DIFF COMP. METABOLIC PANEL (34022) Orders Placed This Encounter Medications ketorolac (TORADOL) [...] [FI] ED Course User Index[FI] Yasmani King, RETAIL SUPPORT SPECIALIST Diagnosis/Impression as of 05/12/232123 Low back pain [...] syndrome,Neurosurgery consulted and they recommend transfer to [place] for further work up.The vital signs have [...] on file Follow-up:Electronically signed by: Yasmani King, [facility]05/12/232115 ssociated attestation - Kentrell Orona MD - 05/13/2023 7:18 AM CDT " I was personally available for consultation in the Emergency Department during this Patient evaluation/encounter by JUAN R Christine " 71807-3Qvhvqgioa Emergency department [id number], Brent J1.2.840.585992.1.13.104.2.7.2.8369 92OpaefAvqlaAXC7066-91-05Y63:18:20P [facility] Emergency department NoteTXT1.2.840.865538.1.13.104.2.7. 2.334947|[id number] for patient care[address] MnekUa[id number] 5BGUEENWVGZOIHPMVEZCBTZ5158-38-58X5 7:18:201.2.840.491077.1.72.3.15|1.2 .840.027610.1.13.104.2.7.2.727879_1 [id number] [facility]
[2024-04-03] MEDS ORDERED: ZIPRASIDONE MESYLA 20 MG/VIAL IM ONE (07:02)
[2024-04-03] MEDS ORDERED: WATER FOR INJ,STERILE 10 ML ONE (07:02)
[2024-04-03] MEDS ORDERED: LORAZEPAM 1 MG TABLET ONE (07:54)
[2024-04-03 08:28] LABS: Absolute Basophils 0.1 K/uL (0-0.5); Absolute Eosinophils 0.3 K/uL (0-0.5); Absolute Lymphocytes (CBC) 3.2 K/uL (0.7-4.9); Absolute Monocytes 1.1 K/uL (0.1-1.3); Absolute Neutrophil 6.1 K/uL (1.8-8.0); Basophils % 0.9 % (0-1.3); Eosinophils % 2.4 % (0-4.4); Hematocrit 39.9 % (36.0-45.0); Hemoglobin 13.5 g/dL (12.0-15.0); MCV 91.3 fL (80-100); MPV 9.1 fL (7.6-11.3); Monocytes % 9.9 % (3.3-12.3); Neutrophils % 56.8 % (41.7-73.7); Platelets 320 thou/uL (152-406); RBC Red Blood Cell Count 4.37 M/uL (3.86-4.86); Red Cell Distribution Width 13.4 % (12.1-15.2)
[2024-04-03 08:41] LABS: PT Prothrombin Time 10.7 SECONDS (9.5-12.5); Protime INR 0.97
--- NOTE | 2024-04-03 08:46 | EDPHYS ---
Physician Documentation [facility] Name: Jeannette Way Age: 53 yrs Sex: Female : 1970 Arrival Date: 04/03/2024 Time: 06:47 Bed 7 Private MD: ED Physician Asim Swift HPI: 04/03 11:33 This 53 yrs old Female presents to ER via EMS with complaints of Anxiety. [facility] [place] 11:33 53-year-old female with past medical history of diabetes, hypertension presents to the [facility] [place] department via [facility] for manic episode. Patient states she has anxiety. Patient states she is upset she has not received any medicine since she was discharged home. Patient states she feels God touching her and knows he is in the room. Patient states she also feels as if her son is in the room.. Historical: - Allergies: 07:14 No Known Allergies; ld1 - PMHx: 07:14 diabetes mellitus; Hypertensive disorder; ld1 - PSHx: 07:14 back surgery; ld1 - Immunization history:: Adult Immunizations up to date. - Infectious Disease History:: Denies. - Social history:: Smoking status: Reported history of juuling and/or vaping. Patient/guardian denies using street drugs. ROS: 11:33 Constitutional: Negative for fever, and chills. Neck: Negative for injury, pain, and ms3 swelling, Cardiovascular: Negative for chest pain, and palpitations. Respiratory: Negative for shortness of breath, cough, wheezing, and pleuritic chest pain, Abdomen/GI: Negative for abdominal pain, nausea, vomiting, diarrhea, and constipation, 11:33 Psych: Positive for anxiety, auditory hallucinations, Exam: 11:33 Constitutional: This is a well developed, well nourished patient who is awake, alert, ms3 and in no acute distress. Head/Face: Normocephalic, atraumatic. Neck: Trachea midline, no cervical lymphadenopathy. Supple, full range of motion without nuchal rigidity, or vertebral point tenderness. No Meningismus. Chest/axilla: Normal chest wall appearance and motion. Nontender with no deformity. Cardiovascular: Regular rate and rhythm with a normal S1 and S2. No gallops, murmurs, or rubs. Normal PMI, no JVD. No pulse deficits. Respiratory: Lungs have equal breath sounds bilaterally, clear to auscultation and percussion. No rales, rhonchi or wheezes noted. No increased work of breathing, no retractions or nasal flaring. Abdomen/GI: Soft, non-tender, with normal bowel sounds. No distension or tympany. No guarding or rebound. No evidence of tenderness throughout. Skin: Warm, dry with normal turgor. Normal color with no rashes, no lesions, and no evidence of cellulitis. MS/ Extremity: Pulses equal, no cyanosis. Neurovascular intact. Full, normal range of motion. 11:33 Psych: Behavior/mood is anxious, Affect is flat, Oriented to person, place, time, Patient has no thoughts/intents to harm self or others. Judgement / Insight is impaired. Memory is normal. Delusions/hallucinations are present and described as States she can hear and feel God in the room. States she can feel the presence of her son in the room.. 15:43 ECG was reviewed by the Attending Physician. ms3 Vital Signs: 07:11 BP 175 / 129; Pulse 99 MON; Resp 22 S; Pulse Ox 99% on R/A; jg11 07:11 Pulse 98; Resp 18; Temp 98.1(TE); Pulse Ox 99% on R/A; Weight 99.79 kg; Height 5 ft. 6 ld1 in. ; Pain 10/10; 07:11 BP 175 / 108; ld1 08:40 BP 164 / 99; Pulse 89; Resp 18; Pulse Ox 99% on R/A; ld1 07:11 Body Mass Index 35.51 (99.79 kg, 167.64 cm) ld1 07:11 Pain Scale: Adult ld1 MDM: 07:02 Patient medically screened. ms3 11:33 Differential Diagnosis Bipolar disorder vs psychosis vs drug abuse. Data reviewed: ms3 vital signs, nurses notes, and as a result, I will discharge patient. I considered the following discharge prescriptions or medication management in the emergency department Medications were administered in the Emergency Department. See MAR. Independent interpretation of the following test(s) in the Emergency Department EKG: See my EKG interpretation above. Historians other than the Patient: EMS: [facility]. Care significantly affected by the following chronic conditions: Diabetes, Hypertension. Counseling: I had a detailed discussion with the patient and/or guardian regarding the historical points, exam findings, and any diagnostic results supporting the discharge/admit diagnosis. 04/03 07:23 Order name: Acetaminophen ms3 04/03 07:23 Order name: BMP ms3 / 07:23 Order name: CBC with Diff ms3 / 07:23 Order name: Ethanol ms3 / 07:23 Order name: Hepatic Function ms3 / 07:23 Order name: Protime (+inr) ms3 04/03 07:23 Order name: Ptt, Activated ms3 04/03 07:23 Order name: Salicylate ms3 04/03 07:23 Order name: EKG - Nurse/Tech; Complete Time: 08:10 ms3 04/03 07:23 Order name: IV Saline Lock; Complete Time: 08:13 ms3 04/03 07:23 Order name: Labs collected and sent; Complete Time: 08:13 ms3 04/03 07:23 Order name: O2 Per Protocol; Complete Time: 07:27 ms3 04/03 07:23 Order name: O2 Sat Monitoring; Complete Time: 07:27 ms3 04/03 07:23 Order name: Suicide Screening ([place]); Complete Time: 07:26 ms3 EC:43 Rate is 108 beats/min. Rhythm is regular. Left axis deviation noted. IN interval is ms3 normal. QRS interval is normal. QT interval is normal. Clinical impression: NSR w/ Non-specific ST/T Changes. Interpreted by me. Reviewed by me. Administered Medications: 07:10 Drug: Geodon IM 20 mg IM once Route: IM; Site: right gluteus; ld1 07:57 Drug: LORazepam PO 2 mg PO once Route: PO; ap3 Disposition Summary: 04/03/24 08:45 Discharge Ordered Notes: Location: Home ms3 Condition: Stable ms3 Diagnosis - Generalized anxiety disorder ms3 - Manic episode without psychotic symptoms, mild ms3 Followup: ms3 - With: Neri Collins MD - When: 1 - 2 days - Reason: Recheck today's complaints Discharge Instructions: - Discharge Summary Sheet ms3 - Panic Attack ms3 - Generalized Anxiety Disorder, Adult ms3 - Managing Bipolar Disorder ms3 - Supporting Someone With Bipolar Disorder ms3 Forms: - Medication Reconciliation Form ms3 - Antibiotic Education ms3 - Prescription Opioid Use ms3 - Patient Portal Instructions ms3 - Leadership Thank You Letter ms3 Signatures: Dispatcher [employer] Yoselin Cat RN RN ap3 Asim Swift DO DO ms3 Ludivina Swift RN RN ld1 Gurpreet Parks MD MD sp4
--- NOTE | 2024-04-03 08:46 | ER ---
Nurse's Notes [facility] Name: Jeannette Way Age: 53 yrs Sex: Female : 1970 Arrival Date: 04/03/2024 Time: 06:47 Bed 7 Private MD: Diagnosis: Generalized anxiety disorder;Manic episode without psychotic symptoms, mild Presentation: 04/03 07:11 Chief complaint: EMS states: toned out for anxiety. Pt came into ER saying "I want my ld1 pills.". Coronavirus screen: At this time, the client does not indicate any symptoms associated with coronavirus-19. Ebola Screen: No symptoms or risks identified at this time. Initial Sepsis Screen: Does the patient meet any 2 criteria? No. Patient's initial sepsis screen is negative. Does the patient have a suspected source of infection? No. Patient's initial sepsis screen is negative. Risk Assessment: Do you want to hurt yourself or someone else? Patient reports no desire to harm self or others. Onset of symptoms was April 03, 2024. 07:11 Method Of Arrival: EMS: [facility] ld1 07:11 Acuity: EDITA 2 ld1 Triage Assessment: 07:14 General: Appears in no apparent distress. comfortable, Behavior is anxious, fussy. ld1 Pain: Denies pain. EENT: No signs and/or symptoms were reported regarding the EENT system. Neuro: Level of Consciousness is awake, alert, obeys commands, Oriented to person, place, time, situation. Cardiovascular: Capillary refill < 3 seconds Patient's skin is warm and dry. Respiratory: Airway is patent Respiratory effort is even, unlabored. GI: Abdomen is round non-distended. : No signs and/or symptoms were reported regarding the genitourinary system. Derm: No signs and/or symptoms reported regarding the dermatologic system. Musculoskeletal: No signs and/or symptoms reported regarding the musculoskeletal system. Historical: - Allergies: 07:14 No Known Allergies; ld1 - PMHx: 07:14 diabetes mellitus; Hypertensive disorder; ld1 - PSHx: 07:14 back surgery; ld1 - Immunization history:: Adult Immunizations up to date. - Infectious Disease History:: Denies. - Social history:: Smoking status: Reported history of juuling and/or vaping. Patient/guardian denies using street drugs. Screenin:16 [facility] ED Fall Risk Assessment (Adult) History of falling in the last 3 months, ld1 including since admission No falls in past 3 months (0 pts). [facility] ED Fall Risk Assessment (Adult) History of falling in the last 3 months, including since admission. Abuse screen: Denies threats or abuse. Denies injuries from another. Nutritional screening: No deficits noted. Tuberculosis screening: No symptoms or risk factors identified. Assessment: 07:15 Reassessment: Pt denies SI or HI. States "I have mental problems, I am so sorry I am ld1 mean to you all." Denies SI. "I just want some medicine so I can feel normal.". 07:16 Reassessment: See triage assessment. Sitter at bedside. ld1 07:18 Reassessment: Pt laying in bed with sitter at bedside. Pt verbally aggressive and ld1 vulgar towards sitter. States "You stupid bitch, I will beat your ass." ERP at bedside assessing patient. Educated patient to not speak ugly to staff. 08:53 Reassessment: Pt removed IV from self. ERP at bedside. Pt requesting to leave at this ld1 time. Daughter on the way to roller picker patient. Pt denies pain. States "I feel better.". Vital Signs: 07:11 BP 175 / 129; Pulse 99 MON; Resp 22 S; Pulse Ox 99% on R/A; jg11 07:11 Pulse 98; Resp 18; Temp 98.1(TE); Pulse Ox 99% on R/A; Weight 99.79 kg; Height 5 ft. 6 ld1 in. ; Pain 10/10; 07:11 BP 175 / 108; ld1 08:40 BP 164 / 99; Pulse 89; Resp 18; Pulse Ox 99% on R/A; ld1 07:11 Body Mass Index 35.51 (99.79 kg, 167.64 cm) ld1 07:11 Pain Scale: Adult ld1 ED Course: 06:48 Patient arrived in ED. jj6 06:49 Gurpreet Parks MD is Attending Physician. sp4 07:02 Attending Physician role handed off by Gurpreet Parks MD ms3 07:02 Asim Swift DO is Attending Physician. ms3 07:14 Triage completed. ld1 07:14 Arm band placed on right wrist. ld1 07:16 Patient has correct armband on for positive identification. Placed in gown. Bed in low ld1 position. Call light in reach. Side rails up X2. special warfare operator on. Pulse ox on. NIBP on. Door closed. Noise minimized. Warm blanket given. 07:16 Sitter at bedside. jg11 07:16 Safety checks: Items removed: yes. Sitter present: Yes. jg11 07:16 No provider procedures requiring assistance completed. ld1 07:18 Ludivina Swift, RN is Primary Nurse. ld1 08:11 EKG done, by ED staff, reviewed by Asim Swift DO. jg11 08:14 Initial lab(s) drawn, by me, sent to lab. Inserted saline lock: 20 gauge in right jg11 antecubital area, using aseptic technique. Blood collected. 08:18 Acetaminophen Sent. jg11 08:18 BMP Sent. jg11 08:18 CBC with Diff Sent. jg11 08:18 Ethanol Sent. jg11 08:18 Hepatic Function Sent. jg11 08:18 Protime (+inr) Sent. jg11 08:18 Ptt, Activated Sent. jg11 08:18 Salicylate Sent. jg11 08:24 Diet: Patient given a regular meal tray. jg11 08:26 Acetaminophen Sent. jg11 08:26 BMP Sent. jg11 08:26 CBC with Diff Sent. jg11 08:26 Ethanol Sent. jg11 08:26 Hepatic Function Sent. jg11 08:37 Diet: Tolerated well. jg11 08:44 Neri Collins MD is Referral Physician. ms3 08:54 IV discontinued, intact, bleeding controlled, No redness/swelling at site. ld1 Administered Medications: 07:10 Drug: Geodon IM 20 mg IM once Route: IM; Site: right gluteus; ld1 07:57 Drug: LORazepam PO 2 mg PO once Route: PO; ap3 Medication: 08:54 VIS not applicable for this client. ld1 Outcome: 08:45 Discharge ordered by . ms3 08:54 Discharged to home ambulatory, ld1 08:54 Condition: stable 08:54 Discharge instructions given to patient, Instructed on discharge instructions, follow up and referral plans. Demonstrated understanding of instructions, follow-up care, 08:55 Patient left the ED. ld1 Signatures: Yoselin Villegas RN RN ap3 Asim Swift DO DO ms3 Ludivina Swift RN RN ld1 Kassie Pacheco jj6 Gurpreet Parks MD MD sp4 Edward Vidal jg11 Corrections: (The following items were deleted from the chart) 08:20 08:19 Inserted saline lock: ld1 ld1
[2024-04-03 08:50] LABS: ALT/SGPT 43 U/L (13-56); AST/SGOT 29 U/L (15-37); Albumin 3.7 g/dL (3.4-5.0); Albumin/Globulin Ratio 1.1 (1.1-1.8); Alkaline Phosphatase 124 U/L (45-117); Anion Gap 11.2 mEq/L (5.0-15.0); BUN Blood Urea Nitrogen 13 mg/dL (7-18); Bicarbonate 27 mEq/L (21-32); Bilirubin Direct 0.2 mg/dL (0-0.2); Bilirubin Indirect, Calculated 0.3 mg/dL (0.2-0.8); Bilirubin Total 0.5 mg/dL (0.2-1.0); Globulin 3.5 g/dL (2.3-3.5); Glomerular Filtration Rate 69 ml/min (=/>90); Glucose Level 190 mg/dL (74-106); Potassium 3.2 mEq/L (3.5-5.1); Protein, Total 7.2 g/dL (6.4-8.2); Sodium Level 138 mEq/L (136-145)
[2024-04-03 09:19] VITALS: BP 164/99; TEMP 98.1; O2SAT 99
--- NOTE | 2024-04-03 16:31 | EKG ---
Test Date: 2024-04-03 Test Time: 08:07:47 Customer Operations Representative: ZAKIA MEASUREMENT RESULTS: Intervals: Rate: 108 MO: 134 QRSD: 86 QT: 350 QTc: 469 [place]: P: 55 MO: 134 QRS: -63 T: 177 INTERPRETIVE STATEMENTS: Sinus tachycardia with frequent premature ventricular complexes in a pattern of bigeminy Left axis deviation ST & T wave abnormality, consider inferior ischemia ST & T wave abnormality, consider anterolateral ischemia Abnormal ECG Compared to ECG 03/27/2024 14:03:40 Ventricular premature complex(es) now present ST (T wave) deviation now present Sinus rhythm no longer present T-wave abnormality no longer present Prolonged QT interval no longer present Possible ischemia still present Electronically Signed On 04-03-24 16:30:46 CDT by Chepe Prieto
== END 2024-04-03 08:55 | disposition home or self-care (01) ==
LOC: ER 06:47
DX: F41.1 Generalized anxiety disorder (principal); F30.11 Manic episode without psychotic symptoms, mild
CPT/HCPCS: 36415; 80048; 80076; 80143; 80179; 82077; 85025; 85610; 85730; 93005; 96372; 99285; J3486

== ENCOUNTER 2024-04-03 09:44 | Emergency (ER) | payer SELFPAY ==
[~2024-04-03 09:44] MED LIST changes: +ACETAMINOPHEN 500 MG TAB ONE; +DIAZEPAM 10 MG/2 ML INJ SYRINGE ONE; +DIAZEPAM 5 MG TABLET ONE; +DIPHENHYDRAMINE 50 MG/ML VIAL ONE; +LORAZEPAM 1 MG TABLET ONE; +METFORMIN HCL 500 MG TAB ONE; +MIRTAZAPINE 15 MG TAB ONE; +PANTOPRAZOLE 40MG TABLET PO ONE; +VALSARTAN 80 MG TAB ONE
--- OUTSIDE RECORDS SUMMARY | 2024-04-03 09:49 | XMS REPORT | Continuity of Care Document ---
Author Name Unknown Address [address] [facility] [address] [place] [address] [facility] thconnect Address [address] [facility] [address] [place] [address] Care Team Providers Care Typing Secretary Name Role Phone Pcp, Patient Does Not Have A Primary Care Physic carly FLORA WARNER Attending Clinician Unavailable SHAYY FIGUEROA Attending Clinician Unavailable ANA URBINA Attending Clinician Unavailable BRUNA HANSEN Attending Clinician Unavailable [facility]90 Attending Clinician Unavailable Milind Starr MD Attending Clinician [phone] MILIND STARR Attending Clinician Unavailable Doctor Unassigned, [place] Attending Clinician U navailable Irma Khan Attending Clinician [phone] IRMA CASTILLO Attending Clinician UnavailSoco Cabello LVN Attending Clinician [phone] Manoj Jhaveri MD Attending Clinician [phone] Yasmani Barragan Attending Clinician [phone] MANOJ JHAVERI Admitting Clinician Unavailable Manoj Jhaveri MD Admitting Clinician [phone] Payers Payer Name Policy Type Policy Number Effective Date Expirati on Date Source [employer]: [employer]ER 94 ON STAND 9 [id number] 2022 00:00:00 Problems Condition Name Condition Details [...] in adult Disease Active 06-28 00:00: 00 Maire Seybold - Externa l Well adult exam [...] d chronicity Disease Active 7-15 00:00: 00 [facility] History of back surgery History of back surgery Disease Active 1 00:00: 00 Overview: Formattin g of this note might be different from the original. Herniated disc repair. Seen by neurosurg lashonda Butterfield l Fracture of phalanx of left little finger Fracture of phalanx of left little finger Disease Active 06-17 00:00: 00 [facility] Fracture of phalanx of right thumb Fracture of phalanx of right thumb Disease Active 06-17 00:00: 00 [facility] Concussion with brief LOC Concussion with brief LOC Disease Active 06-16 00:00: 00 [facility] Syncope Syncope Disease Active 2016-10 2 00:00: 00 [facility] Essential hypertensi on Essential hypertensi on Disease Active 4- 00:00: 00 [facility] Chronic lower back pain Chronic lower back pain Disease Active [facility] Allergies, Adverse Reactions, Alerts Allergy Name Allergy Type Status Severity Reaction(s) Onset Date Inactive Date Treating Clinician Comments Source NO KNOWN ALLERGIE S Drug Class Active [facility] Social History Social Habit Start Date [...] External Education 2023-05-12 00:00:00 2023-05-12 00:00:00 13 [facility] Sex Assigned At 1970 00:00:00 1970 00:00:00 Marie Otto - External Smoking Status Start Date Stop Date Source Ex-smoker 2023-05-23 00:00:00 2023-05-23 00:00:00 Regan chicas Clarita - External Medications Ordered Medication Name Filled Medication Name Start Date Stop Date Current Medication? Ordering Clinician Indication Dosage Frequency Signature (SIG) Comments Components Source Sertraline HCl 50 MG oral Tablet 2022-10 00:00: 00 Yes [id number] 50mg Take 1 tablet (50 mg total) by mouth daily. Marie stanford Trulicity 1.5 MG/0.5ML subcutaneou s Solution Pen-injecto r 2022-10 00:00: 00 Yes [id number] 1.5mg Inject 1.5 mg into the skin once a week. Marie stanford Pregabalin (Lyrica) 75 MG oral Capsule 2022-10 00:00: 00 Yes [id number] Take one cap after breakfast & 2 caps at bedtime. No driving. No alcohol. No operating machinery. . Marie stanford Mirtazapine 15 MG oral Tablet 2022-10 00:00: 00 Yes [id number] 15mg QD Take 1 tablet (15 mg total) by mouth nightly as needed. Marie Jordana abdoulaye Pregabalin (Lyrica) 75 MG oral Capsule 2022-10 00:00: 00 Yes [id number] 75mg Take 1 capsule (75 mg total) by mouth 2 times daily No driving. No alcohol. No operating machinery. . Marie Jordana abdoulaye Mirtazapine 15 MG oral Tablet 07-18 00:00: 00 Yes [id number] 15mg QD TAKE 1 TABLET BY MOUTH NIGHTLY NEEDED FOR INSOMNIA Marie stanford Trulicity 0.75 MG/0.5ML subcutaneou s Solution Pen-injecto r 9-14 00:00: 00 Yes [id number] .75mg Inject 0.75 mg into the skin once a week. Marie stanford Pioglitazon e HCl (Actos) 30 MG oral Tablet 06-28 00:00: 00 Yes [id number] 30mg Take 1 tablet (30 mg total) by mouth daily. Marie stanford Methocarbam ol 500 MG oral Tablet 06-23 00:00: 00 Yes [id number] 1000mg Take 2 tablets (1,000 mg total) by mouth 4 times daily. Marie stanford Gabapentin 600 MG oral Tablet 06-23 00:00: 00 08-07 00:00 :00 No [id number] 600mg Take 1 tablet (600 mg total) by mouth 3 times daily. Marie stanford Pioglitazon e HCl (Actos) 15 MG oral Tablet 06-09 00:00: 00 06-28 00:00 :00 No [id number] 15mg Take 1 tablet (15 mg total) by mouth daily Marie stanford cephALEXin (KEFLEX) 500 mg capsule 05-30 00:00: 00 Yes [id number] 500mg Take 1 capsule by mouth 4 (four) times daily. [facility] Metformin HCl 500 MG oral Tablet 05-29 00:00: 00 Yes [id number] 1000mg Take 2 tablets (1,000 mg total) [...] total) in the evening. Take with meals. Maire stanford Sertraline HCl 25 MG oral Tablet [...] 11:44: 05 05-24 00:00 :00 No 2.5mg Q.[id number] 3D Take 0.5 tablets (2.5 mg total) by mouth every 8 hours as needed Marie stanford Sertraline HCl 25 MG oral Tablet 05-24 00:00: 00 Yes [id number] 25mg Take 1 tablet (25 mg total) by mouth daily Marie stanford Valsartan 40 MG oral Tablet 05-24 00:00: 00 Yes [id number] 40mg Take 1 tablet (40 mg total) by mouth daily Marie stanford Omeprazole 20 MG oral Delayed Release Capsule 05-24 00:00: 00 Yes [id number] 20mg Take 1 capsule (20 mg total) by mouth daily Marie stanford Glucose Blood in vitro Strip 05-24 00:00: 00 Yes [id number] 1{each} 1 each by other route daily Check BS twice daily Marie stanford Ketorolac Tromethamin e 10 MG oral Tablet 05-24 00:00: 00 Yes [id number] 10mg QD Take 1 tablet (10 mg total) by mouth daily as needed for pain Marie stanford Metformin HCl 500 MG oral Tablet 05-24 00:00: 00 Yes [id number] 500mg Take 1 tablet (500 mg total) by mouth in the morning and 1 tablet (500 mg total) in the evening. Take with meals. Marie stanford Mirtazapine 15 MG oral Tablet 05-24 00:00: 00 Yes [id number] 15mg QD Take 1 tablet (15 mg total) by mouth nightly as needed (insomnia) Marie stanford Glucose Blood in vitro Strip 05-24 00:00: 00 Yes [id number] 1{each} 1 each by other route daily [...] 05-19 00:00: 00 06-19 04:59 :00 No [id number] 25mg Take 1 tablet by mouth in the morning for [address] [facility] omeprazole 20 mg capsule 05-19 00:00: 00 06-19 04:59 :00 No [id number] 20mg Take 1 capsule by mouth in the morning for [address] [facility] valsartan 40 mg tablet 05-19 00:00: 00 06-19 04:59 :00 No [id number] 40mg Take 1 tablet by mouth in the morning for [address] [facility] Methylpredn isolone (MEDROL) tablet 4 mg 05-18 22:19: 26 05-19 22:29 :00 No 4mg 4 mg, Oral, Q8H TAPER, 3 doses, First dose on Mon05/18/23 at 1730, Last dose on Mon05/19/23 at 0930, Routine [facility] insulin NPH and regular human 70-30 (70-30 U-100 INSULIN) 100 unit/mL (70-30) injection 20 Units 05-18 21:30: 00 Yes 20U 20 Units, Subcutaneo us, BIDAC, First dose (after last modificati on) on Mon05/18/23 at 1630, Until Discontinu ed, Routine [facility] metFORMIN 1,000 mg tablet 05-18 18:04: 28 Yes 1000mg Take 1 tablet by mouth in the morning and 1 tablet in the evening. Take with meals. [facility] lancets (SAFETY LANCETS) 21 gauge Misc 05-18 00:00: 00 Yes [id number] Use as directed [facility] insulin syringe-nee dle U-100 1/2 ml (INSULIN SYRINGE) 1/2 mL 28 gauge x 1/2" Syrg 05-18 00:00: 00 Yes [id number] Use as directed [facility] Blood-Gluco se Meter (FREESTYLE LITE METER) Kit 05-18 00:00: 00 Yes [id number] Use as directed [facility] blood sugar diagnostic (FREESTYLE LITE STRIPS) strip 05-18 00:00: 00 Yes [id number] Use as directed [facility] Insulin [place], Disposable, (BD ULTRAFINE III MINI PEN) 31 gauge x 3/16" Ndle 05-18 00:00: 00 09-01 04:59 :00 No [id number] Use as directed [facility] gabapentin 600 mg tablet 05-18 00:00: 00 06-18 04:59 :00 No [id number] 600mg Take 1 tablet by mouth in the morning and 1 tablet at noon and 1 tablet in the evening. Do all this for [address] [facility] methocarbam oL 1,000 mg Tab 05-18 00:00: 00 06-18 04:59 :00 No [id number] 1000mg Take 1,000 mg by mouth 4 (four) times daily for [address] [facility] docusate 100 mg capsule 05-18 00:00: 00 06-02 04:59 :00 No [id number] 100mg Take 1 capsule by mouth in the morning for 14 days. Indication s: opiate pain medication causing severe constipati on [facility] diazePAM 5 mg tablet 05-18 00:00: 00 05-26 04:59 :00 No [id number] 2.5mg Take 0.5 tablets by mouth 3 (three) times daily as needed for Agitation, Anxiety or Muscle Spasms for up to [address] [facility] zolpidem 10 mg tablet 05-18 00:00: 05-26 04:59 :00 No [id number] 10mg Take 1 tablet by mouth at bedtime as needed for Insomnia for up to [address] [facility] HYDROcodone -acetaminop hen 5-325 mg tablet 05-18 00:00: 00 05-26 04:59 :00 No [id number] 1{tbl} Take 1 tablet by mouth every 4 (four) hours as needed for Pain (scale 4-6) or Pain (scale 7-10) for up to 7 days. Indication s: acute pain [facility] ketorolac 10 mg tablet 05-18 00:00: 00 05-24 04:59 :00 No [id number] 10mg Take 1 tablet by mouth every 6 (six) hours as needed for Pain (scale 4-6) for up to [address] [facility] Methylpredn isolone 4 mg tablet 05-18 00:00: 00 05-20 04:59 :00 No [id number] 4mg Take 1 tablet by mouth every 8 (eight) hours for [address] [facility] Insulin NPH-Regular Human Rec (NOVOLIN 70-30 FLEXPEN U-100) 100 unit/mL (70-30) injection 05-18 00:00: 00 05-18 00:00 :00 No [id number] 20U inject 20 Units under the skin 2 (two) times daily before breakfast and dinner for [address] [facility] insulin NPH and regular human 70-30 100 unit/mL (70-30) injection 05-18 00:00: 00 05-18 00:00 :00 No [id number] 20U inject 20 Units under the skin 2 (two) times daily before breakfast and dinner for [address] [facility] Insulin NPH-Regular Human Rec (NOVOLIN 70-30 FLEXPEN U-100) 100 unit/mL (70-30) injection 05-18 00:00: 00 05-18 00:00 :00 No [id number] 15U inject 15 Units under the skin 2 (two) times daily before breakfast and dinner. [facility] cephALEXin (KEFLEX) capsule 500 mg 05-17 21:00: 00 05-18 01:32 :00 No 500mg 500 mg, Oral, QID, 2 doses, First dose (after last modificati on) on Mon05/17/23 at 1600, Last dose on Mon05/17/23 at 2000, EUN
Re ason for Anti-Infec tive: Documented Infection< br>Documen thang Infection Site: Urine
D uration of Therapy: [address] [facility] Methylpredn isolone (MEDROL) tablet 4 mg [...] Mon05/19/23 at 0930, Routine [Order [address] End] [facility] gabapentin (NEURONTIN) tablet 600 mg 05-17 19:00: 00 Yes 600mg 600 mg, Oral, TID, First dose (after last modificati on) on Mon05/17/23 at 1400, Until Discontinu ed, Routine [facility] methocarbam oL (ROBAXIN) tablet 1,000 mg 05-17 17:00: 00 Yes 1000mg 1,000 mg, Oral, QID, First dose (after last modificati on) on Mon05/17/23 at 1200, Until Discontinu ed, Routine [facility] Lidocaine (LIDOCARE) 4 % patch 1 Patch 05-17 16:30: 00 05-18 06:12 :00 No 1{patch } 1 Patch, Topical, Administer over 12 Hours, ONCE, 1 dose, On Mon05/17/23 at 1130, Routine [facility] omeprazole (PRILOSEC) capsule 20 mg 05-17 14:00: 00 Yes 20mg 20 mg, Oral, DAILY, First dose (after last modificati on) on Mon05/17/23 at 0900, Until Discontinu ed, Routine [facility] enoxaparin (LOVENOX) injection 40 mg 05-17 13:45: 00 Yes 40mg 40 mg, Subcutaneo us, Q24H, First dose on Mon05/17/23 at 0845, Until Discontinu ed, Routine [facility] cephALEXin (KEFLEX) capsule 500 mg 05-17 13:00: 00 05-17 19:52 :41 No 500mg 500 mg, Oral, QID, 16 doses, First dose on Mon05/17/23 at 0800, Last dose on Mon05/20/23 at 2000, EUN
Re ason for Anti-Infec tive: Documented Infection< br>Documen thang Infection Site: Urine
D uration of Therapy: 7 days [facility] insulin NPH and regular human 70-30 (70-30 U-100 INSULIN) 100 unit/mL (70-30) injection 15 Units 05-17 12:30: 00 05-18 13:28 :42 No 15U 15 Units, Subcutaneo us, BIDAC, First dose (after last modificati on) on Mon05/17/23 at 0730, Until Discontinu ed, Routine [facility] ketorolac (TORADOL) injection 30 mg 05-17 00:30: 00 05-18 18:59 :00 No 30mg 30 mg, Slow IV Push, Q8H, 6 doses, First dose on Mon05/16/23 at 1930, Last dose on Mon05/18/23 at 0600, Routine [facility] methocarbam oL (ROBAXIN) tablet 750 mg 05-16 21:00: 00 05-17 15:33 :18 No 750mg 750 mg, Oral, QID, First dose on Mon05/16/23 at 1600, Until Discontinu ed, Routine [facility] lactated ringers IV infusion 1,000 mL 05-16 18:30: 00 Yes 1000mL at 42 mL/hr, 1,000 mL, IV Infusion, CONTINUOUS , Starting on Mon05/16/23 at 1330, Until Discontinu ed, Routine, PACU [facility] oxyCODONE immediate release tablet 10 mg 05-16 17:51: 52 Yes 10mg 10 mg, Oral, Q4HPRN, Starting on Mon05/16/23 at 1251, Until Discontinu ed, Routine, Pain (scale 4-6)
[facility] approving Restricted medication : SNSNSURG [facility] methylPREDN ISolone acetate (DEPO-MEDRO L) injection 05-16 17:29: 00 Yes PRN, Starting on Mon05/16/23 at 1229, Until Discontinu ed, Routine, Intra-op [facility] BUPivacaine liposome (PF) (EXPAREL (PF)) 1.3 % (13.3 mg/mL) injection 05-16 17:29: 00 Yes PRN, Starting on Mon05/16/23 at 1229, Until Discontinu ed, Routine, Intra-op [facility] vancomycin (VANCOCIN) injection 05-16 17:22: 00 Yes PRN, Starting on Mon05/16/23 at 1222, Until Discontinu ed, EUN, Intra-op [facility] thrombin (recombinan t) (RECOTHROM) topical solution 05-16 17:21: 00 Yes PRN, Starting on Mon05/16/23 at 1221, Until Discontinu ed, Routine, Intra-op [facility] gabapentin (NEURONTIN) capsule 300 mg 05-16 01:00: 00 05-17 15:34 :42 No 300mg 300 mg, Oral, TID, First dose on Mon05/15/23 at 2000, Until Discontinu ed, Routine [facility] acetaminoph en (TYLENOL) tablet 1,000 mg 05-15 23:00: 00 Yes 1000mg 1,000 mg, Oral, Q6H, First dose (after last modificati on) on Mon05/15/23 at 1800, Until Discontinu ed, Routine [facility] enoxaparin (LOVENOX) injection 40 mg 05-15 21:00: 00 05-15 21:41 :00 No 40mg 40 mg, Subcutaneo us, ONCE, 1 dose, On Mon05/15/23 at 1600, Routine [facility] KCL 20 mEq/15 mL solution 40 mEq 05-15 14:15: 00 05-15 15:21 :00 No 40meq 40 mEq, Oral, ONCE, 1 dose, On Mon05/15/23 at 0915, Routine [facility] valsartan (DIOVAN) tablet 40 mg 05-15 14:00: 00 Yes 40mg 40 mg, Oral, DAILY, First dose (after last modificati on) on Mon05/15/23 at 0900, Until Discontinu ed, Routine [facility] Sliding Scale Insulin-Reg ular 05-14 21:30: 00 Yes Subcutaneo us, AC+HS, First dose (after last modificati on) on Mon05/14/23 at 1630, Until Discontinu ed, Routine [facility] insulin NPH and regular human 70-30 (70-30 U-100 INSULIN) 100 unit/mL (70-30) injection 10 Units 05-14 21:30: 00 05-17 01:00 :40 No 10U 10 Units, Subcutaneo us, BIDAC, First dose on Mon05/14/23 at 1630, Until Discontinu ed, Routine [facility] cefTRIAXone (ROCEPHIN) 1,000 mg in NaCl 0.9% [...] uration of Therapy: 7 days [facility] sennosides (SENOKOT) tablet 8.6 mg 05-14 16:30: 00 Yes 8.6mg 8.6 mg, Oral, BID, First dose on Mon05/14/23 at 1130, Until Discontinu ed, Routine [facility] valsartan (DIOVAN) tablet 40 mg 05-14 01:00: 00 05-14 15:48 :36 No 40mg 40 mg, Oral, BID, First dose on 05/13/23 at 2000, Until Discontinu ed, Routine [facility] gadobenate dimeglumine (MULTIHANCE -20 mL) injection 15.88 mL 05-13 21:45: 00 05-13 21:45 :00 No [id number] .2mL/kg 15.88 mL (0.2 mL/kg ?79.4 kg), Intravenou s, ONCE, 1 dose, On 05/13/23 at 1645, Routine [facility] Sliding Scale Insulin-Reg ular 05-13 19:00: 00 05-14 17:32 :58 No Subcutaneo us, Q6HA, First dose on 05/13/23 at 1400, Until Discontinu ed, Routine [facility] enoxaparin (LOVENOX) injection 40 mg 05-13 17:15: 00 05-14 22:12 :36 No 40mg 40 mg, Subcutaneo us, Q24H, First dose on 05/13/23 at 1215, Until Discontinu ed, [facility] diazePAM (VALIUM) tablet 2.5 mg 05-13 15:24: 53 Yes 2.5mg 2.5 mg, Oral, TIDPRN, Starting on 05/13/23 at 1024, Until Discontinu ed, Routine, Agitation, Anxiety, Muscle Spasms [facility] glucagon (GLUCAGEN DIAGNOSTIC KIT) injection 1 mg 05-13 14:18: 59 Yes 1mg 1 mg, Intramuscu lar, PRN, Starting on 05/13/23 at 0918, Until Discontinu ed, EUN, Blood Glucose < or = 70 mg/dL and patient is NPO, unable to swallow or has mental changes. [facility] dextrose 50 % in water (D50W) injection 25 mL 05-13 14:18: 59 Yes 25mL 25 mL, Slow IV Push, PRN, Starting on 05/13/23 at 0918, Until Discontinu ed, EUN, Blood Glucose < or = 70 mg/dL and patient is NPO, unable to swallow or has mental status changes. [facility] SERTraline (ZOLOFT) tablet 25 mg 05-13 14:00: 00 Yes 25mg 25 mg, Oral, DAILY, First dose on 05/13/23 at 0900, Until Discontinu ed, Routine [facility] docusate (COLACE) capsule 100 mg 05-13 14:00: 00 Yes 100mg 100 mg, Oral, DAILY, First dose on 05/13/23 at 0900, Until Discontinu ed, Routine [facility] omeprazole (PRILOSEC) capsule 20 mg 05-13 14:00: 00 05-16 17:57 :12 No 20mg 20 mg, Oral, DAILY, First dose on 05/13/23 at 0900, Until Discontinu ed, Routine [facility] lisinopriL (PRINIVIL,Z ESTRIL) tablet 10 mg 05-13 12:45: 00 05-13 19:35 :37 No 10mg 10 mg, Oral, DAILY, First dose on 05/13/23 at 0745, Until Discontinu ed, Routine [facility] acetaminoph en (TYLENOL) tablet 650 mg 05-13 11:00: 00 05-15 20:10 :17 No 650mg 650 mg, Oral, Q6H, First dose on 05/13/23 at 0600, Until Discontinu ed, Routine [facility] alum-mag hydroxide-s imeth (MAALOX PLUS / MAG-AL PLUS) 200-200-20 mg/5 mL suspension 30 mL 05-13 07:30: 00 05-13 12:23 :00 No 30mL 30 mL, Oral, ONCE, 1 dose, On 05/13/23 at 0230, Routine [facility] zolpidem (AMBIEN) tablet 10 mg 05-13 06:14: 02 Yes 10mg 10 mg, Oral, QHSPRN, Starting on 05/13/23 at 0114, Until Discontinu ed, Routine, Insomnia [facility] hydralAZINE (APRESOLINE ) injection 10 mg 05-13 05:53: 04 Yes 10mg 10 mg, Slow IV Push, Q4HPRN, Starting on 05/13/23 at 0053, Until Discontinu ed, Routine, SBP<140 [facility] glucagon (GLUCAGEN DIAGNOSTIC KIT) injection 1 mg 05-13 05:23: 57 Yes 1mg 1 mg, Intramuscu lar, PRN, Starting on 05/13/23 at 0023, Until Discontinu ed, EUN, Blood Glucose < or = 70 mg/dL and patient is NPO, unable to swallow or has mental changes. [facility] dextrose 50 % in water (D50W) injection 25 mL 05-13 05:23: 57 Yes 25mL 25 mL, Slow IV Push, PRN, Starting on 05/13/23 at 0023, Until Discontinu ed, EUN, Blood Glucose < or = 70 mg/dL and patient is NPO, unable to swallow or has mental status changes. [facility] polyethylen e glycol 3350 powder 17 g 05-13 05:17: 34 Yes 17g 17 g, Oral, PRN - SEE INSTRUCTIO NS, Starting on 05/13/23 at 0017, Until Discontinu ed, Routine, Constipati on [facility] ondansetron (ZOFRAN (PF)) injection 4 mg 05-13 05:17: 34 Yes 4mg 4 mg, Slow IV Push, Q6HPRN, Starting on 05/13/23 at 0017, Until Discontinu ed, Routine, Nausea and Vomiting (N/V) [facility] morpHINE (2 mg/mL) injection 4 mg 05-13 05:17: 34 Yes 4mg 4 mg, Slow IV Push, Q3HPRN, Starting on 05/13/23 at 0017, Until Discontinu ed, Routine, Pain (scale 7-10) [facility] oxyCODONE immediate release tablet 5 mg 05-13 05:17: 33 05-16 17:57 :12 No 5mg 5 mg, Oral, Q4HPRN, Starting on 05/13/23 at 0017, Until Tu05/16/23 at 1257, Routine, Pain (scale 4-6)
Fa [facility] member approving Restricted medication : SNSNSURG [facility] HYDROcodone -acetaminop hen (NORCO 5) 5-325 mg tablet 1 tablet 05-13 03:15: 00 05-13 02:23 :00 No 1{tbl} 1 tablet, Oral, ONCE, 1 dose, On Mon05/12/23 at 2215, Routine [facility] cefTRIAXone (ROCEPHIN) 1,000 mg in NaCl 0.9% (NS) 100 mL MINI-BAG 05-13 02:00: 00 05-13 02:25 :00 No 1000mg 1,000 mg, IV Piggyback, ONCE, 1 dose, On Mon05/12/23 at 2100, Administer over 30 Minutes, 100 mL
Reas on for Anti-Infec tive: Documented Infection< br>Documen thang Infection Site: Urine
D uration of Therapy: [address] [facility] ketorolac (TORADOL) injection 30 mg 05-13 01:30: 00 05-13 00:36 :00 No 30mg 30 mg, Slow IV Push, ONCE, 1 dose, On Mon05/12/23 at 2030, Routine [facility] methocarbam oL (ROBAXIN) tablet 1,500 mg 05-13 00:30: 00 05-13 00:36 :00 No 1500mg 1,500 mg, Oral, ONCE, 1 dose, On Mon05/12/23 at 1930, EUN [facility] dexamethaso ne sod phos PF injection 10 mg 05-13 00:30: 00 05-13 00:36 :00 No 10mg 10 mg, Slow IV Push, ONCE, 1 dose, On Mon05/12/23 at 1930, [address] [facility] metFORMIN 1,000 mg tablet 05-13 00:28: 58 Yes 1000mg Take 1 tablet by mouth in the morning and 1 tablet in the evening. Take with meals. [facility] HYDROcodone -acetaminop hen 5-325 mg tablet 06-17 00:00: 00 05-18 00:00 :00 No [id number] 1{tbl} Take 1 tablet by mouth every 6 (six) hours as needed for Pain (scale 7-10) (For breakthrou gh pain. Take with stool softener). [facility] ASPIRIN 81 mg chewable tablet 05-07 00:00: 00 Yes TAKE 1 TABLET BY MOUTH EVERY DAY [facility] LISINOPRIL 10 mg tablet 2016-10 0 00:00: 00 Yes [id number] TAKE [address] [facility] Immunizations Ordered Immunization Name Filled Immunization [...] Completed Marie Otto - External Covid-19 Vaccine ([employer]), Mrna-lnp, Sean Protein, Pf, 30mcg/0.3ml,IM 2022-09-28 00:00:00 Completed Marie Martinezold - External Covid-19 Vaccine ([employer] 2021-02-08 00:00:00 Completed Marie Seybold - External [...] Completed Marie Alvesybold - External Covid-19 Vaccine ([employer] Unknown Completed Marie Alvesybold - External Covid-19 [...] External Body height 2023-05-30 17:57:00 167.6 cm [facility] Body weight 2023-05-30 17:57:00 86.183 kg [facility] BMI 2023-05-30 17:57:00 30.67 kg/m2 [facility] Systolic blood pressure 2023-05-24 16:28:00 [...] Systolic blood pressure 2023-05-18 16:46:00 167 mm[Hg] [facility] Diastolic blood pressure 2023-05-18 16:46:00 88 mm[Hg] [facility] Heart rate 2023-05-18 16:46:00 63 /min [facility] 2023-05-18 16:46:00 36.33 [facility] Respiratory rate 2023-05-18 16:46:00 16 /min [facility] Oxygen saturation in Arterial blood by Pulse oximetry 2023-05-18 16:46:00 99 /min [facility] Body height 2023-05-13 04:59:00 167.6 cm [facility] Body weight 2023-05-13 04:59:00 79.379 kg [facility] BMI 2023-05-13 04:59:00 28.25 kg/m2 [facility] Respiratory rate 2023-05-16 18:21:00 16 /min [facility] Oxygen saturation in Arterial blood by Pulse oximetry 2023-05-16 18:21:00 96 /min [facility] Systolic blood pressure 2023-05-16 18:21:00 104 mm[Hg] [facility] Diastolic blood pressure 2023-05-16 18:21:00 47 mm[Hg] [place] [facility] Body temperature 2023-05-16 18:04:00 36 Tyesha [facility] Heart rate 2023-05-16 12:49:00 62 /min [facility] Body height 2023-05-13 04:59:00 167.6 cm [facility] Body weight 2023-05-13 04:59:00 79.379 kg [facility] BMI 2023-05-13 04:59:00 28.25 kg/m2 [facility] Procedures Procedure Date / Time Performed Performing Clinician Source ASSIGNMENT OF BENEFITS 2023-05-30 17:39:08 Docto r Unassigned, [place] [facility] POCT GLUCOSE (AUTOMATED) 2023-05-18 16:59:00 Manoj Jhaveri [facility] POCT GLUCOSE (AUTOMATED) 2023-05-18 12:49:00 Manoj Jhaveri [facility] EXTRA TUBE LT. GREEN 2023-05-18 10:30:00 Odell Starr [facility] CBC WITH DIFF 2023-05-18 10:26:00 Dada Guillen [facility] BASIC METABOLIC PANEL (NA, K, CL, CO2, GLUCOSE, BUN, CREATININE, CA) 2023-05-18 09:40:00 Dada Guillen [facility] POCT GLUCOSE (AUTOMATED) 2023-05-18 00:45:00 Manoj Jhaveri [facility] POCT GLUCOSE (AUTOMATED) 2023-05-17 21:52:00 Manoj Jhaveri [facility] POCT GLUCOSE (AUTOMATED) 2023-05-17 17:53:00 Manoj Jhaveri [facility] POCT GLUCOSE (AUTOMATED) 2023-05-17 17:53:00 Manoj Jhaveri [facility] POCT GLUCOSE (AUTOMATED) 2023-05-17 12:42:00 Manoj Jhaveri [facility] POCT GLUCOSE (AUTOMATED) 2023-05-17 12:42:00 Manoj Jhaveri [facility] CBC WITH DIFF 2023-05-17 08:28:00 Abdoul Jose Taj [facility] CBC WITH DIFF 2023-05-17 08:28:00 Jose Schreiber [facility] POCT GLUCOSE (AUTOMATED) 2023-05-17 00:51:00 Manoj Jhaveri [facility] POCT GLUCOSE (AUTOMATED) 2023-05-17 00:51:00 Manoj Jhaveri [facility] POCT GLUCOSE (AUTOMATED) 2023-05-16 22:05:00 Manoj Jhaveri [facility] POCT GLUCOSE (AUTOMATED) 2023-05-16 22:05:00 Manoj Jhaveri [facility] POCT GLUCOSE (AUTOMATED) 2023-05-16 19:02:00 Manoj Jhaveri [facility] POCT GLUCOSE (AUTOMATED) 2023-05-16 19:02:00 Manoj Jhaveri [facility] XR LUMBAR SPINE 1 VW 2023-05-16 16:31:00 Mayda Castellanos [facility] XR LUMBAR SPINE 1 VW 2023-05-16 16:31:00 Mayda Castellanos [facility] XR LUMBAR SPINE 1 VW 2023-05-16 16:11:46 Mayda Castellanos [facility] XR LUMBAR SPINE 1 VW 2023-05-16 16:11:46 Mayda Castellanos [facility] DISCECTOMY POSTERIOR LUMBAR 2023-05-16 15:10:00 Milind Starr [facility] DISCECTOMY POSTERIOR LUMBAR 2023-05-16 15:10:00 Milind Starr [facility] POCT GLUCOSE (AUTOMATED) 2023-05-16 12:51:00 Manoj Jhaveri [facility] POCT GLUCOSE (AUTOMATED) 2023-05-16 12:51:00 Manoj Jhaveri [facility] POCT TEST 2023-05-16 10:06:00 Dada Garcia [facility] POCT TEST 2023-05-16 10:06:00 Dada Garcia [facility] BASIC METABOLIC PANEL (NA, K, CL, CO2, GLUCOSE, BUN, CREATININE, CA) 2023-05-16 09:53:00 Dada Guillen [facility] CBC WITH DIFF 2023-05-16 09:53:00 Dada Guillen [facility] PROTHROMBIN TIME / INR 2023-05-16 09:53:00 Dada Hernandez [facility] ACTIVATED PARTIAL THRMPLAS CHAVEZ 2023-05-16 09:53:00 Dada Guillen [facility] BASIC METABOLIC PANEL (NA, K, CL, CO2, GLUCOSE, BUN, CREATININE, CA) 2023-05-16 09:53:00 Dada Guillen [facility] CBC WITH DIFF 2023-05-16 09:53:00 Dada Guillen [facility] PROTHROMBIN TIME / INR 2023-05-16 09:53:00 Dada Hernandez [facility] ACTIVATED PARTIAL THRMPLAS CHAVEZ 2023-05-16 09:53:00 Dada Guillen [facility] POCT GLUCOSE (AUTOMATED) 2023-05-16 00:30:00 Manoj Jhaveri [facility] POCT GLUCOSE (AUTOMATED) 2023-05-16 00:30:00 Manoj Jhaveri [facility] POCT GLUCOSE (AUTOMATED) 2023-05-15 21:57:00 Manoj Jhaveri [facility] POCT GLUCOSE (AUTOMATED) 2023-05-15 21:57:00 Manoj Jhaveri [facility] POCT GLUCOSE (AUTOMATED) 2023-05-15 16:29:00 Manoj Jhaveri [facility] POCT GLUCOSE (AUTOMATED) 2023-05-15 16:29:00 Manoj Jhaveri [facility] POCT GLUCOSE (AUTOMATED) 2023-05-15 12:43:00 Manoj Jhaveri [facility] POCT GLUCOSE (AUTOMATED) 2023-05-15 12:43:00 Manoj Jhaveri [facility] BASIC METABOLIC PANEL (NA, K, CL, CO2, GLUCOSE, BUN, CREATININE, CA) 2023-05-15 08:29:00 Jose Schreiber [facility] CBC WITH DIFF 2023-05-15 08:29:00 Jose Schreiber [facility] PROTHROMBIN TIME / INR 2023-05-15 08:29:00 Abdoul [facility] ACTIVATED PARTIAL THRMPLAS CHAVEZ 2023-05-15 08:29:00 Abdoul [facility] HB ABO GROUPING 2023-05-15 08:29:00 Abdoul [facility] BASIC METABOLIC PANEL (NA, K, CL, CO2, GLUCOSE, BUN, CREATININE, CA) 2023-05-15 08:29:00 Abdoul [facility] CBC WITH DIFF 2023-05-15 08:29:00 Jose Schreiber [facility] PROTHROMBIN TIME / INR 2023-05-15 08:29:00 Abdoul [facility] ACTIVATED PARTIAL THRMPLAS CHAVEZ 2023-05-15 08:29:00 Abdoul [facility] HB ABO GROUPING 2023-05-15 08:29:00 Abdoul [facility] POCT GLUCOSE (AUTOMATED) 2023-05-15 02:16:00 Manoj Jhaveri [facility] POCT GLUCOSE (AUTOMATED) 2023-05-15 02:16:00 Manoj Jhaveri [facility] POCT GLUCOSE (AUTOMATED) 2023-05-15 01:19:00 Manoj Jhaveir [facility] POCT GLUCOSE (AUTOMATED) 2023-05-15 01:19:00 Manoj Jhaveri [facility] POCT GLUCOSE (AUTOMATED) 2023-05-14 21:16:00 Manoj Jhaveri [facility] POCT GLUCOSE (AUTOMATED) 2023-05-14 21:16:00 Manoj Jhaveri [facility] POCT GLUCOSE (AUTOMATED) 2023-05-14 14:24:00 Manoj Jhaveri [facility] POCT GLUCOSE (AUTOMATED) 2023-05-14 14:24:00 Manoj Jhaveri [facility] PROTHROMBIN TIME / INR 2023-05-14 09:26:00 Jose Schreiber [facility] PROTHROMBIN TIME / INR 2023-05-14 09:26:00 Jose Schreiber [facility] POCT GLUCOSE (AUTOMATED) 2023-05-14 06:54:00 Manoj Jhaveri [facility] POCT GLUCOSE (AUTOMATED) 2023-05-14 06:54:00 Manoj Jhaveri [facility] POCT GLUCOSE (AUTOMATED) 2023-05-14 02:26:00 Manoj Jhaveri [facility] POCT GLUCOSE (AUTOMATED) 2023-05-14 02:26:00 Manoj Jhaveri [facility] POCT GLUCOSE (AUTOMATED) 2023-05-13 23:06:00 Manoj Jhaveri [facility] POCT GLUCOSE (AUTOMATED) 2023-05-13 23:06:00 Manoj Jhaveri [facility] MR LUMBAR SPINE W WO CONTRAST 2023-05-13 21:40:31 [facility] 2023-05-13 21:40:31 Jose Schreiber [facility] POCT GLUCOSE (AUTOMATED) 2023-05-13 16:44:00 Manoj Jhaveri [facility] POCT GLUCOSE (AUTOMATED) 2023-05-13 16:44:00 Manoj Jhaveri [facility] POCT GLUCOSE (AUTOMATED) 2023-05-13 14:12:00 Manoj Jhaveri [facility] POCT GLUCOSE (AUTOMATED) 2023-05-13 14:12:00 Manoj Jhaveri [facility] BASIC METABOLIC PANEL (NA, K, CL, CO2, GLUCOSE, BUN, CREATININE, CA) 2023-05-13 10:06:00 Jose Schreiber [facility] CBC WITH DIFF 2023-05-13 10:06:00 [facility] (A1C) 2023-05-13 10:06:00 Mayda Vargas [facility] PROTHROMBIN TIME / INR 2023-05-13 10:06:00 Jose Schreiber [facility] BASIC METABOLIC PANEL (NA, K, CL, CO2, GLUCOSE, BUN, CREATININE, CA) 2023-05-13 10:06:00 Jose Schreiber [facility] CBC WITH DIFF 2023-05-13 10:06:00 Jose Schreiber [facility] GLYCOSYLATED HEMOGLOBIN (A1C) 2023-05-13 10:06:00 Mayda Vargas [facility] PROTHROMBIN TIME / INR 2023-05-13 10:06:00 Jose Schreiber [facility] CT LUMBAR SPINE WO CONTRAST 2023-05-13 01:07:19 Yasmani King [facility] CT LUMBAR SPINE WO CONTRAST 2023-05-13 01:07:19 Yasmani King [facility] COMP. METABOLIC PANEL ([id number]) 2023-05-13 00:36:00 Yasmani King [facility] CBC WITH DIFF 2023-05-13 00:36:00 Yasmani King [facility] URINALYSIS 2023-05-13 00:36:00 Yasmani King [facility] URINE CULTURE 2023-05-13 00:36:00 Yasmani King [facility] COMP. METABOLIC PANEL ([id number]) 2023-05-13 00:36:00 Yasmani King [facility] CBC WITH DIFF 2023-05-13 00:36:00 Justen Kingo Dom [facility] URINALYSIS 2023-05-13 00:36:00 Yasmani King [facility] URINE CULTURE 2023-05-13 00:36:00 Justen Kingo Dom [facility] NOTICE OF PRIVACY PRACTICES 2023-05-12 23:18:43 Doctor Unassigned, [place] [facility] NOTICE OF PRIVACY PRACTICES 2023-05-12 23:18:43 Doctor Unassigned, [place] [facility] CONSENT/REFUSAL FOR DIAGNOSIS AND TREATMENT 2023-05-12 23:15:51 Doctor Unassigned, [place] [facility] CONSENT/REFUSAL FOR DIAGNOSIS AND TREATMENT 2023-05-12 23:15:51 Doctor Unassigned, [place] [facility] HOSPITAL ADMISSION 2023-05-12 05:01:00 Doctor Un assigned, [place] [facility] ADMISSION 2023-05-12 05:01:00 Doctor Un assigned, [place] [facility] Encounters Start Date/Time End Date/Time Encounter Type Admission Type Attending [facility] Care Department Encounter ID Source 2024-03-13 00:00:00 2024-03-13 00:00:00 Outpatient FLORA WARNER [id number] [facility] 2024-03-11 00:00:00 2024-03-11 00:00:00 Outpatient FLORA WARNER [id number] [facility] 2024-02-19 16:30:00 2024-02-19 16:30:00 Outpatient HOLLYSHAYY VAUGHAN MARIE RODRIGUEZ [id number] [facility] 2024-01-16 00:00:00 2024-01-16 00:00:00 Outpatient PREFLORA PFEIFFER [id number] [facility] 2024-01-03 16:30:00 2024-01-03 16:30:00 Outpatient ANA URBINA [id number] [facility] 2023-11-28 00:00:00 2023-11-28 00:00:00 Outpatient PREZAFLORA Posey [id number] [facility] 2023-10-27 00:00:00 2023-10-27 00:00:00 Outpatient FLORA WARNER [id number] [facility] 2023-10-26 15:15:00 2023-10-26 15:15:00 Outpatient FLORA WARNER [id number] [facility] 2023-10-20 14:40:00 2023-10-20 14:40:00 Outpatient BRUNA HANSEN [id number] [facility] 2023-10-18 15:20:00 2023-10-18 15:20:00 Outpatient MARIE MARIE [id number] Marie Seybold 2023-10-18 15:15:00 2023-10-18 15:15:00 Outpatient MARIE MARIE [id number] Marie Seybold 2023-10-18 15:10:00 2023-10-18 15:10:00 Outpatient MARIE MAR[facility] [id number] [facility] 2023-10-18 14:15:00 2023-10-18 14:15:00 Outpatient CIARA ANA MARIE RODRIGUEZ [id number] [facility] 2023-10-18 00:00:00 2023-10-18 00:00:00 Outpatient CIARA ANA MARIE RODRIGUEZ [id number] [facility] 2023-09-29 00:00:00 2023-09-29 00:00:00 Outpatient PREZASFLORA [id number] [facility] 2023-09-28 14:10:00 2023-09-28 14:10:00 Outpatient TRAMGaudencio RODRIGUEZ [id number] [facility] 2023-09-28 13:30:00 2023-09-28 13:30:00 Outpatient PREZAS, FLORA MARIE RODRIGUEZ [id number] [facility] 2023-09-06 00:00:00 2023-09-06 00:00:00 Outpatient ANA URBINA [id number] [facility] 2023-09-06 00:00:00 2023-09-06 00:00:00 Outpatient PREZAS FLORA RODRIGUEZ [id number] [facility] 2023-08-21 00:00:00 2023-08-21 00:00:00 Outpatient ANA URBINA [id number] Marie Seybold 2023-08-10 14:30:00 2023-08-10 14:30:00 Outpatient PREZASFLORA [id number] [facility] 2023-08-07 15:15:00 2023-08-07 15:15:00 Outpatient ANA URBINA MARIE [id number] [facility] 2023-08-02 00:00:00 2023-08-02 00:00:00 Telephone Milind Starr [facility] 1.2.840.114 350.1.13.10 4.2.7.2.[id number] [facility] 2023-07-18 00:00:00 2023-07-18 00:00:00 Outpatient FLORA WARNER MARIE [id number] [facility] 2023-07-13 00:00:00 2023-07-13 00:00:00 Outpatient FLORA WARNER MARIE [id number] [facility] 2023-07-13 00:00:00 2023-07-13 00:00:00 Outpatient FLORA WARNER MARIE RODRIGUEZ [id number] [facility] 2023-07-12 11:45:00 2023-07-12 11:45:00 Outpatient R MILIND STARR [facility] [id number] [facility] 2023-07-12 11:30:00 2023-07-12 11:45:00 Office Visit Milind Starr [facility] 1.2.840.114 350.1.13.10 4.2.7.2.[id number] [facility] 2023-07-12 11:30:00 2023-07-12 11:30:00 Outpatient R MILIND STARR [facility] [id number] [facility] 2023-07-12 00:00:00 2023-07-12 00:00:00 Patient Secure Msg Doctor Unassigned, [place] [facility] 1.2.840.114 350.1.13.10 4.2.7.2.[id number] [facility] 2023-06-28 14:00:00 2023-06-28 14:00:00 Outpatient PREZAS, FLORA RODRIGUEZ [id number] [facility] 2023-06-28 00:00:00 2023-06-28 00:00:00 Outpatient MARIE RODRIGUEZ [id number] Marie Otto 2023-06-27 00:00:00 2023-06-27 00:00:00 Outpatient PREZAS, FLORA RODRIGUEZ MARIE [id number] Marie Otto 2023-06-26 10:25:00 2023-06-26 10:25:00 Outpatient LAB90 MARIE RODRIGUEZ [id number] [facility]23-06-20 00:00:00 2023-06-20 00:00:00 Outpatient PREZAS, FLORA RODRIGUEZ MARIE [id number] [facility] 2023-06-11 00:00:00 2023-06-11 00:00:00 Telephone Milind Starr [facility] 1.2.840.114 350.1.13.10 4.2.7.2.[id number] [facility] 2023-06-09 00:00:00 2023-06-09 00:00:00 Outpatient PREZAS, FLORA RODRIGUEZ MARIE [id number] [facility] 2023-06-09 00:00:00 2023-06-09 00:00:00 Outpatient PREZASFLORA MARIE [id number] [facility] 2023-06-09 00:00:00 2023-06-09 00:00:00 Telephone Irma Castillo [facility] 1.2.840.114 350.1.13.10 4.2.7.2.[id number] [facility] 2023-06-05 00:00:00 2023-06-05 00:00:00 Outpatient PREZASFLORA MARIE [id number] [facility] 2023-05-30 13:30:00 2023-05-30 13:30:00 Office Visit Irma Castillo [facility] 1.2.840.114 350.1.13.10 4.2.7.2.[id number] [facility] 2023-05-30 13:30:00 2023-05-30 13:06:25 Outpatient IRMA SILVA [facility] [id number] [facility] 2023-05-30 00:00:00 2023-05-30 00:00:00 Orders Only Doctor Unassigned, [place] [facility] 1..840.114 350.1.13.10 4.2.7.2.[id number] [facility] 2023-05-29 00:00:00 2023-05-29 00:00:00 Outpatient FLORA WARNER [id number] [facility] 2023-05-29 00:00:00 2023-05-29 00:00:00 Outpatient FLORA WARNER [id number] [facility] 2023-05-26 00:00:00 2023-05-26 00:00:00 Telephone Milind Starr [facility] 1.2.840.114 350.1.13.10 4.2.7.2.[id number] [facility] 2023-05-25 00:00:00 2023-05-25 00:00:00 Outpatient FLORA WARNER [id number] [facility] 2023-05-24 12:15:00 2023-05-24 12:15:00 Outpatient LAB90 MARIE RODRIGUEZ [id number] [facility] 2023-05-24 11:30:00 2023-05-24 11:30:00 Outpatient FLORA WARNER [id number] [facility] 2023-05-19 00:00:00 2023-05-19 00:00:00 Transition of Care Soco Moore 1.2.840.114 350.1.13.10 4.2.7.2.[id number] [facility] 2023-05-12 18:25:00 2023-05-18 17:00:00 Inpatient X MILIND STARR [facility] [id number] [facility] 2023-05-12 18:25:00 2023-05-18 17:00:00 Hospital Encounter Manoj Jhaveri, Yasmani Fernandes [facility] 1.2.840.114 350.1.13.10 4.2.7.2.[id number] [facility] 2023-05-16 10:08:00 2023-05-16 13:57:00 Surgery [facility] 1.2.840.114 350.1.13.10 4.2.7.2.[id number] [facility] 2023-05-12 00:00:00 2023-05-12 00:00:00 Outpatient FLORA WARNER [id number] Marie Otto Results Test Description Test Time Test Comments Results Result Co mments Source [facility] 12:59:42* Test Item Value Reference Range Interpretation Comme [facility] POCT GLU (test code = 3449014574) 181 mg/dL 70-110 H Lab Interpretation (test cod e = 39125-4) Abnormal [facility] WITH [id number] 10:45:46* Test Item Value Reference Range Interpretation [...] 33.8 g/dL 31.6-35.1 RDW-SD (test code = 41843-9) 44.7 fL 39.0-49.9 RDW-CV (test code = 788-0) 12.4 % 12.0-15.5 PLT (test code = 777-3) 264 See_Comment [Automated messa ge] The system which generated this result transmitted reference range: 166 - 358 10*3/?L. The reference range was not used to interpret this result as normal/abnormal. MPV (test code = 50726-5) 11.0 fL 9.5-12.9 NRBC/100 WBC (test code = 8999460103) 0.0 See_Comment [Automated SleepOut ssage] The system which generated this result transmitted reference range: 0.0 - 10.0 /100 WBCs. The reference range was not used to interpret this result as normal/abnormal. NRBC x10^3 (test code = 6714338647) See_Comment [Automated messa ge] The system which generated this result transmitted reference range: 10*3/?L. The reference range was not used to interpret this result as normal/abnormal. GRAN MAT (NEUT) % (test code = 770-8) 64.9 % IMM GRAN % (test code = 7549256219) 1.30 % LYMPH % (test code = 736-9) 23.7 % MONO % (test code = 5905-5) 9.4 % EOS % (test code = 713-8) 0.4 % BASO % (test code = 706-2) 0.3 % GRAN MAT x10^3(ANC) (test code = 0686617604) 6.27 10*3/uL 1.88-7.09 IMM GRAN x10^3 (test code = 9256619581) 0.13 10*3/uL 0.00-0.06 H LYMPH x10^3 (test code = 731-0) 2.29 10*3/uL 1.32-3.29 MONO x10^3 (test code = 742-7) 0.91 10*3/uL 0.33-0.92 EOS x10^3 (test code = 711-2) 0.04 10*3/uL 0.03-0.39 BASO x10^3 (test code = 704-7) 0.03 10*3/uL 0.01-0.07 Lab Interpretation (test code = 29153-2) Abnormal [facility] METABOLIC PANEL (NA, K, CL, CO2, GLUCOSE, BUN, CREATININE, CA)2023-05-18 10:31:00* Test Item Value Reference Range Interpretation Comme nts NA (test code = 3539593782) 136 mmol/L 135-145 K (test code = 2500613321) 4.4 mmol/L 3.5-5.0 Slight hemolysis CL (test code = 7697324321) 103 mmol/L 98-108 CO2 TOTAL (test code = 9842144394) 23 mmol/L 23-31 AGAP (test code = 2526974043) 10 2-16 BUN (test code = 7052001224) 19 mg/dL 7-23 Slight hemolysis GLUCOSE (test code = 9966583082) 208 mg/dL 70-110 H CREATININE (test code = 8987400609) 0.67 mg/dL 0.50-1.04 CALCIUM (test code = 6115557778) 9.2 mg/dL 8.6-10.6 eGFR (test code = 1448626505) 92.4 mL/min/1.73m2 AKIL (test code = AKIL) [...] imaging tests). Lab Interpretation (test code = 40198-7) Abnormal [facility] GLUCOSE (AUTOMATED)2023-05-18 00:46:51* Test Item Value Reference Range Interpretation Comme nts POCT GLU (test code = 6007712053) 246 mg/dL 70-110 H Lab Interpretation (test cod e = 37075-0) Abnormal [facility] GLUCOSE (AUTOMATED)2023-05-17 21:55:38* Test Item Value Reference Range Interpretation Comme nts POCT GLU (test code = 5322481007) 317 mg/dL 70-110 H Lab Interpretation (test cod e = 88605-2) Abnormal [facility] GLUCOSE (AUTOMATED)2023-05-17 17:55:06* Test Item Value Reference Range Interpretation Comme nts POCT GLU (test code = 4704861836) 292 mg/dL 70-110 H Lab Interpretation (test cod e = 92301-0) Abnormal [facility] GLUCOSE (AUTOMATED)2023-05-17 17:55:06* Test Item Value Reference Range Interpretation Comme nts POCT GLU (test code = 7533502586) 292 mg/dL 70-110 H Lab Interpretation (test cod e = 34877-4) Abnormal [facility] GLUCOSE (AUTOMATED)2023-05-17 12:44:42* Test Item Value Reference Range Interpretation Comme nts POCT GLU (test code = 9257180790) 203 mg/dL 70-110 H Lab Interpretation (test cod e = 74320-9) Abnormal [facility] GLUCOSE (AUTOMATED)2023-05-17 12:44:42* Test Item Value Reference Range Interpretation Comme nts POCT GLU (test code = 8585370720) 203 mg/dL 70-110 H Lab Interpretation (test cod e = 20437-3) Abnormal [facility] GLUCOSE (AUTOMATED)2023-05-17 00:52:01* Test Item Value Reference Range Interpretation Comme nts POCT GLU (test code = 1977048448) 350 mg/dL 70-110 H Lab Interpretation (test cod e = 87854-1) Abnormal [facility] GLUCOSE (AUTOMATED)2023-05-17 00:52:01* Test Item Value Reference Range Interpretation Comme nts POCT GLU (test code = 9090734175) 350 mg/dL 70-110 H Lab Interpretation (test cod e = 31373-3) Abnormal [facility] GLUCOSE (AUTOMATED)2023-05-16 22:07:26* Test Item Value Reference Range Interpretation Comme nts POCT GLU (test code = 6757595943) 415 mg/dL 70-110 H Lab Interpretation (test cod e = 22936-8) Abnormal [facility] GLUCOSE (AUTOMATED)2023-05-16 22:07:26* Test Item Value Reference Range Interpretation Comme nts POCT GLU (test code = 0311758803) 415 mg/dL 70-110 H Lab Interpretation (test cod e = 29436-0) [facility]:06:06* Test Item Value Reference Range Interpretation Comme nts POCT GLU (test code = [id number]) 254 mg/dL 70-110 H Lab Interpretation (test cod e = 98924-4) Abnormal [facility] GLUCOSE (AUTOMATED)2023-05-16 19:06:06* Test Item Value Reference Range Interpretation Comme nts POCT GLU (test code = [id number]) 254 mg/dL 70-110 H Lab Interpretation (test cod e = 95264-2) Abnormal [facility] GLUCOSE (AUTOMATED)2023-05-16 12:52:57* Test Item Value Reference Range Interpretation Comme nts POCT GLU (test code = 9059177130) 195 mg/dL 70-110 H Lab Interpretation (test cod e = 46581-9) Abnormal [facility] GLUCOSE (AUTOMATED)2023-05-16 12:52:57* Test Item Value Reference Range Interpretation Comme nts POCT GLU (test code = 3307610709) 195 mg/dL 70-110 H Lab Interpretation (test cod e = 01930-1) Abnormal [facility] [id number] 10:06:00* Test Item Value Reference Range Interpretation Comme nts POCT PREG (test code = 1605) Negative On board controls acceptable with C Line (test code = 3574) Yes POCT PREG LOT # (test code = 3575) POCT PREG TEST DATE ( test code = 3576) [facility] [id number] 10:06:00* Test Item Value Reference Range Interpretation Comme nts POCT PREG (test code = 1605) Negative On board controls acceptable with C Line (test code = 3574) Yes POCT PREG LOT # (test code = 3575) POCT PREG TEST DATE ( test code = 3576) [facility] GLUCOSE (AUTOMATED)2023-05-16 00:39:39* Test Item Value Reference Range Interpretation Comme nts POCT GLU (test code = 0008532936) 293 mg/dL 70-110 H Lab Interpretation (test cod e = 72713-2) Abnormal [facility] GLUCOSE (AUTOMATED)2023-05-16 00:39:39* Test Item Value Reference Range Interpretation Comme nts POCT GLU (test code = 8746683171) 293 mg/dL 70-110 H Lab Interpretation (test cod e = 26282-8) Abnormal [facility] GLUCOSE (AUTOMATED)2023-05-15 22:00:16* Test Item Value Reference Range Interpretation Comme nts POCT GLU (test code = 4465433557) 162 mg/dL 70-110 H Lab Interpretation (test cod e = 61363-3) Abnormal [facility] GLUCOSE (AUTOMATED)2023-05-15 22:00:16* Test Item Value Reference Range Interpretation Comme nts POCT GLU (test code = 8808655277) 162 mg/dL 70-110 H Lab Interpretation (test cod e = 70589-4) Abnormal [facility] GLUCOSE (AUTOMATED)2023-05-15 16:35:57* Test Item Value Reference Range Interpretation Comme nts POCT GLU (test code = 0003959324) 161 mg/dL 70-110 H Lab Interpretation (test cod e = 40659-4) Abnormal [facility] GLUCOSE (AUTOMATED)2023-05-15 16:35:57* Test Item Value Reference Range Interpretation Comme nts POCT GLU (test code = 7689153201) 161 mg/dL 70-110 H Lab Interpretation (test cod e = 06412-5) Abnormal [facility] GLUCOSE (AUTOMATED)2023-05-15 12:46:28* Test Item Value Reference Range Interpretation Comme nts POCT GLU (test code = 6768972033) 168 mg/dL 70-110 H Lab Interpretation (test cod e = 43012-7) Abnormal [facility] GLUCOSE (AUTOMATED)2023-05-15 12:46:28* Test Item Value Reference Range Interpretation Comme nts POCT GLU (test code = 5020402654) 168 mg/dL 70-110 H Lab Interpretation (test cod e = 25546-4) Abnormal [facility] METABOLIC PANEL (NA, K, CL, CO2, GLUCOSE, BUN, CREATININE, CA)2023-05-15 09:10:13* Test Item Value Reference Range Interpretation Comme nts NA (test code = 4631665028) 141 mmol/L 135-145 K (test code = 4510556439) 3.0 mmol/L 3.5-5.0 L CL (test code = 5293062656) 106 mmol/L 98-108 CO2 TOTAL (test code = 3106461653) 27 mmol/L 23-31 AGAP (test code = 4543680617) 8 2-16 BUN (test code = 8936130310) 10 mg/dL 7-23 GLUCOSE (test code = 3037668185) 146 mg/dL 70-110 H CREATININE (test code = 8521729332) 0.70 mg/dL 0.50-1.04 CALCIUM (test code = 5715978050) 8.7 mg/dL 8.6-10.6 eGFR (test code = 0359762627) 87.9 mL/min/1.73m2 AKIL (test code = AKIL) [...] imaging tests). Lab Interpretation (test code = 83081-0) [facility] (NA, K, CL, CO2, GLUCOSE, BUN, CREATININE, CA)2023-05-15 09:10:13* Test Item Value Reference Range Interpretation Comme nts NA (test code = 3211956960) 141 mmol/L 135-145 K (test code = 9321487766) 3.0 mmol/L 3.5-5.0 L CL (test code = 3220912824) 106 mmol/L 98-108 CO2 TOTAL (test code = 1346426685) 27 mmol/L 23-31 AGAP (test code = 4976998281) 8 2-16 BUN (test code = 6889025174) 10 mg/dL 7-23 GLUCOSE (test code = 2226548228) 146 mg/dL 70-110 H CREATININE (test code = 2055712492) 0.70 mg/dL 0.50-1.04 CALCIUM (test code = 5290513911) 8.7 mg/dL 8.6-10.6 eGFR (test code = 6118537762) 87.9 mL/min/1.73m2 AKIL (test code = AKIL) [...] imaging tests). Lab Interpretation (test code = 36439-2) Abnormal [facility] [id number] 08:57:35* Test Item Value Reference Range Interpretation Comme nts APTT Patient (test code = 3173-2) 34 See_Comment [Automated [employer]uesCom] The system which generated this result transmitted reference range: 26 - 36 Seconds. The reference range was not used to interpret this result as normal/abnormal. Lab Interpretation (test code = 55657-2) Normal [facility] Time / [id number] 08:57:35* Test Item Value Reference Range Interpretation [...] the indications. Lab Interpretation (test code = 64863-3) Normal [facility] [id number] 08:57:35* Test Item Value Reference Range Interpretation Comme nts APTT Patient (test code = 3173-2) 34 See_Comment [Automated messa ge] The system which generated this result transmitted reference range: 26 - 36 Seconds. The reference range was not used to interpret this result as normal/abnormal. Lab Interpretation (test code = 43503-1) Normal [facility] / [id number] 08:57:35* Test Item Value Reference Range Interpretation [...] the indications. Lab Interpretation (test code = 80475-2) Normal [facility] WITH [id number] 08:50:52* Test Item Value Reference Range Interpretation [...] 34.1 g/dL 31.6-35.1 RDW-SD (test code = 01968-9) 44.0 fL 39.0-49.9 RDW-CV (test code = 788-0) 12.5 % 12.0-15.5 PLT (test code = 777-3) 250 See_Comment [Automated messa ge] The system which generated this result transmitted reference range: 166 - 358 10*3/?L. The reference range was not used to interpret this result as normal/abnormal. MPV (test code = 81497-9) 10.8 fL 9.5-12.9 NRBC/100 WBC (test code = 8910643472) 0.0 See_Comment [Automated me ssage] The system which generated this result transmitted reference range: 0.0 - 10.0 /100 WBCs. The reference range was not used to interpret this result as normal/abnormal. NRBC x10^3 (test code = 0891919500) See_Comment [Automated messa ge] The system which generated this result transmitted reference range: 10*3/?L. The reference range was not used to interpret this result as normal/abnormal. GRAN MAT (NEUT) % (test code = 770-8) 53.1 % IMM GRAN % (test code = 5881984965) 1.00 % LYMPH % (test code = 736-9) 35.7 % MONO % (test code = 5905-5) 7.3 % EOS % (test code = 713-8) 2.3 % BASO % (test code = 706-2) 0.6 % GRAN MAT x10^3(ANC) (test code = 9729295601) 4.23 10*3/uL 1.88-7.09 IMM GRAN x10^3 (test code = 5759731118) 0.08 10*3/uL 0.00-0.06 H LYMPH x10^3 (test code = 731-0) 2.84 10*3/uL 1.32-3.29 MONO x10^3 (test code = 742-7) 0.58 10*3/uL 0.33-0.92 EOS x10^3 (test code = 711-2) 0.18 10*3/uL 0.03-0.39 BASO x10^3 (test code = 704-7) 0.05 10*3/uL 0.01-0.07 Lab Interpretation (test code = 28989-7) Abnormal [facility] WITH [id number] 08:50:52* Test Item Value Reference Range Interpretation [...] 34.1 g/dL 31.6-35.1 RDW-SD (test code = 13398-5) 44.0 fL 39.0-49.9 RDW-CV (test code = 788-0) 12.5 % 12.0-15.5 PLT (test code = 777-3) 250 See_Comment [Automated [employer]] The system which generated this result transmitted reference range: 166 - 358 10*3/?L. The reference range was not used to interpret this result as normal/abnormal. MPV (test code = 01646-9) 10.8 fL 9.5-12.9 NRBC/100 WBC (test code = 8026779099) 0.0 See_Comment [Automated SleepOut ssage] The system which generated this result transmitted reference range: 0.0 - 10.0 /100 WBCs. The reference range was not used to interpret this result as normal/abnormal. NRBC x10^3 (test code = 6303052389) See_Comment [Automated [employer]] The system which generated this result transmitted reference range: 10*3/?L. The reference range was not used to interpret this result as normal/abnormal. GRAN MAT (NEUT) % (test code = 770-8) 53.1 % IMM GRAN % (test code = 1677304484) 1.00 % LYMPH % (test code = 736-9) 35.7 % MONO % (test code = 5905-5) 7.3 % EOS % (test code = 713-8) 2.3 % BASO % (test code = 706-2) 0.6 % GRAN MAT x10^3(ANC) (test code = 4106696831) 4.23 10*3/uL 1.88-7.09 IMM GRAN x10^3 (test code = 9765033289) 0.08 10*3/uL 0.00-0.06 H LYMPH x10^3 (test code = 731-0) 2.84 10*3/uL 1.32-3.29 MONO x10^3 (test code = 742-7) 0.58 10*3/uL 0.33-0.92 EOS x10^3 (test code = 711-2) 0.18 10*3/uL 0.03-0.39 BASO x10^3 (test code = 704-7) 0.05 10*3/uL 0.01-0.07 Lab Interpretation (test code = 54178-7) [facility] Axzdjpn1230-81-33 08:44:00* Test Item Value Reference Range Interpretation Comme nts ABO & RH (test code = 20) O NEGATIVE IAT (test code = 1185) Negative [facility] - ONCE Psiaibg1721-43-29 08:44:00* Test Item Value Reference Range Interpretation Comme nts ABO & RH (test code = 20) O NEGATIVE IAT (test code = 1185) Negative [facility]23-[facility]-15 02:26:26* Test Item Value Reference Range Interpretation Comme nts POCT GLU (test code = 0541241337) 298 mg/dL 70-110 H Lab Interpretation (test cod e = 28686-7) [facility] 02:26:26* Test Item Value Reference Range Interpretation Comme nts POCT GLU (test code = 4240827400) 298 mg/dL 70-110 H Lab Interpretation (test cod e = 13148-4) [facility] 01:19:27* Test Item Value Reference Range Interpretation Comme nts POCT GLU (test code = 3882745136) 298 mg/dL 70-110 H Lab Interpretation (test cod e = 19546-2) [facility] 01:19:27* Test Item Value Reference Range Interpretation Comme nts POCT GLU (test code = 9932450084) 298 mg/dL 70-110 H Lab Interpretation (test cod e = 40851-5) [facility] 21:17:33* Test Item Value Reference Range Interpretation Comme nts POCT GLU (test code = 4961843887) 300 mg/dL 70-110 H Lab Interpretation (test cod e = 99096-7) [facility]14 21:17:33* Test Item Value Reference Range Interpretation Comme nts POCT GLU (test code = 2479115450) 300 mg/dL 70-110 H Lab Interpretation (test cod e = 45042-2) [facility] 14:25:24* Test Item Value Reference Range Interpretation Comme nts POCT GLU (test code = 7227684265) 156 mg/dL 70-110 H Lab Interpretation (test cod e = 51748-9) Abnormal [facility] GLUCOSE (AUTOMATED)2023-05-14 14:25:24* Test Item Value Reference Range Interpretation Comme nts POCT GLU (test code = 8801942752) 156 mg/dL 70-110 H Lab Interpretation (test cod e = 97183-3) [facility]normal [facility] / [id number] 10:12:05* Test Item Value Reference Range Interpretation Comme nts PROTIME PATIENT (test code = 5964-2) 10.3 See_Comment [Automated [employer]] The system which generated this result transmitted reference range: 10.1 - 12.6 Seconds. The reference range was not used to interpret this result as normal/abnormal. INR (test code = 6301-6) 0.9 Normal INR <1.1; Warfarin Therapeutic range 2.0 to 3.0 or 2.5 to 3.5, depending upon the indications. Lab Interpretation (test code = 09382-9) Normal [facility] / [id number] 10:12:05* Test Item Value Reference Range Interpretation Comme nts PROTIME PATIENT (test code = 5964-2) 10.3 See_Comment [Automated [employer]] The system which generated this result transmitted reference range: 10.1 - 12.6 Seconds. The reference range was not used to interpret this result as normal/abnormal. INR (test code = 6301-6) 0.9 Normal INR <1.1; Warfarin Therapeutic range 2.0 to 3.0 or 2.5 to 3.5, depending upon the indications. Lab Interpretation (test code = 28175-0) Normal [facility] GLUCOSE (AUTOMATED)2023-05-14 06:55:10* Test Item Value Reference Range Interpretation Comme nts POCT GLU (test code = 2550042795) 267 mg/dL 70-110 H Lab Interpretation (test cod e = 16987-0) Abnormal [facility] GLUCOSE (AUTOMATED)2023-05-14 06:55:10* Test Item Value Reference Range Interpretation Comme nts POCT GLU (test code = 8593023072) 267 mg/dL 70-110 H Lab Interpretation (test cod e = 76443-3) Abnormal [facility] GLUCOSE (AUTOMATED)2023-05-14 02:27:17* Test Item Value Reference Range Interpretation Comme nts POCT GLU (test code = 7378862515) 370 mg/dL 70-110 H Lab Interpretation (test cod e = 57598-3) Abnormal [facility] GLUCOSE (AUTOMATED)2023-05-14 02:27:17* Test Item Value Reference Range Interpretation Comme nts POCT GLU (test code = 8389422916) 370 mg/dL 70-110 H Lab Interpretation (test cod e = 56402-9) Abnormal [facility] GLUCOSE (AUTOMATED)2023-05-13 23:06:58* Test Item Value Reference Range Interpretation Comme nts POCT GLU (test code = 4160745425) 294 mg/dL 70-110 H Lab Interpretation (test cod e = 74938-2) Abnormal [facility] GLUCOSE (AUTOMATED)2023-05-13 23:06:58* Test Item Value Reference Range Interpretation Comme nts POCT GLU (test code = 5847993442) 294 mg/dL 70-110 H Lab Interpretation (test cod e = 12650-8) Abnormal [facility] GLUCOSE (AUTOMATED)2023-05-13 16:45:54* Test Item Value Reference Range Interpretation Comme nts POCT GLU (test code = 7591181561) 266 mg/dL 70-110 H Lab Interpretation (test cod e = 78713-9) Abnormal [facility] GLUCOSE (AUTOMATED)2023-05-13 16:45:54* Test Item Value Reference Range Interpretation Comme nts POCT GLU (test code = 6177945193) 266 mg/dL 70-110 H Lab Interpretation (test cod e = 38789-9) Abnormal [facility] GLUCOSE (AUTOMATED)2023-05-13 14:14:24* Test Item Value Reference Range Interpretation Comme nts POCT GLU (test code = 3628268434) 303 mg/dL 70-110 H Lab Interpretation (test cod e = 73433-1) Abnormal [facility] GLUCOSE (AUTOMATED)2023-05-13 14:14:24* Test Item Value Reference Range Interpretation Comme nts POCT GLU (test code = 5528944552) 303 mg/dL 70-110 H Lab Interpretation (test cod e = 80339-9) Abnormal [facility] WITH [id number] 01:17:55* Test Item Value Reference Range Interpretation Comme nts WBC (test code = 6690-2) 8.97 See_Comment [Automated [employer]] The system which generated this result transmitted reference range: 4.30 - 11.10 10*3/?L. The reference range was not used to interpret this result as normal/abnormal. RBC (test code = 789-8) 4.02 See_Comment [Automated [employer]] The system which generated this result [...] 34.3 g/dL 31.6-35.1 RDW-SD (test code = 11743-2) 45.3 fL 39.0-49.9 RDW-CV (test code = 788-0) 12.5 % 12.0-15.5 PLT (test code = 777-3) 266 See_Comment [Automated messa ge] The system which generated this result transmitted reference range: 166 - 358 10*3/?L. The reference range was not used to interpret this result as normal/abnormal. MPV (test code = 47184-9) 11.7 fL 9.5-12.9 NRBC/100 WBC (test code = 5132668073) 0.0 See_Comment [Automated [employer] ssage] The system which generated this result transmitted reference range: 0.0 - 10.0 /100 WBCs. The reference range was not used to interpret this result as normal/abnormal. NRBC x10^3 (test code = 0848218734) See_Comment [Automated messa ge] The system which generated this result transmitted reference range: 10*3/?L. The reference range was not used to interpret this result as normal/abnormal. GRAN MAT (NEUT) % (test code = 770-8) 66.0 % IMM GRAN % (test code = 1158291078) 0.70 % LYMPH % (test code = 736-9) 23.4 % MONO % (test code = 5905-5) 6.6 % EOS % (test code = 713-8) 2.7 % BASO % (test code = 706-2) 0.6 % GRAN MAT x10^3(ANC) (test code = 5855022333) 5.93 10*3/uL 1.88-7.09 IMM GRAN x10^3 (test code = 5326266226) 0.06 10*3/uL 0.00-0.06 LYMPH x10^3 (test code = 731-0) 2.10 10*3/uL 1.32-3.29 MONO x10^3 (test code = 742-7) 0.59 10*3/uL 0.33-0.92 EOS x10^3 (test code = 711-2) 0.24 10*3/uL 0.03-0.39 BASO x10^3 (test code = 704-7) 0.05 10*3/uL 0.01-0.07 Lab Interpretation (test code = 00089-7) Abnormal [facility] WITH [id number] 01:17:55* Test Item Value Reference Range Interpretation [...] 34.3 g/dL 31.6-35.1 RDW-SD (test code = 12783-2) 45.3 fL 39.0-49.9 RDW-CV (test code = 788-0) 12.5 % 12.0-15.5 PLT (test code = 777-3) 266 See_Comment [Automated messa ge] The system which generated this result transmitted reference range: 166 - 358 10*3/?L. The reference range was not used to interpret this result as normal/abnormal. MPV (test code = 29150-0) 11.7 fL 9.5-12.9 NRBC/100 WBC (test code = 5815676978) 0.0 See_Comment [Automated [employer] ssage] The system which generated this result transmitted reference range: 0.0 - 10.0 /100 WBCs. The reference range was not used to interpret this result as normal/abnormal. NRBC x10^3 (test code = 5905712488) See_Comment [Automated messa ge] The system which generated this result transmitted reference range: 10*3/?L. The reference range was not used to interpret this result as normal/abnormal. GRAN MAT (NEUT) % (test code = 770-8) 66.0 % IMM GRAN % (test code = 8964618541) 0.70 % LYMPH % (test code = 736-9) 23.4 % MONO % (test code = 5905-5) 6.6 % EOS % (test code = 713-8) 2.7 % BASO % (test code = 706-2) 0.6 % GRAN MAT x10^3(ANC) (test code = 6737713782) 5.93 10*3/uL 1.88-7.09 IMM GRAN x10^3 (test code = 7433163224) 0.06 10*3/uL 0.00-0.06 LYMPH x10^3 (test code = 731-0) 2.10 10*3/uL 1.32-3.29 MONO x10^3 (test code = 742-7) 0.59 10*3/uL 0.33-0.92 EOS x10^3 (test code = 711-2) 0.24 10*3/uL 0.03-0.39 BASO x10^3 (test code = 704-7) 0.05 10*3/uL 0.01-0.07 Lab Interpretation (test code = 42853-7) [facility] (65988)2023-05-13 01:13:13* Test Item Value Reference Range Interpretation Comme nts NA (test code = 2055696246) 139 mmol/L 135-145 K (test code = 9039781462) 3.6 mmol/L 3.5-5.0 CL (test code = 6277183946) 105 mmol/L 98-108 CO2 TOTAL (test code = 8617894664) 28 mmol/L 23-31 AGAP (test code = 7051191396) 6 2-16 BUN (test code = 0748463175) 7 mg/dL 7-23 GLUCOSE (test code = 4129686591) 292 mg/dL 70-110 H CREATININE (test code = 1118994992) 0.68 mg/dL 0.50-1.04 TOTAL BILI (test code = 9567679266) 0.7 mg/dL 0.1-1.1 CALCIUM (test code = 9473398404) 8.7 mg/dL 8.6-10.6 T PROTEIN (test code = 4217985520) 6.5 g/dL 6.3-8.2 ALBUMIN (test code = 4504143741) 3.6 g/dL 3.5-5.0 ALK PHOS (test code = 8573386449) 118 U/L 34-122 ALTv (test code = 1742-6) 64 U/L 5-35 H AST(SGOT) (test code = 7097790257) 66 U/L 13-40 H eGFR (test code = 9057543029) 90.9 mL/min/1.73m2 AKIL (test code = AKIL) [...] imaging tests). Lab Interpretation (test code = 00914-4) Abnormal [facility]. METABOLIC PANEL (22191)2023-05-13 01:13:13* Test Item Value Reference Range Interpretation Comme nts NA (test code = 0197327434) 139 mmol/L 135-145 K (test code = 1178024390) 3.6 mmol/L 3.5-5.0 CL (test code = 3330002419) 105 mmol/L 98-108 CO2 TOTAL (test code = 8382823891) 28 mmol/L 23-31 AGAP (test code = 0718375311) 6 2-16 BUN (test code = 5138702828) 7 mg/dL 7-23 GLUCOSE (test code = 4900465289) 292 mg/dL 70-110 H CREATININE (test code = 2703137241) 0.68 mg/dL 0.50-1.04 TOTAL BILI (test code = 0218533286) 0.7 mg/dL 0.1-1.1 CALCIUM (test code = 3479152075) 8.7 mg/dL 8.6-10.6 T PROTEIN (test code = 5342321178) 6.5 g/dL 6.3-8.2 ALBUMIN (test code = 5668983880) 3.6 g/dL 3.5-5.0 ALK PHOS (test code = 6718726366) 118 U/L 34-122 ALTv (test code = 1742-6) 64 U/L 5-35 H AST(SGOT) (test code = 5818709917) 66 U/L 13-40 H eGFR (test code = 7752192492) 90.9 mL/min/1.73m2 AKIL (test code = AKIL) [...] imaging tests). Lab Interpretation (test code = 56494-2) Abnormal [facility] Consult Notes Date/Time Note Provider Source 2023-05-17 10:14:00 6968-28-59Z05:14:00Associated Order(s): CONSULT ADULT PHYSICAL THERAPY Patient agreeable [...] Nurse notified of patients pain and position. SUPERVISOR [employer]REAR[employer] notified on patients complaints of RT LE [...] After treatment: 10-Pain Management: Nursing NotifiedCOMMUNICATIONPrimary Language: [place] Able to Verbalize needs: Yes Vision:good; no [...] encounter dated 05/17/2023.Wayne Mcclain , [place] D[place] 64184-2Hoyjvtn hcgyCG5282-98-56M73:05:09Consult noteTXT1.2.840.381702.1.13.104.2.7.2.727 879|[id number] for patient [id number] T Abe PT[address] StreetDnuqBdytgmdalUvcoqstlrKSXW3675160852JFWL LTPHHSBDANQWJRJOEE7878-75-42T38:05:091.2 .840.573270.1.72.3.15|1.2.840.860018.1.1 3.104.2.7.2.727879_[id number] Wayne Mcclain PT [facility] 2023-05-17 09:02:00 0346-97-51H66:02:00Associated Order(s): CONSULT ADULT OCCUPATIONAL THERAPY OT GENERAL EVALUATIONConsult received via [employer], EMR reviewed and evaluation completed 05/17/23. Patient [...] therapist. Please contact the Rehab Department at [phone] with questions. Total Timed Treatment Codes: 15 [...] to enable patient to complete evaluation component. 72691-7Sizujct xphvDX9770-56-52D42:19:47Consult noteTXT1.2.840.178124.1.13.104.2.7.2.727 879|[id number] for patient [id number] A Paver [address] Brown [id number] NUTWCEIDEAVURDJLPZ0394-17-61D99:19:471.2 .840.764170.1.72.3.15|1.2.840.370394.1.1 3.104.2.7.2.727879_[id number] Pa Alcocer OT [facility] 2023-05-13 14:35:50 0202-20-52V40:35:50Associated Order(s): CONSULT SURGICAL CO-MANAGEMENT (SCM) Images from the original note were not included.Surgical Co-Management Hospitalist (SCM) Consult ServiceGeneral (Non operative) Consultation NotePatient: Jeannette Hutson: [id number] Date of Consult: 05/13/2023 Referring Physician: Dr [...] provider, she is pending an appointment with [facility] to establish health care as they are the only provider who are able to take her current health insurance. The patient went to [facility] emergency room and underwent CT [...] evening. Take with meals. Yes Doctor Unassigned, [place] HYDROcodone-acetaminophen 5-325 mg tablet Take 1 tablet [...] Redd MD Current Medications:Scheduled meds:acetaminophen, 650 mg, Q8Fgldielgl, 100 mg, DAILYenoxaparin (LOVENOX) SC Syringe, 40 mg, R82Avqjwhyeffa, 20 mg, DAILYSERTraline, 25 mg, DAILYinsulin regular human, , Y5VQcrbdbesmr, 40 mg, BIDIV meds: PRN meds:dextrose 50 % in water (D50W), 25 mL, PRNdextrose 50 % in water (D50W), 25 mL, PRNdiazePAM, 2.5 mg, TIDPRNglucagon, 1 mg, PRNglucagon, 1 mg, PRNhydralAZINE, 10 mg, Y6VQPQtvfzPTMU, 4 mg, Z1EEUZpmksfpdrdgh, 4 mg, J0RKZXapzAAXEHC, 5 mg, U6MPHYbmcougmmskme glycol (MIRALAX, CLEARLAX, HEALTHYLAX) oral powder, 17 [...] L2/3 and L4/5 as detailed above RL 4746 SSMENT & PLAN:Acute on chronic back pain, [...] been missed during proofreading. Please interpret accordingly. 34809-6Hpeqsvr bgmoXI0937-03-99R84:03:36Consult noteTXT1.2.840.851023.1.13.104.2.7.2.727 879|[id number] for patient [address] MewoNzltdsukwNgnqortdrEMRA9176144992QSWI TZCGCZTXXSVMJLTKJK4696-93-86Z82:03:361.2 .840.805290.1.72.3.15|1.2.840.232080.1.1 [id number] [facility] History and Physical Notes Date/Time Note Provider Source 2023-05-13 02:00:15 [id number]:00:15F ormatting of this note is different from the original.NEUROSURGERY HISTORY AND PHYSICALAttending Neurosurgeon: Dr. Manoj YoungAdvanced [facility]: Back painHPI: Jeannette Way is a 52 year old female with history of chronic back pain who presents with one week of acute low back pain, L leg S1 radiculopathy, urinary and fecal incontinence. 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 Patient notes 10/10 pain in her [...] 5/5 5/5 5/5 5/5 D(C5) B(C6) T(C7) Offset Platemaker(C8) I (T1)L 5/5 5/5 5/5 5/5 5/5 [...] documentation by Neurosurgery resident, [place],. [address]-7Kkgdnxz and physical [id number], Rudy P1.2.840.670526.1.13.104.2.7.2.110555Omija lSgklVJC0221-60-17D29:34:54History and physical noteTXT1.2.840.701339.1.13.104.2.7.2.10373 9|[id number] for patient [address] Lr[id number] PXSYAEIBRRTUMCHF5508-79-26U76:34:541.2.840 .049128.1.72.3.15|1.2.840.592228.1.13.104. 2.7.2.727879_[id number] [facility] Procedure Notes Date/Time Note Provider Source 2023-05-16 11:40:00 7376-21-93L71:40:00F ormatting of this note might be different [...] transferred to Recovery in stable condition. CPT Code:80295,54475 Milind Starr 65346-0Eiefejtap djohUL0122-19-07Q40:41:15Proc edure noteTXT1.2.840.463975.1.13.10 4.2.7.2.568875|[id number] ailable for patient [facility] [address]7675URQCDGMMALDLMYYZMQKIAD 0499-10-69C98:41:151.2.840.11 4350.1.72.3.15|1.2.840.897186 .1.13.104.2.7.2.727879_185314 9952 -NEUROLOGICAL SURGERY [facility] Notes Date/Time Note Provider Source 2023-06-12 09:34:16 8806-70-19C48:34:16 Encounter completed by crop production advisor provider 96233-7Tklmbrrgg encounter ZttrGM5776-30-66A52:35:36Telephone encounter NoteTXT1.2.840.616532.1.13.104.2.7. 2.797894|[id number] for patient evdx34870-5SznzBB144470931Ffwmgws Hansen RN[id number] 0FAREHWCWCTIPFLAKMQZECX9236-66-13Q9 9:35:361.2.840.452409.1.72.3.15|1.2 .840.917212.1.13.104.2.7.2.727879_1 [id number] Paty Mooney RN [facility] 2023-06-11 11:03:59 0869-14-36M89:03:[address] is a 52 year old female Pt called stating that she was having knots and cramping around bottom with pain going to leg and ankle x Monday. Paged Dr. Mario: 11:00 amCalled back at 11:01 amConnected: 11:02 am 16682-1Pjmifdbtl encounter ThrdBN8537-13-47G03:06:28Telephone encounter NoteTXT1.2.840.320808.1.13.104.2.7. 2.576400|[id number] for patient gkum06970-7IofzZL54336368Kypqngqm I [id number] 8SZNHPALBEICHNXJYPNGWLF8045-37-38J2 1:06:281.2.840.025316.1.72.3.15|1.2 .840.376300.1.13.104.2.7.2.727879_1 [id number] Jenaro Ennis [facility] 2023-06-09 14:32:19 0013-36-82K55:32:19 Attempted to contact pt and no answer. LVM 00432-5Ioqrzyrnl encounter GanlXB4046-28-27K16:32:58Telephone encounter NoteTXT1.2.840.580775.1.13.104.2.7. 2.539619|[id number] for patient wksx85371-2QiavAA265334313Xzwkhndy Bloys RN[address]tonTXTX[address] 8CJXGYRQZEEGREHIQXHMJUC4300-97-55G4 4:32:581.2.840.448130.1.72.3.15|1.2 .840.483191.1.13.104.2.7.2.727879_1 [id number] Kassie Gama RN [facility] 2023-06-09 11:22:24 0692-01-74V32:22:[address] is a 52 year old [...] normal or not and have some advise. 51246-4Cvfiqgqfb encounter BmnnBQ1454-88-96O69:31:38Telephone encounter NoteTXT1.2.840.063408.1.13.104.2.7. 2.404831|[id number] for patient ovbo12078-9IjzlCS056355913Yzbcxav Tsuruta Moreno [address] 2OPONIAEPBSAHXKVCZOTJRR6786-57-12J1 1:31:381.2.840.726399.1.72.3.15|1.2 .840.088108.1.13.104.2.7.2.727879_1 [id number] Lizz Solis V [facility] 2023-05-26 08:59:48 4381-43-69K46:59:48 Patient concerned with little areas of redness around incision site with itching, denies warmth to touch, drainage, or fevers. I reassured patient that it sounds like normal wound healing and no infection at this time. States PCP at [facility] saw incision on 05/24 and told patient that it looked fine and was healing well. I advised patient that she could send me a picture on mychart as well. Patient with no other concerns. Patient verbalized understanding and appreciation. 90624-9Mvcsfuzyd encounter TcbwPZ1440-23-08G36:06:25Telephone encounter NoteTXT1.2.840.583642.1.13.104.2.7. 2.250157|[id number] for patient neao879992448Luchevd Hansen RN[id number] 3VYTTXKJSUYKIGRZRGVFTDH2663-09-42T8 9:06:251.2.840.905338.1.72.3.15|1.2 .840.915320.1.13.104.2.7.2.727879_1 [id number] Paty Mooney RN [facility] 2023-05-26 08:53:04 9824-28-57I63:53:04 Called patient, no answer, left voicemail 50358-6Rsueqaerl encounter UqfjFT6392-94-80N32:53:23Telephone encounter NoteTXT1.2.840.549195.1.13.104.2.7. 2.879471|[id number] for patient [id number] 9JXJPBZLSXMBXXINSHTYHMS6239-93-89V3 8:53:231.2.840.785340.1.72.3.15|1.2 .840.158306.1.13.104.2.7.2.727879_1 [id number] [facility] 2023-05-26 08:32:23 2453-71-16K60:32:[address] is a 52 year old female patient states that her incision is itchy and it's a little red around it. When she [facility] to [facility] to FU with her PCP, she was told that her incision looked normal and did a UA. She states that it didn't look right and the nurses were unable to explain to her if that was normal. She also mentions that she is diabetic and her discharge paperwork doesn't state that.Pls give her a call, thanks. 69353-8Zwktfqzxg encounter CsouXG0090-24-92R85:36:03Telephone encounter NoteTXT1.2.840.702522.1.13.104.2.7. 2.666935|[id number] for patient [id number] M. Garcia[address] SndjXezsinexeRatcawiyjENBE188075301 7ZMYJFYBLQTAJUJJSEPRQBG2282-77-04C9 8:36:031.2.840.360240.1.72.3.15|1.2 .840.408396.1.13.104.2.7.2.727879_1 [id number] Heydi Galvin [facility] 2023-05-19 09:59:59 1418-99-61A99:59:59 TRANSITIONAL CARE MANAGEMENT ASSESSMENT05/19/[address] is a 52 year old /White female was admitted on 05/12/[address] She was discharged on 05/18/23 with discharge disposition of HR- Routine Discharge.Admitting Physician: Manoj Jhaveri PDischarge Diagnosis: Low back pain with sciatica, sciatica laterality unspecified, unspecified back pain laterality, unspecified chronicity [M54.40]Pt. Verbalized understanding discharge instructions. Linked Episodes Type: Episode: Status: Noted: Resolved: Last update: Updated by: TRANSITION OF CARE tcm Active 05/19/2023 05/19/2023 9:59 AM Soco Moore LVN Comments: TCM Rzz-jkgi-ul-face outreach documentation:Discharge AssessmentChart Assessed: 05/19/23TCM Outreach Completed: [...] or concerns at this time?: NoFuture Appointments: 77722-3Puhnyrocx encounter HbqfHD2307-47-11L73:00:36Telephone encounter NoteTXT1.2.840.852857.1.13.104.2.7. 2.662268|[id number] for patient [id number] Rivas [address] ThlhYlfqbwogdAwrfekwvwTVQV137312254 5BJZUUWEQYWTQIABVPKCHZY0954-31-00X8 0:00:361.2.840.896817.1.72.3.15|1.2 .840.967356.1.13.104.2.7.2.727879_1 [id number] Soco Moore EMPLOYEE RELATIONS ADMINISTRATOR [facility] 2023-05-18 12:34:29 3288-45-86O36:34:29 Problem: Discharge PlanningGoal: Adequate for dischargeOutcome: Adequate for dischargeGoal: Effective communicationOutcome: Adequate for discharge Problem: Falls, Risk ofGoal: Absence of fallsOutcome: Adequate for discharge Problem: PainGoal: Control of pain at or below patient's documented comfort goalOutcome: Adequate for dischargeGoal: Reduction in pain sensationOutcome: Adequate for discharge Problem: Procedure RoutineGoal: Absence of post-procedure complicationsOutcome: Adequate for dischargeGoal: Knowledge of procedureOutcome: Adequate for discharge 48493-1Ewet of care pvfhQC4877-45-13X65:34:31Plan of care noteTXT1.2.840.792826.1.13.104.2.7. 2.662698|[id number] for patient bqdu579938728Qpotaa Kosydar RN[address] YehmGkcwfezupAmaftgfypKMSP917342030 7UIZGZGSNJKHKBZHWJOZBRE1642-82-76Z1 2:34:311.2.840.908501.1.72.3.15|1.2 .840.476268.1.13.104.2.7.2.727879_1 [id number] Susi Garland RN [facility] 2023-05-17 21:43:19 5006-77-73X15:43:19 Problem: Discharge PlanningGoal: Adequate for dischargeOutcome: Progressing as expectedGoal: Effective communicationOutcome: Progressing as expected Problem: Falls, Risk ofGoal: Absence of fallsOutcome: Progressing as expected Problem: PainGoal: Control of pain at or below patient's documented comfort goalOutcome: Progressing as expectedGoal: Reduction in pain sensationOutcome: Progressing as expected Problem: Procedure RoutineGoal: Absence of post-procedure complicationsOutcome: Progressing as expectedGoal: Knowledge of procedureOutcome: Progressing as expected 17674-5Cphu of care eomsPR9803-91-18G43:43:23Plan of care noteTXT1.2.840.912395.1.13.104.2.7. 2.324438|[id number] for patient xsfz021112537PumtegRadha Estevez RN[id number] 7XDPOPDHYYSADLWMXNMYQBD6354-26-00L9 1:43:231.2.840.247721.1.72.3.15|1.2 .840.673162.1.13.104.2.7.2.727879_1 [id number] Radha Estevez RN [facility] 2023-05-17 10:43:41 2843-47-99X82:43:41 Problem: Discharge PlanningGoal: Adequate for dischargeOutcome: Progressing as expectedGoal: Effective communicationOutcome: Progressing as expected Problem: Falls, Risk ofGoal: Absence of fallsOutcome: Progressing as expected Problem: PainGoal: Control of pain at or below patient's documented comfort goalOutcome: Progressing as expectedGoal: Reduction in pain sensationOutcome: Progressing as expected Problem: Procedure RoutineGoal: Absence of post-procedure complicationsOutcome: Progressing as expectedGoal: Knowledge of procedureOutcome: Progressing as expected 60749-3Vycx of care qujvKJ1019-15-89I01:43:46Plan of care noteTXT1.2.840.669087.1.13.104.2.7. 2.653161|[id number] for patient wqkdJD-LMIFJTWNYSAD-GZZKJSECJEMFVPP[id number] 8UPOELHJBHQIISEQOSTHLZV7511-59-68O1 0:43:461.2.840.995908.1.72.3.15|1.2 .840.148673.1.13.104.2.7.2.727879_1 [id number] PN-PSYCHIATRY [facility] 2023-05-17 04:24:02 4669-35-28X31:24:02 Problem: Discharge PlanningGoal: Adequate for dischargeOutcome: Progressing as expectedGoal: Effective communicationOutcome: Progressing as expected Problem: Falls, Risk ofGoal: Absence of fallsOutcome: Progressing as expected Problem: PainGoal: Control of pain at or below patient's documented comfort goalOutcome: Progressing as expectedGoal: Reduction in pain sensationOutcome: Progressing as expected Problem: Procedure RoutineGoal: Absence of post-procedure complicationsOutcome: Progressing as expectedGoal: Knowledge of procedureOutcome: Progressing as expected 80507-3Haxn of care pphiJJ0608-26-88D34:24:05Plan of care noteTXT1.2.840.774881.1.13.104.2.7. 2.054212|[id number] for patient [address] 5AWXQRWBTLTNAMJOMKITSDS9883-71-31R3 4:24:051.2.840.299501.1.72.3.15|1.2 .840.635029.1.13.104.2.7.2.727879_1 [id number] [facility] 2023-05-16 10:12:34 4838-19-39T53:12:34 Problem: Discharge PlanningGoal: Adequate for dischargeOutcome: Progressing as expectedGoal: Effective communicationOutcome: Progressing as expected Problem: Falls, Risk ofGoal: Absence of fallsOutcome: Progressing as expected Problem: PainGoal: Control of pain at or below patient's documented comfort goalOutcome: Progressing as expectedGoal: Reduction in pain sensationOutcome: Progressing as expected Problem: Procedure RoutineGoal: Absence of post-procedure complicationsOutcome: Progressing as expectedGoal: Knowledge of procedureOutcome: Progressing as expected 35063-3Luia of care xsvmKZ6162-93-58E92:14:18Plan of care noteTXT1.2.840.993166.1.13.104.2.7. 2.683563|9433664229MUGmmgadied for patient [id number] 7OQJBPGSXVUCDRFAXEOHOEU0964-13-00M4 0:14:181.2.840.350518.1.72.3.15|1.2 .840.477030.1.13.104.2.7.2.727879_1 [id number] [facility] 2023-05-16 00:39:24 3439-30-92Y92:39:24 Problem: Discharge PlanningGoal: Adequate for dischargeOutcome: Progressing as expectedGoal: Effective communicationOutcome: Progressing as expected Problem: Falls, Risk ofGoal: Absence of fallsOutcome: Progressing as expected Problem: PainGoal: Control of pain at or below patient's documented comfort goalOutcome: Progressing as expectedGoal: Reduction in pain sensationOutcome: Progressing as expected 23200-0Ahuz of care fiaaEJ1327-11-51Q24:39:28Plan of care noteTXT1.2.840.626436.1.13.104.2.7. 2.919836|7433120631NSLwhuicuvt for patient careUTMB[address]TXTX[address] 9MZCRQCEPKELADVPUXWXCZX6151-53-17X4 0:39:281.2.840.436633.1.72.3.15|1.2 .840.283246.1.13.104.2.7.2.727879_1 [id number] [facility] 2023-05-14 23:38:10 9163-54-09H00:38:10 Problem: Discharge PlanningGoal: Adequate for dischargeOutcome: Progressing as expectedGoal: Effective communicationOutcome: Progressing as expected Problem: Falls, Risk ofGoal: Absence of fallsOutcome: Progressing as expected Problem: PainGoal: Control of pain at or below patient's documented comfort goalOutcome: Progressing as expectedGoal: Reduction in pain sensationOutcome: Progressing as expected 96179-3Nlet of care rkbyFE7289-61-58R83:38:14Plan of care noteTXT1.2.840.521205.1.13.104.2.7. 2.983758|[id number] for patient ytfa797211577Ukohne R Booty RN[address]TXTX[address] 3ARJVOFFURWYPGOCOGJQSNQ0103-58-20W8 3:38:141.2.840.637131.1.72.3.15|1.2 .840.718745.1.13.104.2.7.2.727879_1 [id number] Kelly Atkinson RN [facility] 2023-05-14 17:53:19 6156-13-53R58:53:19 Problem: Discharge PlanningGoal: Adequate for dischargeOutcome: Progressing as expectedGoal: Effective communicationOutcome: Progressing as expected Problem: Falls, Risk ofGoal: Absence of fallsOutcome: Progressing as expected Problem: PainGoal: Control of pain at or below patient's documented comfort goalOutcome: Progressing as expectedGoal: Reduction in pain sensationOutcome: Progressing as expected 07115-3Sfwv of care avgwUL6122-73-46P63:53:23Plan of care noteTXT1.2.840.543013.1.13.104.2.7. 2.770340|5528424575UQLcsgteimh for patient oqap522160305Bpqskrr R Pharis [address] 0BGHDXFQAHGOLGKMHGMBWIX6819-53-03S9 7:53:231.2.840.175840.1.72.3.15|1.2 .840.174849.1.13.104.2.7.2.727879_1 [id number] Janay Samuel [facility] 2023-05-13 20:50:33 0386-21-92U00:50:33 Problem: Discharge PlanningGoal: Adequate for dischargeOutcome: Progressing as expectedGoal: Effective communicationOutcome: Progressing as expected Problem: Falls, Risk ofGoal: Absence of fallsOutcome: Progressing as expected Problem: PainGoal: Control of pain at or below patient's documented comfort goalOutcome: Progressing as expectedGoal: Reduction in pain sensationOutcome: Progressing as expected 35493-6Lnto of care gxmdDJ9361-84-81K50:50:37Plan of care noteTXT1.2.840.316426.1.13.104.2.7. 2.707573|[id number] for patient [id number] 0VNSADGPBCNYLWTGCKYFMNS2741-93-69G8 0:50:371.2.840.627590.1.72.3.15|1.2 .840.505290.1.13.104.2.7.2.727879_1 [id number] [facility] 2023-05-13 18:33:51 7166-96-08X94:33:51 Problem: Discharge PlanningGoal: Adequate for dischargeOutcome: Progressing as expectedGoal: Effective communicationOutcome: Progressing as expected Problem: Falls, Risk ofGoal: Absence of fallsOutcome: Progressing as expected Problem: PainGoal: Control of pain at or below patient's documented comfort goalOutcome: Progressing as expectedGoal: Reduction in pain sensationOutcome: Progressing as expected 58718-7Rqdv care wgyvKA3782-01-08H53:33:54Plan of care noteTXT1.2.840.256056.1.13.104.2.7. 2.887166|4792704977TEPlluwuavx for patient [address] ErqxHfufhdsxcYcinajlnzYUTC691184802 2JFXMKLJVMAVTXDFWXHZSTD1183-46-89C6 8:33:541.2.840.653664.1.72.3.15|1.2 .840.125790.1.13.104.2.7.2.727879_1 [id number] [facility] 2023-05-13 03:48:33 8620-39-00N97:48:33 Problem: Discharge PlanningGoal: Adequate for dischargeOutcome: Progressing as expectedGoal: Effective communicationOutcome: Progressing as expected Problem: Falls, Risk ofGoal: Absence of fallsOutcome: Progressing as expected Problem: PainGoal: Control of pain at or below patient's documented comfort goalOutcome: Progressing as expectedGoal: Reduction in pain sensationOutcome: Progressing as expected 01452-6Selo of care ailuLD7088-20-12X83:48:36Plan of care noteTXT1.2.840.217142.1.13.104.2.7. 2.225320|9742224028GWHfssqppcq for patient ufft332905751Ymyk L Javier RN[address]TXTX[address] 2WIMCUBKSLGZQOIKUBOIGEB8955-33-20J1 3:48:361.2.840.980487.1.72.3.15|1.2 .840.230151.1.13.104.2.7.2.727879_1 [id number] Raegan Stanford Javier TAMEZ [facility] 2023-05-12 22:02:05 0592-87-57D26:02:05 Patient en route to [facility] to further evaluation and treatment by Neurology service. Lower back pain 03/08 after po [place] 79485-8Aryoocybi department FtozNU9873-38-48F17:03:48[facility] NoteTXT1.2.840.307798.1.13.104.2.7. 2.553638|[id number] for patient bbtm948991136Remrlmm M Owens RN[address]TXTX[address] 0ZTRKRRANVKWEZVYZIEPEVI1234-26-80R6 2:03:481.2.840.733126.1.72.3.15|1.2 .840.254024.1.13.104.2.7.2.727879_1 [id number] Micky Tracy RN [facility] 2023-05-12 20:59:01 0824-67-82N87:59:01 Patient assisted OOB to chair at bedside. Patient has increased pain to left leg with straightening and standing-unable to weight bear on it Patient was unable to tolerate sitting up in chair past 5 minutes-pain was not tolerable and she had to get back on stretcher. Laying on right side, has left leg bent at knee [address]19-8Lkrvgsgta[address] ShffTK8306-68-58J74:02:46[facility] NoteTXT1.2.840.947967.1.13.104.2.7. 2.531199|[id number] for patient [address] 3JVNNHUFWZTMRZTFVFGYRAI6149-08-67U6 1:02:461.2.840.179962.1.72.3.15|1.2 .840.134570.1.13.104.2.7.2.727879_1 [id number] [facility] 2023-05-12 19:52:07 6107-28-87R81:52:07 Patient states low back pain x 1 week. C/o numbness and tingling down left leg. Also states cramping pain to left buttock. Left leg is pink and warm with 2+ palpable [place] [address]-1Izlfqgqwo[address] WxtdAK2639-24-20H23:54:19[facility] NoteTXT1.2.840.122639.1.13.104.2.7. 2.170259|[id number] for patient [address] 6DGOZMWRDTXDXAFKPMSYYWX8280-28-37O2 9:54:191.2.840.237054.1.72.3.15|1.2 .840.078036.1.13.104.2.7.2.727879_1 [id number] [facility] 2023-05-12 19:02:39 0940-05-88M11:02:39 Nurse Report Report given to JOI Galindo. Chief complaint, assessment findings, [place] [address]-6Cvdkpjsox department AffoLQ8350-47-92Z14:03:01[facility] department NoteTXT1.2.840.504830.1.13.104.2.7. 2.841680|[id number] for patient care[address] WhfpHejjjibsrApaxtywtmRCNR019819436 8MGDVQBPMWBJYEHWGPCJSCL5338-23-35I3 9:03:011.2.840.699596.1.72.3.15|1.2 .840.106980.1.13.104.2.7.2.727879_1 [id number] [facility] 2023-05-12 18:23:05 6570-59-85Y40:23:05 CC: patient presents to the ER with [...] amb without assistance. Appears in no distress. 97225-9Dschyfuay department Triage mkgfWK2320-76-18W18:02:29[facility] Triage noteTXT1.2.840.731642.1.13.104.2.7. 2.072269|[id number] for patient ghvk153756941Kubwdikf M Rivera RNUT[address] Mr[id number] 6OJNLAHCRBUIOFZIASEXISZ9157-45-46U6 9:02:291.2.840.781358.1.72.3.15|1.2 .840.255084.1.13.104.2.7.2.727879_1 [id number] Marcelle Dickens RN [facility] 2023-05-12 18:15:00 1145-53-12Y08:15:00 [facility] Emergency Department NotePatient Name: Jeannette Shah of : 1970 52 year old femaleTreatment Room: AK4/LY5Ozidpmj Record Number: [id number] Care Physician: PATIENT DOES NOT HAVE A PCPPatient Escorted by: Self [9]Mode of Arrival: Personal means [1]EMS Treatment Prior to ED 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 METABOLIC PANEL (86667) - Abnormal NA 139 135 - 145 [...] CULTURE CBC WITH DIFF COMP. METABOLIC PANEL (96462) Orders Placed This Encounter Medications ketorolac (TORADOL) [...] [FI] ED Course User Index[FI] Yasmani King, SR VICE PRESIDENT Diagnosis/Impression as of 05/12/232123 Low back pain [...] syndrome,Neurosurgery consulted and they recommend transfer to [place] for further work up.The vital signs have [...] on file Follow-up:Electronically signed by: Yasmani King, [facility]05/12/232115 ssociated attestation - Kentrell Orona MD - 05/13/2023 7:18 AM CDT " I was personally available for consultation in the Emergency Department during this Patient evaluation/encounter by JUAN R Christine " 43890-8[facility] Emergency department NqykCU5763849Bvuuv, Brent J1.2.840.675444.1.13.104.2.7.2.8369 40MljkvWjablEWC5417-18-99R14:18:20P [facility] Emergency department NoteTXT1.2.840.489618.1.13.104.2.7. 2.777833|[id number] for patient care[address] ZwumEmerstxhfHalyxjbmrYISY470018890 6LGPCPZTDEXHGSSNXXQPSGT3116-73-38L6 7:18:201.2.840.538876.1.72.3.15|1.2 .840.324465.1.13.104.2.7.2.727879_1 [id number] [facility]
--- NOTE | 2024-04-03 13:07 | ER ---
Nurse's Notes [facility] Name: Jeannette Way Age: 53 yrs Sex: Female : 1970 Arrival Date: 04/03/2024 Time: 09:44 Bed IW10 Private MD: Vivek Roland Diagnosis: Dizziness Presentation: 04/03 10:07 Chief complaint: Patient states: Pt reports "I took 2 Xanax" states "I thought the jl7 first one was fake". When asked where she got the Xanax pt then reported she did not take anything other than what she was given at previous visit this morning. Pt was discharged and did not leave the hospital lobby. Coronavirus screen: At this time, the client does not indicate any symptoms associated with coronavirus-19. Ebola Screen: No symptoms or risks identified at this time. Initial Sepsis Screen: Does the patient meet any 2 criteria? No. Patient's initial sepsis screen is negative. Does the patient have a suspected source of infection? No. Patient's initial sepsis screen is negative. Risk Assessment: Do you want to hurt yourself or someone else? Patient reports no desire to harm self or others. Onset of symptoms is unknown. Care prior to arrival: None. 10:07 Method Of Arrival: Ambulatory jl7 10:07 Acuity: EDITA 4 jl7 Triage Assessment: 10:22 General: Appears in no apparent distress. uncomfortable, Behavior is calm, cooperative, jl7 drowsy. Pain: Denies pain. Neuro: Level of Consciousness is awake, obeys commands, drowsy. Oriented to person, place, time. Cardiovascular: No deficits noted. Patient's skin is warm and dry. Respiratory: Airway is patent Respiratory effort is even, unlabored, Respiratory pattern is regular, symmetrical. Derm: Skin is pink, warm \\T\\ dry. 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 - Infectious Disease History:: Denies. - Social history:: Smoking status: unknown. Screenin:23 Abuse screen: Denies threats or abuse. Denies injuries from another. Nutritional jl7 screening: No deficits noted. Tuberculosis screening: No symptoms or risk factors identified. Assessment: 10:23 General: ERD notified of pt's statement of not taking anything extra. Pt laying in DX3 jl7 chair with warm blanket, denies discomfort at this time.. 12:40 Reassessment: pt redirected back to room. iw 13:18 Reassessment: Pt's sister called and will be sending transportation to get pt home. Pt jl7 notified and will sit in lobby awaiting transportation. Vital Signs: 10:07 BP 101 / 74; Pulse 60; Resp 15; Temp 97.9; Pulse Ox 100% ; jl7 ED Course: 09:48 Patient arrived in ED. mr 09:48 Vivek Roland DO is Private Physician. mr 09:49 Asim Swift DO is Attending Physician. ms3 10:22 Triage completed. jl7 10:22 Arm band placed on right wrist. jl7 10:23 Patient has correct armband on for positive identification. in view of nursing staff jl7 and medical staff. Warm blanket given. 13:07 Vivek Roland DO is Referral Physician. ms3 13:07 Neri Collins MD is Referral Physician. ms3 13:18 No provider procedures requiring assistance completed. Patient did not have IV access jl7 during this emergency room visit. Administered Medications: No medications were administered Medication: 10:23 VIS not applicable for this client. jl7 Outcome: 13:07 Discharge ordered by . ms3 13:18 Discharged to home ambulatory, jl7 13:18 Condition: stable 13:18 Discharge instructions given to patient, Instructed on discharge instructions, follow up and referral plans. Demonstrated understanding of instructions, follow-up care, 13:20 Patient left the ED. jl7 Signatures: Gina Dickens, [place] Reg mr Venus Olsen RN RN iw Ramana Pacheco RN RN jl7 Asim Swift DO DO ms3
--- NOTE | 2024-04-03 13:08 | EDPHYS ---
Physician Documentation [facility] Name: Jeannette Way Age: 53 yrs Sex: Female : 1970 Arrival Date: 04/03/2024 Time: 09:44 Bed IW10 Private MD: Vivek Roland ED Physician Asim Swift HPI: 04/03 10:43 This 53 yrs old Female presents to ER via Ambulatory with complaints of Anxiety. ms3 10:43 53-year-old female with past medical history of diabetes, hypertension [place] [facility] [place] the second time for dizziness. Patient states after discharge she became anxious and took 2 Xanax. Patient states she would like a safe place to wait until someone can come pick her up.. 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 - Infectious Disease History:: Denies. - Social history:: Smoking status: unknown. ROS: 10:43 Constitutional: Negative for fever, and chills. Neck: Negative for injury, pain, and ms3 swelling, Cardiovascular: Negative for chest pain, and palpitations. Respiratory: Negative for shortness of breath, cough, wheezing, and pleuritic chest pain, Abdomen/GI: Negative for abdominal pain, nausea, vomiting, diarrhea, and constipation, MS/Extremity: Negative for injury and deformity, Skin: Negative for injury, rash, and discoloration, 10:43 Neuro: Positive for dizziness, Exam: 10:43 Constitutional: This is a well developed, well nourished patient who is awake, alert, ms3 and in no acute distress. Head/Face: Normocephalic, atraumatic. Neck: Trachea midline, no cervical lymphadenopathy. Supple, full range of motion without nuchal rigidity, or vertebral point tenderness. No Meningismus. Chest/axilla: Normal chest wall appearance and motion. Nontender with no deformity. Cardiovascular: Regular rate and rhythm with a normal S1 and S2. No gallops, murmurs, or rubs. Normal PMI, no JVD. No pulse deficits. Respiratory: Lungs have equal breath sounds bilaterally, clear to auscultation and percussion. No rales, rhonchi or wheezes noted. No increased work of breathing, no retractions or nasal flaring. Abdomen/GI: Soft, non-tender, with normal bowel sounds. No distension or tympany. No guarding or rebound. No evidence of tenderness throughout. MS/ Extremity: Pulses equal, no cyanosis. Neurovascular intact. Full, normal range of motion. Neuro: Awake and alert, GCS 15, oriented to person, place, time, and situation. Cranial nerves II-XII grossly intact. Motor strength 5/5 in all extremities. Sensory grossly intact. Cerebellar exam normal. Normal gait. 10:43 Psych: Behavior/mood is pleasant, cooperative, Affect is calm, Oriented to person, ms3 place, time, Patient has no thoughts/intents to harm self or others. Judgement / Insight is normal. Delusions/hallucinations are not present. Vital Signs: 10:07 BP 101 / 74; Pulse 60; Resp 15; Temp 97.9; Pulse Ox 100% ; jl7 MDM: 10:02 Patient medically screened. ms3 10:43 Differential diagnosis: generalized weakness, idiopathic dizziness, Adverse medication ms3 reaction. 13:11 Data reviewed: vital signs, nurses notes, and as a result, I will discharge patient. ms3 Care significantly affected by the following chronic conditions: Diabetes, Hypertension. Counseling: I had a detailed discussion with the patient and/or guardian regarding the historical points, exam findings, and any diagnostic results supporting the discharge/admit diagnosis, the need for outpatient follow up, to return to the emergency department if symptoms worsen or persist or if there are any questions or concerns that arise at home. ED course: Patient states she is feeling much better at this time and would like to leave. Patient to follow-up with Dr. Ramírez in 2 to 3 days, Dr. Peters in 2 to 3 days. All questions were answered. Return precautions discussed to include worsening symptoms, or any other concerns. On reevaluation patient is alert and oriented x 4, no apparent distress, nontoxic-appearing, ambulatory in the emergency department with steady gait.. Administered Medications: No medications were administered Disposition Summary: 04/03/24 13:07 Discharge Ordered Notes: Location: Home ms3 Condition: Stable ms3 Diagnosis - Dizziness ms3 Followup: ms3 - With: Vivek Roland DO - When: 2 - 3 days - Reason: Recheck today's complaints Followup: ms3 - With: Neri Collins MD - When: 2 - 3 days - Reason: Recheck today's complaints Discharge Instructions: - Discharge Summary Sheet ms3 - Dizziness, [id number] ms3 Forms: - Medication Reconciliation Form ms3 - Antibiotic Education ms3 - Prescription Opioid Use ms3 - Patient Portal Instructions ms3 - Leadership Thank You Letter ms3 Signatures: Ramana Pacheco RN RN jl7 Asim Swift DO DO ms3
== END 2024-04-03 13:20 | disposition home or self-care (01) ==
LOC: ER 09:44
DX: R42 Dizziness and giddiness (principal)
CPT/HCPCS: 99282; J1200; J1630; J3360; Q0162